=== PATIENT | female | born 1945 | race African-American/Black ===

== ENCOUNTER 2016-10-26 23:29 | Emergency (ER) | payer BC, OTHER ==
[2016-10-27 00:50] VITALS: BP 156/77; PULSE 79; TEMP 97.8; BMI 37.3
--- NOTE | 2016-10-27 02:24 | PDOC ---
History of Present Illness - General Chief Complaint: Pain Stated Complaint: RIGHT LEG PAIN Time Seen by Provider: 10/27/16 02:23 - History of Present Illness Initial Comments: 10/27/16 06:17 71 year old female with PMH of afib (on Coumadin) and ESRD (M,W,F) presenting for recent onset of bilateral lower extremity swelling with right lower extremity erythema and pain. She states that she has not had history of swelling in the past. She denies recent change in medications, cough, chest pain , nausea, vomiting, diarrhea, or constipation. She does not make urine at baseline. She recently sprained her left ankle. She has no history of PE or DVT in the past. Past History - Past Medical History Allergies/Adverse Reactions: Allergies Allergy/AdvReac Type Severity Reaction Status Date / Time Penicillins Allergy Verified 10/27/16 00:46 Home Medications: Ambulatory Orders Bacitracin - [Bacitracin Topical Ointment -] 1 applic TP QID #1 tube 11/07/14 Clindamycin [Cleocin -] 300 mg PO Q6HPO #28 capsule 11/07/14 Sulfamethoxazole/Trimethoprim [Bactrim Ds Tablet] 1 each PO BID #14 tablet 10/27 Dialysis: Yes (Mon-Wed-Fri) Other medical history: Kidney failure - Psycho/Social/Smoking Cessation Hx Anxiety: No Suicidal Ideation: No Smoking History: Never smoked Number of Cigarettes Smoked Daily: 0 Information on smoking cessation initiated: No Hx Alcohol Use: No Drug/Substance Use Hx: No Substance Use Type: None Review of Systems - Review of Systems Constitutional: No: Chills, Diaphoresis, Fever, Loss of Appetite HEENTM: No: Blurred Vision, Double Vision Respiratory: No: Cough, Orthopnea, Shortness of Breath, Wheezing Cardiac (ROS): Yes: Edema. No: Chest Pain, Irregular Heart Rate ABD/GI: No: Abdominal Distended, Constipated, Diarrhea Musculoskeletal: No: Back Pain, Gout Integumentary: Yes: Change in Color, Erythema, Lesions. No: Dryness Neurological: No: Headache, Tingling *Physical Exam - Vital Signs Last Vital Signs Temp Pulse Resp BP Pulse Ox 97.8 F 79 20 156/77 96 10/27/16 00:46 10/27/16 00:46 10/27/16 00:46 10/27/16 00:46 10/27/16 00:46 - Physical Exam General Appearance: Yes: Nourished, Appropriately Dressed. No: Apparent Distress HEENT: positive: EOMI, BRIANA, Normal ENT Inspection, Normal Voice Respiratory/Chest: positive: Lungs Clear, Normal Breath Sounds. negative: Chest Tender, Respiratory Distress, Accessory Muscle Use Cardiovascular: positive: Regular Rhythm, Regular Rate, S1, S2. negative: Edema , JVD Gastrointestinal/Abdominal: positive: Normal Bowel Sounds, Flat, Soft. negative : Tender, Organomegaly Musculoskeletal: positive: Other (Trace bilateral edema of the bilaterallower extremity with right greater than left. Right LE exhibiting some erythema and warmth. TTP over dorsum of right foot. No calf tenderness.) Extremity: positive: Normal Capillary Refill Integumentary: positive: Erythema. negative: Diaphoresis Neurologic: positive: Fully Oriented, Alert, Normal Mood/Affect ED Treatment Course - LABORATORY CBC & Chemistry Diagram: 10/27/16 03:45 10/27/16 03:45 Medical Decision Making - Medical Decision Making 71 year old female with pmh of ESRD presenting with bilateral LE swelling. this is most likely volume overlaod 2/2 ESRD. The RLE is warm and appears cellulitic. Labs returned without elevated WBC but BNP of 9K consistent with volume overload. However, lungs clear and patient not SOB. Will send home patient to obtain dialysis which will hopefully remove overall body fluid and give 7 days of bactrim DS BID to treat the cellulitis. 10/27/16 06:34 *DC/Admit/Observation/Transfer Diagnosis at time of Disposition: Cellulitis - Discharge Dispostion Disposition: HOME Condition at time of disposition: Improved Admit: No - Prescriptions Prescriptions: Sulfamethoxazole/Trimethoprim [Bactrim Ds Tablet] 1 each PO BID #14 tablet - Referrals Referrals: Malinda Guadalupe MD [Primary Care Provider] - - Patient Instructions Printed Discharge Instructions: DI for Cellulitis -- Adult Additional Instructions: You were seen for swelling of your feet. We believe that your feet are both slightly swollen because of your overall fluid level since since your kidneys don't make urine. We believe that you also have an infection of your right foot. We took an X Ray of your right foot and it did not show any fractures. Your foot swelling should go down after your dialysis session today and the right foot should feel better once you start taking your antibiotics. Please return if you have fevers, chills, nausea, or vomiting. - Attestations Physician Attestion: 10/27/16 04:44 I, Dr. Piotr Ruiz, attest that this document has been prepared under my direction and personally reviewed by me in its entirety. I further attest, that it accurately reflects all work, treatment, procedures and medical decision -making performed by me. 10/27/16 04:53
[2016-10-27] MEDS ORDERED: ACETAMINOPHEN 325 MG TABLET (FP) PO ONE (03:51)
[2016-10-27 04:01] LABS: EOSINOPHIL 5.6 % (0-4.5); MCHC 33.1 g/dl (32.0-36.0); MEAN CELL VOLUME 93.9 fl (80-96); MEAN PLT VOLUME 7.3 fl (7.5-11.1); NEUTROPHILS 63.9 % (42.8-82.8); PLATELET COUNT 462 K/MM3 (134-434); RDW 13.7 % (11.6-15.6); WHITE BLOOD COUNT 10.9 K/mm3 (4.0-10.0)
[2016-10-27 04:26] LABS: ALBUMIN 3.4 g/dl (3.4-5.0); ANION GAP 11 (8-16); BILIRUBIN,TOTAL 0.5 mg/dL (0.2-1.0); CO2 34 mmol/L (21-32); GLUCOSE,RANDOM 105 mg/dL (74-106); SGOT/AST 19 U/L (15-37); SGPT/ALT 25 U/L (12-78); TOT PROT 8.5 g/dl (6.4-8.2)
[2016-10-27 04:31] LABS: ALK PHOS 408 U/L (45-117)
[2016-10-27 04:35] LABS: CREATININE 11.5 mg/dL (0.55-1.02)
--- NOTE | 2016-10-27 04:37 | PDOC ---
Attending Attestation - Resident Resident Name: SaraNamsumayaomar - ED Attending Attestation I have performed the following: I have examined & evaluated the patient, The case was reviewed & discussed with the resident, I agree w/resident's findings & plan, Exceptions are as noted - HPI HPI: 10/27/16 04:32 71 year old female with past medical history of end-stage renal disease on dialysis, Thursday, Thursday, Fridays, history of atrial fibrillation on Coumadin presents to the emergency department for right foot redness and swelling. Patient reports that she may have hurt her ankle one week ago but had no swelling or pain at that time. Noted today that she was developing some erythema pain but no fevers. Denies trauma or injury to the area. - Physicial Exam PE: 10/27/16 04:36 GENERAL: Awake, alert, and fully oriented, in no acute distress. HEAD: No signs of trauma EYES: PERRLA, EOMI, sclera anicteric, conjunctiva clear ENT: Auricles normal inspection, hearing grossly normal, nares patent, oropharynx clear without exudates. NECK: Normal ROM, supple, no lymphadenopathy, JVD, or masses LUNGS: Breath sounds equal, clear to auscultation bilaterally. No wheezes, and no crackles HEART: Regular rate and rhythm, normal S1 and S2, no murmurs, rubs or gallops ABDOMEN: Soft, nontender, normoactive bowel sounds. No guarding, no rebound. No masses EXTREMITIES: Normal range of motion, no edema. No clubbing or cyanosis. No cords, erythema, or tenderness NEUROLOGICAL: Cranial nerves II through XII grossly intact. Normal speech, normal gait SKIN: Erythema TTP along the dorsum of right foot and 1+ pitting edema. No ankle tenderness appreciated. - Medical Decision Making 10/27/16 04:36 I suspect that the patient has cellulitis of the right foot. Will need to check labs. Adult sepsis protocol initiated. If there is no indication for sepsis or concerning laboratory findings, patient may be trialed for outpatient antibiotics. 10/27/16 04:38 CBC, BMP 10/27/16 03:45 10/27/16 03:45 CMP Sodium 136 mmol/L (136-145) 10/27/16 03:45 Potassium 5.2 mmol/L (3.5-5.1) H 10/27/16 03:45 Chloride 91 mmol/L (98-107) L 10/27/16 03:45 Carbon Dioxide 34 mmol/L (21-32) H 10/27/16 03:45 Anion Gap 11 (8-16) 10/27/16 03:45 BUN 48 mg/dL (7-18) H 10/27/16 03:45 Creatinine 11.5 mg/dL (0.55-1.02) H* 10/27/16 03:45 Creat Clearance w eGFR 3.25 (>60) 10/27/16 03:45 Random Glucose 105 mg/dL (74-106) 10/27/16 03:45 Lactic Acid 1.2 mmol/L (0.4-2.0) 10/27/16 03:45 Calcium 10.0 mg/dL (8.5-10.1) 10/27/16 03:45 Total Bilirubin 0.5 mg/dL (0.2-1.0) 10/27/16 03:45 AST 19 U/L (15-37) 10/27/16 03:45 ALT 25 U/L (12-78) 10/27/16 03:45 Alkaline Phosphatase 408 U/L (45-117) H 10/27/16 03:45 B-Natriuretic Peptide 9530.93 pg/ml (5-125) H 10/27/16 03:45 Total Protein 8.5 g/dl (6.4-8.2) H 10/27/16 03:45 Albumin 3.4 g/dl (3.4-5.0) 10/27/16 03:45 Labs reviewed. Pt has dialysis tomorrow. Xray reviewed by me, pending official read. No acute findings. Will d/c patient with bactrim and have her follow up with the PMD. Return precautions given. Pt is given instructions that if the symptoms worsen, she will need to return to the ER for admission for IV antibiotics.
[2016-10-27] MEDS ORDERED: ACETAMINOPHEN 325 MG TABLET (FP) ONE (05:19)
--- NOTE | 2016-10-27 12:32 | EKG ---
Test Reason : Blood Pressure : / mmHG Vent. Rate : 078 BPM Atrial Rate : 078 BPM P-R Int : 170 ms QRS Dur : 092 ms QT Int : 392 ms P-R-T Axes : 067 042 053 degrees QTc Int : 446 ms NORMAL SINUS RHYTHM NORMAL ECG WHEN COMPARED WITH ECG OF 20-NOV-2006 01:05, NO SIGNIFICANT CHANGE WAS FOUND Confirmed by MILAGRO NORIEGA MD ([id number]) on 10/27/2016 12:32:22 PM Referred By: Confirmed By:MILAGRO NORIEGA MD
== END 2016-10-27 05:33 | disposition home or self-care (01) ==
LOC: JER 23:29
DX: L03.116 Cellulitis of left lower limb (principal); L03.115 Cellulitis of right lower limb; I48.91 Unspecified atrial fibrillation; Z79.01 Long term (current) use of anticoagulants; N18.6 End stage renal disease; Z99.2 Dependence on renal dialysis
CPT/HCPCS: 36415; 73630-TC-RT; 80053; 83605; 83880; 85025; 93005; 93010; 99281-25

== ENCOUNTER 2017-06-20 15:54 | Inpatient (IN) | payer OTHER ==
[2017-06-20 16:04] VITALS: BMI 36.7
--- NOTE | 2017-06-20 16:58 | PDOC ---
History of Present Illness - General History Source: Patient, Family Exam Limitations: No Limitations - History of Present Illness Initial Comments: 06/20/17 19:08 Patient is a patient is a 71 year old female with a significant past medical history of ESRD (M, W, F), HTN who presents to the ED with complaints of blood in stool that began 5 days ago. As per patient's mother, patient returned from dialysis thursday afternoon, and since then has been experiencing black loose stool. Patient reports experiencing 5 episodes of black loose diarrhea since thursday prompting her to come into the ED for further evaluation. She reports taking immodium and pepto bismol for abdominal pain and diarrhea with no relief. Patient reports experiencing associated symptoms of sternal chest pain and head pain. She reports experiencing slightly unsteady gait but stating she uses a cane/walker at baseline but usually cannot walk correctly when she is sick. Patient reports experiencing intermittent episodes of weakness. Denies nausea, vomiting. Denies fevers, chills. Denies trauma to affected area. Denies contact with sick individuals, out of state travelling. Denies any other symptoms. Allergies: Penicillins Socal history: Lives with daughter. No smoking.No alcohol. No illicit drugs. Surgical history: L- AV Fistula, Abdominal Sx PMD: Dr. Malinda Guadalupe <Earnest Lujan - Last Filed: 06/20/17 19:08> <Ese Abarca - Last Filed: 06/21/17 00:13> <Camille Morris - Last Filed: 06/21/17 20:35> - General Chief Complaint: Rectal Bleed Stated Complaint: BLOOD IN STOOL, SOB Time Seen by Provider: 06/20/17 16:58 Past History <Earnest Lujan - Last Filed: 06/20/17 19:08> - Past Medical History Cardiac Disorders: Yes (a fib) COPD: No Dialysis: Yes ([facility]) HTN: Yes - Suicide/Smoking/Psychosocial Hx Smoking History: Former smoker Have you smoked in the past 12 months: No Number of Cigarettes Smoked Daily: 0 Information on smoking cessation initiated: No Hx Alcohol Use: No Drug/Substance Use Hx: No Substance Use Type: None <Ese Abarca - Last Filed: 06/21/17 00:13> <Camille Morris - Last Filed: 06/21/17 20:35> - Past Medical History Allergies/Adverse Reactions: Allergies Allergy/AdvReac Type Severity Reaction Status Date / Time Penicillins Allergy Verified 06/20/17 15:57 Home Medications: Ambulatory Orders Albuterol Sulfate Inhaler - [Ventolin HFA Inhaler -] 2 puff IH Q4H PRN 02/07/17 Cinacalcet HCl [Sensipar] 30 mg PO DAILY 02/07/17 Pantoprazole Sodium [Protonix] 40 mg PO DAILY 02/07/17 Sevelamer Carbonate [Renvela Powder Packet -] 0.8 gm PO TIDWM 02/07/17 Aspirin Coated [Ecotrin -] 81 mg PO DAILY #30 tab 02/14/17 Atorvastatin Ca [Lipitor] 40 mg PO HS tablet 02/14/17 Vitamin B Comp W-C [Nephro-Jessica -] 1 tablet PO DAILY tablet 02/14/17 Review of Systems - Review of Systems Able to Perform ROS?: Yes Comments:: 06/20/17 19:08 Constitutional - Pt denies Fever, Chills, weakness, HEENT: denies vision changes, sore throat Respiratory: Denies cough, sob, hemoptysis Cardiac: denies chest pain, palpitations, lightheadedness, leg swelling Abd/GI: +Abdominal pain. +Diarrhea. denies abd pain, nausea, vomiting, blood per rectum, melena, diarrhea : denies dysuria, frequency, discharge Musculoskeletal - denies back pain, joint swelling skin - denies bruising, erythema, rash neurological: +Head pain. +Weakness. denies, numbness, tingling, ataxia, weakness hematologic: denies anemia, easy bruising, easy bleeding <Earnest Lujan - Last Filed: 06/20/17 19:08> *Physical Exam - Vital Signs Last Vital Signs Temp Pulse Resp BP Pulse Ox 98.4 F 82 22 134/48 93 L 06/20/17 15:58 06/20/17 15:58 06/20/17 15:58 06/20/17 15:58 06/20/17 15:58 - Physical Exam Comments: 06/20/17 19:08 GENERAL: The patient is awake, alert, and fully oriented, Nontoxic - in no acute distress. HEAD: Normocephalic, atraumatic. EYES: extraocular movements intact, sclera anicteric, conjunctiva clear. ENT: Normal voice, moist mucous membranes. NECK: Normal range of motion, supple without lymphadenopathy, JVD, or masses. LUNGS: Breath sounds equal, clear to auscultation bilaterally. No wheezes, no crackles, no rales. HEART: Regular rate and rhythm, normal S1 and S2 without murmur, rub or gallop. ABDOMEN: +Large abdomen. Soft, nontender, normoactive bowel sounds. No guarding, no rebound. No masses. EXTREMITIES: Normal range of motion, no edema. No clubbing or cyanosis. No cords , erythema, or tenderness. NEUROLOGICAL: Fully Oriented, Alert, Normal Mood/Affect, Motor Strength 5/5. No facial asymmetry, Normal speech SKIN: Warm, Dry, normal turgor, no rashes or lesions noted. <Earnest Lujan - Last Filed: 06/20/17 19:08> - Vital Signs Last Vital Signs Temp Pulse Resp BP Pulse Ox 98.4 F 82 22 134/48 93 L 06/20/17 15:58 06/20/17 15:58 06/20/17 15:58 06/20/17 15:58 06/20/17 15:58 <Ese Abarca - Last Filed: 06/21/17 00:13> - Vital Signs Last Vital Signs Temp Pulse Resp BP Pulse Ox 98.1 F 82 18 185/95 99 06/20/17 21:54 06/20/17 21:54 06/20/17 21:54 06/20/17 21:54 06/20/17 21:54 <Camille Morris - Last Filed: 06/21/17 20:35> ED Treatment Course - LABORATORY CBC & Chemistry Diagram: 06/20/17 18:12 06/20/17 18:00 - ADDITIONAL ORDERS Additional order review: Laboratory Results 06/20/17 06/20/17 06/20/17 18:12 18:00 16:59 PT with INR 12.20 H INR 1.08 PTT (Actin FS) 37.1 H Sodium 135 L Potassium 4.1 Chloride 94 L Carbon Dioxide 29 Anion Gap 12 BUN 20 H Creatinine 6.2 H Creat Clearance w eGFR 6.64 Random Glucose 105 Calcium 7.9 L Total Bilirubin 0.5 AST 21 ALT 16 Alkaline Phosphatase 339 H Total Protein 8.2 Albumin 2.9 L Stool Occult Blood Positive 06/20/17 18:12 RBC 3.52 L MCV 88.1 MCHC 33.4 RDW 17.1 H D MPV 7.4 L Neutrophils % 80.1 D Lymphocytes % 8.7 D Monocytes % 8.5 Eosinophils % 2.6 Basophils % 0.1 <TaiEarnest - Last Filed: 06/20/17 19:08> - LABORATORY CBC & Chemistry Diagram: 06/20/17 18:12 06/20/17 18:00 <Ese Abarca - Last Filed: 06/21/17 00:13> - LABORATORY CBC & Chemistry Diagram: 06/21/17 07:05 06/21/17 07:05 - ADDITIONAL ORDERS Additional order review: Laboratory Results 06/20/17 06/20/17 06/20/17 18:12 18:12 18:12 WBC 10.1 H RBC 3.52 L Hgb 10.3 L Hct 31.0 L MCV 88.1 MCH 29.4 MCHC 33.4 RDW 17.1 H D Plt Count 455 H D MPV 7.4 L Neutrophils % 80.1 D Lymphocytes % 8.7 D Monocytes % 8.5 Eosinophils % 2.6 Basophils % 0.1 PT with INR 12.20 H INR 1.08 PTT (Actin FS) 37.1 H Sodium Potassium Chloride Carbon Dioxide Anion Gap BUN Creatinine Creat Clearance w eGFR Random Glucose Calcium Total Bilirubin AST ALT Alkaline Phosphatase Total Protein Albumin Stool Occult Blood Blood Type A POSITIVE Antibody Screen Negative 06/20/17 06/20/17 18:00 16:59 WBC RBC Hgb Hct MCV MCH MCHC RDW Plt Count MPV Neutrophils % Lymphocytes % Monocytes % Eosinophils % Basophils % PT with INR INR PTT (Actin FS) Sodium 135 L Potassium 4.1 Chloride 94 L Carbon Dioxide 29 Anion Gap 12 BUN 20 H Creatinine 6.2 H Creat Clearance w eGFR 6.64 Random Glucose 105 Calcium 7.9 L Total Bilirubin 0.5 AST 21 ALT 16 Alkaline Phosphatase 339 H Total Protein 8.2 Albumin 2.9 L Stool Occult Blood Positive Blood Type Antibody Screen 06/20/17 18:12 RBC 3.52 L MCV 88.1 MCHC 33.4 RDW 17.1 H D MPV 7.4 L Neutrophils % 80.1 D Lymphocytes % 8.7 D Monocytes % 8.5 Eosinophils % 2.6 Basophils % 0.1 <Camille Morris - Last Filed: 06/21/17 20:35> Medical Decision Making - Medical Decision Making 06/20/17 19:28 I, Dr. Ese Abarca, attest that the scribes documentation that appears above has been prepared under my direction and personally reviewed by me. I confirmed that the note above accurately reflects all work, treatment, procedures, and medical decision-making performed by me. Pt's labs reviewed, case endorsed to Dr. Morris to f/u sono and evaluate for final disposition , pt with black stools x 24 hrs and ruq abdominal pain with history of possible gallbladder cancer as per pt. Pt is guiac positive and c/o chest discomfort may need admission 06/21/17 00:14 <Ese Abarca - Last Filed: 06/21/17 00:13> - Medical Decision Making 06/20/17 22:13 I received pt on signout. Sono is back: Patient Name: DIONTE HEADLEY THIS IS A PRELIMINARY REPORT FROM [facility] EXAM: Right upper quadrant ultrasound IMAGES: 50 DATE OF EXAM: 2017-06-20 20:20:58 REASON FOR EXAM: Right upper quadrant pain COMPARISON: None. FINDINGS: No sonographic evidence for cholelithiasis or acute cholecystitis. No evidence of biliary obstruction. Pancreas mostly obscured by bowel gas. Hepatomegaly. The right kidney is atrophic and echogenic suggestive of chronic medical renal disease. No hydronephrosis. THIS DOCUMENT HAS BEEN ELECTRONICALLY SIGNED 06/21/17 20:34 Pt was admitted to Dr. Buchanan, who is covering for Dr. Laci Guadalupe. Consults placed for cards, GI and nephrology <Camille Morris - Last Filed: 06/21/17 20:35> *DC/Admit/Observation/Transfer - Attestations Scribe Attestion: 06/20/17 19:09 Documentation prepared by Earnest Lujan, acting as medical transcription radiology for Ese Abarca MD/DO. <Earnest Lujan - Last Filed: 06/20/17 19:08> <Ese Abarca - Last Filed: 06/21/17 00:13> - Discharge Dispostion Admit: Yes <Camille Morris - Last Filed: 06/21/17 20:35> Diagnosis at time of Disposition: End stage chronic kidney disease, Lower GI bleed, Dyspnea, Weakness, Abdominal pain - Discharge Dispostion Condition at time of disposition: Guarded
[2017-06-20 18:14] LABS: BASO % 0.1 % (0-2.0); EOS % 2.6 % (0-4.5); HEMOGLOBIN 10.3 GM/dL (10.7-15.3); LYMPH % 8.7 % (8-40); MCH 29.4 pg (25.7-33.7); MCHC 33.4 g/dl (32.0-36.0); MEAN CELL VOLUME 88.1 fl (80-96); MEAN PLT VOLUME 7.4 fl (7.5-11.1); MONO % 8.5 % (3.8-10.2); NEUT % 80.1 % (42.8-82.8); PLATELET COUNT 455 K/MM3 (134-434); RBC 3.52 M/mm3 (3.60-5.2); RDW 17.1 % (11.6-15.6); WHITE BLOOD COUNT 10.1 K/mm3 (4.0-10.0)
[2017-06-20 18:33] LABS: INR 1.08 (0.82-1.09); PROTHROMBIN TIME (PATIENT) 12.2 SEC (9.98-11.88)
[2017-06-20 18:36] LABS: ACTIVATED PTT 37.1 SECONDS (26.9-34.4)
[2017-06-20 18:45] LABS: ALBUMIN 2.9 g/dl (3.4-5.0); ANION GAP 12 (8-16); BILIRUBIN,TOTAL 0.5 mg/dL (0.2-1.0); BLOOD UREA NITROGEN 20 mg/dL (7-18); CALCIUM 7.9 mg/dL (8.5-10.1); CHLORIDE 94 mmol/L (98-107); CO2 29 mmol/L (21-32); CREATININE 6.2 mg/dL (0.55-1.02); GLUCOSE,RANDOM 105 mg/dL (74-106); SGPT/ALT 16 U/L (12-78); SODIUM 135 mmol/L (136-145); TOT PROT 8.2 g/dl (6.4-8.2)
[2017-06-20 18:46] LABS: ALK PHOS 339 U/L (45-117)
[2017-06-20 18:49] LABS: POTASSIUM 4.1 mmol/L (3.5-5.1); SGOT/AST 21 U/L (15-37)
[2017-06-20 23:10] LABS: AMYLASE 81 U/L (25-115); LIPASE 56 U/L (73-393)
[2017-06-20] MEDS ORDERED: ACETAMINOPHEN 1000 MG/100 ML VIAL (NON FORMULARY) IVPB ONE (23:20)
[2017-06-20] MEDS ORDERED: ACETAMINOPHEN INJECTION 100 ML IVPB ONE (23:48)
[2017-06-21 07:31] LABS: HEMOGLOBIN 9.3 GM/dL (10.7-15.3); MCHC 33.1 g/dl (32.0-36.0); MEAN CELL VOLUME 87.6 fl (80-96); MEAN PLT VOLUME 7.4 fl (7.5-11.1); PLATELET COUNT 411 K/MM3 (134-434); WHITE BLOOD COUNT 11.1 K/mm3 (4.0-10.0)
[2017-06-21 07:54] LABS: AMYLASE 59 U/L (25-115); ANION GAP 15 (8-16); BLOOD UREA NITROGEN 24 mg/dL (7-18); CALCIUM 7.7 mg/dL (8.5-10.1); CHLORIDE 98 mmol/L (98-107); CO2 24 mmol/L (21-32); CREATININE 7.3 mg/dL (0.55-1.02); GLUCOSE,RANDOM 89 mg/dL (74-106); LIPASE 45 U/L (73-393); MAGNESIUM 2.6 mg/dL (1.8-2.4); PHOSPHOROUS 3.9 mg/dL (2.5-4.9); POTASSIUM 4.1 mmol/L (3.5-5.1); SODIUM 137 mmol/L (136-145)
[2017-06-21] MEDS: SEVELAMER CARBONATE 800 MG TAB (FP) PO SCH ×3 (09:33→17:14)
[2017-06-21] MEDS: CINACALCET HCL 30 MG TAB (FP) PO SCH (09:33)
--- NOTE | 2017-06-21 15:07 | HP ---
Admitting History and Physical - Admission History of Present Illness: Patient is a patient is a 71 year old female with a significant past medical history of ESRD (M, W, F), HTN who presents to the ED with complaints of blood in stool that began 5 days ago. As per patient's mother, patient returned from dialysis thursday afternoon, and since then has been experiencing black loose stool. Patient reports experiencing 5 episodes of black loose diarrhea since thursday prompting her to come into the ED for further evaluation. She reports taking immodium and pepto bismol for abdominal pain and diarrhea with no relief. Patient reports experiencing associated symptoms of sternal chest pain and head pain. She reports experiencing slightly unsteady gait but stating she uses a cane/walker at baseline but usually cannot walk correctly when she is sick. Patient reports experiencing intermittent episodes of weakness. Denies nausea, vomiting. Denies fevers, chills. Denies trauma to affected area. Denies contact with sick individuals, out of state travelling. Denies any other symptoms. History Source: Patient, Medical Record Limitations to Obtaining History: Poor Historian - Past Medical History Cardiovascular: Yes: AFIB, HTN Renal/: Yes: Renal Failure (CKD on HD) Reproductive: Yes: Postmenopausal ...: No - Past Surgical History Past Surgical History: Yes: AV Fistula/Graft (left UE), Breast Biopsy (benign) - Smoking History Smoking history: Former smoker Have you smoked in the past 12 months: No Aproximately how many cigarettes per day: 0 - Alcohol/Substance Use Hx Alcohol Use: No History of Substance Use: reports: None - Social History ADL: Independent History of Recent Travel: No Home Medications - Allergies Allergies/Adverse Reactions: Allergies Allergy/AdvReac Type Severity Reaction Status Date / Time Penicillins Allergy Verified 06/20/17 15:57 - Home Medications Home Medications: Ambulatory Orders Albuterol Sulfate Inhaler - [Ventolin HFA Inhaler -] 2 puff IH Q4H PRN 02/07/17 Cinacalcet HCl [Sensipar] 30 mg PO DAILY 02/07/17 Pantoprazole Sodium [Protonix] 40 mg PO DAILY 02/07/17 Sevelamer Carbonate [Renvela Powder Packet -] 0.8 gm PO TIDWM 02/07/17 Aspirin Coated [Ecotrin -] 81 mg PO DAILY #30 tab 02/14/17 Atorvastatin Ca [Lipitor] 40 mg PO HS tablet 02/14/17 Vitamin B Comp W-C [Nephro-Jessica -] 1 tablet PO DAILY tablet 02/14/17 Family Disease History - Family Disease History Family Disease History: Other: Father (: 55: [place]), Mother (: 76: [place]), Brother (2 alive), Daughter (alive) Review of Systems - Review of Systems Constitutional: reports: Weakness. denies: Chills, Fever, Night Sweats Eyes: reports: No Symptoms HENT: reports: No Symptoms Neck: reports: No Symptoms Cardiovascular: reports: Palpitations, Shortness of Breath Respiratory: reports: SOB on Exertion Gastrointestinal: reports: Abdominal Pain, Diarrhea, Rectal Bleeding Genitourinary: reports: No Symptoms Breasts: reports: No Symptoms Reported Musculoskeletal: reports: No Symptoms Integumentary: reports: No Symptoms Neurological: reports: Pre-Existing Deficit, Weakness Hematology/Lymphatic: reports: No Symptoms Physical Examination Vital Signs: Vital Signs Temperature 98.9 F 06/21/17 11:24 Pulse Rate 78 06/21/17 11:24 Respiratory Rate 18 06/21/17 11:24 Blood Pressure 163/76 06/21/17 11:24 O2 Sat by Pulse Oximetry (%) 95 06/21/17 09:00 Constitutional: Yes: No Distress, Calm, Obese Eyes: Yes: Conjunctiva Clear, EOM Intact HENT: Yes: Atraumatic, Normocephalic Neck: Yes: Supple, Trachea Midline Cardiovascular: Yes: Pulse Irregular, Murmur Respiratory: Yes: CTA Bilaterally Gastrointestinal: Yes: Soft, Abdomen, Obese ...Rectal Exam: Yes: Deferred Renal/: Yes: Anuria Musculoskeletal: Yes: WNL Edema: No Peripheral Pulses WNL: Yes Neurological: Yes: Alert, Oriented Psychiatric: Yes: Alert, Oriented Labs: CBC, BMP 06/21/17 07:05 06/21/17 07:05 Problem List - Problems (1) Abdominal pain Code(s): R10.9 - UNSPECIFIED ABDOMINAL PAIN Qualifiers: (2) Dyspnea Code(s): R06.00 - DYSPNEA, UNSPECIFIED (3) End stage chronic kidney disease Code(s): N18.6 - END STAGE RENAL DISEASE; Z99.2 - DEPENDENCE ON RENAL DIALYSIS (4) Lower GI bleed Code(s): K92.2 - GASTROINTESTINAL HEMORRHAGE, UNSPECIFIED (5) Weakness Code(s): R53.1 - WEAKNESS (6) Afib Code(s): I48.91 - UNSPECIFIED ATRIAL FIBRILLATION (7) Chest pain Code(s): R07.9 - CHEST PAIN, UNSPECIFIED Qualifiers: Chest pain type: unspecified Qualified Code(s): R07.9 - Chest pain, unspecified (8) HTN (hypertension) Code(s): I10 - ESSENTIAL (PRIMARY) HYPERTENSION
[2017-06-21] MEDS: amLODIPine BESYLATE 5 MG TABLET (FP) PO SCH (17:14)
--- NOTE | 2017-06-21 18:38 | CONSULT ---
Consult Consult Specialty:: Nephrology Reason for Consultation:: ESRD - History of Present Illness Chief Complaint: abdominal pain History of Present Illness: Pt is a 71 year old female with pmhx of ESRD and HTN who presents to the ER with abdominal pain. She also complains of blood in the stool. She denies shortness of breath. She denies chest pain or palpitations. She denies fevers or chills. I was called to evaluate her as she is on HD. Her last dialysis session was on Thursday. - History Source History Provided By: Patient, Medical Record - Past Medical History Cardio/Vascular: Yes: AFIB, HTN Renal/: Yes: Renal Failure (CKD on HD), Hemodialysis ...: No - Past Surgical History Past Surgical History: Yes: AV Fistula/Graft (left UE), Breast Biopsy (benign) - Alcohol/Substance Use Hx Alcohol Use: No History of Substance Use: reports: None - Smoking History Smoking history: Former smoker Have you smoked in the past 12 months: No Aproximately how many cigarettes per day: 0 - Social History Usual Living Arrangement: Alone ADL: Independent History of Recent Travel: No Home Medications - Allergies Allergies/Adverse Reactions: Allergies Allergy/AdvReac Type Severity Reaction Status Date / Time Penicillins Allergy Verified 06/20/17 15:57 - Home Medications Home Medications: Ambulatory Orders Albuterol Sulfate Inhaler - [Ventolin HFA Inhaler -] 2 puff IH Q4H PRN 02/07/17 Cinacalcet HCl [Sensipar] 30 mg PO DAILY 02/07/17 Pantoprazole Sodium [Protonix] 40 mg PO DAILY 02/07/17 Sevelamer Carbonate [Renvela Powder Packet -] 0.8 gm PO TIDWM 02/07/17 Aspirin Coated [Ecotrin -] 81 mg PO DAILY #30 tab 02/14/17 Atorvastatin Ca [Lipitor] 40 mg PO HS tablet 02/14/17 Vitamin B Comp W-C [Nephro-Jessica -] 1 tablet PO DAILY tablet 02/14/17 Family Disease History - Family Disease History Family Disease History: Other: Father (: 55: [place]), Mother (: 76: [place]), Brother (2 alive), Daughter (alive) Review of Systems - Review of Systems Constitutional: reports: Loss of Appetite. denies: Chills, Fever Eyes: reports: No Symptoms HENT: reports: No Symptoms Neck: reports: No Symptoms Cardiovascular: reports: No Symptoms Respiratory: reports: No Symptoms Gastrointestinal: reports: Abdominal Pain, Rectal Bleeding Genitourinary: reports: No Symptoms Musculoskeletal: reports: No Symptoms Integumentary: reports: No Symptoms Neurological: reports: No Symptoms Endocrine: reports: No Symptoms Hematology/Lymphatic: reports: No Symptoms Psychiatric: reports: No Symptoms Physical Exam Vital Signs: Vital Signs Temperature 98.4 F 06/21/17 14:41 Pulse Rate 72 06/21/17 14:41 Respiratory Rate 18 06/21/17 14:41 Blood Pressure 156/73 06/21/17 14:41 O2 Sat by Pulse Oximetry (%) 95 06/21/17 09:00 Constitutional: Yes: Calm Eyes: Yes: Conjunctiva Clear HENT: Yes: Atraumatic Neck: Yes: Supple Cardiovascular: Yes: S1, S2 Respiratory: Yes: CTA Bilaterally Gastrointestinal: Yes: Soft, Tenderness Renal/: Yes: WNL Musculoskeletal: Yes: WNL Extremities: Yes: WNL Neurological: Yes: Oriented Psychiatric: Yes: Oriented Labs: CBC, BMP 06/21/17 07:05 06/21/17 07:05 Laboratory Tests 06/20/17 06/20/17 06/21/17 18:00 18:12 07:05 Hgb 10.3 L 9.3 L Sodium 135 L Potassium 4.1 Chloride Carbon Dioxide Anion Gap BUN 20 H Creatinine 6.2 H 06/21/17 07:05 Hgb Sodium 137 Potassium 4.1 Chloride 98 Carbon Dioxide 24 Anion Gap 15 BUN Creatinine 7.3 H Imaging - Results Chest X-ray: Report Reviewed Ultrasound: Report Reviewed Problem List - Problems (1) Abdominal pain Code(s): R10.9 - UNSPECIFIED ABDOMINAL PAIN Qualifiers: (2) End stage chronic kidney disease Code(s): N18.6 - END STAGE RENAL DISEASE; Z99.2 - DEPENDENCE ON RENAL DIALYSIS (3) Afib Code(s): I48.91 - UNSPECIFIED ATRIAL FIBRILLATION Assessment/Plan Current Medications Generic Name Dose Route Start Last Admin Trade Name Freq PRN Reason Stop Dose Admin Amlodipine Besylate 5 mg 06/21/17 15:15 06/21/17 17:14 Norvasc - PO 5 mg DAILY ABDELRAHMAN Administration Atorvastatin Calcium 40 mg 06/21/17 22:00 Lipitor - PO HS ABDELRAHMAN Cinacalcet 30 mg 06/21/17 10:00 06/21/17 09:33 Sensipar - PO 30 mg DAILY ABDELRAHMAN Administration Pantoprazole Sodium 40 mg 06/21/17 19:45 06/21/17 19:27 Protonix Iv IVPUSH 40 mg DAILY ABDELRAHMAN Administration Sevelamer Carbonate 800 mg 06/21/17 08:00 06/21/17 17:14 Renvela - PO 800 mg TIDCM ABDELRAHMAN Administration Impression 1. ESRD 2. a-fib 3. abdominal pain 4. HTN 5. hyperlipidemia Plan - HD in am - GI onput appreciated - cont protonix - monitor BP - will follow
--- NOTE | 2017-06-21 18:40 | PN ---
Progress Note (short form) - Note Progress Note: GI CONSULTATION: PLEASE SEE COMPLETE DICTATION IN BRIEF: PT KNOWN TO DR HIGH HAD GI W/U 02/2017 WITH SEVERE DISTAL ESOHAGEAL DISEASE/ LARGE HH WITH EROSIONS AND WAS TO HAVE F/U EGD AFTER 8 WEEKS OF PPI RX PT WAS REFERRED TO [facility], BUT IT APPEARS THAT SHE DID NOT PURSUE W/U THERE NOW ADMIT FROM HD WITH 5 DAYS OF DARK STOOLS/ G++ ON EXAM AND DROP IN HGB TO 9.3 NO OTHER GI C/O ON DAILY ASA/ AFIB HEMODYNE STABLE RECC: EMPIRIC PPI / CLEARS PO/ F/U H/H/ HOLD NSAIDS F/U EGD PER DR HIGH WILL KEEP NPO AT [facility] IN CASE CAN BE DONE TOMORROW--UNCERTAIN HER TIMING OF HD THANKS, SANDY ESTEVEZ
[2017-06-21] MEDS: PANTOPRAZOLE SODIUM 40 MG VIAL IVPUSH SCH (19:27)
--- NOTE | 2017-06-21 20:00 | CONS ---
DATE OF CONSULTATION: 06/21/2017 I was asked by Dr. Buchanan to evaluate the patient for GI bleeding. The patient is known to our group. It appears she has been seen most recently, it looks, according to the computer system, by Dr. Armstrong back in February of 2017. The patient, at that time, it appears on February 07, 2017, was admitted to the hospital for abdominal pain and chest pain. At that time, she was noted to have end-stage renal disease, on dialysis, as well as atrial fibrillation and hypertension. The patient reported to Dr. Armstrong that she had colonoscopy sometime in the past but not certain all the details. At that time, her hemoglobin was 11.9, her hematocrit was 34, and basically it was his impression that she had persistent midabdominal pain and a history of peripheral vascular disease, atrial fibrillation. He had recommended a CTA of the abdomen at that time. Now, in review of the records, the patient is a very poor informant and cannot elicit her medical history with accuracy. 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 The patient, during that hospitalization, it appears underwent an upper endoscopy. She was noted to have a large hiatal hernia of 5 cm with erosion, inflammation, coffee-ground material, and distal esophagitis as well as gastritis. Dr. Armstrong had recommended 8 weeks of treatment with proton pump inhibition and follow up endoscopy, but it does not appear that she has been seen since March of 2014. She was supposed to see a hepatobiliary surgeon regarding gallbladder findings. She was referred to Dr. Lubin at [facility], and she was supposed to follow up with Dr. Kath Chung for continued GI care, but it is unclear that the patient did that. In a progress note of March 26, 2017, Dr. Armstrong recommended that the patient follow up at [facility] at that time. Apparently she now comes in to [facility] on June 20 complaining of a few days of dark bowel movement that became black. Initially she started having loose watt bowel movements about a week ago, and then for the past couple of days, she has been passing dark black bowel movements and the patient had 5 episodes of black stool since Thursday, which prompted her to come to the emergency room. She had been taking Imodium and Pepto-Bismol for abdominal pain and diarrhea with no relief, and she was having some shortness of breath, chest pain, and head pain, as well as an unsteady gait, and was admitted for further observation and treatment. The patient has a history, as noted, of end-stage renal disease, on dialysis, a left AV fistula. She is noted to be allergic to PENICILLIN. The patient does not smoke or drink at the present time. On admission, she was noted to have a hemoglobin of 10.3 and hematocrit of 31. The patient is not an accurate historian and the remainder of the medical history is really as per the chart. At the present time, she denies any abdominal complaints of nausea, vomiting, abdominal pain. She is not having any rectal bleeding that is bright red, it is just dark stools. She does not have dizziness, diaphoresis, or significant loss of appetite. Currently her medications that she came in on are Ventolin, Sensipar, Protonix, Renvela, Ecotrin, Lipitor, and Nephro-Jessica. Currently in the hospital as an inpatient, she has been receiving Norvasc, Lipitor, Sensipar, and Renvela. Her vital signs reveal a temperature of 98, a blood pressure 150/70, and a heart rate of 72. On exam, she is an overweight woman in no distress, middle-aged in appearance. Sclerae are anicteric. Her neck is supple. Her abdomen is obese but quite soft. There is no tenderness to deep palpation. There are no masses, rebound, or guarding. Rectal exam reveals the presence of stool that is brownish-arthur and strongly guaiac positive. It is not lupillo melena and it is not maroon in color. Her laboratory data is notable in that her hemoglobin has dropped from 10.3 to 9.3 with a white count of 11 and 411,000 platelets. Her chemistries reveal a BUN of 24, a creatinine of 7.3. The electrolytes are otherwise normal. Her albumin was 2.9 on admission. She has not had any other GI studies except for an ultrasound of the right upper quadrant that revealed no evidence of gallstones or cholecystitis. She has a borderline in size common bile duct and an atrophic right kidney. It is my impression that the patient is a 71-year-old woman with multiple medical problems, as noted, who is a very poor informant, who comes in from dialysis with several days of what appears to be dark stools. She is strongly guaiac positive. Her hemoglobin has dropped slightly from her baseline and she has known history of a large hiatal hernia with erosion and distal esophagitis. She was to be on a proton pump inhibitor and have a re-look upper endoscopy in May, which it appears she has failed to do such. So at the present time she is hemodynamically stable, she has no evidence of active or hemodynamically significant bleeding. I would recommend putting her empirically on a proton pump inhibitor and Dr. Armstrong can follow up with her and determine if he wishes to now pursue a repeat diagnostic upper endoscopy. We will continue to be available to aid in the management of this patient. Dr. Armstrong will resume care for the patient on June 22. AYLIN DELGADO M.D. [id number]
--- NOTE | 2017-06-21 20:05 | EKG ---
Test Reason : Blood Pressure : / mmHG Vent. Rate : 077 BPM Atrial Rate : 077 BPM P-R Int : 160 ms QRS Dur : 082 ms QT Int : 410 ms P-R-T Axes : 081 057 018 degrees QTc Int : 463 ms SINUS RHYTHM WITH PREMATURE ATRIAL COMPLEXES NONSPECIFIC T WAVE ABNORMALITY WHEN COMPARED WITH ECG OF 07-FEB-2017 08:57, PREMATURE ATRIAL COMPLEXES ARE NOW PRESENT Confirmed by HARI ESTEVEZ, MILAGRO ([id number]) on 06/21/2017 8:05:23 PM Referred By: Confirmed By:MILAGRO NORIEGA MD
[2017-06-21] MEDS: ATORVASTATIN CA 40 MG TABLET (FP) PO SCH (21:37)
[2017-06-22 07:18] LABS: HEMATOCRIT 28.4 % (32.4-45.2); HEMOGLOBIN 9.5 GM/dL (10.7-15.3); MCH 29.3 pg (25.7-33.7); MCHC 33.4 g/dl (32.0-36.0); MEAN CELL VOLUME 87.8 fl (80-96); MEAN PLT VOLUME 7.5 fl (7.5-11.1); PLATELET COUNT 447 K/MM3 (134-434); RBC 3.24 M/mm3 (3.60-5.2); RDW 16.4 % (11.6-15.6); WHITE BLOOD COUNT 13.7 K/mm3 (4.0-10.0)
[2017-06-22] MEDS: SEVELAMER CARBONATE 800 MG TAB (FP) PO SCH ×3 (08:04→18:09)
[2017-06-22 08:06] LABS: SERUM IRON SATURATION 12 % (15-55); TOTAL IRON BINDING CAPACITY 139 ug/dL (250-450); UIBC 123 ug/dL (118-369)
[2017-06-22 08:36] LABS: ALBUMIN 2.4 g/dl (3.4-5.0); ANION GAP 16 (8-16); BLOOD UREA NITROGEN 38 mg/dL (7-18); CALCIUM 7.4 mg/dL (8.5-10.1); CHLORIDE 96 mmol/L (98-107); CO2 23 mmol/L (21-32); GLUCOSE,RANDOM 78 mg/dL (74-106); POTASSIUM 4.4 mmol/L (3.5-5.1); SODIUM 135 mmol/L (136-145)
[2017-06-22 08:48] LABS: ALK PHOS 276 U/L (45-117); BILIRUBIN,TOTAL 0.9 mg/dL (0.2-1.0); SGOT/AST 10 U/L (15-37); SGPT/ALT 11 U/L (12-78)
[2017-06-22] MEDS ORDERED: EPOETIN ALFA 3,000 UNIT, EPOETIN ALFA 2,000 UNIT IVPUSH ONE (09:00)
[2017-06-22 09:04] LABS: CREATININE 9.6 mg/dL (0.55-1.02)
--- NOTE | 2017-06-22 10:23 | PN ---
GI Progress Note Subjective: Patient currently in hemodialysis. Daughter was present No acute events Ms. Reynoso complains of right sided chest pain. She states that her stool became black after taking pepto bismol for diarrhea as an outpatient. She apparently did follow-up with Dr. Barragan at [facility] re: previous gallbladder findings and she has been following up with Dr. Chung, blind aide at [address] [place] [address]. She was unsure of the specifics of the visits with her and explained that she has a follow-up appointment with Dr. Barragan later this month. - Objective Vital Signs: Vital Signs Temperature 98.2 F 06/22/17 06:55 Pulse Rate 73 06/22/17 10:00 Respiratory Rate 18 06/22/17 10:00 Blood Pressure 166/70 06/22/17 10:00 O2 Sat by Pulse Oximetry (%) 95 06/21/17 21:00 Constitutional: Calm Cardiovascular: Yes: Regular Rate and Rhythm. No: Murmur Respiratory: Yes: CTA Bilaterally Gastrointestinal Inspection: No: Distention ...Auscultate: Yes: Normoactive Bowel Sounds ...Palpate: No: Hepatomegaly, Splenomegaly, Tenderness ...Percussion: No: Tympanitic Edema: No (No LE edema) Labs: CBC, BMP 06/22/17 06:35 06/22/17 07:00 INR, PTT INR 1.08 (0.82-1.09) 06/20/17 18:12 Problem List - Problems (1) Stool guaiac positive Assessment/Plan: Patient describes dark bowel movements however took pepto bismol as well Discussed EGD for reevaluation of previous EGD findings of esophagitis and to exclude alternate source of bleeding. Discussed potential risks of the procedure like but not limited to bleeding, perforation requiring surgery to repair, infection, sedation medication effects all of which could be life threatening. has agreed to the procedure. Following upper endoscopy, possible colonoscopy if unrevealing. Code(s): R19.5 - OTHER FECAL ABNORMALITIES
[2017-06-22] MEDS: ACETAMINOPHEN 325 MG TABLET (FP) PO PRN ×2 (12:02→22:32)
[2017-06-22] MEDS: CINACALCET HCL 30 MG TAB (FP) PO SCH (12:04)
[2017-06-22] MEDS: amLODIPine BESYLATE 5 MG TABLET (FP) PO SCH (12:05)
[2017-06-22] MEDS: PANTOPRAZOLE SODIUM 40 MG VIAL IVPUSH SCH (12:06)
--- NOTE | 2017-06-22 15:51 | CON.CARD ---
Cardiology Consult (text) - Consultation Consultation Note: CC: pre-op clearance 71 yo with h/o afib previously (off ac due to prior gib), cad s/p pci 10 years ago, diastolic chf, htn, ESRD on HD (M, W, F) and h/o esophagitis who p/w recurrent GIB --> plan for endoscopy. Thursday afternoon, + black loose stool. 5 subsequent recurrent episodes. + abdominal pain. + h/a. Endorsed sternal or right sided cp to other MD's here, but currently denies. Can walk up 4 steps and 1/2 block before having to stop for dyspnea, stable symptoms. No recent decrease in functional status or cp with exertion. Does not make urine. No orthopnea, pnd, le edema, palps, dizziness. Denies nausea, vomiting. f/c/s, rashes, cough, congestion. cards: Dr. Farrell pmhx/pshx: per hpi, AV Fistula/Graft (left UE), Breast Biopsy (benign) social hx: Former smoker fam hx: no premature cad ros: per hpi Ambulatory Orders Albuterol Sulfate Inhaler - [Ventolin HFA Inhaler -] 2 puff IH Q4H PRN 02/07/17 Cinacalcet HCl [Sensipar] 30 mg PO DAILY 02/07/17 Pantoprazole Sodium [Protonix] 40 mg PO DAILY 02/07/17 Sevelamer Carbonate [Renvela Powder Packet -] 0.8 gm PO TIDWM 02/07/17 Aspirin Coated [Ecotrin -] 81 mg PO DAILY #30 tab 02/14/17 Atorvastatin Ca [Lipitor] 40 mg PO HS tablet 02/14/17 Vitamin B Comp W-C [Nephro-Jessica -] 1 tablet PO DAILY tablet 02/14/17 Current Medications Acetaminophen (Tylenol -) 650 mg PO Q4H PRN PRN Reason: PAIN Last Admin: 06/22/17 12:02 Dose: 650 mg Amlodipine Besylate (Norvasc -) 5 mg PO DAILY [facility] Last Admin: 06/22/17 12:05 Dose: 5 mg Atorvastatin Calcium (Lipitor -) 40 mg PO HS [facility] Last Admin: 06/21/17 21:37 Dose: 40 mg Cinacalcet (Sensipar -) 30 mg PO DAILY [facility] Last Admin: 06/22/17 12:04 Dose: 30 mg Pantoprazole Sodium (Protonix -) 40 mg PO DAILY [facility] Sevelamer Carbonate (Renvela -) 800 mg PO TIDCM ABDELRAHMAN Last Admin: 06/22/17 12:04 Dose: 800 mg Vital Signs - 24 hr 06/21/17 06/21/17 06/21/17 19:00 21:00 23:00 Temperature 99.1 F Pulse Rate 74 76 Respiratory 18 18 20 Rate Blood Pressure 140/70 140/100 O2 Sat by Pulse 95 Oximetry (%) 06/22/17 06/22/17 06/22/17 06:00 06:55 07:00 Temperature 99.0 F 98.2 F Pulse Rate 71 73 71 Respiratory 20 18 18 Rate Blood Pressure 164/75 150/73 140/96 O2 Sat by Pulse Oximetry (%) 06/22/17 06/22/17 06/22/17 07:30 08:00 08:30 Temperature Pulse Rate 72 72 76 Respiratory 18 18 18 Rate Blood Pressure 163/75 154/68 177/76 O2 Sat by Pulse Oximetry (%) 06/22/17 06/22/17 06/22/17 09:00 09:30 10:00 Temperature Pulse Rate 76 72 73 Respiratory 18 18 18 Rate Blood Pressure 178/66 138/60 166/70 O2 Sat by Pulse 95 Oximetry (%) 06/22/17 06/22/17 06/22/17 10:30 10:45 10:50 Temperature Pulse Rate 72 69 69 Respiratory 18 18 18 Rate Blood Pressure 160/77 157/88 156/90 O2 Sat by Pulse Oximetry (%) 06/22/17 06/22/17 06/22/17 11:00 13:53 14:56 Temperature 98.9 F 99.7 F H 98.6 F Pulse Rate 77 68 69 Respiratory 19 18 18 Rate Blood Pressure 134/59 141/54 O2 Sat by Pulse Oximetry (%) Intake & Output 06/20/17 06/21/17 06/22/17 06/23/17 06:59 07:59 07:59 07:59 Intake Total 500 100 Output Total 0 Balance 500 100 Weight 205 lb 1.6 oz nad, calm jvd tds ? borderline elevated. neck supple trace bibasilar rales, nl effort rrr nl s1, s2 no 2/6 sys murmur at sternal usb and lsb + bs soft nt nd, obese. no hsm diminished dp/pt no e/c/c aaox3 no jaundice, diaphoresis. CBC, BMP 06/22/17 06:35 06/22/17 07:00 Laboratory Tests 06/21/17 06/22/17 07:05 07:00 Magnesium 2.6 H Total Bilirubin 0.9 D AST 10 L ALT 11 L Alkaline Phosphatase 276 H Albumin 2.4 L ekg: poor baseline, likely sinus rhythm with pac. non-specific t wave abnormalities. (poor baseline - unable to compare t wave morphology to priors) echo 01/2017: 1+ concentric lvh. nl lv/rv size/fn mod lae. 1+ ar. 1+ mac. 1 + mr. rvsp 30-40. cxr images and report reviewed: new congestive changes, but by my review appears similar to priors. abd u/s report reviewed: no ascites, see emr for details. Assessment/Plan 71 yo with h/o afib previously (off ac due to prior gib), cad s/p pci 10 years ago, diastolic chf, htn, ESRD on HD (M, W, F) and h/o esophagitis who p/w recurrent GIB --> plan for endoscopy. Pre-op clearance - Based on RCRI and poor functional status, patient has high risk of sobia- operative complications. Management of sobia-operative volume status per renal/ HD. Patient counseled on risk. - for endoscopy 06/23 afib - per report patient had been taken off AC due to anemia/GIB. had been on asa. If felt that asa therapy should be discontinued --> reasonable to d/c from perspective of afib/stroke prevention, since no definitive evidence that it will significantly decrease risk of stroke. (See below regarding risk/benefit of asa therapy from perspective of CAD) - currently rate controlled off av suha blockade. - mgm't of lytes per renal. cad s/p remote pci (10 years ago)/hl - has been on ASA - currently holding in light of GIB. Will d/w GI regarding risk/benefit of continuing after results of endoscopy. - ekg without ischemic changes. currently free of anginal symptoms. con't statin and norvasc. diastolic chf - cxr reports new congestive changes, but by my review appears similar to priors. Weight here is lower than prior weights. Low suspicion for volume overload. - volume status per renal. monitor weights. htn - bline increased initially on norvasc 5 mg, trending down. con't to monitor for need to adjust regimen. GIB - eval/mgm't per pmd/gi.
--- NOTE | 2017-06-22 16:53 | PN ---
Progress Note (short form) - Note Progress Note: seen andexamined patient in dialysis no events overnight Vital Signs Period Temp Pulse Resp BP Sys/Casiano Pulse Ox Last 24 Hr 98.2 F-99.7 F 68-77 18-20 134-178/54-100 95-95 lungs clear heart s1/S2- reproducible ant chest pain abd soft no guarding ext bruit left UE no edema CBC, BMP 06/22/17 06:35 06/22/17 07:00 having HD CBCD WBC 13.7 K/mm3 (4.0-10.0) H 06/22/17 06:35 RBC 3.24 M/mm3 (3.60-5.2) L 06/22/17 06:35 Hgb 9.5 GM/dL (10.7-15.3) L 06/22/17 06:35 Hct 28.4 % (32.4-45.2) L 06/22/17 06:35 MCV 87.8 fl (80-96) 06/22/17 06:35 MCHC 33.4 g/dl (32.0-36.0) 06/22/17 06:35 RDW 16.4 % (11.6-15.6) H 06/22/17 06:35 Plt Count 447 K/MM3 (134-434) H 06/22/17 06:35 MPV 7.5 fl (7.5-11.1) 06/22/17 06:35 CMP Sodium 135 mmol/L (136-145) L 06/22/17 07:00 Potassium 4.4 mmol/L (3.5-5.1) 06/22/17 07:00 Chloride 96 mmol/L (98-107) L 06/22/17 07:00 Carbon Dioxide 23 mmol/L (21-32) 06/22/17 07:00 Anion Gap 16 (8-16) 06/22/17 07:00 BUN 38 mg/dL (7-18) H 06/22/17 07:00 Creatinine 9.6 mg/dL (0.55-1.02) H* 06/22/17 07:00 Creat Clearance w eGFR 4.01 (>60) 06/22/17 07:00 Calcium 7.4 mg/dL (8.5-10.1) L 06/22/17 07:00 Total Bilirubin 0.9 mg/dL (0.2-1.0) D 06/22/17 07:00 AST 10 U/L (15-37) L 06/22/17 07:00 ALT 11 U/L (12-78) L 06/22/17 07:00 Alkaline Phosphatase 276 U/L (45-117) H 06/22/17 07:00 Total Protein 7.0 g/dl (6.4-8.2) 06/22/17 07:00 Albumin 2.4 g/dl (3.4-5.0) L 06/22/17 07:00 # abdominal pain dark stools - peptobismol ??? / + guiac hemodynamically stable Iron def anemia scheduled for EGD unclear if understands or compliant with GI outpatient work up #chest pain - reproducible request cardio eval in view of risk factor #CKD5 on HD TIW on schedule # A fib rate controlled asa # HTN non compliant with meds resumed amlodipine per [facility] - last refill 2014 will await EGD will discuss with GI/ Nephrology to complete w/u as out patient Problem List - Problems (1) Abdominal pain Code(s): R10.9 - UNSPECIFIED ABDOMINAL PAIN Qualifiers: (2) Dyspnea Code(s): R06.00 - DYSPNEA, UNSPECIFIED (3) End stage chronic kidney disease Code(s): N18.6 - END STAGE RENAL DISEASE; Z99.2 - DEPENDENCE ON RENAL DIALYSIS (4) Lower GI bleed Code(s): K92.2 - GASTROINTESTINAL HEMORRHAGE, UNSPECIFIED (5) Weakness Code(s): R53.1 - WEAKNESS (6) Afib Code(s): I48.91 - UNSPECIFIED ATRIAL FIBRILLATION (7) Chest pain Code(s): R07.9 - CHEST PAIN, UNSPECIFIED Qualifiers: Chest pain type: unspecified Qualified Code(s): R07.9 - Chest pain, unspecified (8) HTN (hypertension) Code(s): I10 - ESSENTIAL (PRIMARY) HYPERTENSION
--- NOTE | 2017-06-22 18:14 | PN ---
Progress Note, Physician History of Present Illness: Pt seen and examined at bedside. She is awake and alert. She tolerated HD. - Current Medication List Current Medications: Active Medications Acetaminophen (Tylenol -) 650 mg PO Q4H PRN PRN Reason: PAIN Last Admin: 06/22/17 12:02 Dose: 650 mg Amlodipine Besylate (Norvasc -) 5 mg PO DAILY [facility] Last Admin: 06/22/17 12:05 Dose: 5 mg Atorvastatin Calcium (Lipitor -) 40 mg PO HS [facility] Last Admin: 06/21/17 21:37 Dose: 40 mg Cinacalcet (Sensipar -) 30 mg PO DAILY [facility] Last Admin: 06/22/17 12:04 Dose: 30 mg Pantoprazole Sodium (Protonix -) 40 mg PO DAILY [facility] Sevelamer Carbonate (Renvela -) 800 mg PO TIDCM [facility] Last Admin: 06/22/17 18:09 Dose: 800 mg - Objective Vital Signs: Vital Signs Temperature 98.2 F 06/22/17 18:00 Pulse Rate 73 06/22/17 18:00 Respiratory Rate 20 06/22/17 18:00 Blood Pressure 141/63 06/22/17 18:00 O2 Sat by Pulse Oximetry (%) 95 06/22/17 09:00 Constitutional: Yes: Calm Eyes: Yes: Conjunctiva Clear HENT: Yes: Atraumatic Cardiovascular: Yes: S1, S2 Respiratory: Yes: CTA Bilaterally Gastrointestinal: Yes: Soft Genitourinary: Yes: WNL Musculoskeletal: Yes: WNL Edema: No Neurological: Yes: Oriented Psychiatric: Yes: Oriented Labs: CBC, BMP 06/22/17 06:35 06/22/17 07:00 INR, PTT INR 1.08 (0.82-1.09) 06/20/17 18:12 Problem List - Problems (1) Abdominal pain Code(s): R10.9 - UNSPECIFIED ABDOMINAL PAIN Qualifiers: (2) End stage chronic kidney disease Code(s): N18.6 - END STAGE RENAL DISEASE; Z99.2 - DEPENDENCE ON RENAL DIALYSIS (3) Afib Code(s): I48.91 - UNSPECIFIED ATRIAL FIBRILLATION Assessment/Plan Current Medications Generic Name Dose Route Start Last Admin Trade Name Freq PRN Reason Stop Dose Admin Acetaminophen 650 mg 06/22/17 11:09 06/22/17 12:02 Tylenol - PO 650 mg Q4H PRN Administration PAIN Amlodipine Besylate 5 mg 06/21/17 15:15 06/22/17 12:05 Norvasc - PO 5 mg DAILY [facility] Administration Atorvastatin Calcium 40 mg 06/21/17 22:00 06/21/17 21:37 Lipitor - PO 40 mg HS [facility] Administration Cinacalcet 30 mg 06/21/17 10:00 06/22/17 12:04 Sensipar - PO 30 mg DAILY [facility] Administration Pantoprazole Sodium 40 mg 06/23/17 10:00 Protonix - PO DAILY [facility] Sevelamer Carbonate 800 mg 06/21/17 08:00 06/22/17 18:09 Renvela - PO 800 mg TIDCM ABDELRAHMAN Administration Impression 1. ESRD 2. a-fib 3. abdominal pain 4. HTN 5. hyperlipidemia Plan - HD today - GI follow up - cont protonix - monitor BP - will follow - cont home meds - 2.7 liters UF today - cont renal diet
[2017-06-22] MEDS ORDERED: EPOETIN ALFA 2,000 UNIT/1 ML VIAL IVPUSH ONE (20:03)
[2017-06-22] MEDS: ATORVASTATIN CA 40 MG TABLET (FP) PO SCH (21:53)
[2017-06-23 07:27] LABS: BASO % 0.5 % (0-2.0); EOS % 0.9 % (0-4.5); HEMATOCRIT 28.2 % (32.4-45.2); HEMOGLOBIN 9.3 GM/dL (10.7-15.3); LYMPH % 9.3 % (8-40); MCH 28.8 pg (25.7-33.7); MCHC 32.9 g/dl (32.0-36.0); MEAN CELL VOLUME 87.5 fl (80-96); MEAN PLT VOLUME 7.4 fl (7.5-11.1); NEUT % 79.3 % (42.8-82.8); PLATELET COUNT 461 K/MM3 (134-434); RBC 3.22 M/mm3 (3.60-5.2); RDW 16.6 % (11.6-15.6); WHITE BLOOD COUNT 13.1 K/mm3 (4.0-10.0)
[2017-06-23] MEDS ORDERED: PROPOFOL 20 ML ONE (09:41)
--- NOTE | 2017-06-23 10:11 | PN ---
Progress Note (short form) - Note Progress Note: EGD complete. Report left in procedureal section of physical chart and to be scanned into [facility] Problem List - Problems (1) Stool guaiac positive Code(s): R19.5 - OTHER FECAL ABNORMALITIES
--- NOTE | 2017-06-23 11:20 | PN ---
Progress Note (short form) - Note Progress Note: CC: pre-op clearance S: s/p EGD today. Did not receive norvasc this morning b/c npo. states she does not have any of her typical symptoms of volume overload. no cp, palps, sob, dizziness. Vital Signs - 24 hr 06/22/17 06/22/17 06/22/17 13:53 14:56 18:00 Temperature 99.7 F H 98.6 F 98.2 F Pulse Rate 68 69 73 Respiratory 18 18 20 Rate Blood Pressure 141/54 141/63 O2 Sat by Pulse Oximetry (%) 06/22/17 06/23/17 06/23/17 21:00 02:00 06:00 Temperature 99.7 F H 99.5 F Pulse Rate 76 77 Respiratory 20 20 20 Rate Blood Pressure 120/46 148/53 O2 Sat by Pulse 95 Oximetry (%) 06/23/17 06/23/17 06/23/17 08:40 09:00 10:09 Temperature 98.9 F 98.5 F Pulse Rate 79 76 Respiratory 19 19 20 Rate Blood Pressure 142/58 135/43 O2 Sat by Pulse 96 96 Oximetry (%) 06/23/17 06/23/17 06/23/17 10:24 10:39 10:56 Temperature 98.5 F Pulse Rate 73 71 69 Respiratory 20 14 16 Rate Blood Pressure 138/46 154/54 155/62 O2 Sat by Pulse 93 L 97 100 Oximetry (%) Intake & Output 06/21/17 06/22/17 06/23/17 06/24/17 07:59 07:59 07:59 07:59 Intake Total 500 900 50 Output Total 0 2 Balance 500 898 50 Weight 205 lb 1.6 oz nad, calm jvd tds ? borderline elevated. neck supple trace bibasilar rales, nl effort rrr nl s1, s2 no 2/6 sys murmur at sternal usb and lsb + bs soft nt nd, obese. no hsm diminished dp/pt no e/c/c aaox3 no jaundice, diaphoresis. CBC 06/23/17 06:30 ekg: poor baseline, likely sinus rhythm with pac. non-specific t wave abnormalities. (poor baseline - unable to compare t wave morphology to priors) echo 01/2017: 1+ concentric lvh. nl lv/rv size/fn mod lae. 1+ ar. 1+ mac. 1 + mr. rvsp 30-40. cxr images and report reviewed: new congestive changes, but by my review appears similar to priors. abd u/s report reviewed: no ascites, see emr for details. egd 06/2017: distal esophagitis, hiatal hernia Assessment/Plan 71 yo with h/o afib previously (off ac due to prior gib), cad s/p pci 10 years ago, diastolic chf, htn, ESRD on HD (M, W, F) and h/o esophagitis who p/w recurrent GIB --> plan for endoscopy. Pre-op clearance - Based on RCRI and poor functional status, patient has high risk of sobia- operative complications. Management of sobia-operative volume status per renal/ HD. Patient counseled on risk. - s/p endoscopy 06/23, no complications afib - per report patient had been taken off AC due to anemia/GIB. had been on asa. If felt that asa therapy should be discontinued --> reasonable to d/c from perspective of afib/stroke prevention, since no definitive evidence that it will significantly decrease risk of stroke. (See below regarding risk/benefit of asa therapy from perspective of CAD) - currently rate controlled off av suha blockade. - mgm't of lytes per renal. cad s/p remote pci (10 years ago)/hl - has been on ASA - currently holding in light of GIB. Will d/w GI regarding risk/benefit of continuing after results of endoscopy. - ekg without ischemic changes. currently free of anginal symptoms. con't statin and norvasc. diastolic chf/esrd on HD - cxr reports new congestive changes, but by my review appears similar to priors. Weight here is lower than prior weights. Low suspicion for volume overload. - volume status per renal. monitor weights. htn - 06/23: bline increased but has not yet received norvasc this morning. con't to monitor for need to adjust regimen. GIB - eval/mgm't per pmd/gi.
[2017-06-23] MEDS: SEVELAMER CARBONATE 800 MG TAB (FP) PO SCH ×3 (11:26→17:52)
[2017-06-23] MEDS: PANTOPRAZOLE 40 MG TABLET (FP) PO SCH (11:30)
[2017-06-23] MEDS: amLODIPine BESYLATE 5 MG TABLET (FP) PO SCH (11:30)
[2017-06-23] MEDS: CINACALCET HCL 30 MG TAB (FP) PO SCH (11:30)
[2017-06-23] MEDS ORDERED: SUCRALFATE 1 GM/10 ML UNIT DOSE CUPS PO ONE (16:00)
--- NOTE | 2017-06-23 16:05 | PN ---
Progress Note, Physician History of Present Illness: Pt seen and examined at bedside. She had the endoscopy. She denies shortness of breath. - Current Medication List Current Medications: Active Medications Acetaminophen (Tylenol -) 650 mg PO Q4H PRN PRN Reason: PAIN Last Admin: 06/22/17 22:32 Dose: 650 mg Amlodipine Besylate (Norvasc -) 5 mg PO DAILY [facility] Last Admin: 06/23/17 11:30 Dose: 5 mg Atorvastatin Calcium (Lipitor -) 40 mg PO HS [facility] Last Admin: 06/22/17 21:53 Dose: 40 mg Bisacodyl (Dulcolax -) 20 mg PO ONCE ONE Stop: 06/24/17 15:01 Cinacalcet (Sensipar -) 30 mg PO DAILY [facility] Last Admin: 06/23/17 11:30 Dose: 30 mg Pantoprazole Sodium (Protonix -) 40 mg PO DAILY [facility] Last Admin: 06/23/17 11:30 Dose: 40 mg Sevelamer Carbonate (Renvela -) 800 mg PO TIDCM [facility] Last Admin: 06/23/17 12:55 Dose: 800 mg Sucralfate (Carafate Oral Suspension -) 1 gm PO ONCE ONE Stop: 06/23/17 16:01 - Objective Vital Signs: Vital Signs Temperature 97.9 F 06/23/17 15:29 Pulse Rate 72 06/23/17 15:29 Respiratory Rate 18 06/23/17 15:29 Blood Pressure 156/77 06/23/17 15:29 O2 Sat by Pulse Oximetry (%) 100 06/23/17 10:56 Constitutional: Yes: Calm Eyes: Yes: Conjunctiva Clear HENT: Yes: Atraumatic Neck: Yes: Supple Cardiovascular: Yes: S1, S2 Respiratory: Yes: CTA Bilaterally Gastrointestinal: Yes: Normal Bowel Sounds, Soft Genitourinary: Yes: WNL Musculoskeletal: Yes: WNL Edema: No Neurological: Yes: Oriented Psychiatric: Yes: Oriented Labs: CBC, BMP 06/23/17 06:30 06/22/17 07:00 INR, PTT INR 1.08 (0.82-1.09) 06/20/17 18:12 Problem List - Problems (1) Abdominal pain Code(s): R10.9 - UNSPECIFIED ABDOMINAL PAIN Qualifiers: (2) End stage chronic kidney disease Code(s): N18.6 - END STAGE RENAL DISEASE; Z99.2 - DEPENDENCE ON RENAL DIALYSIS (3) Afib Code(s): I48.91 - UNSPECIFIED ATRIAL FIBRILLATION Assessment/Plan Current Medications Generic Name Dose Route Start Last Admin Trade Name Freq PRN Reason Stop Dose Admin Acetaminophen 650 mg 06/22/17 11:09 06/22/17 22:32 Tylenol - PO 650 mg Q4H PRN Administration PAIN Amlodipine Besylate 5 mg 06/21/17 15:15 06/23/17 11:30 Norvasc - PO 5 mg DAILY [facility] Administration Atorvastatin Calcium 40 mg 06/21/17 22:00 06/22/17 21:53 Lipitor - PO 40 mg HS [facility] Administration Bisacodyl 20 mg 06/24/17 15:00 Dulcolax - PO 06/24/17 15:01 ONCE ONE Cinacalcet 30 mg 06/21/17 10:00 06/23/17 11:30 Sensipar - PO 30 mg DAILY [facility] Administration Pantoprazole Sodium 40 mg 06/23/17 10:00 06/23/17 11:30 Protonix - PO 40 mg DAILY [facility] Administration Sevelamer Carbonate 800 mg 06/21/17 08:00 06/23/17 12:55 Renvela - PO 800 mg TIDCM [facility] Administration Impression 1. ESRD 2. a-fib 3. abdominal pain 4. HTN 5. hyperlipidemia Plan - HD in am - follow up endoscopy report - cont protonix - monitor BP after meds - will follow - cont home meds - cont renal diet
--- NOTE | 2017-06-23 17:17 | PN ---
Progress Note (short form) - Note Progress Note: called because ms. wolff c/o abdominal pain. Had egd this morning w/ biopsy of distal esophageal esophagitis. pain described as epigastric and radiating to pelvis. also told nurse it felt like acid reflux too. no rectal bleeding/ dysphagia. on exam, abdomen soft + bs, non tender. she did have a soft bm, denies passi g flatus post egd. ? trapped air from procedure ? irritation from esophageal biopsy plan: cont ppi added sucralfate ordered cbc clear liquids for now if pain worsens, ct scan chest/abd Problem List - Problems (1) Stool guaiac positive Code(s): R19.5 - OTHER FECAL ABNORMALITIES
[2017-06-23] MEDS: ACETAMINOPHEN 325 MG TABLET (FP) PO PRN (17:52)
[2017-06-23 22:10] LABS: BASO % 0.4 % (0-2.0); EOS % 1.6 % (0-4.5); HEMATOCRIT 29.7 % (32.4-45.2); HEMOGLOBIN 9.9 GM/dL (10.7-15.3); LYMPH % 9.6 % (8-40); MCH 29.1 pg (25.7-33.7); MCHC 33.3 g/dl (32.0-36.0); MEAN CELL VOLUME 87.5 fl (80-96); MEAN PLT VOLUME 7.4 fl (7.5-11.1); MONO % 9.8 % (3.8-10.2); NEUT % 78.6 % (42.8-82.8); PLATELET COUNT 514 K/MM3 (134-434); RBC 3.39 M/mm3 (3.60-5.2); RDW 16.7 % (11.6-15.6); WHITE BLOOD COUNT 13.2 K/mm3 (4.0-10.0)
[2017-06-23] MEDS: ATORVASTATIN CA 40 MG TABLET (FP) PO SCH (22:29)
[2017-06-23] MEDS: SUCRALFATE 1 GM/10 ML UNIT DOSE CUPS PO SCH (22:29)
[2017-06-24 06:11] LABS: HBSAG SCREEN Negative (Negative); HEP A AB, IGM Negative (Negative); HEP B CORE AB, TOT Negative (Negative)
[2017-06-24] MEDS ORDERED: EPOETIN ALFA 3,000 UNIT/1 ML ML IVPUSH ONE (09:00)
[2017-06-24] MEDS ORDERED: SODIUM CHLORIDE 250 ML IV PRN (09:00)
[2017-06-24 09:02] LABS: BASO % 0.4 % (0-2.0); HEMATOCRIT 28.4 % (32.4-45.2); HEMOGLOBIN 9.5 GM/dL (10.7-15.3); MCH 29.2 pg (25.7-33.7); MCHC 33.3 g/dl (32.0-36.0); MEAN CELL VOLUME 87.8 fl (80-96); MEAN PLT VOLUME 7.6 fl (7.5-11.1); MONO % 9.6 % (3.8-10.2); PLATELET COUNT 567 K/MM3 (134-434); RBC 3.24 M/mm3 (3.60-5.2); WHITE BLOOD COUNT 12.4 K/mm3 (4.0-10.0)
[2017-06-24] MEDS: SUCRALFATE 1 GM/10 ML UNIT DOSE CUPS PO SCH ×3 (09:16→21:58)
[2017-06-24] MEDS: SEVELAMER CARBONATE 800 MG TAB (FP) PO SCH ×3 (09:17→18:31)
[2017-06-24 09:27] LABS: ANION GAP 14 (8-16); BLOOD UREA NITROGEN 30 mg/dL (7-18); CALCIUM 7.8 mg/dL (8.5-10.1); CHLORIDE 96 mmol/L (98-107); CO2 27 mmol/L (21-32); GLUCOSE,RANDOM 109 mg/dL (74-106); POTASSIUM 3.9 mmol/L (3.5-5.1); SODIUM 137 mmol/L (136-145)
[2017-06-24 09:38] LABS: CREATININE 8.4 mg/dL (0.55-1.02)
--- NOTE | 2017-06-24 10:10 | PN ---
Progress Note (short form) - Note Progress Note: seen andexamined patient in dialysis c/o abdominal pain over night / feeling better today aware is having colonoscopy in am Vital Signs Period Temp Pulse Resp BP Sys/Casiano Pulse Ox Last 24 Hr 97.9 F-100.5 F 66-101 14-20 97-156/43-82 93-100 lungs clear heart s1/S2- abd soft no guarding ext bruit left UE no edema LE CBC, BMP 06/24/17 08:15 06/24/17 08:15 having HD CBCD WBC 13.7 K/mm3 (4.0-10.0) H 06/22/17 06:35 RBC 3.24 M/mm3 (3.60-5.2) L 06/22/17 06:35 Hgb 9.5 GM/dL (10.7-15.3) L 06/22/17 06:35 Hct 28.4 % (32.4-45.2) L 06/22/17 06:35 MCV 87.8 fl (80-96) 06/22/17 06:35 MCHC 33.4 g/dl (32.0-36.0) 06/22/17 06:35 RDW 16.4 % (11.6-15.6) H 06/22/17 06:35 Plt Count 447 K/MM3 (134-434) H 06/22/17 06:35 MPV 7.5 fl (7.5-11.1) 06/22/17 06:35 # abdominal pain dark stools - peptobismol ??? / + guiac hemodynamically stable Iron def anemia s/p EGD scheduled for colonoscopy unclear if understands or compliant with GI outpatient work up #chest pain - reproducible appreciate cardio eval #CKD5 on HD TIW on schedule Having HD now # A fib rate controlled asa # HTN non compliant with meds resumed amlodipine per [facility] - last refill 2014 will await colonoscopy will discuss with GI/ Nephrology for possible d/c tomorrow Problem List - Problems (1) Abdominal pain Code(s): R10.9 - UNSPECIFIED ABDOMINAL PAIN Qualifiers: (2) Dyspnea Code(s): R06.00 - DYSPNEA, UNSPECIFIED (3) End stage chronic kidney disease Code(s): N18.6 - END STAGE RENAL DISEASE; Z99.2 - DEPENDENCE ON RENAL DIALYSIS (4) Lower GI bleed Code(s): K92.2 - GASTROINTESTINAL HEMORRHAGE, UNSPECIFIED (5) Weakness Code(s): R53.1 - WEAKNESS (6) Afib Code(s): I48.91 - UNSPECIFIED ATRIAL FIBRILLATION (7) Chest pain Code(s): R07.9 - CHEST PAIN, UNSPECIFIED Qualifiers: Chest pain type: unspecified Qualified Code(s): R07.9 - Chest pain, unspecified (8) HTN (hypertension) Code(s): I10 - ESSENTIAL (PRIMARY) HYPERTENSION
[2017-06-24] MEDS: ACETAMINOPHEN 325 MG TABLET (FP) PO PRN (10:28)
[2017-06-24] MEDS: PANTOPRAZOLE 40 MG TABLET (FP) PO SCH (12:29)
[2017-06-24] MEDS: amLODIPine BESYLATE 5 MG TABLET (FP) PO SCH (12:29)
[2017-06-24] MEDS: CINACALCET HCL 30 MG TAB (FP) PO SCH (12:30)
--- NOTE | 2017-06-24 12:40 | PN ---
Progress Note, Physician History of Present Illness: Pt seen and examined at bedside. She is awake and alert. She tolerated HD. - Current Medication List Current Medications: Active Medications Acetaminophen (Tylenol -) 650 mg PO Q4H PRN PRN Reason: PAIN Last Admin: 06/24/17 10:28 Dose: 650 mg Amlodipine Besylate (Norvasc -) 5 mg PO DAILY [facility] Last Admin: 06/24/17 12:29 Dose: 5 mg Atorvastatin Calcium (Lipitor -) 40 mg PO HS [facility] Last Admin: 06/23/17 22:29 Dose: 40 mg Bisacodyl (Dulcolax -) 20 mg PO ONCE ONE Stop: 06/24/17 15:01 Cinacalcet (Sensipar -) 30 mg PO DAILY [facility] Last Admin: 06/24/17 12:30 Dose: 30 mg Pantoprazole Sodium (Protonix -) 40 mg PO DAILY [facility] Last Admin: 06/24/17 12:29 Dose: 40 mg Sevelamer Carbonate (Renvela -) 800 mg PO TIDCM [facility] Last Admin: 06/24/17 12:30 Dose: 800 mg Sucralfate (Carafate Oral Suspension -) 1 gm PO BID [facility] Last Admin: 06/24/17 09:16 Dose: 1 gm - Objective Vital Signs: Vital Signs Temperature 98.7 F 06/24/17 08:10 Pulse Rate 96 H 06/24/17 12:05 Respiratory Rate 18 06/24/17 12:05 Blood Pressure 137/60 06/24/17 12:05 O2 Sat by Pulse Oximetry (%) 100 06/23/17 21:00 Constitutional: Yes: Calm Eyes: Yes: Conjunctiva Clear HENT: Yes: Atraumatic Neck: Yes: Supple Cardiovascular: Yes: S1, S2 Respiratory: Yes: CTA Bilaterally Gastrointestinal: Yes: Normal Bowel Sounds, Soft Genitourinary: Yes: WNL Musculoskeletal: Yes: WNL Edema: No Neurological: Yes: Oriented Psychiatric: Yes: Oriented Labs: CBC, BMP 06/24/17 08:15 06/24/17 08:15 INR, PTT INR 1.08 (0.82-1.09) 06/20/17 18:12 Problem List - Problems (1) Abdominal pain Code(s): R10.9 - UNSPECIFIED ABDOMINAL PAIN Qualifiers: (2) End stage chronic kidney disease Code(s): N18.6 - END STAGE RENAL DISEASE; Z99.2 - DEPENDENCE ON RENAL DIALYSIS (3) Afib Code(s): I48.91 - UNSPECIFIED ATRIAL FIBRILLATION Assessment/Plan Current Medications Generic Name Dose Route Start Last Admin Trade Name Freq PRN Reason Stop Dose Admin Acetaminophen 650 mg 06/22/17 11:09 06/24/17 10:28 Tylenol - PO 650 mg Q4H PRN Administration PAIN Amlodipine Besylate 5 mg 06/21/17 15:15 06/24/17 12:29 Norvasc - PO 5 mg DAILY [facility] Administration Atorvastatin Calcium 40 mg 06/21/17 22:00 06/23/17 22:29 Lipitor - PO 40 mg HS [facility] Administration Bisacodyl 20 mg 06/24/17 15:00 Dulcolax - PO 06/24/17 15:01 ONCE ONE Cinacalcet 30 mg 06/21/17 10:00 06/24/17 12:30 Sensipar - PO 30 mg DAILY [facility] Administration Pantoprazole Sodium 40 mg 06/23/17 10:00 06/24/17 12:29 Protonix - PO 40 mg DAILY [facility] Administration Sevelamer Carbonate 800 mg 06/21/17 08:00 06/24/17 12:30 Renvela - PO 800 mg TIDCM [facility] Administration Sucralfate 1 gm 06/23/17 22:00 06/24/17 09:16 Carafate Oral Suspension - PO 1 gm BID [facility] Administration Impression 1. ESRD 2. a-fib 3. abdominal pain 4. HTN 5. hyperlipidemia Plan - pt tolerated HD - colonoscopy tomorrow - cont protonix - monitor BP - will follow - cont home meds - cont renal diet
--- NOTE | 2017-06-24 14:17 | PN ---
GI Progress Note Subjective: No acute events Currently denying abdominal pain H/H stable No dysphagia/odynophagia Poor appetite States that the sucralfate helped her not have a bowel movement? - Objective Vital Signs: Vital Signs Temperature 98.7 F 06/24/17 08:10 Pulse Rate 96 H 06/24/17 12:05 Respiratory Rate 18 06/24/17 12:05 Blood Pressure 137/60 06/24/17 12:05 O2 Sat by Pulse Oximetry (%) 100 06/23/17 21:00 Constitutional: Calm Eyes: No: Sclera Icterus Cardiovascular: Yes: Regular Rate and Rhythm Gastrointestinal Inspection: No: Distention ...Auscultate: Yes: Normoactive Bowel Sounds ...Palpate: No: Tenderness Labs: CBC, BMP 06/24/17 08:15 06/24/17 08:15 INR, PTT INR 1.08 (0.82-1.09) 06/20/17 18:12 Problem List - Problems (1) Stool guaiac positive Assessment/Plan: No overt bleeding Planning for Colonoscopy 06/24/17 AM labs Sucralfate 1g TID Protonix 40mg once daily Code(s): R19.5 - OTHER FECAL ABNORMALITIES
[2017-06-24] MEDS ORDERED: BISACODYL 5 MG TABLET.DR (FP) PO ONE (15:00)
--- NOTE | 2017-06-24 15:25 | PATH ---
Surgical Pathology Report Patient Name: DIONTE HEADLEY Med. Rec. #: [id number] /Age/Gender: 1945 (Age: 71) / F Account: [id number] Location: [address] [place] [address]/[facility] Taken: 06/23/2017 Received: 06/23/2017 Reported: 06/24/2017 Physicians: Erica Adams MD Specimen(s) Received BX DISTAL ESOPHAGUS Clinical History Preoperative diagnosis: Melena Postoperative diagnosis: Esophagitis Final Diagnosis DISTAL ESOPHAGUS, BIOPSY: SQUAMOUS MUCOSA WITH ACUTE ESOPHAGITIS , ULCERATION, AND REACTIVE CHANGES. PAS SPECIAL STAIN IS NEGATIVE FOR FUNGAL ORGANISMS. Electronically Signed Kath Sargent M.D. Gross Description Received in formalin, labeled "biopsy distal esophagus" are 3 watt, irregular portions of soft tissue ranging from 0.2-0.4 cm. in greatest dimension. The specimens are submitted in toto in one cassette. 06/23/2017 [facility]06/23/2017
[2017-06-24] MEDS ORDERED: PEG3350/SOD SULF,BICARB,CL/KCL 4,000 ML SOLN.RECON PO ONE (16:00)
[2017-06-24] MEDS: ATORVASTATIN CA 40 MG TABLET (FP) PO SCH (21:58)
[2017-06-25] MEDS: SUCRALFATE 1 GM/10 ML UNIT DOSE CUPS PO SCH (06:06)
[2017-06-25 07:07] LABS: BASO % 0.9 % (0-2.0); EOS % 0.6 % (0-4.5); HEMATOCRIT 30.4 % (32.4-45.2); HEMOGLOBIN 10.1 GM/dL (10.7-15.3); LYMPH % 11.2 % (8-40); MCH 29.1 pg (25.7-33.7); MCHC 33.1 g/dl (32.0-36.0); MEAN CELL VOLUME 87.8 fl (80-96); MEAN PLT VOLUME 7.8 fl (7.5-11.1); MONO % 12.1 % (3.8-10.2); NEUT % 75.2 % (42.8-82.8); PLATELET COUNT 592 K/MM3 (134-434); RBC 3.47 M/mm3 (3.60-5.2)
[2017-06-25 07:10] LABS: CHLORIDE 99 mmol/L (98-107); POTASSIUM 3.5 mmol/L (3.5-5.1); SODIUM 142 mmol/L (136-145)
[2017-06-25 07:19] LABS: ANION GAP 16 (8-16); BLOOD UREA NITROGEN 15 mg/dL (7-18); CALCIUM 7.8 mg/dL (8.5-10.1); CO2 27 mmol/L (21-32); CREATININE 5.3 mg/dL (0.55-1.02); GLUCOSE,RANDOM 77 mg/dL (74-106)
[2017-06-25] MEDS: SEVELAMER CARBONATE 800 MG TAB (FP) PO SCH ×3 (08:00→18:42)
[2017-06-25] MEDS ORDERED: PROPOFOL 20 ML ONE ×2 (08:51)
[2017-06-25] MEDS ORDERED: LIDOCAINE HCL 2% (20ML MULTI-DOSE VIAL) NR ONE (08:51)
--- NOTE | 2017-06-25 10:00 | PN ---
Progress Note (short form) - Note Progress Note: RENAL Pt seen on her way to colonoscopy says she has not been eating has no other specific complaints Last Vital Signs Temp Pulse Resp BP Pulse Ox 99.6 F 94 H 20 137/72 94 L 06/25/17 06:00 06/25/17 06:00 06/25/17 06:00 06/25/17 06:00 06/24/17 21:00 lungs clear cvs s1s2 rr abd soft ext no edema neuro a+ox3 CBC, BMP 06/25/17 05:50 06/25/17 05:50 Current Medications Generic Name Dose Route Start Last Admin Trade Name Freq PRN Reason Stop Dose Admin Acetaminophen 650 mg 06/22/17 11:09 06/24/17 10:28 Tylenol - PO 650 mg Q4H PRN Administration PAIN Amlodipine Besylate 5 mg 06/21/17 15:15 06/24/17 12:29 Norvasc - PO 5 mg DAILY [facility] Administration Atorvastatin Calcium 40 mg 06/21/17 22:00 06/24/17 21:58 Lipitor - PO 40 mg HS [facility] Administration Cinacalcet 30 mg 06/21/17 10:00 06/24/17 12:30 Sensipar - PO 30 mg DAILY [facility] Administration Pantoprazole Sodium 40 mg 06/23/17 10:00 06/24/17 12:29 Protonix - PO 40 mg DAILY [facility] Administration Sevelamer Carbonate 800 mg 06/21/17 08:00 06/24/17 18:31 Renvela - PO Not Given TIDCM [facility] Sucralfate 1 gm 06/24/17 14:30 06/25/17 06:06 Carafate Oral Suspension - PO 1 gm TID [facility] Administration IMPRESSION esrd afib htn pancreatic cyst was being evaluated by [facility] abdominal pain PLAN await colonoscopy report sucralfate can cause aluminum toxicity in dialysis patients. So should not be used [employer] or [employer]; and preferrably avoided will dialyze tomorrow MV
[2017-06-25] MEDS ORDERED: ETOMIDATE 20 MG/10 ML AMPUL IVPUSH ONE (10:26)
--- NOTE | 2017-06-25 10:59 | PN ---
Progress Note (short form) - Note Progress Note: Colonoscopy report placed in procedural section of physical chart and to be scanned into [employer] Problem List - Problems (1) Stool guaiac positive Code(s): R19.5 - OTHER FECAL ABNORMALITIES
[2017-06-25] MEDS: amLODIPine BESYLATE 5 MG TABLET (FP) PO SCH (12:30)
[2017-06-25] MEDS: CINACALCET HCL 30 MG TAB (FP) PO SCH (12:30)
[2017-06-25] MEDS: PANTOPRAZOLE 40 MG TABLET (FP) PO SCH (12:31)
[2017-06-25] MEDS ORDERED: EPINEPHrine 1:10,000 (P-F SYR) 1 MG/10 ML DISP.SYRIN ONE (13:23)
--- NOTE | 2017-06-25 15:32 | PN ---
Progress Note (short form) - Note Progress Note: 71 y/o female found lying in bed. NAD. Awaiting Colonoscopy. Active Medications Acetaminophen (Tylenol -) 650 mg PO Q4H PRN PRN Reason: PAIN Last Admin: 06/24/17 10:28 Dose: 650 mg Amlodipine Besylate (Norvasc -) 5 mg PO DAILY [facility] Last Admin: 06/25/17 12:30 Dose: 5 mg Atorvastatin Calcium (Lipitor -) 40 mg PO HS [facility] Last Admin: 06/24/17 21:58 Dose: 40 mg Cinacalcet (Sensipar -) 30 mg PO DAILY [facility] Last Admin: 06/25/17 12:30 Dose: 30 mg Pantoprazole Sodium (Protonix -) 40 mg PO DAILY [facility] Last Admin: 06/25/17 12:31 Dose: 40 mg Sevelamer Carbonate (Renvela -) 800 mg PO TIDCM [facility] Last Admin: 06/25/17 12:30 Dose: 800 mg Vital Signs Period Temp Pulse Resp BP Sys/Casiano Pulse Ox Last 24 Hr 98.3 F-99.6 F 72-118 16-22 126-153/55-88 84-196 CBC, BMP 06/25/17 05:50 06/25/17 05:50 HEENT- NL Neck- Supple Lungs- CTAB Heart- S1/S2 Abd- soft, Nt, pos Bs x 4 Ext- Neg LE edema Active Medications Acetaminophen (Tylenol -) 650 mg PO Q4H PRN PRN Reason: PAIN Last Admin: 06/24/17 10:28 Dose: 650 mg Amlodipine Besylate (Norvasc -) 5 mg PO DAILY [facility] Last Admin: 06/25/17 12:30 Dose: 5 mg Atorvastatin Calcium (Lipitor -) 40 mg PO HS [facility] Last Admin: 06/24/17 21:58 Dose: 40 mg Cinacalcet (Sensipar -) 30 mg PO DAILY [facility] Last Admin: 06/25/17 12:30 Dose: 30 mg Pantoprazole Sodium (Protonix -) 40 mg PO DAILY [facility] Last Admin: 06/25/17 12:31 Dose: 40 mg Sevelamer Carbonate (Renvela -) 800 mg PO TIDCM [facility] Last Admin: 06/25/17 12:30 Dose: 800 mg # abdominal pain Iron def anemia - Hgb/Hct improving colonoscopy shows diverticulosis /ulcers Start Low fiber diet #chest pain - reproducible appreciate cardio eval #CKD5 HD TIW # A fib rate controlled # HTN non compliant with meds Continue Amlodipine 5 mg daily will discuss with GI/ Nephrology for possible d/c Problem List - Problems (1) Abdominal pain Code(s): R10.9 - UNSPECIFIED ABDOMINAL PAIN Qualifiers: (2) Dyspnea Code(s): R06.00 - DYSPNEA, UNSPECIFIED (3) End stage chronic kidney disease Code(s): N18.6 - END STAGE RENAL DISEASE; Z99.2 - DEPENDENCE ON RENAL DIALYSIS (4) Lower GI bleed Code(s): K92.2 - GASTROINTESTINAL HEMORRHAGE, UNSPECIFIED (5) Weakness Code(s): R53.1 - WEAKNESS (6) Afib Code(s): I48.91 - UNSPECIFIED ATRIAL FIBRILLATION (7) Chest pain Code(s): R07.9 - CHEST PAIN, UNSPECIFIED Qualifiers: Chest pain type: unspecified Qualified Code(s): R07.9 - Chest pain, unspecified (8) HTN (hypertension) Code(s): I10 - ESSENTIAL (PRIMARY) HYPERTENSION
[2017-06-25] MEDS: ACETAMINOPHEN 325 MG TABLET (FP) PO PRN (21:07)
[2017-06-25] MEDS: ATORVASTATIN CA 40 MG TABLET (FP) PO SCH (21:07)
[2017-06-26] MEDS: SEVELAMER CARBONATE 800 MG TAB (FP) PO SCH ×3 (08:36→19:08)
[2017-06-26] MEDS ORDERED: PT OWN MED DRAWER 7, Y5N ONE (09:41)
[2017-06-26] MEDS: CINACALCET HCL 30 MG TAB (FP) PO SCH (09:42)
[2017-06-26] MEDS: PANTOPRAZOLE 40 MG TABLET (FP) PO SCH (09:42)
[2017-06-26] MEDS: amLODIPine BESYLATE 5 MG TABLET (FP) PO SCH (09:43)
[2017-06-26] MEDS ORDERED: SODIUM CHLORIDE 250 ML IV PRN (11:32)
--- NOTE | 2017-06-26 14:08 | PN ---
Progress Note (short form) - Note Progress Note: RENAL Says she was sweating a lot last night had polyps removed currently on hemodialysis Last Vital Signs Temp Pulse Resp BP Pulse Ox 98.7 F 95 H 18 143/58 100 06/26/17 09:00 06/26/17 09:00 06/26/17 09:00 06/26/17 09:00 06/25/17 21:00 lungs clear cvs s1s2 rr abd soft ext no edema neuro a+ox3 CBC, BMP 06/25/17 05:50 06/25/17 05:50 Current Medications Generic Name Dose Route Start Last Admin Trade Name Freq PRN Reason Stop Dose Admin Acetaminophen 650 mg 06/22/17 11:09 06/25/17 21:07 Tylenol - PO 650 mg Q4H PRN Administration PAIN Amlodipine Besylate 5 mg 06/21/17 15:15 06/26/17 09:43 Norvasc - PO Not Given DAILY AB[facility] Atorvastatin Calcium 40 mg 06/21/17 22:00 06/25/17 21:07 Lipitor - PO 40 mg HS [facility] Administration Cinacalcet 30 mg 06/21/17 10:00 06/26/17 09:42 Sensipar - PO 30 mg DAILY [facility] Administration Sodium Chloride 250 mls @ 3,000 mls/hr 06/26/17 11:32 Normal Saline - IV 06/27/17 11:32 PRN PRN Hypotension during Dialysis Pantoprazole Sodium 40 mg 06/23/17 10:00 06/26/17 09:42 Protonix - PO 40 mg DAILY [facility] Administration Sevelamer Carbonate 800 mg 06/21/17 08:00 06/26/17 12:37 Renvela - PO 800 mg TIDCM ABDELRAH[facility] Administration IMPRESSION 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 May have had a transient bacteremia causing fever/diaphoresis post op continue HD MV
--- NOTE | 2017-06-26 15:19 | PN ---
GI Progress Note Subjective: Seen in HD Had low grade temps overnight with chills No abdominal pain / diarrhea Says that she just doesn't have an appettie - Objective Vital Signs: Vital Signs Temperature 98.4 F 06/26/17 14:24 Pulse Rate 98 H 06/26/17 14:24 Respiratory Rate 20 06/26/17 14:24 Blood Pressure 142/78 06/26/17 14:24 O2 Sat by Pulse Oximetry (%) 100 06/25/17 21:00 Constitutional: Calm Eyes: No: Sclera Icterus Cardiovascular: Yes: Regular Rate and Rhythm Respiratory: Yes: Diminished (at bases bilaterally) Gastrointestinal Inspection: No: Distention ...Auscultate: Yes: Normoactive Bowel Sounds ...Palpate: No: Tenderness ...Percussion: No: Tympanitic Edema: No (No LE edema) Neurological: Yes: Alert Labs: CBC, BMP 06/25/17 05:50 06/25/17 05:50 INR, PTT INR 1.08 (0.82-1.09) 06/20/17 18:12 Problem List - Problems (1) Fever Assessment/Plan: Will have ID see her given persistent leukocytosis that is now rising and fevers Code(s): R50.9 - FEVER, UNSPECIFIED (2) Stool guaiac positive Assessment/Plan: S/P colonoscopy. Awaiting official pathology report. Proximal colon ulcers, polyps Code(s): R19.5 - OTHER FECAL ABNORMALITIES
--- NOTE | 2017-06-26 17:20 | PN ---
Progress Note (short form) - Note Progress Note: CC: pre-op clearance S: getting hd. + perceived fever, fatigue. no cp, palps, sob, dizziness. Current Medications Acetaminophen (Tylenol -) 650 mg PO Q4H PRN PRN Reason: PAIN Last Admin: 06/25/17 21:07 Dose: 650 mg Amlodipine Besylate (Norvasc -) 5 mg PO DAILY [facility] Last Admin: 06/26/17 09:43 Dose: Not Given Atorvastatin Calcium (Lipitor -) 40 mg PO HS [facility] Last Admin: 06/25/17 21:07 Dose: 40 mg Cinacalcet (Sensipar -) 30 mg PO DAILY [facility] Last Admin: 06/26/17 09:42 Dose: 30 mg Sodium Chloride (Normal Saline -) 250 mls @ 3,000 mls/hr IV PRN PRN PRN Reason: Hypotension during Dialysis Stop: 06/27/17 11:32 Pantoprazole Sodium (Protonix -) 40 mg PO DAILY [facility] Last Admin: 06/26/17 09:42 Dose: 40 mg Sevelamer Carbonate (Renvela -) 800 mg PO TIDCM [facility] Last Admin: 06/26/17 12:37 Dose: 800 mg Vital Signs - 24 hr 06/25/17 06/25/17 06/25/17 18:00 21:00 21:03 Temperature 100.6 F H 100.7 F H Pulse Rate 102 H 104 H Respiratory 18 18 Rate Blood Pressure 179/81 141/69 O2 Sat by Pulse 100 Oximetry (%) 06/26/17 06/26/17 06/26/17 02:00 06:00 09:00 Temperature 99.1 F 99.6 F 98.7 F Pulse Rate 83 103 H 95 H Respiratory 20 18 18 Rate Blood Pressure 124/61 118/63 143/58 O2 Sat by Pulse Oximetry (%) 06/26/17 06/26/17 06/26/17 13:50 14:00 14:24 Temperature 98.4 F Pulse Rate 98 H 62 98 H Respiratory 18 18 20 Rate Blood Pressure 147/89 137/65 142/78 O2 Sat by Pulse Oximetry (%) 06/26/17 06/26/17 06/26/17 14:30 15:00 15:30 Temperature Pulse Rate 73 81 87 Respiratory 18 18 18 Rate Blood Pressure 154/74 136/71 133/77 O2 Sat by Pulse Oximetry (%) Intake & Output 06/24/17 06/25/17 06/26/17 06/27/17 07:59 07:59 07:59 07:59 Intake Total 670 507 7662 450 Output Total 200 Balance 312 731 3972 250 Weight 202 lb 199 lb 9.6 oz nad, calm jvd tds ? borderline elevated. neck supple trace bibasilar rales, nl effort irregularly, irregular nl s1, s2 no 2/6 sys murmur at sternal usb and lsb + bs soft nt nd, obese. no hsm diminished dp/pt no e/c/c aaox3 no jaundice, diaphoresis. no CBC, BMP today 06/25/17 05:50 06/25/17 05:50 ekg: poor baseline, likely sinus rhythm with pac. non-specific t wave abnormalities. (poor baseline - unable to compare t wave morphology to priors) echo 01/2017: 1+ concentric lvh. nl lv/rv size/fn mod lae. 1+ ar. 1+ mac. 1 + mr. rvsp 30-40. cxr images and report reviewed: new congestive changes, but by my review appears similar to priors. abd u/s report reviewed: no ascites, see emr for details. egd 06/2017: distal esophagitis, hiatal hernia, moderate diverticulosis, edematous/erythemaouts colon, ulcerations of transverse and ascending colon - etiology?. see emr for full report details. Assessment/Plan 71 yo with h/o afib previously (off ac due to prior gib), cad s/p pci 10 years ago, diastolic chf, htn, ESRD on HD (M, W, F) and h/o esophagitis who p/w recurrent GIB --> plan for endoscopy. Pre-op clearance - Based on RCRI and poor functional status, patient has high risk of sobia- operative complications. Management of sobia-operative volume status per renal/ HD. Patient counseled on risk. - s/p endoscopy 06/23 and colonoscopy 06/25, no complications afib - per report patient had been taken off AC due to anemia/GIB. had been on asa. (See below regarding asa therapy) - currently rate controlled off av suha blockade. 06/26: irregular rhythm - mgm't of lytes per renal. cad s/p remote pci (10 years ago)/hl - has been on ASA - currently holding in light of GIB. Discussed with GI 06/26, safe to resume low dose asa. - ekg without ischemic changes. currently free of anginal symptoms. con't statin and norvasc. diastolic chf/esrd on HD - cxr reports new congestive changes, but by my review appears similar to priors. Weight here is lower than prior weights. Low suspicion for volume overload. - volume status per renal. monitor weights. htn - 06/23: bline increased but has not yet received norvasc this morning. con't to monitor for need to adjust regimen. - 06/26 norvasc held this am for HD. bp overall controlled. GIB - eval/mgm't per pmd/gi.
[2017-06-26] MEDS: ATORVASTATIN CA 40 MG TABLET (FP) PO SCH (22:20)
[2017-06-27 08:04] LABS: BASO % 0.4 % (0-2.0); EOS % 0.3 % (0-4.5); HEMATOCRIT 30.4 % (32.4-45.2); HEMOGLOBIN 9.9 GM/dL (10.7-15.3); LYMPH % 6.1 % (8-40); MCH 28.4 pg (25.7-33.7); MCHC 32.4 g/dl (32.0-36.0); MEAN CELL VOLUME 87.7 fl (80-96); MEAN PLT VOLUME 7.7 fl (7.5-11.1); MONO % 10.8 % (3.8-10.2); NEUT % 82.4 % (42.8-82.8); PLATELET COUNT 505 K/MM3 (134-434); RBC 3.47 M/mm3 (3.60-5.2); RDW 16.7 % (11.6-15.6); WHITE BLOOD COUNT 14.6 K/mm3 (4.0-10.0)
--- NOTE | 2017-06-27 08:30 | PN ---
Progress Note, Physician Chief Complaint: ID Asked to evaluate for fever 101 chills Procedure colonoscopy with biopsy 2 days ago She say "my side hurts"points to her abd Poor venous access - Current Medication List Current Medications: Active Medications Acetaminophen (Tylenol -) 650 mg PO Q4H PRN PRN Reason: PAIN Last Admin: 06/25/17 21:07 Dose: 650 mg Amlodipine Besylate (Norvasc -) 5 mg PO DAILY [facility] Last Admin: 06/26/17 09:43 Dose: Not Given Aspirin (Ecotrin -) 81 mg PO DAILY [facility] Atorvastatin Calcium (Lipitor -) 40 mg PO HS [facility] Last Admin: 06/26/17 22:20 Dose: 40 mg Cinacalcet (Sensipar -) 30 mg PO DAILY [facility] Last Admin: 06/26/17 09:42 Dose: 30 mg Sodium Chloride (Normal Saline -) 250 mls @ 3,000 mls/hr IV PRN PRN PRN Reason: Hypotension during Dialysis Stop: 06/27/17 11:32 Pantoprazole Sodium (Protonix -) 40 mg PO DAILY [facility] Last Admin: 06/26/17 09:42 Dose: 40 mg Sevelamer Carbonate (Renvela -) 800 mg PO TIDCM [facility] Last Admin: 06/26/17 19:08 Dose: 800 mg - Objective Vital Signs: Vital Signs Temperature 98.9 F 06/27/17 06:05 Pulse Rate 111 H 06/27/17 06:05 Respiratory Rate 20 06/27/17 06:05 Blood Pressure 134/71 06/27/17 06:05 O2 Sat by Pulse Oximetry (%) 98 06/26/17 21:00 Constitutional: Yes: No Distress HENT: Yes: WNL, Atraumatic Neck: Yes: WNL, Supple Cardiovascular: Yes: Regular Rate and Rhythm, S1, S2 Respiratory: Yes: WNL, Regular, CTA Bilaterally Gastrointestinal: Yes: Soft, Other (Tender LLQ no rebound guarding otherwise soft abd) Extremities: Yes: Other (Fistula) Labs: CBC, BMP 06/27/17 06:53 06/25/17 05:50 INR, PTT INR 1.08 (0.82-1.09) 06/20/17 18:12 Problem List - Problems (1) Peritonitis Code(s): K65.9 - PERITONITIS, UNSPECIFIED (2) End stage chronic kidney disease Code(s): N18.6 - END STAGE RENAL DISEASE; Z99.2 - DEPENDENCE ON RENAL DIALYSIS (3) Fever Code(s): R50.9 - FEVER, UNSPECIFIED Assessment/Plan Laboratory Tests 06/25/17 06/27/17 05:50 06:53 WBC 14.0 H Pending RBC Pending Hgb 10.1 L Plt Count 592 H Pending Assessment Concern is fever rising WBC and platelet count She complains of and pain and now 101 with chills Certainly at risk for infection given ESRD and recent GI procedure Plan Definitely needs blood cultures ESR CRP Chest xray Abd CT scan rule out perforation IV access ?? Blood cultures x 2 Empiric Vanco and Ceftriaxone and metronidazole as PCN allergic Van ESTEVEZ
[2017-06-27] MEDS: SEVELAMER CARBONATE 800 MG TAB (FP) PO SCH ×3 (09:29→19:46)
[2017-06-27] MEDS ORDERED: VANCOMYCIN 1,500 MG in DEXTROSE 5%-WATER - 500 ML IVPB ONE (10:00)
--- NOTE | 2017-06-27 10:06 | PN ---
Progress Note (short form) - Note Progress Note: RENAL feeling better though has pain in left flank still having fevers. mostly low grade Last Vital Signs Temp Pulse Resp BP Pulse Ox 98.9 F 111 H 20 134/71 98 06/27/17 06:05 06/27/17 06:05 06/27/17 06:05 06/27/17 06:05 06/26/17 21:00 lungs clear cvs s1s2 rr abd soft ext no edema neuro a+ox3 CBC, BMP 06/27/17 06:53 06/25/17 05:50 Current Medications Generic Name Dose Route Start Last Admin Trade Name Freq PRN Reason Stop Dose Admin Acetaminophen 650 mg 06/22/17 11:09 06/25/17 21:07 Tylenol - PO 650 mg Q4H PRN Administration PAIN Amlodipine Besylate 5 mg 06/21/17 15:15 06/26/17 09:43 Norvasc - PO Not Given DAILY [facility] Aspirin 81 mg 06/27/17 10:00 Ecotrin - PO DAILY [facility] Atorvastatin Calcium 40 mg 06/21/17 22:00 06/26/17 22:20 Lipitor - PO 40 mg HS [facility] Administration Cinacalcet 30 mg 06/21/17 10:00 06/26/17 09:42 Sensipar - PO 30 mg DAILY [facility] Administration Sodium Chloride 250 mls @ 3,000 mls/hr 06/26/17 11:32 Normal Saline - IV 06/27/17 11:32 PRN PRN Hypotension during Dialysis Ceftriaxone Sodium 2 gm/ 100 mls @ 200 mls/hr 06/27/17 10:00 Dextrose IVPB DAILY [facility] Vancomycin HCl 1,500 mg/ 500 mls @ 250 mls/hr 06/27/17 10:00 Dextrose IVPB 06/27/17 11:59 ONCE ONE Protocol Metronidazole 500 mg in 100 mls @ 100 mls/hr 06/27/17 10:00 Flagyl 500mg Premixed Ivpb - IVPB Q8H-IV [facility] Pantoprazole Sodium 40 mg 06/23/17 10:00 06/26/17 09:42 Protonix - PO 40 mg DAILY [facility] Administration Sevelamer Carbonate 800 mg 06/21/17 08:00 06/27/17 09:29 Renvela - PO 800 mg TIDCM [facility] Administration IMPRESSION 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 started on antibiotics by ID given fevers and wbc continue HD tiw. rehd in 2 days if pain continues will need a CT scan. Will likely need to rule out perforation MV
[2017-06-27] MEDS ORDERED: PT OWN MED DRAWER 7, Y5N ONE (10:31)
[2017-06-27] MEDS: ASPIRIN COATED 81 MG TABLET.EC PO SCH (10:41)
[2017-06-27] MEDS: PANTOPRAZOLE 40 MG TABLET (FP) PO SCH (10:41)
[2017-06-27] MEDS: ACETAMINOPHEN 325 MG TABLET (FP) PO PRN ×2 (10:41→18:11)
[2017-06-27] MEDS: CINACALCET HCL 30 MG TAB (FP) PO SCH (10:41)
[2017-06-27] MEDS: amLODIPine BESYLATE 5 MG TABLET (FP) PO SCH (10:41)
--- NOTE | 2017-06-27 11:32 | PN ---
Progress Note (short form) - Note Progress Note: CC: pre-op clearance S: no cp, palps, sob, dizziness, +fever Current Medications Generic Name Dose Route Start Last Admin Trade Name [place] PRN Reason Stop Dose Admin Acetaminophen 650 mg 06/22/17 11:09 06/27/17 10:41 Tylenol - PO 650 mg Q4H PRN Administration PAIN Amlodipine Besylate 5 mg 06/21/17 15:15 06/27/17 10:41 Norvasc - PO 5 mg DAILY [facility] Administration Aspirin 81 mg 06/27/17 10:00 06/27/17 10:41 Ecotrin - PO 81 mg DAILY [facility] Administration Atorvastatin Calcium 40 mg 06/21/17 22:00 06/26/17 22:20 Lipitor - PO 40 mg HS [facility] Administration Cinacalcet 30 mg 06/21/17 10:00 06/27/17 10:41 Sensipar - PO 30 mg DAILY [facility] Administration Sodium Chloride 250 mls @ 3,000 mls/hr 06/26/17 11:32 Normal Saline - IV 06/27/17 11:32 PRN PRN Hypotension during Dialysis Ceftriaxone Sodium 2 gm/ 100 mls @ 200 mls/hr 06/27/17 10:00 Dextrose IVPB DAILY [facility] Vancomycin HCl 1,500 mg/ 500 mls @ 250 mls/hr 06/27/17 10:00 Dextrose IVPB 06/27/17 11:59 ONCE ONE Protocol Metronidazole 500 mg in 100 mls @ 100 mls/hr 06/27/17 10:00 Flagyl 500mg Premixed Ivpb - IVPB Q8H-IV [facility] Pantoprazole Sodium 40 mg 06/23/17 10:00 06/27/17 10:41 Protonix - PO 40 mg DAILY [facility] Administration Sevelamer Carbonate 800 mg 06/21/17 08:00 06/27/17 09:29 Renvela - PO 800 mg TIDCM [facility] Administration Vital Signs Period Temp Pulse Resp BP Sys/Casiano Pulse Ox Last 24 Hr 98.4 F-101.4 F 62-111 18-20 133-164/60-106 98 nad, calm jvd tds ? borderline elevated. neck supple trace bibasilar rales, nl effort irregularly, irregular nl s1, s2 no 2/6 sys murmur at sternal usb and lsb + bs soft nt nd, obese. no hsm no e/c/c aaox3 no jaundice, diaphoresis. CBC, BMP 06/27/17 06:53 06/25/17 05:50 ekg: poor baseline, likely sinus rhythm with pac. non-specific t wave abnormalities. (poor baseline - unable to compare t wave morphology to priors) echo 01/2017: 1+ concentric lvh. nl lv/rv size/fn mod lae. 1+ ar. 1+ mac. 1 + mr. rvsp 30-40. cxr images and report reviewed: new congestive changes, but by my review appears similar to priors. abd u/s report reviewed: no ascites, see emr for details. egd 06/2017: distal esophagitis, hiatal hernia, moderate diverticulosis, edematous/erythemaouts colon, ulcerations of transverse and ascending colon - etiology?. see emr for full report details. Assessment/Plan 71 yo with h/o afib previously (off ac due to prior gib), cad s/p pci 10 years ago, diastolic chf, htn, ESRD on HD (M, W, F) and h/o esophagitis who p/w recurrent GIB --> plan for endoscopy. Pre-op clearance - Based on RCRI and poor functional status, patient has high risk of sobia- operative complications. Management of sobia-operative volume status per renal/ HD. Patient counseled on risk. - s/p endoscopy 06/23 and colonoscopy 06/25, no complications afib - per report patient had been taken off AC due to anemia/GIB. had been on asa. (See below regarding asa therapy) - currently rate controlled off av suha blockade. cad s/p remote pci (10 years ago)/hl - had been on ASA - currently holding in light of GIB. Discussed with GI 06/26, safe to resume low dose asa. - ekg without ischemic changes. currently free of anginal symptoms. con't statin and norvasc. diastolic chf/esrd on HD - cxr reports new congestive changes, but by my review appears similar to priors. Weight here is lower than prior weights. Low suspicion for volume overload. - volume status per renal. monitor weights. htn - 06/23: bline increased but has not yet received norvasc this morning. con't to monitor for need to adjust regimen. - 06/26 norvasc held this am for HD. bp overall controlled. GIB - eval/mgm't per pmd/gi. fever: -infectious w/u per ID
[2017-06-27] MEDS: CEFTRIAXONE 2 GM in DEXTROSE 5%-WATER - 100 ML IVPB SCH (11:46)
--- NOTE | 2017-06-27 12:06 | PN ---
Progress Note (short form) - Note Progress Note: seen and examined case discussed with Dr Araujo c/o having fever last night / ++sweating c/o abdominal pain s/p colonoscopy with polypectomy persistent low grade temp Vital Signs Period Temp Pulse Resp BP Sys/Casiano Pulse Ox Last 24 Hr 98.4 F-101.4 F 62-111 18-20 133-164/60-106 98 lungs clear heart s1/S2- abd soft no guarding /? tenderness LLQ ext bruit left UE no edema LE CBC, BMP 06/27/17 06:53 06/25/17 05:50 Active Medications Acetaminophen (Tylenol -) 650 mg PO Q4H PRN PRN Reason: PAIN Last Admin: 06/27/17 10:41 Dose: 650 mg Amlodipine Besylate (Norvasc -) 5 mg PO DAILY [facility] Last Admin: 06/27/17 10:41 Dose: 5 mg Aspirin (Ecotrin -) 81 mg PO DAILY [facility] Last Admin: 06/27/17 10:41 Dose: 81 mg Atorvastatin Calcium (Lipitor -) 40 mg PO HS [facility] Last Admin: 06/26/17 22:20 Dose: 40 mg Cinacalcet (Sensipar -) 30 mg PO DAILY [facility] Last Admin: 06/27/17 10:41 Dose: 30 mg Ceftriaxone Sodium 2 gm/ (Dextrose) 100 mls @ 200 mls/hr IVPB DAILY [facility] Last Admin: 06/27/17 11:46 Dose: 200 mls/hr Metronidazole (Flagyl 500mg Premixed Ivpb -) 500 mg in 100 mls @ 100 mls/hr IVPB Q8H-IV [facility] Last Admin: 06/27/17 11:46 Dose: 100 mls/hr Pantoprazole Sodium (Protonix -) 40 mg PO DAILY [facility] Last Admin: 06/27/17 10:41 Dose: 40 mg Sevelamer Carbonate (Renvela -) 800 mg PO TIDCM [facility] Last Admin: 06/27/17 12:06 Dose: 800 mg # abdominal pain Iron def anemia s/p EGD s/p colonoscopy persist with low grade temps appreciate ID consultation -- ABX per ID #[id number] on HD TIW on schedule # A fib rate controlled asa # HTN continue to monitor Bp non compliant with meds resumed amlodipine per [facility] - last refill 2015 Problem List - Problems (1) Abdominal pain Code(s): R10.9 - UNSPECIFIED ABDOMINAL PAIN Qualifiers: (2) Dyspnea Code(s): R06.00 - DYSPNEA, UNSPECIFIED (3) End stage chronic kidney disease Code(s): N18.6 - END STAGE RENAL DISEASE; Z99.2 - DEPENDENCE ON RENAL DIALYSIS (4) Lower GI bleed Code(s): K92.2 - GASTROINTESTINAL HEMORRHAGE, UNSPECIFIED (5) Weakness Code(s): R53.1 - WEAKNESS (6) Afib Code(s): I48.91 - UNSPECIFIED ATRIAL FIBRILLATION (7) Chest pain Code(s): R07.9 - CHEST PAIN, UNSPECIFIED Qualifiers: Chest pain type: unspecified Qualified Code(s): R07.9 - Chest pain, unspecified (8) HTN (hypertension) Code(s): I10 - ESSENTIAL (PRIMARY) HYPERTENSION
--- NOTE | 2017-06-27 12:18 | CONS ---
INFECTIOUS DISEASE CONSULTATION DATE OF CONSULTATION: DATE OF DICTATION: 06/27/2017 HISTORY OF PRESENT ILLNESS: This is a 71-year-old female with end-stage renal disease, who I am asked to see for evaluation of fever to 101 with chills. The patient was originally admitted to the hospital with black stools for several days. She was seen in consultation by the GI service, and on June 25, underwent an upper and lower endoscopy. Biopsies were also performed. The endoscopy report did not show any evidence of active bleeding. The patient has an AV graft for dialysis. Last night, she spiked fever to 101 two days post procedure. She noted chills and complains of a "pain" in her side, pointing to her abdomen. She has no nausea, vomiting, chest pain, or cough. PAST MEDICAL HISTORY: Includes end-stage renal disease, hypertension. HOME MEDICATIONS: Albuterol, Protonix, Ecotrin, Lipitor. ALLERGIES: PENICILLIN, unknown type of allergy. SOCIAL HISTORY: Poor historian. Former smoker but no history of substance abuse. FAMILY HISTORY: Noncontributory. REVIEW OF SYSTEMS: Respiratory: No cough, shortness of breath. Cardiac: No chest pain, palpitations, syncope. Gastrointestinal: Lower left abdominal discomfort, pain? Genitourinary: End-stage renal disease. PHYSICAL EXAMINATION: General: She was a heavy-set woman, alert, and in no acute distress. Vital Signs: Her temperature maximum 101.4. Currently, the pulse 111, blood pressure 134/71, respirations 20. Neck: Supple without adenopathy. Lungs: Clear to percussion and auscultation. Heart: S1, S2. Regular rhythm without audible murmur. Abdomen: Soft. Bowel sounds diminished, with tenderness noted in the left lower quadrant without guarding or rebound. Extremities: With arm AV graft. DIAGNOSTIC DATA: The white count is 14,000 with a hemoglobin of 10.1 and platelets of 592. AST 10, ALT 11, alkaline phosphatase 276. Abdominal ultrasound shows no evidence of cholelithiasis or acute cholecystitis. ASSESSMENT: A 71-year-old female with end-stage renal disease, on aspirin, admitted for evaluation of gastrointestinal bleeding, status post upper and lower endoscopy June 25, now febrile to 101 with chills. Physical findings include mild-to- moderate tenderness in the left lower quadrant without obvious peritoneal findings in an otherwise soft abdomen. The patient is a poor historian and, therefore, difficult to evaluate her complaints. She is also PENICILLIN allergic. As discussed with Dr. Buchanan, the possibility of a transient bacteremia related to the colonoscopy and/or small perforation is considered. As she is a dialysis patient with a graft, she is at high risk for infection including staphylococcus and gram-negative rods. additionally needs intrabd coverage Note that her white count has been gradually climbing along with her platelet count, now almost 600,000 as of yesterday. This may represent an acute-phase reactant in response to an underlying infection. PLAN: Blood cultures x2, noting that she has poor venous access and will be difficult to obtain; a CAT scan of the abdomen and pelvis to rule out free air; chest x-ray; empiric antibiotic with vancomycin and ceftriaxone, metronidazole, again, assuming we can provide her with a venous access; ESR and CRP. ISAIAH PAGE M.D. [id number] MTDGreta
[2017-06-27] MEDS: ATORVASTATIN CA 40 MG TABLET (FP) PO SCH (22:17)
[2017-06-28 08:24] LABS: BASO % 0.4 % (0-2.0); EOS % 1.9 % (0-4.5); HEMATOCRIT 29.1 % (32.4-45.2); HEMOGLOBIN 9.5 GM/dL (10.7-15.3); LYMPH % 4.1 % (8-40); MCH 28.4 pg (25.7-33.7); MCHC 32.8 g/dl (32.0-36.0); MEAN CELL VOLUME 86.6 fl (80-96); MEAN PLT VOLUME 7.3 fl (7.5-11.1); MONO % 9.8 % (3.8-10.2); NEUT % 83.8 % (42.8-82.8); PLATELET COUNT 507 K/MM3 (134-434); RBC 3.36 M/mm3 (3.60-5.2); WHITE BLOOD COUNT 12.5 K/mm3 (4.0-10.0)
[2017-06-28] MEDS: SEVELAMER CARBONATE 800 MG TAB (FP) PO SCH ×3 (08:46→17:39)
[2017-06-28 08:49] LABS: ANION GAP 11 (8-16); BLOOD UREA NITROGEN 22 mg/dL (7-18); CALCIUM 7.2 mg/dL (8.5-10.1); CHLORIDE 96 mmol/L (98-107); CO2 29 mmol/L (21-32); CREATININE 7.3 mg/dL (0.55-1.02); GLUCOSE,RANDOM 80 mg/dL (74-106); SODIUM 136 mmol/L (136-145)
[2017-06-28] MEDS ORDERED: PT OWN MED DRAWER 7, Y5N ONE (09:45)
[2017-06-28] MEDS: CINACALCET HCL 30 MG TAB (FP) PO SCH (10:06)
[2017-06-28] MEDS: CEFTRIAXONE 2 GM in DEXTROSE 5%-WATER - 100 ML IVPB SCH (10:06)
[2017-06-28] MEDS: ASPIRIN COATED 81 MG TABLET.EC PO SCH (10:06)
[2017-06-28] MEDS: amLODIPine BESYLATE 5 MG TABLET (FP) PO SCH (10:06)
[2017-06-28] MEDS: PANTOPRAZOLE 40 MG TABLET (FP) PO SCH (10:06)
--- NOTE | 2017-06-28 10:54 | PN ---
Progress Note (short form) - Note Progress Note: RENAL no fever but has been going to bathroom frequently still with some left upper quadrant discomfort Last Vital Signs Temp Pulse Resp BP Pulse Ox 99.8 F H 82 20 136/64 94 L 06/28/17 06:00 06/28/17 06:00 06/28/17 06:00 06/28/17 06:00 06/27/17 21:00 lungs clear cvs s1s2 rr abd soft ext no edema neuro a+ox3 CBC, BMP 06/28/17 08:13 06/28/17 08:13 Current Medications Generic Name Dose Route Start Last Admin Trade Name Freq PRN Reason Stop Dose Admin Acetaminophen 650 mg 06/22/17 11:09 06/27/17 18:11 Tylenol - PO 650 mg Q4H PRN Administration PAIN Amlodipine Besylate 5 mg 06/21/17 15:15 06/28/17 10:06 Norvasc - PO 5 mg DAILY [facility] Administration Aspirin 81 mg 06/27/17 10:00 06/28/17 10:06 Ecotrin - PO 81 mg DAILY [facility] Administration Atorvastatin Calcium 40 mg 06/21/17 22:00 06/27/17 22:17 Lipitor - PO 40 mg HS [facility] Administration Cinacalcet 30 mg 06/21/17 10:00 06/28/17 10:06 Sensipar - PO 30 mg DAILY [facility] Administration Ceftriaxone Sodium 2 gm/ 100 mls @ 200 mls/hr 06/27/17 10:00 06/28/17 10:06 Dextrose IVPB 200 mls/hr DAILY [facility] Administration Metronidazole 500 mg in 100 mls @ 100 mls/hr 06/27/17 10:00 06/28/17 10:07 Flagyl 500mg Premixed Ivpb - IVPB 100 mls/hr Q8H-IV [facility] Administration Pantoprazole Sodium 40 mg 06/23/17 10:00 06/28/17 10:06 Protonix - PO 40 mg DAILY [facility] Administration Sevelamer Carbonate 800 mg 06/21/17 08:00 06/28/17 08:46 Renvela - PO 800 mg TIDCM [facility] Administration IMPRESSION 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 started on antibiotics by ID given fevers and wbc continue HD tiw. rehd tomorrow replace k [facility]
[2017-06-28] MEDS ORDERED: EPOETIN ALFA 3,000 UNIT/1 ML ML SQ ONE (11:00)
--- NOTE | 2017-06-28 11:32 | PN ---
Progress Note (short form) - Note Progress Note: CC: pre-op clearance S: no cp, palps, sob, dizziness, +diarrhea Current Medications Generic Name Dose Route Start Last Admin Trade Name [place] PRN Reason Stop Dose Admin Acetaminophen 650 mg 06/22/17 11:09 06/27/17 18:11 Tylenol - PO 650 mg Q4H PRN Administration PAIN Amlodipine Besylate 5 mg 06/21/17 15:15 06/28/17 10:06 Norvasc - PO 5 mg DAILY [facility] Administration Aspirin 81 mg 06/27/17 10:00 06/28/17 10:06 Ecotrin - PO 81 mg DAILY [facility] Administration Atorvastatin Calcium 40 mg 06/21/17 22:00 06/27/17 22:17 Lipitor - PO 40 mg HS [facility] Administration Cinacalcet 30 mg 06/21/17 10:00 06/28/17 10:06 Sensipar - PO 30 mg DAILY [facility] Administration Epoetin Gaston 3,000 unit 06/28/17 10:57 Procrit - SQ 06/28/17 10:58 ONCE ONE Ceftriaxone Sodium 2 gm/ 100 mls @ 200 mls/hr 06/27/17 10:00 06/28/17 10:06 Dextrose IVPB 200 mls/hr DAILY [facility] Administration Metronidazole 500 mg in 100 mls @ 100 mls/hr 06/27/17 10:00 06/28/17 10:07 Flagyl 500mg Premixed Ivpb - IVPB 100 mls/hr Q8H-IV [facility] Administration Sodium Chloride 250 mls @ 3,000 mls/hr 06/28/17 10:57 Normal Saline - IV 06/29/17 10:57 PRN PRN Hypotension during Dialysis Pantoprazole Sodium 40 mg 06/23/17 10:00 06/28/17 10:06 Protonix - PO 40 mg DAILY [facility] Administration Potassium Chloride 40 meq 06/28/17 10:54 K-Dur - PO 06/28/17 10:55 ONCE ONE Sevelamer Carbonate 800 mg 06/21/17 08:00 06/28/17 08:46 Renvela - PO 800 mg TIDCM [facility] Administration Vital Signs Period Temp Pulse Resp BP Sys/Casiano Pulse Ox Last 24 Hr 97.8 F-99.8 F 79-104 18-20 101-137/54-72 94 nad, calm jvd tds ? borderline elevated. neck supple trace bibasilar rales, nl effort irregularly, irregular nl s1, s2 no 2/6 sys murmur at sternal usb and lsb + bs soft nt nd, obese. no hsm no e/c/c aaox3 no jaundice, diaphoresis. CBC, BMP 06/28/17 08:13 06/28/17 08:13 ekg: poor baseline, likely sinus rhythm with pac. non-specific t wave abnormalities. (poor baseline - unable to compare t wave morphology to priors) echo 01/2017: 1+ concentric lvh. nl lv/rv size/fn mod lae. 1+ ar. 1+ mac. 1 + mr. rvsp 30-40. cxr images and report reviewed: new congestive changes, but by my review appears similar to priors. abd u/s report reviewed: no ascites, see emr for details. egd 06/2017: distal esophagitis, hiatal hernia, moderate diverticulosis, edematous/erythemaouts colon, ulcerations of transverse and ascending colon - etiology?. see emr for full report details. Assessment/Plan 71 yo with h/o afib previously (off ac due to prior gib), cad s/p pci 10 years ago, diastolic chf, htn, ESRD on HD (M, W, F) and h/o esophagitis who p/w recurrent GIB --> plan for endoscopy. Pre-op clearance - Based on RCRI and poor functional status, patient has high risk of sobia- operative complications. Management of sobia-operative volume status per renal/ HD. Patient counseled on risk. - s/p endoscopy 06/23 and colonoscopy 06/25, no complications afib - per report patient had been taken off AC due to anemia/GIB. had been on asa. (See below regarding asa therapy) - currently rate controlled off av suha blockade. cad s/p remote pci (10 years ago)/hl - had been on ASA - currently holding in light of GIB. Discussed with GI 06/26, safe to resume low dose asa. - ekg without ischemic changes. currently free of anginal symptoms. con't statin and norvasc. diastolic chf/esrd on HD - cxr reports new congestive changes, but by my review appears similar to priors. Weight here is lower than prior weights. Low suspicion for volume overload. - volume status per renal. monitor weights. htn -cont current meds GIB - eval/mgm't per pmd/gi. fever: -infectious w/u per ID
[2017-06-28] MEDS ORDERED: POTASSIUM CHLORIDE TABS 20 MEQ TABLET.ER (FP) PO ONE (13:00)
--- NOTE | 2017-06-28 14:36 | PN ---
Progress Note (short form) - Note Progress Note: seen and examined continues c/o abdominal pain no findings on exam c/o diarreha s/p colonoscopy with polypectomy Vital Signs Period Temp Pulse Resp BP Sys/Casiano Pulse Ox Last 24 Hr 98.5 F-99.8 F 79-104 20-20 101-137/54-72 94 lungs clear heart s1/S2- abd soft no guarding /? tenderness LLQ &RLQ ext bruit left UE no edema LE CBC, BMP 06/28/17 08:13 06/28/17 08:13 Microbiology 06/27/17 11:10 Blood - Peripheral Venous Blood Culture - Preliminary NO GROWTH OBTAINED AFTER 24 HOURS, INCUBATION TO CONTINUE FOR 4 DAYS. 06/27/17 10:39 Blood - Peripheral Venous Blood Culture - Preliminary NO GROWTH OBTAINED AFTER 24 HOURS, INCUBATION TO CONTINUE FOR 4 DAYS. Active Medications Acetaminophen (Tylenol -) 650 mg PO Q4H PRN PRN Reason: PAIN Last Admin: 06/27/17 18:11 Dose: 650 mg Amlodipine Besylate (Norvasc -) 5 mg PO DAILY [facility] Last Admin: 06/28/17 10:06 Dose: 5 mg Aspirin (Ecotrin -) 81 mg PO DAILY [facility] Last Admin: 06/28/17 10:06 Dose: 81 mg Atorvastatin Calcium (Lipitor -) 40 mg PO HS [facility] Last Admin: 06/27/17 22:17 Dose: 40 mg Cinacalcet (Sensipar -) 30 mg PO DAILY [facility] Last Admin: 06/28/17 10:06 Dose: 30 mg Epoetin Gaston (Procrit -) 3,000 unit SQ ONCE ONE Stop: 06/28/17 10:58 Ceftriaxone Sodium 2 gm/ (Dextrose) 100 mls @ 200 mls/hr IVPB DAILY [facility] Last Admin: 06/28/17 10:06 Dose: 200 mls/hr Metronidazole (Flagyl 500mg Premixed Ivpb -) 500 mg in 100 mls @ 100 mls/hr IVPB Q8H-IV [facility] Last Admin: 06/28/17 10:07 Dose: 100 mls/hr Sodium Chloride (Normal Saline -) 250 mls @ 3,000 mls/hr IV PRN PRN PRN Reason: Hypotension during Dialysis Stop: 06/29/17 10:57 Pantoprazole Sodium (Protonix -) 40 mg PO DAILY [facility] Last Admin: 06/28/17 10:06 Dose: 40 mg Sevelamer Carbonate (Renvela -) 800 mg PO TIDCM [facility] Last Admin: 06/28/17 12:22 Dose: 800 mg # abdominal pain Iron def anemia s/p EGD s/p colonoscopy persist with abdominal pain / low grade temps, no chills -- ABX per ID #CKD5 on HD TIW on schedule # A fib rate controlled asa # HTN continue to monitor Bp non compliant with meds resumed [facility]lod[facility]ine per [facility] - last refill 2014 Problem List - Problems (1) Abdominal pain Code(s): R10.9 - UNSPECIFIED ABDOMINAL PAIN Qualifiers: (2) Dyspnea Code(s): R06.00 - DYSPNEA, UNSPECIFIED (3) End stage chronic kidney disease Code(s): N18.6 - END STAGE RENAL DISEASE; Z99.2 - DEPENDENCE ON RENAL DIALYSIS (4) Lower GI bleed Code(s): K92.2 - GASTROINTESTINAL HEMORRHAGE, UNSPECIFIED (5) Weakness Code(s): R53.1 - WEAKNESS (6) Afib Code(s): I48.91 - UNSPECIFIED ATRIAL FIBRILLATION (7) Chest pain Code(s): R07.9 - CHEST PAIN, UNSPECIFIED Qualifiers: Chest pain type: unspecified Qualified Code(s): R07.9 - Chest pain, unspecified (8) HTN (hypertension) Code(s): I10 - ESSENTIAL (PRIMARY) HYPERTENSION
--- NOTE | 2017-06-28 17:27 | PN ---
GI Progress Note Subjective: States poor appetite but would eat food if her daughter would bring some CT scan yesterday failed to reveal perforation. It did reveal ? colitis of the right colon (patient just had colonoscopy that revealed right colon ulcers) Complains of diarrhea. per nursing had 1 episode today - Objective Vital Signs: Vital Signs Temperature 98.6 F 06/28/17 15:29 Pulse Rate 80 06/28/17 15:29 Respiratory Rate 19 06/28/17 15:29 Blood Pressure 121/62 06/28/17 15:29 O2 Sat by Pulse Oximetry (%) 94 L 06/27/17 21:00 Constitutional: Calm Eyes: No: Sclera Icterus Cardiovascular: Yes: Pulse Irregular (regular rate) Respiratory: Yes: CTA Bilaterally Gastrointestinal Inspection: No: Distention ...Auscultate: Yes: Normoactive Bowel Sounds ...Palpate: Yes: Tenderness (at keloid scars, otherwise non-tender) ...Percussion: No: Tympanitic Neurological: Yes: Alert Labs: CBC, BMP 06/28/17 08:13 06/28/17 08:13 INR, PTT INR 1.08 (0.82-1.09) 06/20/17 18:12 Problem List - Problems (1) Fever Assessment/Plan: Improving low grade temps Seen by ID Code(s): R50.9 - FEVER, UNSPECIFIED (2) Ulcerated colon Assessment/Plan: Awaiting official pathology results ? ischemic / r/o CMV / ? IBD (serologies pending) Stool studies ordered Code(s): K63.3 - ULCER OF INTESTINE
[2017-06-28] MEDS: ACETAMINOPHEN 325 MG TABLET (FP) PO PRN (17:39)
[2017-06-28] MEDS: ATORVASTATIN CA 40 MG TABLET (FP) PO SCH (21:58)
[2017-06-29] MEDS: ACETAMINOPHEN 325 MG TABLET (FP) PO PRN (00:59)
[2017-06-29] MEDS ORDERED: PT OWN MED DRAWER 7, Y5N ONE ×2 (09:16→15:22)
[2017-06-29] MEDS: SEVELAMER CARBONATE 800 MG TAB (FP) PO SCH ×3 (09:19→18:27)
[2017-06-29] MEDS: CEFTRIAXONE 2 GM in DEXTROSE 5%-WATER - 100 ML IVPB SCH (09:23)
[2017-06-29] MEDS: ASPIRIN COATED 81 MG TABLET.EC PO SCH (09:23)
[2017-06-29] MEDS: CINACALCET HCL 30 MG TAB (FP) PO SCH (09:23)
[2017-06-29] MEDS: PANTOPRAZOLE 40 MG TABLET (FP) PO SCH (09:23)
[2017-06-29] MEDS: amLODIPine BESYLATE 5 MG TABLET (FP) PO SCH (09:23)
--- NOTE | 2017-06-29 09:49 | PN ---
Progress Note (short form) - Note Progress Note: seen and examined sitting up in bed c/o she doesnt like the food so will not eat it no c/o abdominal pain / c/o diarrhea - how ever nurse reports none today also c/o fever and sweating overnight -- no documented fever overnight Vital Signs Period Temp Pulse Resp BP Sys/Casiano Pulse Ox Last 24 Hr 98 F-99.4 F 80-93 18-20 121-155/56-86 99 lungs clear heart s1/S2- abd soft no guarding / no tenderness elicited / ext bruit left UE no edema LE CBC, BMP 06/28/17 08:13 06/28/17 08:13 Microbiology 06/27/17 11:10 Blood - Peripheral Venous Blood Culture - Preliminary NO GROWTH OBTAINED AFTER 24 HOURS, INCUBATION TO CONTINUE FOR 4 DAYS. 06/27/17 10:39 Blood - Peripheral Venous Blood Culture - Preliminary NO GROWTH OBTAINED AFTER 24 HOURS, INCUBATION TO CONTINUE FOR 4 DAYS. Active Medications Acetaminophen (Tylenol -) 650 mg PO Q4H PRN PRN Reason: PAIN Last Admin: 06/29/17 00:59 Dose: 650 mg Amlodipine Besylate (Norvasc -) 5 mg PO DAILY [facility] Last Admin: 06/29/17 09:23 Dose: 5 mg Aspirin (Ecotrin -) 81 mg PO DAILY [facility] Last Admin: 06/29/17 09:23 Dose: 81 mg Atorvastatin Calcium (Lipitor -) 40 mg PO HS [facility] Last Admin: 06/28/17 21:58 Dose: 40 mg Cinacalcet (Sensipar -) 30 mg PO DAILY [facility] Last Admin: 06/29/17 09:23 Dose: 30 mg Epoetin Gaston (Procrit -) 3,000 unit SQ ONCE ONE Stop: 06/28/17 10:58 Ceftriaxone Sodium 2 gm/ (Dextrose) 100 mls @ 200 mls/hr IVPB DAILY [facility] Last Admin: 06/29/17 09:23 Dose: 200 mls/hr Metronidazole (Flagyl 500mg Premixed Ivpb -) 500 mg in 100 mls @ 100 mls/hr IVPB Q8H-IV [facility] Last Admin: 06/29/17 09:24 Dose: 100 mls/hr Sodium Chloride (Normal Saline -) 250 mls @ 3,000 mls/hr IV PRN PRN PRN Reason: Hypotension during Dialysis Stop: 06/29/17 10:57 Pantoprazole Sodium (Protonix -) 40 mg PO DAILY [facility] Last Admin: 06/29/17 09:23 Dose: 40 mg Sevelamer Carbonate (Renvela -) 800 mg PO TIDCM [facility] Last Admin: 06/29/17 09:19 Dose: 800 mg For HD today # abdominal pain s/p EGD s/p colonoscopy persist with abdominal pain / 06/27 low grade temps, no chills no inc temp since -- ABX per ID c/o of diarrhea -- serology sent by GI GI to follow selective about what she eats-- tolerates intake of choice #CKD5 on HD TIW on schedule # A fib rate controlled asa # HTN continue to monitor Bp non compliant with meds resumed [facility] - last refill 2014 Problem List - Problems (1) Abdominal pain Code(s): R10.9 - UNSPECIFIED ABDOMINAL PAIN Qualifiers: (2) Dyspnea Code(s): R06.00 - DYSPNEA, UNSPECIFIED (3) End stage chronic kidney disease Code(s): N18.6 - END STAGE RENAL DISEASE; Z99.2 - DEPENDENCE ON RENAL DIALYSIS (4) Lower GI bleed Code(s): K92.2 - GASTROINTESTINAL HEMORRHAGE, UNSPECIFIED (5) Weakness Code(s): R53.1 - WEAKNESS (6) Afib Code(s): I48.91 - UNSPECIFIED ATRIAL FIBRILLATION (7) Chest pain Code(s): R07.9 - CHEST PAIN, UNSPECIFIED Qualifiers: Chest pain type: unspecified Qualified Code(s): R07.9 - Chest pain, unspecified (8) HTN (hypertension) Code(s): I10 - ESSENTIAL (PRIMARY) HYPERTENSION
[2017-06-29] MEDS ORDERED: EPOETIN ALFA 3,000 UNIT/1 ML ML SQ ONE (11:00)
[2017-06-29] MEDS ORDERED: SODIUM CHLORIDE 250 ML IV PRN (11:00)
--- NOTE | 2017-06-29 11:09 | PN ---
Progress Note (short form) - Note Progress Note: I Let Dr. Dueñas know yesterday that if anticoagulation is required for Ms. Ivy barth.fib, no absolute contraindication to resuming it Problem List - Problems (1) Fever Code(s): R50.9 - FEVER, UNSPECIFIED (2) Ulcerated colon Code(s): K63.3 - ULCER OF INTESTINE
--- NOTE | 2017-06-29 11:41 | PN ---
Progress Note, Physician Chief Complaint: ID Says having diarrhea contantly Ceftriaxone and metrondazole - Current Medication List Current Medications: Active Medications Acetaminophen (Tylenol -) 650 mg PO Q4H PRN PRN Reason: PAIN Last Admin: 06/29/17 00:59 Dose: 650 mg Amlodipine Besylate (Norvasc -) 5 mg PO DAILY [facility] Last Admin: 06/29/17 09:23 Dose: 5 mg Aspirin (Ecotrin -) 81 mg PO DAILY [facility] Last Admin: 06/29/17 09:23 Dose: 81 mg Atorvastatin Calcium (Lipitor -) 40 mg PO HS [facility] Last Admin: 06/28/17 21:58 Dose: 40 mg Cinacalcet (Sensipar -) 30 mg PO DAILY [facility] Last Admin: 06/29/17 09:23 Dose: 30 mg Ceftriaxone Sodium 2 gm/ (Dextrose) 100 mls @ 200 mls/hr IVPB DAILY [facility] Last Admin: 06/29/17 09:23 Dose: 200 mls/hr Metronidazole (Flagyl 500mg Premixed Ivpb -) 500 mg in 100 mls @ 100 mls/hr IVPB Q8H-IV [facility] Last Admin: 06/29/17 09:24 Dose: 100 mls/hr Pantoprazole Sodium (Protonix -) 40 mg PO DAILY [facility] Last Admin: 06/29/17 09:23 Dose: 40 mg Sevelamer Carbonate (Renvela -) 800 mg PO TIDCM [facility] Last Admin: 06/29/17 09:19 Dose: 800 mg Vitamin A/Vitamin D (Vitamin A & D Top Oint -) 1 applic TP BID [facility] - Objective Vital Signs: Vital Signs Temperature 98.2 F 06/29/17 10:45 Pulse Rate 78 06/29/17 10:50 Respiratory Rate 18 06/29/17 10:50 Blood Pressure 149/68 06/29/17 10:50 O2 Sat by Pulse Oximetry (%) 99 06/28/17 21:00 Constitutional: Yes: No Distress Cardiovascular: Yes: S1, S2 Respiratory: Yes: WNL, Regular, CTA Bilaterally Gastrointestinal: Yes: WNL, Normal Bowel Sounds, Soft, Other (Lower abd tenderness no guarding or rebound) Labs: CBC, BMP 06/28/17 08:13 06/28/17 08:13 INR, PTT INR 1.08 (0.82-1.09) 06/20/17 18:12 Problem List - Problems (1) Peritonitis Code(s): K65.9 - PERITONITIS, UNSPECIFIED (2) End stage chronic kidney disease Code(s): N18.6 - END STAGE RENAL DISEASE; Z99.2 - DEPENDENCE ON RENAL DIALYSIS (3) Fever Code(s): R50.9 - FEVER, UNSPECIFIED Assessment/Plan Microbiology 06/27/17 11:10 Blood - Peripheral Venous Blood Culture - Preliminary NO GROWTH OBTAINED AFTER 48 HOURS, INCUBATION TO CONTINUE FOR 3 DAYS. 06/27/17 10:39 Blood - Peripheral Venous Blood Culture - Preliminary NO GROWTH OBTAINED AFTER 48 HOURS, INCUBATION TO CONTINUE FOR 3 DAYS. Laboratory Tests 06/27/17 06/28/17 06/28/17 07:00 08:13 08:13 WBC 12.5 H Hgb 9.5 L Hct 29.1 L Plt Count 507 H ESR 92 H C-Reactive Protein 21.6 H Assessment Focal colitis with abd discmfort and diarrhea ? ischemic vs infectious etiology CRP and ESR way up Plan Continue current antibiotics change to po flagyl even though this no longer the drug of choice for C dff Continue current therapy pending stool studies Van
--- NOTE | 2017-06-29 13:00 | PN ---
GI Progress Note Subjective: Patient complains of copious diarrhea however infrequent loose BM's are reported from nursing Also, patient describes poor PO intake yet nursing reports that she is eating regularly Currently receiving HD without incident - Objective Vital Signs: Vital Signs Temperature 98.2 F 06/29/17 10:45 Pulse Rate 78 06/29/17 10:50 Respiratory Rate 18 06/29/17 10:50 Blood Pressure 149/68 06/29/17 10:50 O2 Sat by Pulse Oximetry (%) 99 06/28/17 21:00 Constitutional: Calm Eyes: No: Sclera Icterus Cardiovascular: Yes: Pulse Irregular Gastrointestinal Inspection: No: Distention ...Auscultate: Yes: Normoactive Bowel Sounds ...Palpate: No: Tenderness ...Percussion: No: Tympanitic Edema: No (No LE edema) Neurological: Yes: Alert, Oriented Labs: CBC, BMP 06/28/17 08:13 06/28/17 08:13 INR, PTT INR 1.08 (0.82-1.09) 06/20/17 18:12 Problem List - Problems (1) Ulcerated colon Assessment/Plan: Discussed findings preliminarily w/ pathologist Dr. Sargent. right colon ulcers microscopically not c/w ischemia. Stain for CMV was being performed. The large polyp removed was a tubulovillous adenoma and the stalk was free of adenomatous changes. Awaiting final path results. The right colon ulcers were deep with normal appearing surrounding mucosa. Can start Asacol 1600mg PO TID for ? IBD. Serologies pending Stool for c. diff / culture pending Awaiting stool for O&P Code(s): K63.3 - ULCER OF INTESTINE
--- NOTE | 2017-06-29 13:40 | PN ---
Progress Note, Physician History of Present Illness: Pt seen and examined at bedside. She is currently getting HD. She still complains of abdominal discomfort. - Current Medication List Current Medications: Active Medications Acetaminophen (Tylenol -) 650 mg PO Q4H PRN PRN Reason: PAIN Last Admin: 06/29/17 00:59 Dose: 650 mg Amlodipine Besylate (Norvasc -) 5 mg PO DAILY [facility] Last Admin: 06/29/17 09:23 Dose: 5 mg Aspirin (Ecotrin -) 81 mg PO DAILY [facility] Last Admin: 06/29/17 09:23 Dose: 81 mg Atorvastatin Calcium (Lipitor -) 40 mg PO HS [facility] Last Admin: 06/28/17 21:58 Dose: 40 mg Cinacalcet (Sensipar -) 30 mg PO DAILY [facility] Last Admin: 06/29/17 09:23 Dose: 30 mg Ceftriaxone Sodium 2 gm/ (Dextrose) 100 mls @ 200 mls/hr IVPB DAILY [facility] Last Admin: 06/29/17 09:23 Dose: 200 mls/hr Mesalamine (Asacol Hd -) 1,600 mg PO TID [facility] Metronidazole (Flagyl -) 500 mg PO TID [facility] Pantoprazole Sodium (Protonix -) 40 mg PO DAILY [facility] Last Admin: 06/29/17 09:23 Dose: 40 mg Sevelamer Carbonate (Renvela -) 800 mg PO TIDCM [facility] Last Admin: 06/29/17 12:10 Dose: Not Given Vitamin A/Vitamin D (Vitamin A & D Top Oint -) 1 applic TP BID [facility] - Objective Vital Signs: Vital Signs Temperature 98.2 F 06/29/17 10:45 Pulse Rate 94 H 06/29/17 12:50 Respiratory Rate 18 06/29/17 12:50 Blood Pressure 135/98 06/29/17 12:50 O2 Sat by Pulse Oximetry (%) 99 06/28/17 21:00 Constitutional: Yes: Calm Eyes: Yes: Conjunctiva Clear HENT: Yes: Atraumatic Neck: Yes: Supple Cardiovascular: Yes: S1, S2 Respiratory: Yes: CTA Bilaterally Gastrointestinal: Yes: Soft, Tenderness Genitourinary: Yes: WNL Musculoskeletal: Yes: WNL Edema: No Peripheral Pulses WNL: Yes Integumentary: Yes: WNL Neurological: Yes: Oriented Psychiatric: Yes: Oriented Labs: CBC, BMP 06/28/17 08:13 06/28/17 08:13 INR, PTT INR 1.08 (0.82-1.09) 06/20/17 18:12 Problem List - Problems (1) Abdominal pain Code(s): R10.9 - UNSPECIFIED ABDOMINAL PAIN Qualifiers: (2) End stage chronic kidney disease Code(s): N18.6 - END STAGE RENAL DISEASE; Z99.2 - DEPENDENCE ON RENAL DIALYSIS (3) Afib Code(s): I48.91 - UNSPECIFIED ATRIAL FIBRILLATION Assessment/Plan Current Medications Generic Name Dose Route Start Last Admin Trade Name Freq PRN Reason Stop Dose Admin Acetaminophen 650 mg 06/22/17 11:09 06/29/17 00:59 Tylenol - PO 650 mg Q4H PRN Administration PAIN Amlodipine Besylate 5 mg 06/21/17 15:15 06/29/17 09:23 Norvasc - PO 5 mg DAILY [facility] Administration Aspirin 81 mg 06/27/17 10:00 06/29/17 09:23 Ecotrin - PO 81 mg DAILY [facility] Administration Atorvastatin Calcium 40 mg 06/21/17 22:00 06/28/17 21:58 Lipitor - PO 40 mg HS [facility] Administration Cinacalcet 30 mg 06/21/17 10:00 06/29/17 09:23 Sensipar - PO 30 mg DAILY [facility] Administration Ceftriaxone Sodium 2 gm/ 100 mls @ 200 mls/hr 06/27/17 10:00 06/29/17 09:23 Dextrose IVPB 200 mls/hr DAILY [facility] Administration Mesalamine 1,600 mg 06/29/17 14:00 Asacol Hd - PO TID [facility] Metronidazole 500 mg 06/29/17 14:00 Flagyl - PO TID [facility] Pantoprazole Sodium 40 mg 06/23/17 10:00 06/29/17 09:23 Protonix - PO 40 mg DAILY [facility] Administration Sevelamer Carbonate 800 mg 06/21/17 08:00 06/29/17 12:10 Renvela - PO Not Given TIDCM [facility] Vitamin A/Vitamin D 1 applic 06/29/17 22:00 Vitamin A & D Top Oint - TP BID [facility] Impression 1. ESRD 2. a-fib 3. abdominal pain 4. HTN 5. hyperlipidemia Plan - HD today - 3 k bath - will give a small dose of potassium - GI input appreciated - will follow - cont renal diet
[2017-06-29] MEDS: MESALAMINE 800 MG TABLET.DR PO SCH ×2 (15:27→23:43)
[2017-06-29] MEDS: metroNIDAZOLE 250 MG TABLET PO SCH ×2 (15:27→23:36)
--- NOTE | 2017-06-29 16:14 | PATH ---
Surgical Pathology Report Patient Name: DIONTE HEADLEY [facility]. Rec. #: [id number] /Age/Gender: 1945 (Age: 71) / F Account: [id number] Location: [address] [place] [address]/[facility] Taken: 06/25/2017 Received: 06/25/2017 Reported: 06/29/2017 Physicians: Erica Adams MD Specimen(s) Received A: BX HEPATIC FLEXURE B: BX RIGHT COLON C: BX PROXIMAL TRANSVERSE COLON D: BX TRANSVERSE COLON E: BX DISTAL TRANSVERSE COLON F: BX SIGMOID G: BX RECTO SIGMOID Clinical History Preoperative diagnosis: Melena Postoperative diagnosis: Diverticulosis, colon polyps, colon ulcers, hemorrhoids, colitis Final Diagnosis A. COLON, HEPATIC FLEXURE, POLYP, POLYPECTOMY: TUBULAR ADENOMA. B. COLON, RIGHT, BIOPSY: COLONIC MUCOSA WITH FOCAL ACTIVE COLITIS. C. PROXIMAL TRANSVERSE COLON, ULCER, BIOPSY: COLONIC MUCOSA WITH MODERATE ACUTE COLITIS AND ASSOCIATED FOCAL ULCERATION. SEE COMMENT. D. TRANSVERSE COLON, BIOPSY: COLONIC MUCOSA WITH MILD INCREASE IN LYMPHOPLASMACYTIC INFILTRATE WITHIN LAMINA PROPRIA. SEE COMMENT. E. DISTAL TRANSVERSE COLON, POLYPECTOMY: TUBULOVILLOUS ADENOMA. NO HIGH GRADE DYSPLASIA IDENTIFIED. F. SIGMOID COLON, BIOPSY: COLONIC MUCOSA WITH MILD ARCHITECTURAL DISTORTION AND MILD INCREASE IN LYMPHOPLASMACYTIC INFILTRATE WITHIN LAMINA PROPRIA. SEE COMMENT. G. RECTOSIGMOID COLON, BIOPSY: COLONIC MUCOSA WITH MILD ARCHITECTURAL DISTORTION, FOCAL LAMINA PROPRIA FIBROSIS, AND MILD INCREASE IN LYMPHOPLASMACYTIC INFILTRATE WITHIN LAMINA PROPRIA. SEE COMMENT. Comment: Findings are non-specific. Although acute self-limited colitis is a consideration, among other conditions, the possibility of early inflammatory bowel disease cannot be completely excluded. Immunohistochemical stain performed at [place], [place] ([id number]) and interpreted at [facility] on part C for CMV is negative. Suggest clinical/radiologic correlation. Findings discussed with Dr. Jackson. Electronically Signed Kath Sargent M.D. Gross Description A. Received in formalin, labeled "biopsy hepatic flexure colon polyp" are 2 watt, irregular portions of soft tissue measuring 0.2 and 0.6 cm. in greatest dimension. The specimens are submitted in toto in one cassette. B. Received in formalin, labeled "biopsy right colon ulcers" are 5 watt, irregular portions of soft tissue ranging from 0.1-0.6 cm. in greatest dimension. The specimens are submitted in toto in one cassette. C. Received in formalin, labeled "biopsy proximal transverse colon ulcer" are 2 wtat, irregular portions of soft tissue averaging 0.3 cm. in greatest dimension. The specimens are submitted in toto in one cassette. D. Received in formalin, labeled "biopsy transverse colon" are 2 watt, irregular portions of soft tissue measuring 0.2 and 0.5 cm. in greatest dimension. The specimens are submitted in toto in one cassette. E. Received in formalin labeled "distal transverse colon polyp," is a 3.2 x 1.5 x 1.4 cm watt, pedunculated polypoid portion of soft tissue. The base is inked blue and the specimen is entirely submitted in 3 cassettes. F. Received in formalin, labeled "sigmoid" are 3 watt, irregular portions of soft tissue ranging from 0.1-0.2 cm. in greatest dimension. The specimens are submitted in toto in one cassette. G. Received in formalin, labeled "rectosigmoid at 10 cm" are 2 watt, irregular portions of soft tissue measuring 0.4 and 0.6 cm. in greatest dimension. The specimens are submitted in toto in one cassette. 06/25/2017 [facility]06/25/2017
[2017-06-29] MEDS ORDERED: POTASSIUM CHLORIDE TABS 10 MEQ TABLET.ER (FP) PO ONE (17:17)
[2017-06-29] MEDS: VITAMINS A AND D TOPICAL OINTMENT 60 GM TUBE TP SCH (23:36)
[2017-06-29] MEDS: ATORVASTATIN CA 40 MG TABLET (FP) PO SCH (23:36)
[2017-06-30 00:11] LABS: ATYPICAL pANCA <1:20 titer (Neg:<1:20)
[2017-06-30] MEDS: metroNIDAZOLE 250 MG TABLET PO SCH (06:40)
[2017-06-30 08:01] LABS: BASO % 0.5 % (0-2.0); EOS % 2.1 % (0-4.5); HEMATOCRIT 30.2 % (32.4-45.2); LYMPH % 10.2 % (8-40); MCH 28.7 pg (25.7-33.7); MCHC 33.2 g/dl (32.0-36.0); MEAN CELL VOLUME 86.4 fl (80-96); MEAN PLT VOLUME 7.7 fl (7.5-11.1); MONO % 15.2 % (3.8-10.2); PLATELET COUNT 569 K/MM3 (134-434); RBC 3.49 M/mm3 (3.60-5.2); RDW 16.8 % (11.6-15.6); WHITE BLOOD COUNT 10.4 K/mm3 (4.0-10.0)
[2017-06-30] MEDS: SEVELAMER CARBONATE 800 MG TAB (FP) PO SCH ×3 (08:16→18:32)
[2017-06-30] MEDS: MESALAMINE 800 MG TABLET.DR PO SCH ×3 (08:17→18:32)
[2017-06-30] MEDS: PANTOPRAZOLE 40 MG TABLET (FP) PO SCH (11:44)
[2017-06-30] MEDS: amLODIPine BESYLATE 5 MG TABLET (FP) PO SCH (11:44)
[2017-06-30] MEDS: ASPIRIN COATED 81 MG TABLET.EC PO SCH (11:45)
[2017-06-30] MEDS: CEFTRIAXONE 2 GM in DEXTROSE 5%-WATER - 100 ML IVPB SCH (11:45)
[2017-06-30] MEDS: CINACALCET HCL 30 MG TAB (FP) PO SCH (11:45)
[2017-06-30] MEDS: VITAMINS A AND D TOPICAL OINTMENT 60 GM TUBE TP SCH ×2 (11:46→23:04)
--- NOTE | 2017-06-30 13:14 | PN ---
Progress Note, Physician History of Present Illness: Seated in bed + 4 loose BMs today C/O L sided abdominal pain No rectal bleeding CT colitis cecum, prox descending colon Colonoscopy findings noted - Current Medication List Current Medications: Active Medications Acetaminophen (Tylenol -) 650 mg PO Q4H PRN PRN Reason: PAIN Last Admin: 06/29/17 00:59 Dose: 650 mg Amlodipine Besylate (Norvasc -) 5 mg PO DAILY [facility] Last Admin: 06/30/17 11:44 Dose: 5 mg Aspirin (Ecotrin -) 81 mg PO DAILY [facility] Last Admin: 06/30/17 11:45 Dose: 81 mg Atorvastatin Calcium (Lipitor -) 40 mg PO HS [facility] Last Admin: 06/29/17 23:36 Dose: 40 mg Cinacalcet (Sensipar -) 30 mg PO DAILY [facility] Last Admin: 06/30/17 11:45 Dose: 30 mg Ceftriaxone Sodium 2 gm/ (Dextrose) 100 mls @ 200 mls/hr IVPB DAILY [facility] Last Admin: 06/30/17 11:45 Dose: 200 mls/hr Lactobacillus Acidophilus (Bacid -) 1 tab PO DAILY [facility] Mesalamine (Asacol Hd -) 1,600 mg PO TIDCM [facility] Last Admin: 06/30/17 11:46 Dose: 1,600 mg Pantoprazole Sodium (Protonix -) 40 mg PO DAILY [facility] Last Admin: 06/30/17 11:44 Dose: 40 mg Sevelamer Carbonate (Renvela -) 800 mg PO TIDCM [facility] Last Admin: 06/30/17 11:47 Dose: 800 mg Vancomycin HCl (Vancomycin Oral Solution) 125 mg PO Q6HPO [facility] Vitamin A/Vitamin D (Vitamin A & D Top Oint -) 1 applic TP BID [facility] Last Admin: 06/30/17 11:46 Dose: 1 applic - Objective Vital Signs: Vital Signs Temperature 98.6 F 06/30/17 06:23 Pulse Rate 90 06/30/17 06:23 Respiratory Rate 20 06/30/17 06:23 Blood Pressure 136/62 06/30/17 06:23 O2 Sat by Pulse Oximetry (%) 98 06/29/17 21:00 Constitutional: Yes: No Distress, Obese Cardiovascular: Yes: Regular Rate and Rhythm, S1 Respiratory: Yes: Other (few crepitations, bases) Gastrointestinal: Yes: Normal Bowel Sounds, Soft, Abdomen, Obese. No: Tenderness Labs: CBC, BMP 06/30/17 05:30 06/28/17 08:13 INR, PTT INR 1.08 (0.82-1.09) 06/20/17 18:12 Assessment/Plan S/P GI Bleed Fever-resolved Colitis ischemic v. infectious v. IBD ESRD PCN allergy C dificile Continue ceftriaxone/ vanco
[2017-06-30] MEDS ORDERED: PT OWN MED DRAWER 7, Y5N ONE ×3 (13:41→18:46)
[2017-06-30] MEDS: LACTOBACILLUS ACIDOPHILUS 1 EACH TAB (FP) PO SCH (13:48)
[2017-06-30 14:02] LABS: ANION GAP 14 (8-16); BLOOD UREA NITROGEN 16 mg/dL (7-18); CALCIUM 8.1 mg/dL (8.5-10.1); CHLORIDE 95 mmol/L (98-107); CO2 29 mmol/L (21-32); CREATININE 6.2 mg/dL (0.55-1.02); GLUCOSE,RANDOM 94 mg/dL (74-106); POTASSIUM 3.5 mmol/L (3.5-5.1); SODIUM 138 mmol/L (136-145)
[2017-06-30] MEDS ORDERED: SODIUM CHLORIDE 250 ML IV PRN (16:34)
--- NOTE | 2017-06-30 16:34 | PN ---
Progress Note, Physician History of Present Illness: Pt seen and examined at bedside. She is awake and alert. She denies shortness of breath. - Current Medication List Current Medications: Active Medications Acetaminophen (Tylenol -) 650 mg PO Q4H PRN PRN Reason: PAIN Last Admin: 06/29/17 00:59 Dose: 650 mg Amlodipine Besylate (Norvasc -) 5 mg PO DAILY [facility] Last Admin: 06/30/17 11:44 Dose: 5 mg Aspirin (Ecotrin -) 81 mg PO DAILY [facility] Last Admin: 06/30/17 11:45 Dose: 81 mg Atorvastatin Calcium (Lipitor -) 40 mg PO HS [facility] Last Admin: 06/29/17 23:36 Dose: 40 mg Cinacalcet (Sensipar -) 30 mg PO DAILY [facility] Last Admin: 06/30/17 11:45 Dose: 30 mg Ceftriaxone Sodium 2 gm/ (Dextrose) 100 mls @ 200 mls/hr IVPB DAILY [facility] Last Admin: 06/30/17 11:45 Dose: 200 mls/hr Lactobacillus Acidophilus (Bacid -) 1 tab PO DAILY [facility] Last Admin: 06/30/17 13:48 Dose: 1 tab Mesalamine (Asacol Hd -) 1,600 mg PO TIDCM [facility] Last Admin: 06/30/17 11:46 Dose: 1,600 mg Pantoprazole Sodium (Protonix -) 40 mg PO DAILY [facility] Last Admin: 06/30/17 11:44 Dose: 40 mg Sevelamer Carbonate (Renvela -) 800 mg PO TIDCM [facility] Last Admin: 06/30/17 11:47 Dose: 800 mg Vancomycin HCl (Vancomycin Oral Solution) 125 mg PO Q6HPO [facility] Vitamin A/Vitamin D (Vitamin A & D Top Oint -) 1 applic TP BID [facility] Last Admin: 06/30/17 11:46 Dose: 1 applic - Objective Vital Signs: Vital Signs Temperature 97.9 F 06/30/17 15:17 Pulse Rate 82 06/30/17 15:17 Respiratory Rate 18 06/30/17 15:17 Blood Pressure 125/79 06/30/17 15:17 O2 Sat by Pulse Oximetry (%) 98 06/29/17 21:00 Constitutional: Yes: Calm Eyes: Yes: Conjunctiva Clear HENT: Yes: Atraumatic Cardiovascular: Yes: S1, S2 Respiratory: Yes: CTA Bilaterally Gastrointestinal: Yes: Soft Genitourinary: Yes: WNL Musculoskeletal: Yes: WNL Edema: No Neurological: Yes: Oriented Psychiatric: Yes: Oriented Labs: CBC, BMP 06/30/17 05:30 06/30/17 13:15 INR, PTT INR 1.08 (0.82-1.09) 06/20/17 18:12 Problem List - Problems (1) Abdominal pain Code(s): R10.9 - UNSPECIFIED ABDOMINAL PAIN Qualifiers: (2) End stage chronic kidney disease Code(s): N18.6 - END STAGE RENAL DISEASE; Z99.2 - DEPENDENCE ON RENAL DIALYSIS (3) Afib Code(s): I48.91 - UNSPECIFIED ATRIAL FIBRILLATION Assessment/Plan Current Medications Generic Name Dose Route Start Last Admin Trade Name Freq PRN Reason Stop Dose Admin Acetaminophen 650 mg 06/22/17 11:09 06/29/17 00:59 Tylenol - PO 650 mg Q4H PRN Administration PAIN Amlodipine Besylate 5 mg 06/21/17 15:15 06/30/17 11:44 Norvasc - PO 5 mg DAILY [facility] Administration Aspirin 81 mg 06/27/17 10:00 06/30/17 11:45 Ecotrin - PO 81 mg DAILY [facility] Administration Atorvastatin Calcium 40 mg 06/21/17 22:00 06/29/17 23:36 Lipitor - PO 40 mg HS [facility] Administration Cinacalcet 30 mg 06/21/17 10:00 06/30/17 11:45 Sensipar - PO 30 mg DAILY [facility] Administration Ceftriaxone Sodium 2 gm/ 100 mls @ 200 mls/hr 06/27/17 10:00 06/30/17 11:45 Dextrose IVPB 200 mls/hr DAILY [facility] Administration Lactobacillus Acidophilus 1 tab 06/30/17 13:00 06/30/17 13:48 Bacid - PO 1 tab DAILY [facility] Administration Mesalamine 1,600 mg 06/30/17 08:00 06/30/17 11:46 Asacol Hd - PO 1,600 mg TIDCM [facility] Administration Pantoprazole Sodium 40 mg 06/23/17 10:00 06/30/17 11:44 Protonix - PO 40 mg DAILY [facility] Administration Sevelamer Carbonate 800 mg 06/21/17 08:00 06/30/17 11:47 Renvela - PO 800 mg TIDCM [facility] Administration Vancomycin HCl 125 mg 06/30/17 18:00 Vancomycin Oral Solution PO Q6HPO [facility] Vitamin A/Vitamin D 1 applic 06/29/17 22:00 06/30/17 11:46 Vitamin A & D Top Oint - TP 1 applic BID [facility] Administration Impression 1. ESRD 2. a-fib 3. abdominal pain 4. HTN 5. hyperlipidemia Plan - will arrange for HD in am - check bmp in am - will order a 3 k bath - will follow - cont renal diet
--- NOTE | 2017-06-30 17:23 | PN ---
GI Progress Note Subjective: Soft bowel movements reported Abdominal pain improved C. Diff Ag + / Toxin - - Objective Vital Signs: Vital Signs Temperature 98.1 F 06/30/17 17:05 Pulse Rate 89 06/30/17 17:05 Respiratory Rate 20 06/30/17 17:05 Blood Pressure 138/70 06/30/17 17:05 O2 Sat by Pulse Oximetry (%) 98 06/29/17 21:00 Constitutional: Calm Eyes: No: Sclera Icterus Cardiovascular: Yes: Pulse Irregular Gastrointestinal Inspection: No: Distention ...Auscultate: Yes: Normoactive Bowel Sounds ...Palpate: No: Hepatomegaly, Splenomegaly, Tenderness ...Percussion: No: Tympanitic Edema: No (No LE edema) Neurological: Yes: Alert, Oriented Labs: CBC, BMP 06/30/17 05:30 06/30/17 13:15 INR, PTT INR 1.08 (0.82-1.09) 06/20/17 18:12 Laboratory Tests 06/26/17 10:10 Atypical p-ANCA <1:20 S.cerevisiae IgG Ab <20.0 S. cerevisiae IgG/IgA <20.0 Problem List - Problems (1) Ulcerated colon Assessment/Plan: IBD serologies negative. Ulcerations not from C. Diff and also atypical looking of IBD Can continue asacol for now Changed to PO vanco today. Would treat for 14 days. If antibiotics to be continued make sure PO vanco continued 1 week after abx therapy discontinued Probiotic added Patient had a tree root elixir at her bedside that contains multiple root extracts and cascara. I advised she do not take this as it can lead to diarrhea. She states that she had "high white blood cells for a long time". consider heme eval as outpatient Code(s): K63.3 - ULCER OF INTESTINE
[2017-06-30] MEDS: VANCOMYCIN 250 MG/5 ML ORAL SOLUTION PO SCH (18:33)
--- NOTE | 2017-06-30 22:36 | PN ---
Progress Note (short form) - Note Progress Note: seen and examined "slightly better " Had breakfast today / no nausea / no vomiting / persistent abdominal pain -- less intense Vital Signs Period Temp Pulse Resp BP Sys/Casiano Pulse Ox Last 24 Hr 97.9 F-98.6 F 82-92 18-20 125-138/62-84 lungs clear heart s1/S2- abd soft no guarding / no tenderness elicited / ext bruit left UE no edema LE CBC, BMP 06/30/17 05:30 06/30/17 13:15 CBC, BMP 06/28/17 08:13 06/28/17 08:13 Microbiology 06/29/17 03:30 Stool Clostridium difficile Antigen (AJY) - Final 06/29/17 03:30 Stool Clostridium difficile Toxin Assay - Final 06/29/17 03:30 Stool Salmonella/Shigella Culture - Preliminary NO ENTERIC PATHOGENS, 24 HOURS, ON PRIMARY PLATES 06/29/17 03:30 Stool Campylobacter Culture - Preliminary NO ENTERIC PATHOGENS, 24 HOURS, ON PRIMARY PLATES 06/29/17 03:30 Stool Yersinia Culture - Preliminary NO ENTERIC PATHOGENS, 24 HOURS, ON PRIMARY PLATES 06/29/17 03:30 Stool Vibrio Culture - Final NO GROWTH OF VIBRIO SPECIES OBTAINED 06/29/17 03:30 Stool Escherichia coli 0157 Culture - Final NO GROWTH OF E COLI 0157 OBTAINED 06/27/17 10:39 Blood - Peripheral Venous Blood Culture - Preliminary NO GROWTH OBTAINED AFTER 72 HOURS, INCUBATION TO CONTINUE FOR 2 DAYS. 06/27/17 11:10 Blood - Peripheral Venous Blood Culture - Preliminary NO GROWTH OBTAINED AFTER 72 HOURS, INCUBATION TO CONTINUE FOR 2 DAYS. Active Medications Acetaminophen (Tylenol -) 650 mg PO Q4H PRN PRN Reason: PAIN Last Admin: 06/29/17 00:59 Dose: 650 mg Amlodipine Besylate (Norvasc -) 5 mg PO DAILY [facility] Last Admin: 06/30/17 11:44 Dose: 5 mg Aspirin (Ecotrin -) 81 mg PO DAILY [facility] Last Admin: 06/30/17 11:45 Dose: 81 mg Atorvastatin Calcium (Lipitor -) 40 mg PO HS [facility] Last Admin: 06/29/17 23:36 Dose: 40 mg Cinacalcet (Sensipar -) 30 mg PO DAILY [facility] Last Admin: 06/30/17 11:45 Dose: 30 mg Emollient Ointment (Aquaphor -) 1 applic TP BID [facility] Epoetin Gaston (Epogen -) 3,000 unit IVPUSH ONCE ONE Stop: 07/01/17 16:35 Ceftriaxone Sodium 2 gm/ (Dextrose) 100 mls @ 200 mls/hr IVPB DAILY [facility] Last Admin: 06/30/17 11:45 Dose: 200 mls/hr Sodium Chloride (Normal Saline -) 250 mls @ 3,000 mls/hr IV PRN PRN PRN Reason: Hypotension during Dialysis Stop: 07/01/17 16:34 Lactobacillus Acidophilus (Bacid -) 1 tab PO DAILY [facility] Last Admin: 06/30/17 13:48 Dose: 1 tab Mesalamine (Asacol Hd -) 1,600 mg PO TIDCM [facility] Last Admin: 06/30/17 18:32 Dose: 1,600 mg Pantoprazole Sodium (Protonix -) 40 mg PO DAILY [facility] Last Admin: 06/30/17 11:44 Dose: 40 mg Sevelamer Carbonate (Renvela -) 800 mg PO TIDCM [facility] Last Admin: 06/30/17 18:32 Dose: 800 mg Vancomycin HCl (Vancomycin Oral Solution) 125 mg PO Q6HPO [facility] Last Admin: 06/30/17 18:33 Dose: 125 mg Vitamin A/Vitamin D (Vitamin A & D Top Oint -) 1 applic TP BID [facility] Last Admin: 06/30/17 11:46 Dose: 1 applic # abdominal pain s/p EGD s/p colonoscopy persist with abdominal pain / 06/27 low grade temps, no chills no inc temp since review ID note - now on Isolation -- ABX per ID diarrhea persist as per patient serology ordered GI to follow #CKD5 on HD TIW on schedule # A fib rate controlled asa # HTN continue to monitor Bp Problem List - Problems (1) Abdominal pain Code(s): R10.9 - UNSPECIFIED ABDOMINAL PAIN Qualifiers: (2) Dyspnea Code(s): R06.00 - DYSPNEA, UNSPECIFIED (3) End stage chronic kidney disease Code(s): N18.6 - END STAGE RENAL DISEASE; Z99.2 - DEPENDENCE ON RENAL DIALYSIS (4) Lower GI bleed Code(s): K92.2 - GASTROINTESTINAL HEMORRHAGE, UNSPECIFIED (5) Weakness Code(s): R53.1 - WEAKNESS (6) Afib Code(s): I48.91 - UNSPECIFIED ATRIAL FIBRILLATION (7) Chest pain Code(s): R07.9 - CHEST PAIN, UNSPECIFIED Qualifiers: Chest pain type: unspecified Qualified Code(s): R07.9 - Chest pain, unspecified (8) HTN (hypertension) Code(s): I10 - ESSENTIAL (PRIMARY) HYPERTENSION
[2017-06-30] MEDS: ATORVASTATIN CA 40 MG TABLET (FP) PO SCH (23:03)
[2017-06-30] MEDS: MINERAL OIL/PET HY-PHL TOPICAL OINTMENT 454 GM JAR TP SCH (23:04)
[2017-07-01] MEDS: VANCOMYCIN 250 MG/5 ML ORAL SOLUTION PO SCH ×4 (06:45→18:16)
[2017-07-01] MEDS ORDERED: PT OWN MED DRAWER 7, Y5N ONE ×4 (09:50→18:18)
[2017-07-01] MEDS: ACETAMINOPHEN 325 MG TABLET (FP) PO PRN (10:03)
[2017-07-01] MEDS: MESALAMINE 800 MG TABLET.DR PO SCH ×3 (10:06→18:15)
[2017-07-01] MEDS: MINERAL OIL/PET HY-PHL TOPICAL OINTMENT 454 GM JAR TP SCH ×2 (10:06→23:40)
[2017-07-01] MEDS: amLODIPine BESYLATE 5 MG TABLET (FP) PO SCH (10:06)
[2017-07-01] MEDS: CEFTRIAXONE 2 GM in DEXTROSE 5%-WATER - 100 ML IVPB SCH (10:06)
[2017-07-01] MEDS: SEVELAMER CARBONATE 800 MG TAB (FP) PO SCH ×3 (10:06→18:15)
[2017-07-01] MEDS: LACTOBACILLUS ACIDOPHILUS 1 EACH TAB (FP) PO SCH (10:06)
[2017-07-01] MEDS: ASPIRIN COATED 81 MG TABLET.EC PO SCH (10:06)
[2017-07-01] MEDS: CINACALCET HCL 30 MG TAB (FP) PO SCH (10:07)
[2017-07-01] MEDS: PANTOPRAZOLE 40 MG TABLET (FP) PO SCH (10:07)
[2017-07-01] MEDS: VITAMINS A AND D TOPICAL OINTMENT 60 GM TUBE TP SCH ×2 (10:07→23:40)
--- NOTE | 2017-07-01 10:51 | PN ---
Progress Note, Physician Chief Complaint: ID Still reports diarrhea No fever - Current Medication List Current Medications: Active Medications Acetaminophen (Tylenol -) 650 mg PO Q4H PRN PRN Reason: PAIN Last Admin: 07/01/17 10:03 Dose: 650 mg Amlodipine Besylate (Norvasc -) 5 mg PO DAILY [facility] Last Admin: 07/01/17 10:06 Dose: Not Given Aspirin (Ecotrin -) 81 mg PO DAILY [facility] Last Admin: 07/01/17 10:06 Dose: Not Given Atorvastatin Calcium (Lipitor -) 40 mg PO HS [facility] Last Admin: 06/30/17 23:03 Dose: 40 mg Cinacalcet (Sensipar -) 30 mg PO DAILY [facility] Last Admin: 07/01/17 10:07 Dose: Not Given Emollient Ointment (Aquaphor -) 1 applic TP BID [facility] Last Admin: 07/01/17 10:06 Dose: Not Given Epoetin Gaston (Epogen -) 3,000 unit IVPUSH ONCE ONE Stop: 07/01/17 16:35 Ceftriaxone Sodium 2 gm/ (Dextrose) 100 mls @ 200 mls/hr IVPB DAILY [facility] Last Admin: 07/01/17 10:06 Dose: 200 mls/hr Sodium Chloride (Normal Saline -) 250 mls @ 3,000 mls/hr IV PRN PRN PRN Reason: Hypotension during Dialysis Stop: 07/01/17 16:34 Lactobacillus Acidophilus (Bacid -) 1 tab PO DAILY [facility] Last Admin: 07/01/17 10:06 Dose: Not Given Mesalamine (Asacol Hd -) 1,600 mg PO TIDCM [facility] Last Admin: 07/01/17 10:06 Dose: Not Given Pantoprazole Sodium (Protonix -) 40 mg PO DAILY [facility] Last Admin: 07/01/17 10:07 Dose: Not Given Sevelamer Carbonate (Renvela -) 800 mg PO TIDCM [facility] Last Admin: 07/01/17 10:06 Dose: Not Given Vancomycin HCl (Vancomycin Oral Solution) 125 mg PO Q6HPO [facility] Last Admin: 07/01/17 06:45 Dose: 125 mg Vitamin A/Vitamin D (Vitamin A & D Top Oint -) 1 applic TP BID [facility] Last Admin: 07/01/17 10:07 Dose: 1 applic - Objective Vital Signs: Vital Signs Temperature 98.6 F 07/01/17 06:45 Pulse Rate 83 07/01/17 06:45 Respiratory Rate 20 07/01/17 06:45 Blood Pressure 138/62 07/01/17 06:45 O2 Sat by Pulse Oximetry (%) 98 06/29/17 21:00 Gastrointestinal: Yes: WNL, Normal Bowel Sounds. No: Tenderness, Tenderness, Rebound Labs: CBC, BMP 06/30/17 05:30 06/30/17 13:15 INR, PTT INR 1.08 (0.82-1.09) 06/20/17 18:12 Problem List - Problems (1) Peritonitis Code(s): K65.9 - PERITONITIS, UNSPECIFIED (2) End stage chronic kidney disease Code(s): N18.6 - END STAGE RENAL DISEASE; Z99.2 - DEPENDENCE ON RENAL DIALYSIS (3) Fever Code(s): R50.9 - FEVER, UNSPECIFIED Assessment/Plan Microbiology 06/29/17 15:56 Stool Escherichia coli 0157 Culture - Final NO GROWTH OF VIBRIO SPECIES OBTAINED NO GROWTH OF E COLI 0157 OBTAINED 06/29/17 03:30 Stool Clostridium difficile Antigen (JAY) - Final 06/29/17 03:30 Stool Escherichia coli 0157 Culture - Final NO GROWTH OF SALMONELLA OR SHIGELLA SPECIES OBTAINED NO GROWTH OF CAMPYLOBACTER SPECIES OBTAINED NO GROWTH OF YERSINIA SPECIES OBTAINED NO GROWTH OF VIBRIO SPECIES OBTAINED NO GROWTH OF E COLI 0157 OBTAINED 06/29/17 15:56 Stool Salmonella/Shigella Culture - Preliminary 06/29/17 15:56 Stool Yersinia Culture - Preliminary Yeast Like Organism NO ENTERIC PATHOGENS, 24 HOURS, ON PRIMARY PLATES 06/27/17 11:10 Blood - Peripheral Venous Blood Culture - Preliminary NO GROWTH OBTAINED AFTER 72 HOURS, INCUBATION TO CONTINUE FOR 2 DAYS. 06/27/17 10:39 Blood - Peripheral Venous Blood Culture - Preliminary NO GROWTH OBTAINED AFTER 72 HOURS, INCUBATION TO CONTINUE FOR 2 DAYS. Laboratory Tests 06/30/17 06/30/17 05:30 13:15 WBC 10.4 H Hgb 10.0 L Hct 30.2 L Plt Count 569 H BUN 16 Creatinine 6.2 H Assessment Colitis ? C diff related Still has diarrhea by her report Plan Stop Ceftriaxone and treat for C diff with oral vancomycin 14 days [facility]
[2017-07-01] MEDS ORDERED: EPOETIN ALFA 3,000 UNIT/1 ML ML IVPUSH ONE (12:15)
[2017-07-01 13:27] LABS: HEMATOCRIT 27.5 % (32.4-45.2); HEMOGLOBIN 9.1 GM/dL (10.7-15.3); MCH 28.7 pg (25.7-33.7); MCHC 33.3 g/dl (32.0-36.0); MEAN CELL VOLUME 86.3 fl (80-96); PLATELET COUNT 546 K/MM3 (134-434); RBC 3.18 M/mm3 (3.60-5.2); WHITE BLOOD COUNT 10.1 K/mm3 (4.0-10.0)
--- NOTE | 2017-07-01 13:43 | PN ---
Progress Note, Physician History of Present Illness: Pt seen and examined at bedside. She is awake and alert. She is currently getting HD. She still experiences abdominal discomfort. - Current Medication List Current Medications: Active Medications Acetaminophen (Tylenol -) 650 mg PO Q4H PRN PRN Reason: PAIN Last Admin: 07/01/17 10:03 Dose: 650 mg Amlodipine Besylate (Norvasc -) 5 mg PO DAILY [facility] Last Admin: 07/01/17 10:06 Dose: Not Given Aspirin (Ecotrin -) 81 mg PO DAILY [facility] Last Admin: 07/01/17 10:06 Dose: Not Given Atorvastatin Calcium (Lipitor -) 40 mg PO HS [facility] Last Admin: 06/30/17 23:03 Dose: 40 mg Cinacalcet (Sensipar -) 30 mg PO DAILY [facility] Last Admin: 07/01/17 10:07 Dose: Not Given Emollient Ointment (Aquaphor -) 1 applic TP BID [facility] Last Admin: 07/01/17 10:06 Dose: Not Given Sodium Chloride (Normal Saline -) 250 mls @ 3,000 mls/hr IV PRN PRN PRN Reason: Hypotension during Dialysis Stop: 07/01/17 16:34 Lactobacillus Acidophilus (Bacid -) 1 tab PO DAILY [facility] Last Admin: 07/01/17 10:06 Dose: Not Given Mesalamine (Asacol Hd -) 1,600 mg PO TIDCM [facility] Last Admin: 07/01/17 11:38 Dose: Not Given Pantoprazole Sodium (Protonix -) 40 mg PO DAILY [facility] Last Admin: 07/01/17 10:07 Dose: Not Given Sevelamer Carbonate (Renvela -) 800 mg PO TIDCM [facility] Last Admin: 07/01/17 11:38 Dose: Not Given Vancomycin HCl (Vancomycin Oral Solution) 125 mg PO Q6HPO [facility] Last Admin: 07/01/17 11:39 Dose: Not Given Vitamin A/Vitamin D (Vitamin A & D Top Oint -) 1 applic TP BID [facility] Last Admin: 07/01/17 10:07 Dose: 1 applic - Objective Vital Signs: Vital Signs Temperature 97.8 F 07/01/17 12:25 Pulse Rate 91 H 07/01/17 13:00 Respiratory Rate 18 07/01/17 13:00 Blood Pressure 159/87 07/01/17 13:00 O2 Sat by Pulse Oximetry (%) 98 06/29/17 21:00 Constitutional: Yes: Calm Eyes: Yes: Conjunctiva Clear HENT: Yes: Atraumatic Cardiovascular: Yes: S1, S2 Respiratory: Yes: CTA Bilaterally Gastrointestinal: Yes: Soft Genitourinary: Yes: WNL Musculoskeletal: Yes: WNL Edema: No Neurological: Yes: Oriented Psychiatric: Yes: Oriented Labs: CBC, BMP 07/01/17 12:30 INR, PTT INR 1.08 (0.82-1.09) 06/20/17 18:12 Problem List - Problems (1) Abdominal pain Code(s): R10.9 - UNSPECIFIED ABDOMINAL PAIN Qualifiers: (2) End stage chronic kidney disease Code(s): N18.6 - END STAGE RENAL DISEASE; Z99.2 - DEPENDENCE ON RENAL DIALYSIS (3) Afib Code(s): I48.91 - UNSPECIFIED ATRIAL FIBRILLATION Assessment/Plan Current Medications Generic Name Dose Route Start Last Admin Trade Name Freq PRN Reason Stop Dose Admin Acetaminophen 650 mg 06/22/17 11:09 07/01/17 10:03 Tylenol - PO 650 mg Q4H PRN Administration PAIN Amlodipine Besylate 5 mg 06/21/17 15:15 07/01/17 10:06 Norvasc - PO Not Given DAILY [facility] Aspirin 81 mg 06/27/17 10:00 07/01/17 10:06 Ecotrin - PO Not Given DAILY [facility] Atorvastatin Calcium 40 mg 06/21/17 22:00 06/30/17 23:03 Lipitor - PO 40 mg HS [facility] Administration Cinacalcet 30 mg 06/21/17 10:00 07/01/17 10:07 Sensipar - PO Not Given DAILY [facility] Emollient Ointment 1 applic 06/30/17 22:00 07/01/17 10:06 Aquaphor - TP Not Given BID [facility] Sodium Chloride 250 mls @ 3,000 mls/hr 06/30/17 16:34 Normal Saline - IV 07/01/17 16:34 PRN PRN Hypotension during Dialysis Lactobacillus Acidophilus 1 tab 06/30/17 13:00 07/01/17 10:06 Bacid - PO Not Given DAILY [facility] Mesalamine 1,600 mg 06/30/17 08:00 07/01/17 11:38 Asacol Hd - PO Not Given TIDCM [facility] Pantoprazole Sodium 40 mg 06/23/17 10:00 07/01/17 10:07 Protonix - PO Not Given DAILY [facility] Sevelamer Carbonate 800 mg 06/21/17 08:00 07/01/17 11:38 Renvela - PO Not Given TIDCM [facility] Vancomycin HCl 125 mg 06/30/17 18:00 07/01/17 11:39 Vancomycin Oral Solution PO Not Given Q6HPO [facility] Vitamin A/Vitamin D 1 applic 06/29/17 22:00 07/01/17 10:07 Vitamin A & D Top Oint - TP 1 applic BID [facility] Administration Impression 1. ESRD 2. a-fib 3. abdominal pain 4. HTN 5. hyperlipidemia Plan - pt getting HD today - GI input appreciated - monitor lytes - pt on PO vanco - will follow - cont renal diet
[2017-07-01 13:51] LABS: ANION GAP 15 (8-16); BLOOD UREA NITROGEN 22 mg/dL (7-18); CALCIUM 7.8 mg/dL (8.5-10.1); CHLORIDE 95 mmol/L (98-107); CO2 26 mmol/L (21-32); GLUCOSE,RANDOM 144 mg/dL (74-106); POTASSIUM 3.5 mmol/L (3.5-5.1); SODIUM 136 mmol/L (136-145)
[2017-07-01 14:00] LABS: CREATININE 8.3 mg/dL (0.55-1.02)
--- NOTE | 2017-07-01 14:59 | PN ---
GI Progress Note Subjective: No acute events Scant BM's per nursing No abdominal pain - Objective Vital Signs: Vital Signs Temperature 97.8 F 07/01/17 12:25 Pulse Rate 93 H 07/01/17 14:30 Respiratory Rate 18 07/01/17 14:30 Blood Pressure 154/89 07/01/17 14:30 O2 Sat by Pulse Oximetry (%) 98 06/29/17 21:00 Constitutional: Calm Cardiovascular: Yes: Pulse Irregular Respiratory: Yes: Diminished (at bases b/l. poor insp effort) Gastrointestinal Inspection: No: Distention ...Auscultate: Yes: Normoactive Bowel Sounds ...Palpate: No: Tenderness Edema: No (No LE edema) Neurological: Yes: Alert, Oriented Labs: CBC, BMP 07/01/17 12:30 07/01/17 12:30 INR, PTT INR 1.08 (0.82-1.09) 06/20/17 18:12 Hepatic Panel Total Bilirubin 0.9 mg/dL (0.2-1.0) D 06/22/17 07:00 AST 10 U/L (15-37) L 06/22/17 07:00 ALT 11 U/L (12-78) L 06/22/17 07:00 Alkaline Phosphatase 276 U/L (45-117) H 06/22/17 07:00 Albumin 2.4 g/dl (3.4-5.0) L 06/22/17 07:00 Problem List - Problems (1) Ulcerated colon Assessment/Plan: Diarrhea improving No abdomional pain PO Vanco 125mg PO Q6 hrs for 14 days, limit PPI therapy to 8 weeks in setting of diarrhea/D. Diff Ag +, probiotic Code(s): K63.3 - ULCER OF INTESTINE (2) Elevated alkaline phosphatase level Assessment/Plan: further w/u as outpatient Code(s): R74.8 - ABNORMAL LEVELS OF OTHER SERUM ENZYMES
--- NOTE | 2017-07-01 17:16 | PN ---
Progress Note (short form) - Note Progress Note: seen and examined was sleeping / per nursing no diarrhea states continues with abdominal pain scheduled for HD today Vital Signs Period Temp Pulse Resp BP Sys/Casiano Pulse Ox Last 24 Hr 97.8 F-98.6 F 61-99 18-20 109-167/62-100 lungs clear heart s1/S2- abd soft no guarding / no tenderness elicited / ext bruit left UE no edema LE CBC, BMP 06/30/17 05:30 06/30/17 13:15 CBC, BMP 06/28/17 08:13 06/28/17 08:13 Microbiology 06/27/17 10:39 Blood - Peripheral Venous Blood Culture - Preliminary NO GROWTH OBTAINED AFTER 96 HOURS, INCUBATION TO CONTINUE FOR 1 DAYS. 06/27/17 11:10 Blood - Peripheral Venous Blood Culture - Preliminary NO GROWTH OBTAINED AFTER 96 HOURS, INCUBATION TO CONTINUE FOR 1 DAYS. 06/29/17 15:56 Stool Salmonella/Shigella Culture - Preliminary Yeast Like Organism 06/29/17 15:56 Stool Yersinia Culture - Preliminary NO ENTERIC PATHOGENS, 24 HOURS, ON PRIMARY PLATES 06/29/17 15:56 Stool Vibrio Culture - Final NO GROWTH OF VIBRIO SPECIES OBTAINED 06/29/17 15:56 Stool Escherichia coli 0157 Culture - Final NO GROWTH OF E COLI 0157 OBTAINED 06/29/17 03:30 Stool Clostridium difficile Antigen (JAY) - Final 06/29/17 03:30 Stool Clostridium difficile Toxin Assay - Final 06/29/17 03:30 Stool Salmonella/Shigella Culture - Final NO GROWTH OF SALMONELLA OR SHIGELLA SPECIES OBTAINED 06/29/17 03:30 Stool Campylobacter Culture - Final NO GROWTH OF CAMPYLOBACTER SPECIES OBTAINED 06/29/17 03:30 Stool Yersinia Culture - Final NO GROWTH OF YERSINIA SPECIES OBTAINED 06/29/17 03:30 Stool Vibrio Culture - Final NO GROWTH OF VIBRIO SPECIES OBTAINED 06/29/17 03:30 Stool Escherichia coli 0157 Culture - Final NO GROWTH OF E COLI 0157 OBTAINED Active Medications Acetaminophen (Tylenol -) 650 mg PO Q4H PRN PRN Reason: PAIN Last Admin: 06/29/17 00:59 Dose: 650 mg Amlodipine Besylate (Norvasc -) 5 mg PO DAILY [facility] Last Admin: 06/30/17 11:44 Dose: 5 mg Aspirin (Ecotrin -) 81 mg PO DAILY [facility] Last Admin: 06/30/17 11:45 Dose: 81 mg Atorvastatin Calcium (Lipitor -) 40 mg PO HS [facility] Last Admin: 06/29/17 23:36 Dose: 40 mg Cinacalcet (Sensipar -) 30 mg PO DAILY [facility] Last Admin: 06/30/17 11:45 Dose: 30 mg Emollient Ointment (Aquaphor -) 1 applic TP BID [facility] Epoetin Gaston (Epogen -) 3,000 unit IVPUSH ONCE ONE Stop: 07/01/17 16:35 Ceftriaxone Sodium 2 gm/ (Dextrose) 100 mls @ 200 mls/hr IVPB DAILY [facility] Last Admin: 06/30/17 11:45 Dose: 200 mls/hr Sodium Chloride (Normal Saline -) 250 mls @ 3,000 mls/hr IV PRN PRN PRN Reason: Hypotension during Dialysis Stop: 07/01/17 16:34 Lactobacillus Acidophilus (Bacid -) 1 tab PO DAILY [facility] Last Admin: 06/30/17 13:48 Dose: 1 tab Mesalamine (Asacol Hd -) 1,600 mg PO TIDCM [facility] Last Admin: 06/30/17 18:32 Dose: 1,600 mg Pantoprazole Sodium (Protonix -) 40 mg PO DAILY [facility] Last Admin: 06/30/17 11:44 Dose: 40 mg Sevelamer Carbonate (Renvela -) 800 mg PO TIDCM [facility] Last Admin: 06/30/17 18:32 Dose: 800 mg Vancomycin HCl (Vancomycin Oral Solution) 125 mg PO Q6HPO [facility] Last Admin: 06/30/17 18:33 Dose: 125 mg Vitamin A/Vitamin D (Vitamin A & D Top Oint -) 1 applic TP BID [facility] Last Admin: 06/30/17 11:46 Dose: 1 applic Assmt/ plan # abdominal pain s/p EGD s/p colonoscopy persist with abdominal pain / 06/27 low grade temps, no chills no inc temp since review ID note - now on Isolation -- ABX per ID diarrhea persist as per patient GI to follow #CKD5 on HD TIW on schedule # A fib rate controlled asa # HTN continue to monitor Bp Problem List - Problems (1) Abdominal pain Code(s): R10.9 - UNSPECIFIED ABDOMINAL PAIN Qualifiers: (2) Dyspnea Code(s): R06.00 - DYSPNEA, UNSPECIFIED (3) End stage chronic kidney disease Code(s): N18.6 - END STAGE RENAL DISEASE; Z99.2 - DEPENDENCE ON RENAL DIALYSIS (4) Lower GI bleed Code(s): K92.2 - GASTROINTESTINAL HEMORRHAGE, UNSPECIFIED (5) Weakness Code(s): R53.1 - WEAKNESS (6) Afib Code(s): I48.91 - UNSPECIFIED ATRIAL FIBRILLATION (7) Chest pain Code(s): R07.9 - CHEST PAIN, UNSPECIFIED Qualifiers: Chest pain type: unspecified Qualified Code(s): R07.9 - Chest pain, unspecified (8) HTN (hypertension) Code(s): I10 - ESSENTIAL (PRIMARY) HYPERTENSION
[2017-07-01] MEDS: ATORVASTATIN CA 40 MG TABLET (FP) PO SCH (23:40)
[2017-07-02] MEDS: VANCOMYCIN 250 MG/5 ML ORAL SOLUTION PO SCH ×5 (00:59→23:20)
[2017-07-02] MEDS ORDERED: PT OWN MED DRAWER 7, Y5N ONE ×6 (08:30→23:19)
[2017-07-02] MEDS: amLODIPine BESYLATE 5 MG TABLET (FP) PO SCH (09:53)
[2017-07-02] MEDS: ASPIRIN COATED 81 MG TABLET.EC PO SCH (09:53)
[2017-07-02] MEDS: LACTOBACILLUS ACIDOPHILUS 1 EACH TAB (FP) PO SCH (09:53)
[2017-07-02] MEDS: PANTOPRAZOLE 40 MG TABLET (FP) PO SCH (09:53)
[2017-07-02] MEDS: CINACALCET HCL 30 MG TAB (FP) PO SCH (09:54)
[2017-07-02] MEDS: SEVELAMER CARBONATE 800 MG TAB (FP) PO SCH ×3 (09:55→18:10)
[2017-07-02] MEDS: MESALAMINE 800 MG TABLET.DR PO SCH ×3 (09:55→18:09)
[2017-07-02] MEDS: MINERAL OIL/PET HY-PHL TOPICAL OINTMENT 454 GM JAR TP SCH ×2 (10:03→21:09)
[2017-07-02] MEDS: VITAMINS A AND D TOPICAL OINTMENT 60 GM TUBE TP SCH ×2 (10:04→21:10)
--- NOTE | 2017-07-02 13:43 | PN ---
Progress Note (short form) - Note Progress Note: 71 y/o female found in bathroom. Able to walk but has unsteady gait. States that pain is gone. Vital Signs Period Temp Pulse Resp BP Sys/Casiano Pulse Ox Last 24 Hr 98.4 F-99.1 F 75-96 18-20 113-167/68-96 94 CBC, BMP 07/01/17 12:30 07/01/17 12:30 HEENT- Normocephalic Neck- Supple Lungs- CTAB Heart- S1/S2 Abd- Soft, NT Ext- No Le edema Active Medications Acetaminophen (Tylenol -) 650 mg PO Q4H PRN PRN Reason: PAIN Last Admin: 07/01/17 10:03 Dose: 650 mg Amlodipine Besylate (Norvasc -) 5 mg PO DAILY [facility] Last Admin: 07/02/17 09:53 Dose: 5 mg Aspirin (Ecotrin -) 81 mg PO DAILY [facility] Last Admin: 07/02/17 09:53 Dose: 81 mg Atorvastatin Calcium (Lipitor -) 40 mg PO HS [facility] Last Admin: 07/01/17 23:40 Dose: 40 mg Cinacalcet (Sensipar -) 30 mg PO DAILY [facility] Last Admin: 07/02/17 09:54 Dose: 30 mg Emollient Ointment (Aquaphor -) 1 applic TP BID [facility] Last Admin: 07/02/17 10:03 Dose: 1 applic Lactobacillus Acidophilus (Bacid -) 1 tab PO DAILY [facility] Last Admin: 07/02/17 09:53 Dose: 1 tab Mesalamine (Asacol Hd -) 1,600 mg PO TIDCM [facility] Last Admin: 07/02/17 12:37 Dose: 1,600 mg Pantoprazole Sodium (Protonix -) 40 mg PO DAILY [facility] Last Admin: 07/02/17 09:53 Dose: 40 mg Sevelamer Carbonate (Renvela -) 800 mg PO TIDCM [facility] Last Admin: 07/02/17 12:37 Dose: 800 mg Vancomycin HCl (Vancomycin Oral Solution) 125 mg PO Q6HPO [facility] Last Admin: 07/02/17 12:38 Dose: 125 mg Vitamin A/Vitamin D (Vitamin A & D Top Oint -) 1 applic TP BID [facility] Last Admin: 07/02/17 10:04 Dose: 1 applic Assmt/ plan # abdominal pain s/p EGD s/p colonoscopy -- ABX per ID Appreciate GI consult #CKD5 on HD TIW on schedule # A fib rate controlled Continue ASA # HTN continue to monitor BP Problem List - Problems (1) Abdominal pain Code(s): R10.9 - UNSPECIFIED ABDOMINAL PAIN Qualifiers: (2) Dyspnea Code(s): R06.00 - DYSPNEA, UNSPECIFIED (3) End stage chronic kidney disease Code(s): N18.6 - END STAGE RENAL DISEASE; Z99.2 - DEPENDENCE ON RENAL DIALYSIS (4) Lower GI bleed Code(s): K92.2 - GASTROINTESTINAL HEMORRHAGE, UNSPECIFIED (5) Weakness Code(s): R53.1 - WEAKNESS (6) Afib Code(s): I48.91 - UNSPECIFIED ATRIAL FIBRILLATION (7) Chest pain Code(s): R07.9 - CHEST PAIN, UNSPECIFIED Qualifiers: Chest pain type: unspecified Qualified Code(s): R07.9 - Chest pain, unspecified (8) HTN (hypertension) Code(s): I10 - ESSENTIAL (PRIMARY) HYPERTENSION
--- NOTE | 2017-07-02 14:16 | PN ---
Progress Note, Physician History of Present Illness: Pt seen and examined at bedside. She is awake and alert. She complains of abd pain. She denies nausea of vomiting. - Current Medication List Current Medications: Active Medications Acetaminophen (Tylenol -) 650 mg PO Q4H PRN PRN Reason: PAIN Last Admin: 07/01/17 10:03 Dose: 650 mg Amlodipine Besylate (Norvasc -) 5 mg PO DAILY [facility] Last Admin: 07/02/17 09:53 Dose: 5 mg Aspirin (Ecotrin -) 81 mg PO DAILY [facility] Last Admin: 07/02/17 09:53 Dose: 81 mg Atorvastatin Calcium (Lipitor -) 40 mg PO HS [facility] Last Admin: 07/01/17 23:40 Dose: 40 mg Cinacalcet (Sensipar -) 30 mg PO DAILY [facility] Last Admin: 07/02/17 09:54 Dose: 30 mg Emollient Ointment (Aquaphor -) 1 applic TP BID [facility] Last Admin: 07/02/17 10:03 Dose: 1 applic Lactobacillus Acidophilus (Bacid -) 1 tab PO DAILY [facility] Last Admin: 07/02/17 09:53 Dose: 1 tab Mesalamine (Asacol Hd -) 1,600 mg PO TIDCM [facility] Last Admin: 07/02/17 12:37 Dose: 1,600 mg Pantoprazole Sodium (Protonix -) 40 mg PO DAILY [facility] Last Admin: 07/02/17 09:53 Dose: 40 mg Sevelamer Carbonate (Renvela -) 800 mg PO TIDCM [facility] Last Admin: 07/02/17 12:37 Dose: 800 mg Vancomycin HCl (Vancomycin Oral Solution) 125 mg PO Q6HPO [facility] Last Admin: 07/02/17 12:38 Dose: 125 mg Vitamin A/Vitamin D (Vitamin A & D Top Oint -) 1 applic TP BID [facility] Last Admin: 07/02/17 10:04 Dose: 1 applic - Objective Vital Signs: Vital Signs Temperature 98.4 F 07/02/17 06:00 Pulse Rate 86 07/02/17 06:00 Respiratory Rate 20 07/02/17 06:00 Blood Pressure 159/76 07/02/17 06:00 O2 Sat by Pulse Oximetry (%) 94 L 07/01/17 21:00 Constitutional: Yes: Calm Eyes: Yes: Conjunctiva Clear HENT: Yes: Atraumatic Neck: Yes: Supple Cardiovascular: Yes: S1, S2 Respiratory: Yes: CTA Bilaterally Gastrointestinal: Yes: Normal Bowel Sounds, Soft Genitourinary: Yes: WNL Edema: No Neurological: Yes: Oriented Psychiatric: Yes: Oriented Labs: CBC, BMP 07/01/17 12:30 07/01/17 12:30 INR, PTT INR 1.08 (0.82-1.09) 06/20/17 18:12 Problem List - Problems (1) Abdominal pain Code(s): R10.9 - UNSPECIFIED ABDOMINAL PAIN Qualifiers: (2) End stage chronic kidney disease Code(s): N18.6 - END STAGE RENAL DISEASE; Z99.2 - DEPENDENCE ON RENAL DIALYSIS (3) Afib Code(s): I48.91 - UNSPECIFIED ATRIAL FIBRILLATION Assessment/Plan Current Medications Generic Name Dose Route Start Last Admin Trade Name Freq PRN Reason Stop Dose Admin Acetaminophen 650 mg 06/22/17 11:09 07/01/17 10:03 Tylenol - PO 650 mg Q4H PRN Administration PAIN Amlodipine Besylate 5 mg 06/21/17 15:15 07/02/17 09:53 Norvasc - PO 5 mg DAILY [facility] Administration Aspirin 81 mg 06/27/17 10:00 07/02/17 09:53 Ecotrin - PO 81 mg DAILY [facility] Administration Atorvastatin Calcium 40 mg 06/21/17 22:00 07/01/17 23:40 Lipitor - PO 40 mg HS [facility] Administration Cinacalcet 30 mg 06/21/17 10:00 07/02/17 09:54 Sensipar - PO 30 mg DAILY [facility] Administration Emollient Ointment 1 applic 06/30/17 22:00 07/02/17 10:03 Aquaphor - TP 1 applic BID [facility] Administration Lactobacillus Acidophilus 1 tab 06/30/17 13:00 07/02/17 09:53 Bacid - PO 1 tab DAILY [facility] Administration Mesalamine 1,600 mg 06/30/17 08:00 07/02/17 12:37 Asacol Hd - PO 1,600 mg TIDCM [facility] Administration Pantoprazole Sodium 40 mg 06/23/17 10:00 07/02/17 09:53 Protonix - PO 40 mg DAILY [facility] Administration Sevelamer Carbonate 800 mg 06/21/17 08:00 07/02/17 12:37 Renvela - PO 800 mg TIDCM [facility] Administration Vancomycin HCl 125 mg 06/30/17 18:00 07/02/17 12:38 Vancomycin Oral Solution PO 125 mg Q6HPO [facility] Administration Vitamin A/Vitamin D 1 applic 06/29/17 22:00 07/02/17 10:04 Vitamin A & D Top Oint - TP 1 applic BID [facility] Administration Impression 1. ESRD 2. a-fib 3. abdominal pain 4. HTN 5. hyperlipidemia Plan - pt still complaining of abdominal pain - will arrange for HD in am - GI input appreciated - check phos level, will consider changing binders - pt on PO vanco - will follow - cont renal diet
[2017-07-02] MEDS ORDERED: SODIUM CHLORIDE 250 ML IV PRN (14:17)
--- NOTE | 2017-07-02 16:18 | DS ---
Physical Examination Vital Signs: Vital Signs Temperature 98.6 F 07/02/17 15:42 Pulse Rate 88 07/02/17 15:42 Respiratory Rate 18 07/02/17 15:42 Blood Pressure 148/78 07/02/17 15:42 O2 Sat by Pulse Oximetry (%) 94 L 07/01/17 21:00 Findings/Remarks: Patient is a patient is a 71 year old female with a significant past medical history of ESRD (M, W, F), HTN who presents to the ED with complaints of blood in stool that began 5 days ago. As per patient's mother, patient returned from dialysis thursday afternoon, and since then has been experiencing black loose stool. Patient reports experiencing 5 episodes of black loose diarrhea since thursday prompting her to come into the ED for further evaluation. She reports taking immodium and pepto bismol for abdominal pain and diarrhea with no relief. Patient reports experiencing associated symptoms of sternal chest pain and head pain. She reports experiencing slightly unsteady gait but stating she uses a cane/walker at baseline but usually cannot walk correctly when she is sick. Patient reports experiencing intermittent episodes of weakness. Denies nausea, vomiting. Denies fevers, chills. Denies trauma to affected area. Denies contact with sick individuals, out of state travelling. Denies any other symptoms. she underwent EGD and Coloscopy --report scanned to medical record- although has persistently c/o abdominal discomfort - she has been tolerating her meals well and no nausea or vomiting Constitutional: Yes: Well Nourished, No Distress, Calm Eyes: Yes: Conjunctiva Clear, EOM Intact HENT: Yes: Atraumatic, Normocephalic Neck: Yes: Supple, Trachea Midline Cardiovascular: Yes: Pulse Irregular Respiratory: Yes: Regular, CTA Bilaterally Gastrointestinal: Yes: Normal Bowel Sounds, Soft, Abdomen, Obese ...Rectal Exam: Yes: Deferred Renal/: Yes: Anuria Musculoskeletal: Yes: WNL Extremities: Yes: Other (left upperarm Bruit) Edema: No Peripheral Pulses WNL: Yes Integumentary: Yes: WNL Neurological: Yes: Alert, Oriented Psychiatric: Yes: Alert, Oriented Labs: CBC, BMP 07/01/17 12:30 07/01/17 12:30 Discharge Summary Reason For Visit: END STAGE CHRONIC KIDNEY DISEASE DYSPNE Current Active Problems Abdominal pain (Acute) Dyspnea (Acute) Elevated alkaline phosphatase level (Acute) End stage chronic kidney disease (Acute) Fever (Acute) Lower GI bleed (Acute) Peritonitis (Acute) Stool guaiac positive (Acute) Ulcerated colon (Acute) Weakness (Acute) Condition: Improved - Instructions Referrals: Kath Chung DO [Staff Physician] - Malinda Guadalupe MD [Primary Care Provider] - - Home Medications Comprehensive Discharge Medication List: Ambulatory Orders Albuterol Sulfate Inhaler - [Ventolin HFA Inhaler -] 2 puff IH Q4H PRN 02/07/17 Cinacalcet HCl [Sensipar] 30 mg PO DAILY 02/07/17 Pantoprazole Sodium [Protonix] 40 mg PO DAILY 02/07/17 Sevelamer Carbonate [Renvela Powder Packet -] 0.8 gm PO TIDWM 02/07/17 Aspirin Coated [Ecotrin -] 81 mg PO DAILY #30 tab 02/14/17 Atorvastatin Ca [Lipitor] 40 mg PO HS tablet 02/14/17 Vitamin B Comp W-C [Nephro-Jessica -] 1 tablet PO DAILY tablet 02/14/17
[2017-07-02] MEDS: ACETAMINOPHEN 325 MG TABLET (FP) PO PRN (21:07)
[2017-07-02] MEDS: ATORVASTATIN CA 40 MG TABLET (FP) PO SCH (21:18)
[2017-07-03] MEDS: VANCOMYCIN 250 MG/5 ML ORAL SOLUTION PO SCH ×3 (05:52→18:15)
[2017-07-03] MEDS ORDERED: PT OWN MED DRAWER 7, Y5N ONE (09:20)
[2017-07-03] MEDS: MESALAMINE 800 MG TABLET.DR PO SCH ×3 (09:23→18:15)
[2017-07-03] MEDS: LACTOBACILLUS ACIDOPHILUS 1 EACH TAB (FP) PO SCH (09:24)
[2017-07-03] MEDS: SEVELAMER CARBONATE 800 MG TAB (FP) PO SCH ×2 (09:24→14:13)
[2017-07-03] MEDS: CINACALCET HCL 30 MG TAB (FP) PO SCH (09:25)
[2017-07-03] MEDS: ASPIRIN COATED 81 MG TABLET.EC PO SCH (09:25)
[2017-07-03] MEDS: amLODIPine BESYLATE 5 MG TABLET (FP) PO SCH (09:25)
[2017-07-03] MEDS: PANTOPRAZOLE 40 MG TABLET (FP) PO SCH (09:25)
[2017-07-03] MEDS: ACETAMINOPHEN 325 MG TABLET (FP) PO PRN ×2 (09:26→20:58)
[2017-07-03] MEDS: MINERAL OIL/PET HY-PHL TOPICAL OINTMENT 454 GM JAR TP SCH (09:29)
[2017-07-03] MEDS: VITAMINS A AND D TOPICAL OINTMENT 60 GM TUBE TP SCH (09:29)
--- NOTE | 2017-07-03 09:51 | EKG ---
Test Reason : Blood Pressure : / mmHG Vent. Rate : 082 BPM Atrial Rate : 234 BPM P-R Int : 000 ms QRS Dur : 092 ms QT Int : 400 ms P-R-T Axes : 000 061 -04 degrees QTc Int : 467 ms ATRIAL FLUTTER WITH VARIABLE A-V BLOCK WITH PREMATURE VENTRICULAR OR ABERRANTLY CONDUCTED COMPLEXES NONSPECIFIC ST AND T WAVE ABNORMALITY ABNORMAL ECG WHEN COMPARED WITH ECG OF 20-JUN-2017 16:11, ATRIAL FLUTTER HAS REPLACED SINUS RHYTHM Confirmed by MICHELL LAIRD MD ([id number]) on 07/03/2017 9:51:16 AM Referred By: Confirmed By:MICHELL LAIRD MD
[2017-07-03] MEDS ORDERED: EPOETIN ALFA 2,000 UNIT/1 ML VIAL IVPUSH ONE (10:15)
--- NOTE | 2017-07-03 11:04 | PN ---
Progress Note (short form) - Note Progress Note: CC: pre-op clearance S: no palps, sob, dizziness. pt reports having jittery sensation in chest and abd, feels like organs are shaking inside Current Medications Generic Name Dose Route Start Last Admin Trade Name Freq PRN Reason Stop Dose Admin Acetaminophen 650 mg 06/22/17 11:09 07/03/17 09:26 Tylenol - PO 650 mg Q4H PRN Administration PAIN Amlodipine Besylate 5 mg 06/21/17 15:15 07/03/17 09:25 Norvasc - PO 5 mg DAILY [facility] Administration Aspirin 81 mg 06/27/17 10:00 07/03/17 09:25 Ecotrin - PO 81 mg DAILY [facility] Administration Atorvastatin Calcium 40 mg 06/21/17 22:00 07/02/17 21:18 Lipitor - PO 40 mg HS [facility] Administration Cinacalcet 30 mg 06/21/17 10:00 07/03/17 09:25 Sensipar - PO 30 mg DAILY [facility] Administration Emollient Ointment 1 applic 06/30/17 22:00 07/03/17 09:29 Aquaphor - TP 1 applic BID [facility] Administration Sodium Chloride 250 mls @ 3,000 mls/hr 07/02/17 14:17 Normal Saline - IV 07/03/17 14:17 PRN PRN Hypotension during Dialysis Lactobacillus Acidophilus 1 tab 06/30/17 13:00 07/03/17 09:24 Bacid - PO 1 tab DAILY [facility] Administration Mesalamine 1,600 mg 06/30/17 08:00 07/03/17 09:23 Asacol Hd - PO 1,600 mg TIDCM [facility] Administration Pantoprazole Sodium 40 mg 06/23/17 10:00 07/03/17 09:25 Protonix - PO 40 mg DAILY [facility] Administration Sevelamer Carbonate 800 mg 06/21/17 08:00 07/03/17 09:24 Renvela - PO 800 mg TIDCM [facility] Administration Vancomycin HCl 125 mg 06/30/17 18:00 07/03/17 05:52 Vancomycin Oral Solution PO 125 mg Q6HPO [facility] Administration Vitamin A/Vitamin D 1 applic 06/29/17 22:00 07/03/17 09:29 Vitamin A & D Top Oint - TP 1 applic BID [facility] Administration Vital Signs Period Temp Pulse Resp BP Sys/Casiano Pulse Ox Last 24 Hr 97.8 F-98.8 F 83-94 18-20 127-148/57-86 94 nad, calm jvd tds neck supple trace bibasilar rales, nl effort irregularly, irregular nl s1, s2 no 2/6 sys murmur at sternal usb and lsb + bs soft nt nd, obese. no e/c/c aaox3 no jaundice, diaphoresis. CBC, BMP 07/01/17 12:30 07/01/17 12:30 ekg: poor baseline, likely sinus rhythm with pac. non-specific t wave abnormalities. (poor baseline - unable to compare t wave morphology to priors) echo 01/2017: 1+ concentric lvh. nl lv/rv size/fn mod lae. 1+ ar. 1+ mac. 1 + mr. rvsp 30-40. cxr images and report reviewed: new congestive changes, but by my review appears similar to priors. abd u/s report reviewed: no ascites, see emr for details. egd 06/2017: distal esophagitis, hiatal hernia, moderate diverticulosis, edematous/erythemaouts colon, ulcerations of transverse and ascending colon - etiology?. see emr for full report details. Assessment/Plan 71 yo with h/o afib previously (off ac due to prior gib), cad s/p pci 10 years ago, diastolic chf, htn, ESRD on HD (M, W, F) and h/o esophagitis who p/w recurrent GIB --> plan for endoscopy. Pre-op clearance - Based on RCRI and poor functional status, patient has high risk of sobia- operative complications. Management of sobia-operative volume status per renal/ HD. Patient counseled on risk. - s/p endoscopy 06/23 and colonoscopy 06/25, no complications afib - per report patient had been taken off AC due to anemia/GIB. had been on asa. (See below regarding asa therapy) - currently rate controlled off av suha blockade. cad s/p remote pci (10 years ago)/hl - had been on ASA - was held in light of GIB. Discussed with GI 06/26, safe to resume low dose asa. - con't statin and norvasc. -intermittent nonspecific chest sxs (today has jittery sensation in chest/abd, feels like her organs are shaking). ECG at time of sxs today showed rate controlled afib, no ischemic findings. Does not seem cardiac. diastolic chf/esrd on HD -stable - volume control with hd htn -cont current meds GIB - eval/mgm't per pmd/gi. fever: -infectious w/u per ID
[2017-07-03 11:58] LABS: HEMOGLOBIN 9.7 GM/dL (10.7-15.3); MCH 28.5 pg (25.7-33.7); MCHC 33.4 g/dl (32.0-36.0); MEAN CELL VOLUME 85.3 fl (80-96); MEAN PLT VOLUME 7.4 fl (7.5-11.1); PLATELET COUNT 522 K/MM3 (134-434); RDW 17.2 % (11.6-15.6); WHITE BLOOD COUNT 10.5 K/mm3 (4.0-10.0)
[2017-07-03 12:22] LABS: ALBUMIN 2.2 g/dl (3.4-5.0); ALK PHOS 422 U/L (45-117); ANION GAP 12 (8-16); BILIRUBIN,TOTAL 0.6 mg/dL (0.2-1.0); BLOOD UREA NITROGEN 14 mg/dL (7-18); CALCIUM 8.1 mg/dL (8.5-10.1); CHLORIDE 95 mmol/L (98-107); CO2 29 mmol/L (21-32); CREATININE 7.3 mg/dL (0.55-1.02); GLUCOSE,RANDOM 112 mg/dL (74-106); PHOSPHOROUS 2.7 mg/dL (2.5-4.9); POTASSIUM 3.6 mmol/L (3.5-5.1); SGOT/AST 20 U/L (15-37); SGPT/ALT 12 U/L (12-78); SODIUM 136 mmol/L (136-145)
--- NOTE | 2017-07-03 14:17 | PN ---
Progress Note (short form) - Note Progress Note: seen in her room on way to HD mistakenly reported fever overnight - no documentation on chart and staff was questioned and verify afebrile no chills reported by patient Vital Signs Period Temp Pulse Resp BP Sys/Casiano Pulse Ox Last 24 Hr 97.8 F-98.8 F 82-94 18-20 127-160/57-86 94 lungs clear heart s1/S2- abd soft no guarding / no tenderness elicited / ext bruit left UE no edema LE CBC, BMP 07/03/17 11:25 07/03/17 11:25 Microbiology 06/29/17 15:56 Stool Salmonella/Shigella Culture - Final NO GROWTH OF SALMONELLA OR SHIGELLA SPECIES OBTAINED 06/29/17 15:56 Stool Campylobacter Culture - Final NO GROWTH OF CAMPYLOBACTER SPECIES OBTAINED 06/29/17 15:56 Stool Yersinia Culture - Final NO GROWTH OF YERSINIA SPECIES OBTAINED 06/29/17 15:56 Stool Vibrio Culture - Final NO GROWTH OF VIBRIO SPECIES OBTAINED 06/29/17 15:56 Stool Escherichia coli 0157 Culture - Final NO GROWTH OF E COLI 0157 OBTAINED 06/27/17 10:39 Blood - Peripheral Venous Blood Culture - Final NO GROWTH AFTER 5 DAYS INCUBATION 06/27/17 11:10 Blood - Peripheral Venous Blood Culture - Final NO GROWTH AFTER 5 DAYS INCUBATION 06/29/17 03:30 Stool Clostridium difficile Antigen (JAY) - Final 06/29/17 03:30 Stool Clostridium difficile Toxin Assay - Final 06/29/17 03:30 Stool Salmonella/Shigella Culture - Final NO GROWTH OF SALMONELLA OR SHIGELLA SPECIES OBTAINED 06/29/17 03:30 Stool Campylobacter Culture - Final NO GROWTH OF CAMPYLOBACTER SPECIES OBTAINED 06/29/17 03:30 Stool Yersinia Culture - Final NO GROWTH OF YERSINIA SPECIES OBTAINED 06/29/17 03:30 Stool Vibrio Culture - Final NO GROWTH OF VIBRIO SPECIES OBTAINED 06/29/17 03:30 Stool Escherichia coli 0157 Culture - Final NO GROWTH OF E COLI 0157 OBTAINED Active Medications Acetaminophen (Tylenol -) 650 mg PO Q4H PRN PRN Reason: PAIN Last Admin: 07/03/17 09:26 Dose: 650 mg Amlodipine Besylate (Norvasc -) 5 mg PO DAILY [facility] Last Admin: 07/03/17 09:25 Dose: 5 mg Aspirin (Ecotrin -) 81 mg PO DAILY [facility] Last Admin: 07/03/17 09:25 Dose: 81 mg Atorvastatin Calcium (Lipitor -) 40 mg PO HS [facility] Last Admin: 07/02/17 21:18 Dose: 40 mg Cinacalcet (Sensipar -) 30 mg PO DAILY [facility] Last Admin: 07/03/17 09:25 Dose: 30 mg Emollient Ointment (Aquaphor -) 1 applic TP BID [facility] Last Admin: 07/03/17 09:29 Dose: 1 applic Sodium Chloride (Normal Saline -) 250 mls @ 3,000 mls/hr IV PRN PRN PRN Reason: Hypotension during Dialysis Stop: 07/03/17 14:17 Lactobacillus Acidophilus (Bacid -) 1 tab PO DAILY [facility] Last Admin: 07/03/17 09:24 Dose: 1 tab Mesalamine (Asacol Hd -) 1,600 mg PO TIDCM [facility] Last Admin: 07/03/17 14:13 Dose: Not Given Pantoprazole Sodium (Protonix -) 40 mg PO DAILY [facility] Last Admin: 07/03/17 09:25 Dose: 40 mg Sevelamer Carbonate (Renvela -) 800 mg PO TIDCM [facility] Last Admin: 07/03/17 14:13 Dose: Not Given Vancomycin HCl (Vancomycin Oral Solution) 125 mg PO Q6HPO [facility] Last Admin: 07/03/17 14:13 Dose: Not Given Vitamin A/Vitamin D (Vitamin A & D Top Oint -) 1 applic TP BID [facility] Last Admin: 07/03/17 09:29 Dose: 1 applic Assmt/ plan # fever ??? will ck vitals q4h if remains afebrile will arrange for d/c in am # abdominal pain s/p EGD s/p colonoscopy persist with abdominal pain / 06/27 low grade temps, no chills no inc temp since -- ABX per ID #[id number] on HD TIW on schedule # A fib rate controlled asa # HTN continue to monitor Bp Problem List - Problems (1) Abdominal pain Code(s): R10.9 - UNSPECIFIED ABDOMINAL PAIN Qualifiers: (2) Dyspnea Code(s): R06.00 - DYSPNEA, UNSPECIFIED (3) End stage chronic kidney disease Code(s): N18.6 - END STAGE RENAL DISEASE; Z99.2 - DEPENDENCE ON RENAL DIALYSIS (4) Lower GI bleed Code(s): K92.2 - GASTROINTESTINAL HEMORRHAGE, UNSPECIFIED (5) Weakness Code(s): R53.1 - WEAKNESS (6) Afib Code(s): I48.91 - UNSPECIFIED ATRIAL FIBRILLATION (7) Chest pain Code(s): R07.9 - CHEST PAIN, UNSPECIFIED Qualifiers: Chest pain type: unspecified Qualified Code(s): R07.9 - Chest pain, unspecified (8) HTN (hypertension) Code(s): I10 - ESSENTIAL (PRIMARY) HYPERTENSION
--- NOTE | 2017-07-03 14:46 | PN ---
Progress Note, Physician History of Present Illness: Seen on dialysis Reports +loose BMs today No c/o abdominal pain No rectal bleeding Afebrile WBC 10.5 - Current Medication List Current Medications: Active Medications Acetaminophen (Tylenol -) 650 mg PO Q4H PRN PRN Reason: PAIN Last Admin: 07/03/17 09:26 Dose: 650 mg Amlodipine Besylate (Norvasc -) 5 mg PO DAILY [facility] Last Admin: 07/03/17 09:25 Dose: 5 mg Aspirin (Ecotrin -) 81 mg PO DAILY [facility] Last Admin: 07/03/17 09:25 Dose: 81 mg Atorvastatin Calcium (Lipitor -) 40 mg PO HS [facility] Last Admin: 07/02/17 21:18 Dose: 40 mg Cinacalcet (Sensipar -) 30 mg PO DAILY [facility] Last Admin: 07/03/17 09:25 Dose: 30 mg Emollient Ointment (Aquaphor -) 1 applic TP BID [facility] Last Admin: 07/03/17 09:29 Dose: 1 applic Lactobacillus Acidophilus (Bacid -) 1 tab PO DAILY [facility] Last Admin: 07/03/17 09:24 Dose: 1 tab Mesalamine (Asacol Hd -) 1,600 mg PO TIDCM [facility] Last Admin: 07/03/17 14:13 Dose: Not Given Pantoprazole Sodium (Protonix -) 40 mg PO DAILY [facility] Last Admin: 07/03/17 09:25 Dose: 40 mg Sevelamer Carbonate (Renvela -) 800 mg PO TIDCM [facility] Last Admin: 07/03/17 14:13 Dose: Not Given Vancomycin HCl (Vancomycin Oral Solution) 125 mg PO Q6HPO [facility] Last Admin: 07/03/17 14:13 Dose: Not Given Vitamin A/Vitamin D (Vitamin A & D Top Oint -) 1 applic TP BID [facility] Last Admin: 07/03/17 09:29 Dose: 1 applic - Objective Vital Signs: Vital Signs Temperature 98.2 F 07/03/17 11:25 Pulse Rate 85 07/03/17 13:00 Respiratory Rate 18 07/03/17 13:00 Blood Pressure 149/85 07/03/17 13:00 O2 Sat by Pulse Oximetry (%) 94 L 07/02/17 21:00 Constitutional: Yes: No Distress Eyes: Yes: Conjunctiva Clear Cardiovascular: Yes: Regular Rate and Rhythm, S1, S2 Respiratory: Yes: CTA Bilaterally Gastrointestinal: Yes: Normal Bowel Sounds, Soft. No: Tenderness Edema: No Labs: CBC, BMP 07/03/17 11:25 07/03/17 11:25 INR, PTT INR 1.08 (0.82-1.09) 06/20/17 18:12 Assessment/Plan S/P GI Bleed Fever-resolved Colitis ESRD PCN allergy C difficile Complete 14d course vancomycin
--- NOTE | 2017-07-03 16:01 | PN ---
Progress Note, Physician History of Present Illness: Pt seen and examined at bedside. She is awake and alert. She tolerated HD today. - Current Medication List Current Medications: Active Medications Acetaminophen (Tylenol -) 650 mg PO Q4H PRN PRN Reason: PAIN Last Admin: 07/03/17 09:26 Dose: 650 mg Amlodipine Besylate (Norvasc -) 5 mg PO DAILY [facility] Last Admin: 07/03/17 09:25 Dose: 5 mg Aspirin (Ecotrin -) 81 mg PO DAILY [facility] Last Admin: 07/03/17 09:25 Dose: 81 mg Atorvastatin Calcium (Lipitor -) 40 mg PO HS [facility] Last Admin: 07/02/17 21:18 Dose: 40 mg Cinacalcet (Sensipar -) 30 mg PO DAILY [facility] Last Admin: 07/03/17 09:25 Dose: 30 mg Emollient Ointment (Aquaphor -) 1 applic TP BID [facility] Last Admin: 07/03/17 09:29 Dose: 1 applic Lactobacillus Acidophilus (Bacid -) 1 tab PO DAILY [facility] Last Admin: 07/03/17 09:24 Dose: 1 tab Mesalamine (Asacol Hd -) 1,600 mg PO TIDCM [facility] Last Admin: 07/03/17 14:13 Dose: Not Given Pantoprazole Sodium (Protonix -) 40 mg PO DAILY [facility] Last Admin: 07/03/17 09:25 Dose: 40 mg Sevelamer Carbonate (Renvela -) 800 mg PO TIDCM [facility] Last Admin: 07/03/17 14:13 Dose: Not Given Vancomycin HCl (Vancomycin Oral Solution) 125 mg PO Q6HPO [facility] Last Admin: 07/03/17 14:13 Dose: Not Given Vitamin A/Vitamin D (Vitamin A & D Top Oint -) 1 applic TP BID [facility] Last Admin: 07/03/17 09:29 Dose: 1 applic - Objective Vital Signs: Vital Signs Temperature 98.1 F 07/03/17 15:55 Pulse Rate 80 07/03/17 15:55 Respiratory Rate 18 07/03/17 15:55 Blood Pressure 140/74 07/03/17 15:55 O2 Sat by Pulse Oximetry (%) 94 L 07/02/17 21:00 Constitutional: Yes: Calm Eyes: Yes: Conjunctiva Clear HENT: Yes: Atraumatic Cardiovascular: Yes: S1, S2 Respiratory: Yes: CTA Bilaterally Gastrointestinal: Yes: Soft Genitourinary: Yes: WNL Musculoskeletal: Yes: WNL Edema: No Neurological: Yes: Oriented Psychiatric: Yes: Oriented Labs: CBC, BMP 07/03/17 11:25 07/03/17 11:25 INR, PTT INR 1.08 (0.82-1.09) 06/20/17 18:12 Problem List - Problems (1) Abdominal pain Code(s): R10.9 - UNSPECIFIED ABDOMINAL PAIN Qualifiers: (2) End stage chronic kidney disease Code(s): N18.6 - END STAGE RENAL DISEASE; Z99.2 - DEPENDENCE ON RENAL DIALYSIS (3) Afib Code(s): I48.91 - UNSPECIFIED ATRIAL FIBRILLATION Assessment/Plan Current Medications Generic Name Dose Route Start Last Admin Trade Name Freq PRN Reason Stop Dose Admin Acetaminophen 650 mg 06/22/17 11:09 07/03/17 09:26 Tylenol - PO 650 mg Q4H PRN Administration PAIN Amlodipine Besylate 5 mg 06/21/17 15:15 07/03/17 09:25 Norvasc - PO 5 mg DAILY [facility] Administration Aspirin 81 mg 06/27/17 10:00 07/03/17 09:25 Ecotrin - PO 81 mg DAILY [facility] Administration Atorvastatin Calcium 40 mg 06/21/17 22:00 07/02/17 21:18 Lipitor - PO 40 mg HS [facility] Administration Cinacalcet 30 mg 06/21/17 10:00 07/03/17 09:25 Sensipar - PO 30 mg DAILY [facility] Administration Emollient Ointment 1 applic 06/30/17 22:00 07/03/17 09:29 Aquaphor - TP 1 applic BID [facility] Administration Lactobacillus Acidophilus 1 tab 06/30/17 13:00 07/03/17 09:24 Bacid - PO 1 tab DAILY [facility] Administration Mesalamine 1,600 mg 06/30/17 08:00 07/03/17 14:13 Asacol Hd - PO Not Given TIDCM [facility] Pantoprazole Sodium 40 mg 06/23/17 10:00 07/03/17 09:25 Protonix - PO 40 mg DAILY [facility] Administration Sevelamer Carbonate 800 mg 06/21/17 08:00 07/03/17 14:13 Renvela - PO Not Given TIDCM [facility] Vancomycin HCl 125 mg 06/30/17 18:00 07/03/17 14:13 Vancomycin Oral Solution PO Not Given Q6HPO [facility] Vitamin A/Vitamin D 1 applic 06/29/17 22:00 07/03/17 09:29 Vitamin A & D Top Oint - TP 1 applic BID [facility] Administration Laboratory Tests 07/03/17 11:25 Phosphorus 2.7 Impression 1. ESRD 2. a-fib 3. abdominal pain 4. HTN 5. hyperlipidemia Plan - HD today, pt tolerated - will hold sevelamer and see if abd pain improved - phos is 2.7. repeat phos levels in a few days - pt on PO vanco - will follow - cont renal diet
[2017-07-04] MEDS: VANCOMYCIN 250 MG/5 ML ORAL SOLUTION PO SCH ×3 (01:05→12:33)
[2017-07-04] MEDS: MINERAL OIL/PET HY-PHL TOPICAL OINTMENT 454 GM JAR TP SCH ×2 (01:05→10:51)
[2017-07-04] MEDS: VITAMINS A AND D TOPICAL OINTMENT 60 GM TUBE TP SCH ×2 (01:05→10:51)
[2017-07-04] MEDS: ATORVASTATIN CA 40 MG TABLET (FP) PO SCH (01:05)
[2017-07-04] MEDS: ACETAMINOPHEN 325 MG TABLET (FP) PO PRN (08:09)
[2017-07-04] MEDS: MESALAMINE 800 MG TABLET.DR PO SCH ×2 (08:52→12:33)
[2017-07-04] MEDS ORDERED: PT OWN MED DRAWER 7, Y5N ONE (10:49)
[2017-07-04] MEDS: PANTOPRAZOLE 40 MG TABLET (FP) PO SCH (10:50)
[2017-07-04] MEDS: LACTOBACILLUS ACIDOPHILUS 1 EACH TAB (FP) PO SCH (10:51)
[2017-07-04] MEDS: amLODIPine BESYLATE 5 MG TABLET (FP) PO SCH (10:51)
[2017-07-04] MEDS: CINACALCET HCL 30 MG TAB (FP) PO SCH (10:51)
--- NOTE | 2017-07-04 10:52 | PN ---
Progress Note (short form) - Note Progress Note: seen in her room she reports feeling very well better "than any other day " states tolerating diet well has remained afebrile Vital Signs Period Temp Pulse Resp BP Sys/Casiano Pulse Ox Last 24 Hr 98.1 F-98.7 F 80-97 18-20 116-161/60-100 95 lungs clear heart s1/S2- abd soft no guarding / no tenderness elicited / ext bruit left UE no edema LE CBC, BMP 07/03/17 11:25 07/03/17 11:25 Microbiology 06/29/17 15:56 Stool Salmonella/Shigella Culture - Final NO GROWTH OF SALMONELLA OR SHIGELLA SPECIES OBTAINED 06/29/17 15:56 Stool Campylobacter Culture - Final NO GROWTH OF CAMPYLOBACTER SPECIES OBTAINED 06/29/17 15:56 Stool Yersinia Culture - Final NO GROWTH OF YERSINIA SPECIES OBTAINED 06/29/17 15:56 Stool Vibrio Culture - Final NO GROWTH OF VIBRIO SPECIES OBTAINED 06/29/17 15:56 Stool Escherichia coli 0157 Culture - Final NO GROWTH OF E COLI 0157 OBTAINED 06/27/17 10:39 Blood - Peripheral Venous Blood Culture - Final NO GROWTH AFTER 5 DAYS INCUBATION 06/27/17 11:10 Blood - Peripheral Venous Blood Culture - Final NO GROWTH AFTER 5 DAYS INCUBATION 06/29/17 03:30 Stool Clostridium difficile Antigen (JAY) - Final 06/29/17 03:30 Stool Clostridium difficile Toxin Assay - Final 06/29/17 03:30 Stool Salmonella/Shigella Culture - Final NO GROWTH OF SALMONELLA OR SHIGELLA SPECIES OBTAINED 06/29/17 03:30 Stool Campylobacter Culture - Final NO GROWTH OF CAMPYLOBACTER SPECIES OBTAINED 06/29/17 03:30 Stool Yersinia Culture - Final NO GROWTH OF YERSINIA SPECIES OBTAINED 06/29/17 03:30 Stool Vibrio Culture - Final NO GROWTH OF VIBRIO SPECIES OBTAINED 06/29/17 03:30 Stool Escherichia coli 0157 Culture - Final NO GROWTH OF E COLI 0157 OBTAINED Active Medications Acetaminophen (Tylenol -) 650 mg PO Q4H PRN PRN Reason: PAIN Last Admin: 07/04/17 08:09 Dose: 650 mg Amlodipine Besylate (Norvasc -) 5 mg PO DAILY [facility] Last Admin: 07/03/17 09:25 Dose: 5 mg Aspirin (Ecotrin -) 81 mg PO DAILY [facility] Last Admin: 07/03/17 09:25 Dose: 81 mg Atorvastatin Calcium (Lipitor -) 40 mg PO HS [facility] Last Admin: 07/04/17 01:05 Dose: 40 mg Cinacalcet (Sensipar -) 30 mg PO DAILY [facility] Last Admin: 07/03/17 09:25 Dose: 30 mg Emollient Ointment (Aquaphor -) 1 applic TP BID [facility] Last Admin: 07/04/17 01:05 Dose: 1 applic Lactobacillus Acidophilus (Bacid -) 1 tab PO DAILY [facility] Last Admin: 07/03/17 09:24 Dose: 1 tab Mesalamine (Asacol Hd -) 1,600 mg PO TIDCM [facility] Last Admin: 07/04/17 08:52 Dose: 1,600 mg Pantoprazole Sodium (Protonix -) 40 mg PO DAILY [facility] Last Admin: 07/03/17 09:25 Dose: 40 mg Vancomycin HCl (Vancomycin Oral Solution) 125 mg PO Q6HPO [facility] Last Admin: 07/04/17 06:42 Dose: 125 mg Vitamin A/Vitamin D (Vitamin A & D Top Oint -) 1 applic TP BID [facility] Last Admin: 07/04/17 01:05 Dose: 1 applic Assmt/ plan # fever ??? -Has remained afebrile will arrange for d/c today # abdominal pain s/p EGD s/p colonoscopy no c/o abdominal pain today -- tolerating PO well No N /V /D #CKD5 on HD TIW on schedule # A fib rate controlled asa # HTN continue to monitor Bp For d/c today Problem List - Problems (1) Abdominal pain Code(s): R10.9 - UNSPECIFIED ABDOMINAL PAIN Qualifiers: (2) Dyspnea Code(s): R06.00 - DYSPNEA, UNSPECIFIED (3) End stage chronic kidney disease Code(s): N18.6 - END STAGE RENAL DISEASE; Z99.2 - DEPENDENCE ON RENAL DIALYSIS (4) Lower GI bleed Code(s): K92.2 - GASTROINTESTINAL HEMORRHAGE, UNSPECIFIED (5) Weakness Code(s): R53.1 - WEAKNESS (6) Afib Code(s): I48.91 - UNSPECIFIED ATRIAL FIBRILLATION (7) Chest pain Code(s): R07.9 - CHEST PAIN, UNSPECIFIED Qualifiers: Chest pain type: unspecified Qualified Code(s): R07.9 - Chest pain, unspecified (8) HTN (hypertension) Code(s): I10 - ESSENTIAL (PRIMARY) HYPERTENSION
[2017-07-04] MEDS: ASPIRIN COATED 81 MG TABLET.EC PO SCH (10:53)
[2017-07-04 12:14] VITALS: BP 137/65; PULSE 88; TEMP 97.7
--- NOTE | 2017-07-04 13:35 | PN ---
Progress Note, Physician History of Present Illness: Pt without any complaints and without diarrhea She is for dischearge today Next HD 07/06 at the [facility] unit - Current Medication List Current Medications: Active Medications Acetaminophen (Tylenol -) 650 mg PO Q4H PRN PRN Reason: PAIN Last Admin: 07/04/17 08:09 Dose: 650 mg Amlodipine Besylate (Norvasc -) 5 mg PO DAILY [facility] Last Admin: 07/04/17 10:51 Dose: 5 mg Aspirin (Ecotrin -) 81 mg PO DAILY [facility] Last Admin: 07/04/17 10:53 Dose: 81 mg Atorvastatin Calcium (Lipitor -) 40 mg PO HS [facility] Last Admin: 07/04/17 01:05 Dose: 40 mg Cinacalcet (Sensipar -) 30 mg PO DAILY [facility] Last Admin: 07/04/17 10:51 Dose: 30 mg Emollient Ointment (Aquaphor -) 1 applic TP BID [facility] Last Admin: 07/04/17 10:51 Dose: 1 applic Lactobacillus Acidophilus (Bacid -) 1 tab PO DAILY [facility] Last Admin: 07/04/17 10:51 Dose: 1 tab Mesalamine (Asacol Hd -) 1,600 mg PO TIDCM [facility] Last Admin: 07/04/17 12:33 Dose: 1,600 mg Pantoprazole Sodium (Protonix -) 40 mg PO DAILY [facility] Last Admin: 07/04/17 10:50 Dose: 40 mg Vancomycin HCl (Vancomycin Oral Solution) 125 mg PO Q6HPO [facility] Last Admin: 07/04/17 12:33 Dose: 125 mg Vitamin A/Vitamin D (Vitamin A & D Top Oint -) 1 applic TP BID [facility] Last Admin: 07/04/17 10:51 Dose: 1 applic - Objective Vital Signs: Vital Signs Temperature 97.7 F 07/04/17 09:00 Pulse Rate 88 07/04/17 09:00 Respiratory Rate 20 07/04/17 09:00 Blood Pressure 137/65 07/04/17 09:00 O2 Sat by Pulse Oximetry (%) 95 07/03/17 21:00 Constitutional: Yes: No Distress Cardiovascular: Yes: S1, S2 Respiratory: Yes: CTA Bilaterally Gastrointestinal: Yes: Soft, Distention. No: Tenderness Extremities: Yes: Other (AV access in LUE with thrill) Edema: No Labs: CBC, BMP 07/03/17 11:25 07/03/17 11:25 INR, PTT INR 1.08 (0.82-1.09) 06/20/17 18:12 Assessment/Plan Impression 1. ESRD 2. a-fib 3. S/P diarrhea and abdominal pain 4. HTN 5. Hyperlipidemia Plan Next HD 07/06 at the [facility] HD unit Holding phosphate binder at this time and will be reassessed as an out pt at her usual dialysis facility Dr Ku
== END 2017-07-04 15:15 | disposition home health service (06) | DRG 377 ==
LOC: JER 15:54 → JERBED 22:50 → J5S 06-21 00:36 → J8W 06-29 21:33
PROVIDERS: ADMIT Family Medicine; ATTEND Family Medicine
PROC: 5A1D70Z Performance of Urinary Filtration, Intermittent, Less than 6 Hours Per Day (ICD-10-PCS; 2017-06-23)
PROC: 0DB58ZX Excision of Esophagus, Via Natural or Artificial Opening Endoscopic, Diagnostic (ICD-10-PCS; principal; 2017-06-23 09:30)
PROC: 0DBL8ZX Excision of Transverse Colon, Via Natural or Artificial Opening Endoscopic, Diagnostic (ICD-10-PCS; 2017-06-25)
PROC: 3E0H8GC Introduction of Other Therapeutic Substance into Lower GI, Via Natural or Artificial Opening Endoscopic (ICD-10-PCS; 2017-06-25)
DX: K92.2 Gastrointestinal hemorrhage, unspecified (principal); N18.6 End stage renal disease; K65.9 Peritonitis, unspecified; I50.32 Chronic diastolic (congestive) heart failure; I13.2 Hypertensive heart and chronic kidney disease with heart failure and with stage 5 chronic kidney disease, or end stage renal disease; K86.2 Cyst of pancreas; K63.3 Ulcer of intestine; A04.72 Enterocolitis due to Clostridium difficile, not specified as recurrent; Z87.891 Personal history of nicotine dependence; Z99.2 Dependence on renal dialysis; Z88.0 Allergy status to penicillin; E66.9 Obesity, unspecified; I48.91 Unspecified atrial fibrillation; Z68.34 Body mass index [BMI] 34.0-34.9, adult; D50.9 Iron deficiency anemia, unspecified; R19.5 Other fecal abnormalities; I25.10 Atherosclerotic heart disease of native coronary artery without angina pectoris; Z98.61 Coronary angioplasty status; K44.9 Diaphragmatic hernia without obstruction or gangrene; K20.8 Other esophagitis; Z91.14 Patient's other noncompliance with medication regimen; K63.5 Polyp of colon; R50.9 Fever, unspecified; E87.6 Hypokalemia; K52.89 Other specified noninfective gastroenteritis and colitis; D12.3 Benign neoplasm of transverse colon; R74.8 Abnormal levels of other serum enzymes; K57.30 Diverticulosis of large intestine without perforation or abscess without bleeding
CPT/HCPCS: 36415; 71045-TC-FY; 74176-TC; 76705-TC; 80048; 80053; 82150; 82272; 82746; 82962; 83540; 83550; 83690; 83735; 84100; 85025; 85027; 85044; 85610; 85651; 85730; 86140; 86256; 86671; 86704; 86706; 86708; 86850; 86900; 86901; 87040; 87045; 87046; 87324; 87340; 87449; 88305-TC; 93005; 93010; 97116-GP; 97161-GP; 99285-25; J0131; J0885

== ENCOUNTER 2020-01-30 05:46 | Emergency (ER) | payer OTHER ==
--- NOTE | 2020-01-30 06:05 | PDOC ---
Attending Attestation - Resident Resident Name: PathakReji [email or web address] - ED Attending Attestation I have performed the following: I have examined & evaluated the patient, The case was reviewed & discussed with the resident, I agree w/resident's findings & plan - HPI HPI: 01/30/20 06:03 Pt comes in PEA cardiac arrest; down over 45 min on arrival to the ER. Pt was found in [place] by the staff. She had bled from her left arm fistula; approx 2 L of blood on the ground. Staff called EMS and when EMS arrived, CPR was in progress. EMS continued CPR for 30 min then called us in the hospital to call off the code. I requested they bring pateint to the hospital as she was in PEA. Pt arrived to ER 15 min later - Physicial Exam PE: 01/30/20 06:03 DOA pt in cardiac arrest ETT in the stomach;l we replaced it into the trachea Pt appeared pale; lost a lot of blood. But she was warm to the touch CPR continued for 15 min here. Pt pt had 3 rounds f ER and 1 D50, 1 bicarb; 1Ca chloride We checked for pulse with sono; no return fo pulse. Time of 5:58AM Left arm ooze of blood from the fistula site. towel wrap was bloody; we placed nancy wrap over the fistula. - Medical Decision Making 01/30/20 06:05 Pt time of was 5:58AM in the hospital 01/30/20 06:13 OR case #[id number] Discharge - Discharge Information Problems reviewed: Yes Clinical Impression/Diagnosis: Cardiac arrest Condition: Critical Disposition: - Follow up/Referral Referrals: Aime Pemberton MD [Primary Care Provider] - - Patient Discharge Instructions - Post Discharge Activity
--- NOTE | 2020-01-30 06:06 | PDOC ---
History of Present Illness - General Stated Complaint: CARDIAC ARREST - History of Present Illness Initial Comments: HPI: 01/30/20 06:02 74 yo F PMH HTN, ESRD (M,W,F), BIBEMS from [facility] in cardiac arrest. Per EMS, patient was reportedly bleeding from left AV fistula 15 minutes before arrival. Upon arrival, patient in PEA, had "exsanguinated". Tubed in the field, underwent 3 rounds of epinephrine, 1 gram of calcium gluconate, 1 amp of bicarb, 1 amp of D50. By the team of ER arrival, patient had been pulseless for 40 plus minutes. Patient not initially getting compressions while seen coming into the ER, started compressions in the hallway en route to resus room. Patient seen with tube in the esophagus, satting in the 70s. Bagged to 80% and intubated with Glidescope, 7.5 Fr tube. Patient underwent 6 rounds of epinephrine (3 by EMS, 3 in ER), 2 amps of D50 (1 by EMS, 1 in ER), 2 amps of bicarb (1 by EMS, 1 in ER), and 2 amps of bicarbonate (1 by EMS, 1 in ER). Remained in PEA throughout and never obtained ROSC. Time of : January 30, 2020 at 0558 Daughter Dilcia Reynoso notified at 0607. adjustment examiner accepted the case. Case number is [id number]. ROS: Unable to assess. PE: Gen: in cardiac arrest Neuro: cardiac arrest HEENT: atraumatic, normocephalic Neck: trachea midline, supple CV: in PEA at 130s Pulm: CTA b/l, no wheezing Abd: soft, non-distended, non-tender MSK: normal musculature Extr: no edema, no deformities Skin: warm, dry MDM: Most likely cause of appears to have been blood loss. May also have been electrolyte abnormality or hypoxia considering history of ESRD and initial esophageal intubation. Past History - Medical History Allergies/Adverse Reactions: Allergies Allergy/AdvReac Type Severity Reaction Status Date / Time Penicillins Allergy Verified 01/30/20 06:11 Home Medications: Ambulatory Orders Acetaminophen [Tylenol] 325 mg PO QID 07/22/19 Amlodipine Besylate [Norvasc -] 10 mg PO DAILY 07/22/19 Atorvastatin Ca [Lipitor] 10 mg PO HS 07/22/19 Azithromycin [Zithromax Tri-Golden (3 DAYS) -] 500 mg PO DAILY #3 tablet 07/22/19 Budesonide/Formeterol Fumarate [SYMBICORT 160/4.5mcg -] 1 inh PO BID 07/22/19 Cardiac Disorders: Yes (a fib) COPD: No Dialysis: Yes (mwf) HTN: Yes - Immunization History Immunization Up to Date: Yes - Psycho-Social/Smoking History Smoking History: Former smoker Have you smoked in the past 12 months: No Number of Cigarettes Smoked Daily: 0 Discharge - Discharge Information Problems reviewed: Yes Clinical Impression/Diagnosis: Cardiac arrest Condition: Critical Disposition: - Follow up/Referral Referrals: Aime Pemberton MD [Primary Care Provider] - - Patient Discharge Instructions - Post Discharge Activity
--- NOTE | 2020-01-30 06:08 | PDOC ---
Medical Decision Making - Medical Decision Making Patient ; Notified her daughter Dilcia Reynoso, over the phone, 01/30/20 06:07 Discharge - Discharge Information Problems reviewed: Yes Clinical Impression/Diagnosis: Cardiac arrest Condition: Critical Disposition: - Follow up/Referral Referrals: Aime Pemberton MD [Primary Care Provider] - - Patient Discharge Instructions - Post Discharge Activity
[2020-01-30 06:11] VITALS: BP 00/00; PULSE 0; BMI 22.3
--- NOTE | 2020-01-30 06:28 | PROC ---
Intubation - Intubation Reason for Intubation: Airway Protection Time of Intubation: 05:50 Intubation Method: orotracheal Blade used: Glidescope Tube Size (cm): 7.0 Tube position @ lip (cm): 19 Tube position confirmed by: Direct visualization, Breath sounds Breath Sounds after Intubation: equal Post Intubation Xray: No (Pt before xray could be done )
--- OUTSIDE RECORDS SUMMARY | 2020-01-30 06:38 | XMS ---
:1945 Author Organization [facility] Care Team Providers Name Role Phone CHRISTOPHER GRIJALVA Unavailable Unavailable Gomez, Pushpinder Unavailable [email or web address] Gomez, Pushpinder Unavailable [email or web address] Gomez, Pushpinder Unavailable [email or web address] Gomez, Pushpinder Unavailable [email or web address] Gomez, Pushpinder Unavailable [email or web address] Gomez, Pushpinder Unavailable [email or web address] Gomez, Pushpinder Unavailable [email or web address] Gomez, Pushpinder Unavailable [email or web address] ANAMARIA CURRIE Unavailable Unavailable PAT DELACRUZ Unavailable Unavailable TOSHA MULLIGAN Unavailable Unavailable ED STAFF PHYSICIAN, STAFF Unavailable Unavailable STELLA TRAMMELL Unavailable Unavailable Collins, Osama Unavailable Unavailable Collins, Osama Unavailable Unavailable Collins, Osama Unavailable Unavailable Collins, Osama Unavailable Unavailable Collins, Osama Unavailable Unavailable Collins, Osama Unavailable Unavailable Collins, Osama Unavailable Unavailable Collins, Osama Unavailable Unavailable Collins, Osama Unavailable Unavailable Collins, Osama Unavailable Unavailable Collins, Osama Unavailable Unavailable Collins, Osama Unavailable Unavailable Collins, Osama Unavailable Unavailable Collins, Osama Unavailable Unavailable Collins, Osama Unavailable Unavailable DA GURROLA, LAQUITANFENG Unavailable Unavailable Ringstad, Jacinta Unavailable Unavailable Ringstad, Jacinta Unavailable Unavailable Ringstad, Jacinta Unavailable Unavailable Ringstad, Jacinta Unavailable Unavailable Ringstad, Jacinta Unavailable Unavailable Ringstad, Jacinta Unavailable Unavailable Ringstad, Jacinta Unavailable Unavailable Ringstad, Jacinta Unavailable Unavailable Ringstad, Jacinta Unavailable Unavailable Ringstad, Jacinta Unavailable Unavailable Ringstad, Jacinta Unavailable Unavailable JACOBYFLORENTINO, OSEI Unavailable Unavailable KEITHRISSA Unavailable Unavailable ED STAFF PHYSICIAN Unavailable Unavailable Re-disclosure Warning The records that you are about to access may contain information from federally- assisted alcohol or drug abuse programs. If such information is present, then the following federally mandated warning applies: This information has been disclosed to you from records protected by federal confidentiality rules (42 CFR part 2). The federal rules prohibit you from making any further disclosure of this information unless further disclosure is expressly permitted by the written consent of the person to whom it pertains or as otherwise permitted by 42 CFR part 2. A general authorization for the release of medical or other information is NOT sufficient for this purpose. The Federal rules restrict any use of the information to criminally investigate or prosecute any alcohol or drug abuse patient.The records that you are about to access may contain highly sensitive health information, the redisclosure of which is protected by Article 27-F of the [facility] Public Health law. If you continue you may haveaccess to information: Regarding HIV / AIDS; Provided by facilities licensed or operated by the [facility] Office of Mental Health; or Provided by the [facility] Office for People With Developmental Disabilities. If such information is present, then the following [facility] mandated warning applies: This information has been disclosed to you from confidential records which are protected by state law. State law prohibits you from making any further disclosure of this information without the specific written consent of the person to whom it pertains, or as otherwise permitted by law. Any unauthorized further disclosure in violation of state law may result in a fine or prison sentence or both. A general authorization for the release of medical or other information is NOT sufficient authorization for further disclosure. Encounters Encounter Providers Location Date Indications Data Source(s ) Outpatient Attender: TOSHA Zavaleta 01/17/2020 [facility] GIVENSAdmitter: TOSHA GILLESPIE 08:36:00 AM [facility] TOSHAReferrer: TOSHA GARVIN - TOSHA 01/17/2020 12:25:00 PM EDT Outpatient Admitter: TOSHA Zavaleta 01/10/2020 [facility] GIVENS 08:13:00 AM [facility] EDT Outpatient Admitter: TOSHA Zavaleta 01/10/2020 [facility] TOSHA 12:00:00 AM [facility] Cent[facility] r EDT Inpatient Attender: IZABELA ROBERSON H-HAL6 11/14/2019 [place] [facility] IZABELAAttender: STELLA 10:58:00 PM [facility] ED[facility] - KRISHHAttender: STAFF ED 11/18/2019 STAFF PHYSICIANAdmitter: 03:25:00 PM IZABELA ROBERSON EDT JIMMYENGReferrer: IZABELA ROBERSON JIMMYWYATT Patient discharged. Inpatient Attender: PAT STEWART H-HAL6 09/10/2019 09:56:0 0 [facility] Stephanietender: STAFF ED STAFF AM EDT - 09/15/2019 [facility] PHYSICIANAdmitter: PAT 11:00:00 AM EDT MARSHALL STEWART AReferrer: PAT GOINSKVNG PAT A Patient discharged. Inpatient Attender: Robbin [address] [place] [address] 07/12/2019 06:20:00 [facility] ([facility] PM EDT - 09/02/2019 [facility] Care 05:30:00 PM EDT Center) Patient discharged. Emergency Attender: ED STAFF H 07/11/2019 02:04:00 PM [facility] PHYSICIANAttender: CHRISTOPHER CAMERON EDT - 07/12/2019 [facility] CHILDEBERTAttender: STAFF 06:22:00 PM EDT ED STAFF PHYSICIANAdmitter: [facility] CHILDEBERTReferrer: [facility] Patient discharged. Inpatient Attender: RISSA MCKINNEY 07/01/2019 03:42:00 [facility] Perry: STAFF ED PM EDT - 07/08/2019 [facility] [place] STAFF PHYSICIANAdmitter: 03:45:00 PM EDT RISSA Lopezferrer: RISSA PARKER Patient discharged. Attender: Jacinta [facility] 05/31/2019 11:56:00 [facility] ([facility] - 05/31/2019 [facility] 11:56:00 [facility]) Outpatient 05/30/2019 01:22:00 [facility] Outpatient 05/30/2019 12:00:00 [facility] Inpatient Attender: RISSA MCKINNEY 05/21/2019 04:54:00 [facility] EST - 05/23/2019 Medical Center STAFF ED STAFF 06:45:00 PM EST PHYSICIANAdmitter: RISSA Lopezferrer: RISSA FERGUSONEGO Patient discharged. Outpatient Attender: CLAUDETTE 04/28/2019 06:00:00 D49.0 [facility] ZVIAdmitter: ISIDRO WILKINS [facility] Care ZVIReferrer: Deanna CURRIE D49.0 Inpatient Attender: RISSA ROSARIO6 01/13/2019 09:08:00 [facility] RISSA EDT - 01/19/2019 [facility] Jessicaferrer: RISSA 06:30:00 PM EDT KEITH Patient discharged. Inpatient Attender: Malinda ZavaletaHAL6 12/29/2018 09:47:00 [facility] Malinda EDT - 01/06/2019 [facility] Bisierrer: Malinad 06:30:00 PM EDT [place] Patient discharged. Outpatient Attender: Malinda Zavaleta 12/17/2018 10:17:00 AM [facility] Ishanwa EDT [facility] Samirer: Malinda Dawsonh Immunizations Vaccine Date Status Description Data Source(s) New in 2011. IIV4 01/14/2019 05:20:00 completed [facility] EDT Center Medications Medication Brand Start Product Dose Route [facility] Reaction Description Data Name Date Form Instructions Instructions Source(s) Symbicort 120 07/11/ complet Symbicort [facility] (budesonide ACTUAT 2020 ed 160 mcg-4.5 ([facility] -formoterol Budeso 12:28: mcg/actua mercedes Extended ) 160 nide 46 PM n HFA Care mcg-4.5 0.16 EDT aerosol Center) mcg/actuati MG/ACT inhaler on HFA UAT / aerosol formot inhaler jose fumara te 0.0045 MG/ACT UAT Metere d Dose Inhale r [Symbi daniel] atorvastati atorva 07/11/ complet atorva statin [facility] n 10 mg statin 2020 ed 10 mg tablet (R egency tablet 10 MG 12:28: Extended Oral 46 PM Care Tablet EDT Center) atorvastati atorva 07/11/ complet atorva statin [facility] n 10 mg statin 2019 ed 10 mg tablet (R egency tablet 10 MG 12:28: Extended Oral 46 PM Care Tablet EDT Center) Symbicort 120 07/11/ complet Symbicort [facility] (budesonide ACTUAT 2020 ed 160 mcg-4.5 ([facility] -formoter[facility] Budeso 12:28: mcg/actua mercedes Extended ) 160 nide 46 PM n HFA Care mcg-4.5 0.16 EDT aerosol Center) mcg/actuati MG/ACT inhaler on HFA UAT / aerosol formot inhaler jose fumara te 0.0045 MG/ACT UAT Metere d Dose Inhale r [Symbi daniel] amlodipine Amlodi 07/11/ complet amlodip ine [facility] 10 mg pine 2019 ed 10 mg tablet ([facility] tablet 10 MG 12:28: Extended Oral 45 PM Care Tablet EDT Center) amlodipine Amlodi 07/11/ complet amlodip ine [facility] 10 mg 2019 ed 10 mg tablet ([facility] tablet 10 MG 12:28: Extended Oral 45 PM Care Tablet EDT Center) acetaminoph Acetam 07/11/ complet acetam inophe [facility] en 325 mg inophe 2019 ed n 325 mg (Reg ency tablet n 325 12:20: tablet Extended MG 36 PM Care Oral EDT Center) Tablet acetaminoph Acetam 07/11/ complet acetam inophe [facility] en 325 mg inophe 2019 ed n 325 mg (Reg ency tablet n 325 12:20: tablet Extended MG 36 PM Care Oral EDT Center) Tablet Insurance Providers Payer name Policy type Policy ID Covered Covered republican's Policy P jorgito / Coverage republican ID relationship to [employer] Inf ormation type [employer] MEDICARE [id number] SP [id number] M [id number] 01 [id number] M [id number] M [id number] 01 [id number] Medicare Part A Medicare [id number] Self [id number] Part A Medicare Part B Medicare [id number] Self [id number] Part B [facility] [id number] VIP (HMO) Medicare Part B [id number] Self [id number] Medicare Part A [id number] Self [id number] Medicare Part A Medicare [id number] Self [id number] Part A HIP MEDICARE [id number] SP [id number] VIP M [id number] 01 [id number] [facility] [id number] self [id number] AETNA MEDICARE O MEBRSCRD 01 MEBRS CRD M [id number] 01 [id number] A AETNA O MEBRSCRD 01 MEBRSCRD AETNA MEDICARE O MEBRSCRD 01 MEBRS CRD AETNA O MEBRSCRD 01 MEBRSCRD AETNA [facility] O MEBRSCRD 01 MEBRSCRD AETNA USHC O MEBRSCRD 01 MEBRSCRD AETNA USHC O MEBRSCRD 01 MEBRSCRD AETNA O MEBRSCRD 01 MEBRSCRD AETNA O MEBRSCRD 01 MEBRSCRD Problems, Conditions, and Diagnoses Code Display Name Description Problem Type Effective Data Sour ce(s) Dates 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 01/17/2020 [facility] dialysis RENAL DIALYSIS 08:36:00 AM Medical C enter EDT N18.6 End stage renal END STAGE RENAL Diagnosis 01/17/2020 [facility] disease DISEASE 08:36:00 AM Medical Cente r EDT I50.9 Heart failure, HEART FAILURE, Diagnosis 01/17/2020 [facility] unspecified UNSPECIFIED 08:36:[address] EDT I13.2 Hypertensive heart HYP HRT and CHR Diagnosis 01/17/2020 S jonathan Johnson and chronic kidney KDNY DIS W HRT 08:36:00 AM [facility] disease with heart FAIL AND W STG 5 EDT failure and with CHR KDNY/ESRD stage 5 chronic kidney disease, or end stage renal disease I48.91 Unspecified atrial UNSPECIFIED ATRIAL Diagnosis 0 [facility] fibrillation FIBRILLATION 08:36:00 AM Medical C enter EDT E78.5 Hyperlipidemia, HYPERLIPIDEMIA, Diagnosis 01/17/2020 [facility] unspecified UNSPECIFIED 08:36:[address] EDT Y83.2 Surgical operation ANASTOMOS,BYPASS Diagnosis 01/17/2020 [facility] with anastomosis, OR GRFT CAUSE ABN 08:36:00 AM Medical Center bypass or graft as REACT/COMPL, W/O EDT the cause of MISADVNT abnormal reaction of the patient, or of later complication, without mention of misadventure at the time of the procedure T82.510A Breakdown BREAKDOWN OF Diagnosis 01/17/2020 [facility] [place] (mechanical) of SURGICALLY CREATED 08:36:00 AM Medical Center surgically created AV FISTULA, INIT EDT arteriovenous fistula, initial encounter E87.5 Hyperkalemia HYPERKALEMIA Diagnosis 11/18/2019 [facility] 03:25:00 PM Medical Cente r EDT R07.89 Other chest pain OTHER CHEST PAIN Diagnosis 11/18/2019 [facility] 03:25:00 PM Medical Cente r EDT K86.2 Cyst of pancreas CYST OF PANCREAS Diagnosis 11/18/2019 [facility] 03:25:00 PM Medical Cente r EDT I73.9 Peripheral vascular PERIPHERAL Diagnosis 11/18/2019 [facility] disease, VASCULAR DISEASE, 03:25:00 PM [facility] unspecified UNSPECIFIED EDT Z86.19 Personal history of PERSONAL HISTORY Diagnosis 11/18/2019 [facility] other infectious OF OTHER 03:25:00 PM Medical Center and parasitic INFECTIOUS AND EDT diseases PARASITIC DISEASES R07.9 Chest pain, CHEST PAIN, Diagnosis 11/14/2019 [facility] [place] unspecified UNSPECIFIED 10:58:00 PM Medical [facility] ter EDT J44.9 Chronic obstructive CHRONIC Diagnosis 09/15/2019 [facility] pulmonary disease, OBSTRUCTIVE 11:00:00 AM [facility] unspecified PULMONARY DISEASE, EDT UNSPECIFIED I12.0 Hypertensive HYP CHR KIDNEY Diagnosis 09/15/2019 [facility] chronic kidney DISEASE W STAGE 5 11:00:00 AM [facility] disease with stage CHR KIDNEY DISEASE EDT 5 chronic kidney OR ESRD disease or end stage renal disease E87.70 Fluid overload, FLUID OVERLOAD, Diagnosis 09/15/2019 [facility] unspecified UNSPECIFIED 11:00:[address] EDT R53.1 Weakness WEAKNESS Diagnosis 09/10/2019 [facility] 09:56:00 AM Medical Cente r EDT R12 Heartburn Heartburn Diagnosis 08/07/2019 [facility] 12:00:00 AM ([facility]) U07.1 COVID-19 COVID-19 Diagnosis 07/23/2019 [facility] 12:00:00 AM ([facility]) J44.9 Chronic obstructive Chronic Diagnosis 07/12/2019 [facility] pulmonary disease, obstructive 12:00:00 AM (Reg ency unspecified pulmonary disease, EDT Exten ded Care unspecified Center) E78.5 Hyperlipidemia, Hyperlipidemia, Diagnosis 07/12/2019 [facility] unspecified unspecified 12:00:00 AM ([facility]) R52 Pain, unspecified Pain, unspecified Diagnosis 07/12/2019 [facility] 12:00:00 AM ([facility]) Z00.00 Encounter for Encntr for general Diagnosis 07/12/2019 [facility] general adult adult medical exam 12:00:00 AM (R egency medical examination w/o abnormal EDT Ext ended Care without abnormal findings Center) findings Z95.5 Presence of PRESENCE OF Diagnosis 07/11/2019 [facility] coronary CORONARY 02:04:00 PM Medical Cente r angioplasty implant ANGIOPLASTY EDT and graft IMPLANT AND GRAFT I10 Essential (primary) ESSENTIAL Diagnosis 07/11/2019 [facility] hypertension (PRIMARY) 02:04:[address] HYPERTENSION EDT R06.00 Dyspnea, DYSPNEA, Diagnosis 07/11/2019 [facility] unspecified UNSPECIFIED 02:04:[address] EDT D64.9 Anemia, unspecified ANEMIA, Diagnosis 07/08/2019 [facility] UNSPECIFIED 03:45:00 PM Medical Cent er EDT I25.10 Atherosclerotic ATHSCL HEART Diagnosis 07/08/2019 [facility]ph[facility] heart disease of DISEASE OF [place] 03:45:00 PM [facility] [place] coronary CORONARY ARTERY EDT artery without W/O ANG PCTRS angina pectoris B97.29 Other coronavirus OTH CORONAVIRUS Diagnosis 07/08/2019 [facility] as the cause of THE CAUSE OF 03:45:00 PM Medica l Center diseases classified DISEASES CLASSD EDT elsewhere ELSWHR J44.0 Chronic obstructive CHR OBSTRUCTIVE Diagnosis 07/08/2019 [facility] pulmonary disease PULMON DISEASE 03:45:00 PM Mo dical Center with acute lower WITH (ACUTE) LOWER EDT respiratory RESP INFCT infection J12.89 Other viral OTHER VIRAL Diagnosis 07/08/2019 [facility] pneumonia PNEUMONIA 03:45:00 PM [facility] Z98.61 Coronary CORONARY Diagnosis 07/08/2019 [facility] angioplasty status ANGIOPLASTY STATUS 03:45:00 PM Medical Center EDT R50.9 Fever, unspecified FEVER, UNSPECIFIED Diagnosis 0 [facility] 03:42:00 PM Medical Juliane r EDT J44.1 Chronic obstructive CHRONIC Diagnosis 05/23/2019 [facility] pulmonary disease OBSTRUCTIVE 06:45:00 PM Medic al Center with (acute) PULMONARY DISEASE EST exacerbation W (ACUTE) EXACERBATION Z87.891 Personal history of PERSONAL HISTORY Diagnosis 05/23/2019 [facility] nicotine dependence OF NICOTINE 06:45:00 PM Med ical Center DEPENDENCE EST 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 04/28/2019 [place] unspecified UNSPECIFIED 06:00:00 AM [facility] behavior of BEHAVIOR OF EST Care digestive system DIGESTIVE SYSTEM Co rporation I48.0 Paroxysmal atrial PAROXYSMAL ATRIAL Diagnosis 01/19/2019 [facility] fibrillation FIBRILLATION 06:30:00 PM Medical C enter EDT Z88.0 Allergy status to ALLERGY STATUS TO Diagnosis 01/19/2019 [facility] penicillin PENICILLIN 06:30:00 PM [facility] EDT Z91.15 Patient's PATIENT'S Diagnosis 01/19/2019 [facility] noncompliance with NONCOMPLIANCE WITH 06:30:00 PM [facility] renal dialysis RENAL DIALYSIS EDT 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 01/19/2019 [facility] use of (CURRENT) USE OF 06:30:00 PM [facility] anticoagulants ANTICOAGULANTS EDT I50.30 Unspecified UNSPECIFIED Diagnosis 01/06/2019 [facility] diastolic DIASTOLIC 06:30:00 PM Medical Crista r (congestive) heart (CONGESTIVE) HEART EDT failure FAILURE J18.9 Pneumonia, PNEUMONIA, Diagnosis 12/17/2018 [facility] unspecified UNSPECIFIED 10:17:00 AM Medical [facility] ter organism ORGANISM EDT Results ID Date Data Source [id number] 01/17/2020 08:51:00 AM EDT [facility] Name Value Range Interpretation Description Data Sup porting Code Source(s) Document(s ) Potassium 3.5-5.3 Below low normal <content Saint [Moles/volume styleCode="[facility] ] in Serum or d">Potassium Medical Plasma </content>3.3 Center MEQ/L L<content styleCode="Karrie lics"> (3.5-5.3 MEQ/L)</conten t> ID Date Data Source [id number] 01/12/2020 12:00:00 AM EDT [facility] Name Value Range Interpretation Code Description Data Lyly rce(s) Supporting Document(s ) [facility] RNA XXX ANTONINA+probe- Imp This lab was ordered by [employer] and reported by [employer] ID Date Data Source [id number] 11/18/2019 12:00:00 AM EDT [facility] Name Value Range Interpretation Code Description Data Lyly rce(s) Supporting Document(s ) [facility] RNA XXX ANTONINA+probe- Imp This lab was ordered by [employer] and reported by [employer] ID Date Data Source GFR(Creatinine).[id number] 11/16/2019 06:10:00 AM EDT [facility] 0-0400 Name Value Range Interpretation Code Description Data Lyly rce(s) Supporting Document(s ) UNK > 60 Below low normal <content [facility] styleCode="Bold"> Medical Cent er EGFR </content>10 GFR L<content styleCode="Italic s"> (> 60 GFR)</content> ID Date Data Source CHMROUTINECCDA.[id number] 11/16/2019 06:10:00 AM EDT [facility] -0400 Name Value Range Interpretation Description Data Sup porting Code Source(s) Document(s ) Magnesium 1.6-2.3 <content Saint [Mass/volume] styleCode="[facility] in Serum or d">Magnesium Medical Plasma </content>2.1 Center MG/DL<content styleCode="Karrie lics"> (1.6-2.3 MG/DL)</conten t> Phosphate 2.5-4.5 Above high normal <content [facility] [Mass/volume] styleCode="[facility] in Serum or d">Phosphorus Medical Plasma </content>4.8 Center MG/DL H<content styleCode="Karrie lics"> (2.5-4.5 MG/DL)</conten t> ID Date Data Source [employer].[id number] 11/16/2019 06:10:00 AM EDT [facility] -0400 Name Value Range Interpretation Description Data Sup porting Code Source(s) Document(s ) Troponin < 0.034 <content Saint I.cardiac styleCode="Bold [facility] [Mass/volume ">Troponin I Medical ] in Serum </content>0.031 Center or Plasma NG/ML<content styleCode="Ital ics"> (< 0.034 NG/ML)</content > ID Date Data Source [id number] 11/16/2019 06:10:00 AM EDT [facility] Name Value Range Interpretation Description Data Sup porting Code Source(s) Document(s ) Potassium 3.5-5.3 <content [facility] [Moles/volume] styleCode="[facility] in Serum or d">Potassium Medical Plasma </content>4.5 Center MEQ/L<content styleCode="Karrie lics"> (3.5-5.3 MEQ/L)</conten t> Chloride 98-107 Below low normal <content [facility] [Moles/volume] styleCode="[facility] in Serum or d">Chloride Medical Plasma </content>94 Center MEQ/L L<content styleCode="Karrie lics"> (98-107 MEQ/L)</conten t> Sodium 137-145 Below low normal <content [facility] [Moles/volume] styleCode="[facility] in Serum or d">Sodium Medical Plasma </content>130 Center MEQ/L L<content styleCode="Karrie lics"> (137-145 MEQ/L)</conten t> UNK 7-17 Above high normal <content [facility] styleCode="[facility] d">BUN Medical </content>25 Center MG/DL H<content styleCode="Karrie lics"> (7-17 MG/DL)</conten t> Carbon 22-30 <content [facility] dioxide, total styleCode="[facility] [Moles/volume] d">Carbon Medical in Serum or Dioxide Center Plasma </content>28 MEQ/L<content styleCode="Karrie lics"> (22-30 MEQ/L)</conten t> Creatinine 0.5-1.3 Above high normal <content Saint [Mass/volume] styleCode="[facility] in Serum or d">Creatinine Medical Plasma </content>5.5 Center MG/DL H<content styleCode="Karrie lics"> (0.5-1.3 MG/DL)</conten t> Glucose 74-106 <content Saint [Mass/volume] styleCode="[facility] in Serum or d">Glucose Medical Plasma </content>81 Center MG/DL<content styleCode="Karrie lics"> (74-106 MG/DL)</conten t> Calcium 8.4-10.2 <content [facility] [Mass/volume] styleCode="[facility] in Serum or d">Calcium Medical Plasma </content>8.9 Center MG/DL<content styleCode="Karrie lics"> (8.4-10.2 MG/DL)</conten t> UNK > 60 Below low normal <content Saint styleCode="[facility] d">EGFR Medical </content>10 Center GFR L<content styleCode="Karrie lics"> (> 60 GFR)</content> ID Date Data Source HematologyRou.[id number] 11/15/2019 12:28:00 AM [place] [facility] 0400 Name Value Range Interpretation Description Data Sup porting Code Source(s) Document(s ) Erythrocytes 4.0-5.1 Below low normal <content Saint [#/volume] in styleCode="Bold [facility] Blood by ">Red Blood Medical Automated count Cell Count Center </content>3.29 MCUMM L<content styleCode="Ital ics"> (4.0-5.1 MCUMM)</content > Leukocytes 4.4-11.0 <content [facility] [#/volume] in styleCode="Bold [facility] Blood by ">White Blood Medical Automated count Cell Count Center </content>4.98 KCUMM<content styleCode="Ital ics"> (4.4-11.0 KCUMM)</content > Hemoglobin 12.3-16. Below low normal <content Saint [Mass/volume] in 0 styleCode="Bold Eliazbeth Blood ">Hemoglobin Medical </content>10.4 Center G/DL L<content styleCode="Ital ics"> (12.3-16.0 G/DL)</content> Erythrocyte mean 32.0-37. <content [facility] corpuscular 0 styleCode="Bold [facility] hemoglobin ">Mean Corpus. Medical concentration Hgb Center [Mass/volume] by Concentration Automated count (MCHC) </content>33.5 G/DL<content styleCode="Ital ics"> (32.0-37.0 G/DL)</content> Hematocrit 36.0-46. Below low normal <content Saint [Volume 0 styleCode="[facility] Fraction] of ">Hematocrit Medical Blood by </content>31.0 Center Automated count % L<content styleCode="Ital ics"> (36.0-46.0 %)</content> Erythrocyte mean 80.0-100 <content [facility] corpuscular .0 styleCode="[facility] volume [Entitic ">Mean Medical volume] by Corpuscular Center Automated count Volume </content>94.2 FL<content styleCode="Ital ics"> (80.0-100.0 FL)</content> Erythrocyte mean 26.0-34. <content [facility] corpuscular 0 styleCode="Bold [facility] hemoglobin ">Mean Medical [Entitic mass] Corposcular Center by Automated Hemoglobin count </content>31.6 PG<content styleCode="Ital ics"> (26.0-34.0 PG)</content> Platelets 130-400 <content [facility] [#/volume] in styleCode="Bold [facility] Blood by ">Platelet Medical Automated count Count Center </content>230 KCUMM<content styleCode="Ital ics"> (130-400 KCUMM)</content > Platelet mean 8.0-11.0 <content [facility] volume [Entitic styleCode="Bold Elizabeth volume] in Blood ">Mean Platelet Medical by Automated Volume Center count </content>10.6 FL<content styleCode="Ital ics"> (8.0-11.0 FL)</content> UNK 0 <content [facility] styleCode="Bold Elizabeth ">Nucleated Red Medical Blood Cell Center </content>0.0 /100<content styleCode="Ital ics"> (0 /100)</content> Erythrocyte 11.5-14. Above high <content [facility] distribution 5 normal styleCode="Sebastián Johnson width [Ratio] by ">Red Cell Medical Automated count Distribution Center Width </content>16.2 % H<content styleCode="Ital ics"> (11.5-14.5 %)</content> UNK 0.0 <content [facility] styleCode="Bold [facility] ">Nucleated Red Medical Blood Cell Center Count </content>0.00 KCUMM<content styleCode="Ital ics"> (0.0 KCUMM)</content > ID Date Data Source GFR(Creatinine).[id number] 11/15/2019 12:28:00 AM EDT [facility] 0-0400 Name Value Range Interpretation Code Description Data Lyly rce(s) Supporting Document(s ) UNK > 60 Below low normal <content [facility] styleCode="Bold"> Medical Cent er EGFR </content>6 GFR L<content styleCode="Italic s"> (> 60 GFR)</content> ID Date Data Source [employer].[id number] 11/15/2019 12:28:00 AM EDT [facility] -0400 Name Value Range Interpretation Description Data Sup porting Code Source(s) Document(s ) Creatine 30-135 <content [facility] kinase styleCode="Bold [facility] [Enzymatic ">CK Medical activity/vol </content>32 Center ume] in IU/L<content Serum or styleCode="Ital Plasma ics"> (30-135 IU/L)</content> Troponin < 0.034 <content [facility] I.cardiac styleCode="Bold Elizabeth [Mass/volume ">Troponin I Medical ] in Serum </content>0.032 Center or Plasma NG/ML<content styleCode="Ital ics"> (< 0.034 NG/ML)</content > ID Date Data Source [facility].[id number] 11/15/2019 12:28:00 AM EDT [facility] Name Value Range Interpretation Description Data Sup porting Code Source(s) Document(s ) Sodium 137-145 Below low normal <content [facility] [Moles/volume] styleCode="Geetha Elizabeth in Serum or d">Sodium Medical Plasma </content>130 Center MEQ/L L<content styleCode="Karrie lics"> (137-145 MEQ/L)</conten t> Carbon 22-30 <content [facility] dioxide, total styleCode="Geetha Elizabeth [Moles/volume] d">Carbon Medical in Serum or Dioxide Center Plasma </content>27 MEQ/L<content styleCode="Karrie lics"> (22-30 MEQ/L)</conten t> Chloride 98-107 Below low normal <content [facility] [Moles/volume] styleCode="Geetha Elizabeth in Serum or d">Chloride Medical Plasma </content>94 Center MEQ/L L<content styleCode="Karrie lics"> (98-107 MEQ/L)</conten t> Potassium 3.5-5.3 Above high normal <content [facility] [Moles/volume] styleCode="Geetha Elizabeth in Serum or d">Potassium Medical Plasma </content>5.7 Center MEQ/L H<content styleCode="Karrie lics"> (3.5-5.3 MEQ/L)</conten t> UNK 7-17 Above high normal <content [facility] styleCode="Geetha Elizabeth d">BUN Medical </content>52 Center MG/DL H<content styleCode="Karrie lics"> (7-17 MG/DL)</conten t> UNK > 60 Below low normal <content [facility] styleCode="Geetha Elizabeth d">EGFR Medical </content>6 Center GFR L<content styleCode="Karrie lics"> (> 60 GFR)</content> Creatinine 0.5-1.3 Above upper panic <content [facility] [Mass/volume] limits styleCode="Geetha Elizabeth in Serum or d">Creatinine Medical Plasma </content><con Center tent styleCode="Geetha d">8.3 MG/DL HH</content><c ontent styleCode="Karrie lics"> (0.5-1.3 MG/DL)</conten t> Calcium 8.4-10.2 <content [facility] [Mass/volume] styleCode="Geetha Elizabeth in Serum or d">Calcium Medical Plasma </content>9.1 Center MG/DL<content styleCode="Karrie lics"> (8.4-10.2 MG/DL)</conten t> Glucose 74-106 <content [facility] [Mass/volume] styleCode="Geetha Elizabeth in Serum or d">Glucose Medical Plasma </content>104 Center MG/DL<content styleCode="Karrie lics"> (74-106 MG/DL)</conten t> ID Date Data Source [id number] 11/15/2019 12:00:00 AM EDT [facility] Name Value Range Interpretation Code Description Data Lyly rce(s) Supporting Document(s ) 2019-nCoV [facility] RNA XXX ANTONINA+probe- Imp This lab was ordered by [facility] and reported by [facility] N[facility]. ID Date Data Source Liver 09/15/2019 05:30:[address] [facility] Profile.[id number] Name Value Range Interpretation Description Data Sup porting Code Source(s) Document(s ) Alanine 7-30 <content [facility] aminotransferase styleCode="Bold"> Kash hs [Enzymatic Alanine Medical activity/volume] Aminotransferase Center in Serum or Plasma (ALT) </content>27 IU/L<content styleCode="Italic s"> (7-30 IU/L)</content> Alkaline 38-126 Above high <content [facility] phosphatase normal styleCode="Bold"> Elizabeth [Enzymatic Alkaline Medical activity/volume] Phosphatase (ALP) Cente r in Serum or Plasma </content>554 IU/L H<content styleCode="Italic s"> (38-126 IU/L)</content> Aspartate 14-36 Above high <content [facility] aminotransferase normal styleCode="Bold"> Kash hs [Enzymatic Aspartate Medical activity/volume] Aminotransferase Center in Serum or Plasma (AST) </content>49 IU/L H<content styleCode="Italic s"> (14-36 IU/L)</content> Bilirubin.total 0.2-1.3 <content [facility] [Mass/volume] in styleCode="Bold"> Kash hs Serum or Plasma Bilirubin Total Medical </content>1.3 Center MG/DL<content styleCode="Italic s"> (0.2-1.3 MG/DL)</content> Albumin 3.5-5.0 Below low <content [facility] [Mass/volume] in normal styleCode="Bold"> Kash hs Serum or Plasma Albumin Medical </content>3.0 Center G/DL L<content styleCode="Italic s"> (3.5-5.0 G/DL)</content> ID Date Data Source HematologyRou.[id number] 09/15/2019 05:30:00 AM EDT [facility] 0400 Name Value Range Interpretation Description Data Sup porting Code Source(s) Document(s ) Leukocytes 4.4-11.0 <content [facility] [#/volume] in styleCode="Bold [facility] Blood by ">White Blood Medical Automated count Cell Count Center </content>4.83 KCUMM<content styleCode="Ital ics"> (4.4-11.0 KCUMM)</content > Hemoglobin 12.3-16. Below low normal <content [facility] [Mass/volume] in 0 styleCode="Bold Elizabeth Blood ">Hemoglobin Medical </content>9.2 Center G/DL L<content styleCode="Ital ics"> (12.3-16.0 G/DL)</content> Erythrocytes 4.0-5.1 Below low normal <content [facility] [#/volume] in styleCode="Bold [facility] Blood by ">Red Blood Medical Automated count Cell Count Center </content>2.87 MCUMM L<content styleCode="Ital ics"> (4.0-5.1 MCUMM)</content > Hematocrit 36.0-46. Below low normal <content [facility] [Volume 0 styleCode="Bold Elizabeth Fraction] of ">Hematocrit Medical Blood by </content>27.7 Center Automated count % L<content styleCode="Ital ics"> (36.0-46.0 %)</content> Erythrocyte mean 26.0-34. <content [facility] corpuscular 0 styleCode="Bold Elizabeth hemoglobin ">Mean Medical [Entitic mass] Corposcular Center by Automated Hemoglobin count </content>32.1 PG<content styleCode="Ital ics"> (26.0-34.0 PG)</content> Erythrocyte mean 80.0-100 <content [facility] corpuscular .0 styleCode="Bold Elizabeth volume [Entitic ">Mean Medical volume] by Corpuscular Center Automated count Volume </content>96.5 FL<content styleCode="Ital ics"> (80.0-100.0 FL)</content> Erythrocyte mean 32.0-37. <content [facility] corpuscular 0 styleCode="Bold Elizabeth hemoglobin ">Mean Corpus. Medical concentration Hgb Center [Mass/volume] by Concentration Automated count (MCHC) </content>33.2 G/DL<content styleCode="Ital ics"> (32.0-37.0 G/DL)</content> Platelet mean 8.0-11.0 <content [facility] volume [Entitic styleCode="Bold Elizabeth volume] in Blood ">Mean Platelet Medical by Automated Volume Center count </content>10.7 FL<content styleCode="Ital ics"> (8.0-11.0 FL)</content> Erythrocyte 11.5-14. <content [facility] distribution 5 styleCode="Bold Elizabeth width [Ratio] by ">Red Cell Medical Automated count Distribution Center Width </content>14.0 %<content styleCode="Ital ics"> (11.5-14.5 %)</content> Platelets 130-400 <content [facility] [#/volume] in styleCode="Bold [facility] Blood by ">Platelet Medical Automated count Count Center </content>226 KCUMM<content styleCode="Ital ics"> (130-400 KCUMM)</content > Neutrophils 36-66 <content [facility] [#/volume] in styleCode="Bold [facility] Blood by ">Neutrophil Medical Automated count </content>48.8 Center %<content styleCode="Ital ics"> (36-66 %)</content> Lymphocytes 24.0-44. <content [facility] [#/volume] in 0 styleCode="Bold [facility] Blood by ">Lymphocyte Medical Automated count </content>27.3 Center %<content styleCode="Ital ics"> (24.0-44.0 %)</content> UNK 1.6-7.3 <content [facility] styleCode="Bold Elizabeth ">Neutrophil Medical Count Center </content>2.35 KCUMM<content styleCode="Ital ics"> (1.6-7.3 KCUMM)</content > UNK 0.2-0.9 <content [facility] styleCode="Bold Elizabeth ">Monocyte Medical Count Center </content>0.87 KCUMM<content styleCode="Ital ics"> (0.2-0.9 KCUMM)</content > UNK 1.0-4.8 <content [facility] styleCode="Bold Elizabeth ">Lymphocyte Medical Count Center </content>1.32 KCUMM<content styleCode="Ital ics"> (1.0-4.8 KCUMM)</content > Monocytes 3.0-10.0 Above high <content [facility] [#/volume] in normal styleCode="Bold [facility] Blood by ">Monocyte Medical Automated count </content>18.0 Center % H<content styleCode="Ital ics"> (3.0-10.0 %)</content> Eosinophils 0-5.0 <content [facility] [#/volume] in styleCode="Bold [facility] Blood by ">Eosinophil Medical Automated count </content>4.1 Center %<content styleCode="Ital ics"> (0-5.0 %)</content> UNK 0.0-0.6 <content [facility] styleCode="Bold Elizabeth ">Eosinophil Medical Count Center </content>0.20 KCUMM<content styleCode="Ital ics"> (0.0-0.6 KCUMM)</content > Basophils 0.0-1.0 <content Saint [#/volume] in styleCode="Bold [facility] Blood by ">Basophil Medical Automated count </content>1.0 Center %<content styleCode="Ital ics"> (0.0-1.0 %)</content> UNK 0 Above high <content [facility] normal styleCode="Bold Elizabeth ">Nucleated Red Medical Blood Cell Center </content>0.4 /100 H<content styleCode="Ital ics"> (0 /100)</content> UNK 0.0-0.3 <content [facility] styleCode="Bold Elizabeth ">Basophil Medical Count Center </content>0.05 KCUMM<content styleCode="Ital ics"> (0.0-0.3 KCUMM)</content > UNK 0.0 Above high <content [facility] normal styleCode="Bold Elizabeth ">Nucleated Red Medical Blood Cell Center Count </content>0.02 KCUMM H<content styleCode="Ital ics"> (0.0 KCUMM)</content > UNK 0-0.1 <content [facility] styleCode="Bold Elizabeth ">Immature Medical Granulocyte Center Count </content>0.04 KCUMM<content styleCode="Ital ics"> (0-0.1 KCUMM)</content > UNK < 1 <content [facility] styleCode="Bold Elizabeth ">Immature Medical Granulocyte Center Ratio </content>0.8 %<content styleCode="Ital ics"> (< 1 %)</content> ID Date Data Source GFR(Creatinine).[id number] 09/15/2019 05:30:00 AM EDT [facility] 0-0400 Name Value Range Interpretation Code Description Data Lyly rce(s) Supporting Document(s ) UNK > 60 Below low normal <content [facility] styleCode="Bold"> Medical Cent er EGFR </content>13 GFR L<content styleCode="Italic s"> (> 60 GFR)</content> ID Date Data Source [facility].[id number] 09/15/2019 05:30:00 AM EDT [facility] -0400 Name Value Range Interpretation Description Data Sup porting Code Source(s) Document(s ) UNK >= 1.0 Below low normal <content Saint styleCode="Geetha Hendersons d">AG Ratio Medical </content>0.7 Center L<content styleCode="Karrie lics"> (>= 1.0 )</content> Protein 6.3-8.2 <content [facility] [Mass/volume] styleCode="Geetha Hendersons in Serum or d">Total Medical Plasma Protein Center </content>7.1 G/DL<content styleCode="Karrie lics"> (6.3-8.2 G/DL)</content > Magnesium 1.6-2.3 <content [facility] [Mass/volume] styleCode="Geetha Hendersons in Serum or d">Magnesium Medical Plasma </content>2.1 Center MG/DL<content styleCode="Karrie lics"> (1.6-2.3 MG/DL)</conten t> UNK 2.3-3.5 Above high normal <content [facility] styleCode="Geetha Hendersons d">Globulin Medical </content>4.1 Center G/DL H<content styleCode="Karrie lics"> (2.3-3.5 G/DL)</content > ID Date Data Source [facility].[id number] 09/15/2019 05:30:00 AM EDT [facility] Name Value Range Interpretation Description Data Sup porting Code Source(s) Document(s ) Sodium 137-145 Below low <content [facility] [Moles/volume] in normal styleCode="Bold"> [facility] Serum or Plasma Sodium Medical </content>133 Center MEQ/L L<content styleCode="Italic s"> (137-145 MEQ/L)</content> Carbon dioxide, 22-30 <content [facility] total styleCode="Bold"> Elizabeth [Moles/volume] in Carbon Dioxide Medical Serum or Plasma </content>29 Center MEQ/L<content styleCode="Italic s"> (22-30 MEQ/L)</content> Potassium 3.5-5.3 <content [facility] [Moles/volume] in styleCode="Bold"> [facility] Serum or Plasma Potassium Medical </content>3.9 Center MEQ/L<content styleCode="Italic s"> (3.5-5.3 MEQ/L)</content> UNK 7-17 <content [facility] styleCode="Bold"> Elizabeth BUN </content>16 Medical MG/DL<content Center styleCode="Italic s"> (7-17 MG/DL)</content> Chloride 98-107 Below low <content [facility] [Moles/volume] in normal styleCode="Bold"> [facility] Serum or Plasma Chloride Medical </content>94 Center MEQ/L L<content styleCode="Italic s"> (98-107 MEQ/L)</content> Glucose 74-106 <content [facility] [Mass/volume] in styleCode="Bold"> Kash hs Serum or Plasma Glucose Medical </content>79 Center MG/DL<content styleCode="Italic s"> (74-106 MG/DL)</content> Creatinine 0.5-1.3 Above high <content [facility] [Mass/volume] in normal styleCode="Bold"> Kash hs Serum or Plasma Creatinine Medical </content>4.2 Center MG/DL H<content styleCode="Italic s"> (0.5-1.3 MG/DL)</content> Calcium 8.4-10. <content [facility] [Mass/volume] in 2 styleCode="Bold"> Kash hs Serum or Plasma Calcium Medical </content>9.5 Center MG/DL<content styleCode="Italic s"> (8.4-10.2 MG/DL)</content> Aspartate 14-36 Above high <content [facility] aminotransferase normal styleCode="Bold"> Kash hs [Enzymatic Aspartate Medical activity/volume] Aminotransferase Center in Serum or Plasma (AST) </content>49 IU/L H<content styleCode="Italic s"> (14-36 IU/L)</content> Alanine 7-30 <content [facility] aminotransferase styleCode="Bold"> Kash hs [Enzymatic Alanine Medical activity/volume] Aminotransferase Center in Serum or Plasma (ALT) </content>27 IU/L<content styleCode="Italic s"> (7-30 IU/L)</content> UNK > 60 Below low <content [facility] normal styleCode="Bold"> Elizabeth EGFR </content>13 Medical GFR L<content Center styleCode="Italic s"> (> 60 GFR)</content> Alkaline 38-126 Above high <content [facility] phosphatase normal styleCode="Bold"> Elizabeth [Enzymatic Alkaline Medical activity/volume] Phosphatase (ALP) Cente r in Serum or Plasma </content>554 IU/L H<content styleCode="Italic s"> (38-126 IU/L)</content> Albumin 3.5-5.0 Below low <content [facility] [Mass/volume] in normal styleCode="Bold"> Kash hs Serum or Plasma Albumin Medical </content>3.0 Center G/DL L<content styleCode="Italic s"> (3.5-5.0 G/DL)</content> Bilirubin.total 0.2-1.3 <content [facility] [Mass/volume] in styleCode="Bold"> Kash hs Serum or Plasma Bilirubin Total Medical </content>1.3 Center MG/DL<content styleCode="Italic s"> (0.2-1.3 MG/DL)</content> ID Date Data Source Liver 09/13/2019 06:20:[address] [facility] Fibrosis.[id number] Name Value Range Interpretation Description Data Sup porting Code Source(s) Document(s ) Gamma glutamyl 11-43 Above high normal <content [facility] transferase styleCode="Geetha Elizabeth [Enzymatic d">GGT Medical activity/volume </content>221 Center ] in Serum or IU/L H<content Plasma styleCode="Karrie lics"> (11-43 IU/L)</content > ID Date Data Source Liver 09/13/2019 06:20:[address] [facility] Profile.[id number] Name Value Range Interpretation Description Data Sup porting Code Source(s) Document(s ) Alanine 7-30 Above high <content [facility] aminotransferase normal styleCode="Bold"> Kash hs [Enzymatic Alanine Medical activity/volume] Aminotransferase Center in Serum or Plasma (ALT) </content>36 IU/L H<content styleCode="Italic s"> (7-30 IU/L)</content> Aspartate 14-36 Above high <content [facility] aminotransferase normal styleCode="Bold"> Kash hs [Enzymatic Aspartate Medical activity/volume] Aminotransferase Center in Serum or Plasma (AST) </content>67 IU/L H<content styleCode="Italic s"> (14-36 IU/L)</content> Albumin 3.5-5.0 Below low <content [facility] [Mass/volume] in normal styleCode="Bold"> Kash hs Serum or Plasma Albumin Medical </content>3.2 Center G/DL L<content styleCode="Italic s"> (3.5-5.0 G/DL)</content> Bilirubin.total 0.2-1.3 <content [facility] [Mass/volume] in styleCode="Bold"> Kash hs Serum or Plasma Bilirubin Total Medical </content>1.3 Center MG/DL<content styleCode="Italic s"> (0.2-1.3 MG/DL)</content> Alkaline 38-126 Above high <content [facility] phosphatase normal styleCode="Bold"> Elizabeth [Enzymatic Alkaline Medical activity/volume] Phosphatase (ALP) Cente r in Serum or Plasma </content>596 IU/L H<content styleCode="Italic s"> (38-126 IU/L)</content> ID Date Data Source HematologyRou.[id number] 09/13/2019 06:20:[address] [place] [facility] 0400 Name Value Range Interpretation Description Data Sup porting Code Source(s) Document(s ) Leukocytes 4.4-11.0 <content [facility] [#/volume] in styleCode="Bold Elizabeth Blood by ">White Blood Medical Automated count Cell Count Center </content>4.91 KCUMM<content styleCode="Ital ics"> (4.4-11.0 KCUMM)</content > Erythrocytes 4.0-5.1 Below low normal <content [facility] [#/volume] in styleCode="Bold Elizabeth Blood by ">Red Blood Medical Automated count Cell Count Center </content>2.95 MCUMM L<content styleCode="Ital ics"> (4.0-5.1 MCUMM)</content > Hemoglobin 12.3-16. Below low normal <content [facility] [Mass/volume] in 0 styleCode="Bold Elizabeth Blood ">Hemoglobin Medical </content>9.3 Center G/DL L<content styleCode="Ital ics"> (12.3-16.0 G/DL)</content> Hematocrit 36.0-46. Below low normal <content [facility] [Volume 0 styleCode="Bold Elizabeth Fraction] of ">Hematocrit Medical Blood by </content>28.8 Center Automated count % L<content styleCode="Ital ics"> (36.0-46.0 %)</content> Erythrocyte mean 80.0-100 <content [facility] corpuscular .0 styleCode="Bold Elizabeth volume [Entitic ">Mean Medical volume] by Corpuscular Center Automated count Volume </content>97.6 FL<content styleCode="Ital ics"> (80.0-100.0 FL)</content> Erythrocyte mean 26.0-34. <content [facility] corpuscular 0 styleCode="Bold Elizabeth hemoglobin ">Mean Medical [Entitic mass] Corposcular Center by Automated Hemoglobin count </content>31.5 PG<content styleCode="Ital ics"> (26.0-34.0 PG)</content> Erythrocyte 11.5-14. <content [facility] distribution 5 styleCode="Bold Elizabeth width [Ratio] by ">Red Cell Medical Automated count Distribution Center Width </content>13.9 %<content styleCode="Ital ics"> (11.5-14.5 %)</content> Erythrocyte mean 32.0-37. <content [facility] corpuscular 0 styleCode="Bold Elizabeth hemoglobin ">Mean Corpus. Medical concentration Hgb Center [Mass/volume] by Concentration Automated count (MCHC) </content>32.3 G/DL<content styleCode="Ital ics"> (32.0-37.0 G/DL)</content> Platelets 130-400 <content Saint [#/volume] in styleCode="Bold Elizabeth Blood by ">Platelet Medical Automated count Count Center </content>257 KCUMM<content styleCode="Ital ics"> (130-400 KCUMM)</content > Neutrophils 36-66 <content [facility] [#/volume] in styleCode="Bold Elizabeth Blood by ">Neutrophil Medical Automated count </content>47.9 Center %<content styleCode="Ital ics"> (36-66 %)</content> Platelet mean 8.0-11.0 <content [facility] volume [Entitic styleCode="Bold Elizabeth volume] in Blood ">Mean Platelet Medical by Automated Volume Center count </content>9.9 FL<content styleCode="Ital ics"> (8.0-11.0 FL)</content> Lymphocytes 24.0-44. <content [facility] [#/volume] in 0 styleCode="Bold Elizabeth Blood by ">Lymphocyte Medical Automated count </content>24.8 Center %<content styleCode="Ital ics"> (24.0-44.0 %)</content> UNK 1.6-7.3 <content [facility] styleCode="Bold Elizabeth ">Neutrophil Medical Count Center </content>2.35 KCUMM<content styleCode="Ital ics"> (1.6-7.3 KCUMM)</content > UNK 0.2-0.9 Above high <content [facility] normal styleCode="Bold Elizabeth ">Monocyte Medical Count Center </content>0.96 KCUMM H<content styleCode="Ital ics"> (0.2-0.9 KCUMM)</content > Monocytes 3.0-10.0 Above high <content [facility] [#/volume] in normal styleCode="Bold Elizabeth Blood by ">Monocyte Medical Automated count </content>19.6 Center % H<content styleCode="Ital ics"> (3.0-10.0 %)</content> UNK 1.0-4.8 <content [facility] styleCode="Bold Elizabeth ">Lymphocyte Medical Count Center </content>1.22 KCUMM<content styleCode="Ital ics"> (1.0-4.8 KCUMM)</content > UNK 0.0-0.6 <content [facility] styleCode="Bold Elizabeth ">Eosinophil Medical Count Center </content>0.31 KCUMM<content styleCode="Ital ics"> (0.0-0.6 KCUMM)</content > Eosinophils 0-5.0 Above high <content Saint [#/volume] in normal styleCode="Bold Elizabeth Blood by ">Eosinophil Medical Automated count </content>6.3 % Center H<content styleCode="Ital ics"> (0-5.0 %)</content> Basophils 0.0-1.0 <content [facility] [#/volume] in styleCode="Bold Elizabeth Blood by ">Basophil Medical Automated count </content>1.0 Center %<content styleCode="Ital ics"> (0.0-1.0 %)</content> UNK 0.0 <content [facility] styleCode="Bold Elizabeth ">Nucleated Red Medical Blood Cell Center Count </content>0.00 KCUMM<content styleCode="Ital ics"> (0.0 KCUMM)</content > UNK 0.0-0.3 <content [facility] styleCode="Bold Elizabeth ">Basophil Medical Count Center </content>0.05 KCUMM<content styleCode="Ital ics"> (0.0-0.3 KCUMM)</content > UNK 0 <content [facility] styleCode="Bold Elizabeth ">Nucleated Red Medical Blood Cell Center </content>0.0 /100<content styleCode="Ital ics"> (0 /100)</content> UNK 0-0.1 <content [facility] styleCode="Bold Elizabeth ">Immature Medical Granulocyte Center Count </content>0.02 KCUMM<content styleCode="Ital ics"> (0-0.1 KCUMM)</content > UNK < 1 <content [facility] styleCode="Bold Elizabeth ">Immature Medical Granulocyte Center Ratio </content>0.4 %<content styleCode="Ital ics"> (< 1 %)</content> ID Date Data Source GFR(Creatinine).[id number] 09/13/2019 06:20:00 AM EDT [facility] 0-0400 Name Value Range Interpretation Code Description Data Lyly rce(s) Supporting Document(s ) UNK > 60 Below low normal <content [facility] styleCode="Bold"> Medical Cent er EGFR </content>11 GFR L<content styleCode="Italic s"> (> 60 GFR)</content> ID Date Data Source KAMDA.[id number] 09/13/2019 06:20:00 AM EDT [facility] -0400 Name Value Range Interpretation Description Data Sup porting Code Source(s) Document(s ) UNK >= 1.0 Below low normal <content [facility] styleCode="Geetha Elizabeth d">AG Ratio Medical </content>0.7 Center L<content styleCode="Karrie lics"> (>= 1.0 )</content> Magnesium 1.6-2.3 <content [facility] [Mass/volume] styleCode="Geetha Elizabeth in Serum or d">Magnesium Medical Plasma </content>2.1 Center MG/DL<content styleCode="Karrie lics"> (1.6-2.3 MG/DL)</conten t> UNK 2.3-3.5 Above high normal <content [facility] styleCode="Geetha Elizabeth d">Globulin Medical </content>4.4 Center G/DL H<content styleCode="Karrie lics"> (2.3-3.5 G/DL)</content > Protein 6.3-8.2 <content [facility] [Mass/volume] styleCode="Geetha Elizabeth in Serum or d">Total Medical Plasma Protein Center </content>7.6 G/DL<content styleCode="Karrie lics"> (6.3-8.2 G/DL)</content > Gamma glutamyl 11-43 Above high normal <content [facility] transferase styleCode="Geetha Elizabeth [Enzymatic d">GGT Medical activity/volum </content>221 Center e] in Serum or IU/L H<content Plasma styleCode="Karrie lics"> (11-43 IU/L)</content > ID Date Data Source [facility].[id number] 09/13/2019 06:20:00 AM EDT [facility] Name Value Range Interpretation Description Data Sup porting Code Source(s) Document(s ) Potassium 3.5-5.3 <content [facility] [Moles/volume] in styleCode="Bold"> [facility] Serum or Plasma Potassium Medical </content>4.2 Center MEQ/L<content styleCode="Italic s"> (3.5-5.3 MEQ/L)</content> Sodium 137-145 Below low <content [facility] [Moles/volume] in normal styleCode="Bold"> [facility] Serum or Plasma Sodium Medical </content>135 Center MEQ/L L<content styleCode="Italic s"> (137-145 MEQ/L)</content> Chloride 98-107 <content [facility] [Moles/volume] in styleCode="Bold"> [facility] Serum or Plasma Chloride Medical </content>98 Center MEQ/L<content styleCode="Italic s"> (98-107 MEQ/L)</content> UNK 7-17 Above high <content [facility] normal styleCode="Bold"> [facility] BUN </content>22 Medical MG/DL H<content Center styleCode="Italic s"> (7-17 MG/DL)</content> Carbon dioxide, 22-30 <content [facility] total styleCode="Bold"> [facility] [Moles/volume] in Carbon Dioxide Medical Serum or Plasma </content>30 Center MEQ/L<content styleCode="Italic s"> (22-30 MEQ/L)</content> Glucose 74-106 <content [facility] [Mass/volume] in styleCode="Bold"> Kash hs Serum or Plasma Glucose Medical </content>82 Center MG/DL<content styleCode="Italic s"> (74-106 MG/DL)</content> Creatinine 0.5-1.3 Above high <content [facility] [Mass/volume] in normal styleCode="Bold"> Kash hs Serum or Plasma Creatinine Medical </content>5.1 Center MG/DL H<content styleCode="Italic s"> (0.5-1.3 MG/DL)</content> Calcium 8.4-10. <content [facility] [Mass/volume] in 2 styleCode="Bold"> Kash hs Serum or Plasma Calcium Medical </content>9.4 Center MG/DL<content styleCode="Italic s"> (8.4-10.2 MG/DL)</content> Aspartate 14-36 Above high <content [facility] aminotransferase normal styleCode="Bold"> Kash hs [Enzymatic Aspartate Medical activity/volume] Aminotransferase Center in Serum or Plasma (AST) </content>67 IU/L H<content styleCode="Italic s"> (14-36 IU/L)</content> UNK > 60 Below low <content [facility] normal styleCode="Bold"> [facility] EGFR </content>11 Medical GFR L<content Center styleCode="Italic s"> (> 60 GFR)</content> Alkaline 38-126 Above high <content [facility] phosphatase normal styleCode="Bold"> [facility] [Enzymatic Alkaline Medical activity/volume] Phosphatase (ALP) Cente r in Serum or Plasma </content>596 IU/L H<content styleCode="Italic s"> (38-126 IU/L)</content> Alanine 7-30 Above high <content [facility] aminotransferase normal styleCode="Bold"> Kash hs [Enzymatic Alanine Medical activity/volume] Aminotransferase Center in Serum or Plasma (ALT) </content>36 IU/L H<content styleCode="Italic s"> (7-30 IU/L)</content> Bilirubin.total 0.2-1.3 <content [facility] [Mass/volume] in styleCode="Bold"> Kash hs Serum or Plasma Bilirubin Total Medical </content>1.3 Center MG/DL<content styleCode="Italic s"> (0.2-1.3 MG/DL)</content> Albumin 3.5-5.0 Below low <content [facility] [Mass/volume] in normal styleCode="Bold"> Kash hs Serum or Plasma Albumin Medical </content>3.2 Center G/DL L<content styleCode="Italic s"> (3.5-5.0 G/DL)</content> ID Date Data Source HematologyRou.[id number] 09/12/2019 05:45:00 AM EDT [facility] 0400 Name Value Range Interpretation Description Data Sup porting Code Source(s) Document(s ) Erythrocytes 4.0-5.1 Below low normal <content [facility] [#/volume] in styleCode="Bold [facility] Blood by ">Red Blood Medical Automated count Cell Count Center </content>2.65 MCUMM L<content styleCode="Ital ics"> (4.0-5.1 MCUMM)</content > Leukocytes 4.4-11.0 <content [facility] [#/volume] in styleCode="Bold [facility] Blood by ">White Blood Medical Automated count Cell Count Center </content>5.20 KCUMM<content styleCode="Ital ics"> (4.4-11.0 KCUMM)</content > Hemoglobin 12.3-16. Below low normal <content [facility] [Mass/volume] in 0 styleCode="Bold Elizabeth Blood ">Hemoglobin Medical </content>8.5 Center G/DL L<content styleCode="Ital ics"> (12.3-16.0 G/DL)</content> Erythrocyte mean 80.0-100 <content [facility] corpuscular .0 styleCode="Bold Elizabeth volume [Entitic ">Mean Medical volume] by Corpuscular Center Automated count Volume </content>98.1 FL<content styleCode="Ital ics"> (80.0-100.0 FL)</content> Hematocrit 36.0-46. Below low normal <content [facility] [Volume 0 styleCode="Bold Elizabeth Fraction] of ">Hematocrit Medical Blood by </content>26.0 Center Automated count % L<content styleCode="Ital ics"> (36.0-46.0 %)</content> Erythrocyte mean 32.0-37. <content [facility] corpuscular 0 styleCode="Bold Elizabeth hemoglobin ">Mean Corpus. Medical concentration Hgb Center [Mass/volume] by Concentration Automated count (MCHC) </content>32.7 G/DL<content styleCode="Ital ics"> (32.0-37.0 G/DL)</content> Erythrocyte 11.5-14. <content [facility] distribution 5 styleCode="Sebastián Johnson width [Ratio] by ">Red Cell Medical Automated count Distribution Center Width </content>14.0 %<content styleCode="Ital ics"> (11.5-14.5 %)</content> Erythrocyte mean 26.0-34. <content [facility] corpuscular 0 styleCode="Bold Elizabeth hemoglobin ">Mean Medical [Entitic mass] Corposcular Center by Automated Hemoglobin count </content>32.1 PG<content styleCode="Ital ics"> (26.0-34.0 PG)</content> UNK 0 <content [facility] styleCode="Bold Elizabeth ">Nucleated Red Medical Blood Cell Center </content>0.0 /100<content styleCode="Ital ics"> (0 /100)</content> Platelet mean 8.0-11.0 <content [facility] volume [Entitic styleCode="Bold Elizabeth volume] in Blood ">Mean Platelet Medical by Automated Volume Center count </content>10.2 FL<content styleCode="Ital ics"> (8.0-11.0 FL)</content> Platelets 130-400 <content [facility] [#/volume] in styleCode="Bold Elizabeth Blood by ">Platelet Medical Automated count Count Center </content>252 KCUMM<content styleCode="Ital ics"> (130-400 KCUMM)</content > UNK 0.0 <content [facility] styleCode="Bold Elizabeth ">Nucleated Red Medical Blood Cell Center Count </content>0.00 KCUMM<content styleCode="Ital ics"> (0.0 KCUMM)</content > ID Date Data Source GFR(Creatinine).[id number] 09/12/2019 05:45:00 AM EDT [facility] 0-0400 Name Value Range Interpretation Code Description Data Lyly rce(s) Supporting Document(s ) UNK > 60 Below low normal <content [facility] styleCode="Bold"> Medical Cent er EGFR </content>6 GFR L<content styleCode="Italic s"> (> 60 GFR)</content> ID Date Data Source CHMROUTINECCDA.[id number] 09/12/2019 05:45:00 AM EDT [facility] -0400 Name Value Range Interpretation Description Data Sup porting Code Source(s) Document(s ) Phosphate 2.5-4.5 Above high normal <content [facility] [Mass/volume] styleCode="Geetha Elizabeth in Serum or d">Phosphorus Medical Plasma </content>6.8 Center MG/DL H<content styleCode="Karrie lics"> (2.5-4.5 MG/DL)</conten t> ID Date Data Source [facility].[id number] 09/12/2019 05:45:00 AM EDT [facility] Name Value Range Interpretation Description Data Sup porting Code Source(s) Document(s ) Sodium 137-145 Below low normal <content [facility] [Moles/volume] styleCode="Geetha Elizabeth in Serum or d">Sodium Medical Plasma </content>131 Center MEQ/L L<content styleCode="Karrie lics"> (137-145 MEQ/L)</conten t> Chloride 98-107 Below low normal <content [facility] [Moles/volume] styleCode="Geetha Elizabeth in Serum or d">Chloride Medical Plasma </content>95 Center MEQ/L L<content styleCode="Karrie lics"> (98-107 MEQ/L)</conten t> Potassium 3.5-5.3 <content [facility] [Moles/volume] styleCode="Geetha Elizabeth in Serum or d">Potassium Medical Plasma </content>5.2 Center MEQ/L<content styleCode="Karrie lics"> (3.5-5.3 MEQ/L)</conten t> Carbon 22-30 <content [facility] dioxide, total styleCode="Geetha Elizabeth [Moles/volume] d">Carbon Medical in Serum or Dioxide Center Plasma </content>25 MEQ/L<content styleCode="Karrie lics"> (22-30 MEQ/L)</conten t> Creatinine 0.5-1.3 Above upper panic <content [facility] [Mass/volume] limits styleCode="Geetha Elizabeth in Serum or d">Creatinine Medical Plasma </content><con Center tent styleCode="Geetha d">8.1 MG/DL HH</content><c ontent styleCode="Karrie lics"> (0.5-1.3 MG/DL)</conten t> UNK 7-17 Above high normal <content [facility] styleCode="Geetha Elizabeth d">BUN Medical </content>40 Center MG/DL H<content styleCode="Karrie lics"> (7-17 MG/DL)</conten t> Glucose 74-106 <content [facility] [Mass/volume] styleCode="Geetha Elizabeth in Serum or d">Glucose Medical Plasma </content>84 Center MG/DL<content styleCode="Karrie lics"> (74-106 MG/DL)</conten t> Calcium 8.4-10.2 <content [facility] [Mass/volume] styleCode="Geetha Elizabeth in Serum or d">Calcium Medical Plasma </content>9.5 Center MG/DL<content styleCode="Karrie lics"> (8.4-10.2 MG/DL)</conten t> UNK > 60 Below low normal <content [facility] styleCode="Geetha Elizabeth d">EGFR Medical </content>6 Center GFR L<content styleCode="Karrie lics"> (> 60 GFR)</content> ID Date Data Source HematologySpeci.[id number] 09/11/2019 05:58:00 AM EDT [facility] 0-0400 Name Value Range Interpretation Description Data Sup porting Code Source(s) Document(s ) C reactive < 3.0 Above high normal <content [facility] Kash hs protein styleCode="Bold Medical [Mass/volume ">C-Reactive Center ] in Serum Protein or Plasma </content>> 15.00 MG/L H<content styleCode="Ital ics"> (< 3.0 MG/L)</content> ID Date Data Source HematologyRou.[id number] 09/11/2019 05:58:00 AM EDT [facility] 0400 Name Value Range Interpretation Description Data Sup porting Code Source(s) Document(s ) Hemoglobin 12.3-16. Below low normal <content [facility] [Mass/volume] in 0 styleCode="Bold Elizabeth Blood ">Hemoglobin Medical </content>9.1 Center G/DL L<content styleCode="Ital ics"> (12.3-16.0 G/DL)</content> Leukocytes 4.4-11.0 <content [facility] [#/volume] in styleCode="Bold [facility] Blood by ">White Blood Medical Automated count Cell Count Center </content>5.10 KCUMM<content styleCode="Ital ics"> (4.4-11.0 KCUMM)</content > Erythrocytes 4.0-5.1 Below low normal <content [facility] [#/volume] in styleCode="Bold Elizabeth Blood by ">Red Blood Medical Automated count Cell Count Center </content>2.85 MCUMM L<content styleCode="Ital ics"> (4.0-5.1 MCUMM)</content > Erythrocyte mean 26.0-34. <content [facility] corpuscular 0 styleCode="Bold Elizabeth hemoglobin ">Mean Medical [Entitic mass] Corposcular Center by Automated Hemoglobin count </content>31.9 PG<content styleCode="Ital ics"> (26.0-34.0 PG)</content> Hematocrit 36.0-46. Below low normal <content [facility] [Volume 0 styleCode="Bold Elizabeth Fraction] of ">Hematocrit Medical Blood by </content>28.1 Center Automated count % L<content styleCode="Ital ics"> (36.0-46.0 %)</content> Erythrocyte mean 80.0-100 <content [facility] corpuscular .0 styleCode="Bold Elizabeth volume [Entitic ">Mean Medical volume] by Corpuscular Center Automated count Volume </content>98.6 FL<content styleCode="Ital ics"> (80.0-100.0 FL)</content> Erythrocyte mean 32.0-37. <content [facility] corpuscular 0 styleCode="Bold Elizabeth hemoglobin ">Mean Corpus. Medical concentration Hgb Center [Mass/volume] by Concentration Automated count (MCHC) </content>32.4 G/DL<content styleCode="Ital ics"> (32.0-37.0 G/DL)</content> Platelets 130-400 <content [facility] [#/volume] in styleCode="Bold Elizabeth Blood by ">Platelet Medical Automated count Count Center </content>262 KCUMM<content styleCode="Ital ics"> (130-400 KCUMM)</content > Erythrocyte 11.5-14. <content [facility] distribution 5 styleCode="Bold Elizabeth width [Ratio] by ">Red Cell Medical Automated count Distribution Center Width </content>14.5 %<content styleCode="Ital ics"> (11.5-14.5 %)</content> Platelet mean 8.0-11.0 <content [facility] volume [Entitic styleCode="Bold Elizabeth volume] in Blood ">Mean Platelet Medical by Automated Volume Center count </content>10.4 FL<content styleCode="Ital ics"> (8.0-11.0 FL)</content> UNK 0 <content [facility] styleCode="Bold Elizabeth ">Nucleated Red Medical Blood Cell Center </content>0.0 /100<content styleCode="Ital ics"> (0 /100)</content> UNK 0.0 <content [facility] styleCode="Bold Elizabeth ">Nucleated Red Medical Blood Cell Center Count </content>0.00 KCUMM<content styleCode="Ital ics"> (0.0 KCUMM)</content > ID Date Data Source Coagulation 09/11/2019 05:58:00 AM [facility] Rout.[id number] EDT Name Value Range Interpretation Code Description Data Lyly rce(s) Supporting Document(s ) UNK < 500 Above upper panic <content [facility] limits styleCode="Bold"> Medical Cent er D-Dimer </content><conten t styleCode="Bold"> 1113 ngFEU HH</content><cont ent styleCode="Italic s"> (< 500 ngFEU)</content> ID Date Data Source CHMROUTINECCDA.[id number] 09/11/2019 05:58:00 AM EDT [facility] -0400 Name Value Range Interpretation Description Data Sup porting Code Source(s) Document(s ) Phosphate 2.5-4.5 Above high normal <content [facility] [Mass/volume] styleCode="Geetha Elizabeth in Serum or d">Phosphorus Medical Plasma </content>5.7 Center MG/DL H<content styleCode="Karrie lics"> (2.5-4.5 MG/DL)</conten t> ID Date Data Source CardiacMarkers.[id number] 09/11/2019 05:58:00 AM EDT [facility] -0400 Name Value Range Interpretation Description Data Sup porting Code Source(s) Document(s ) Troponin < 0.034 <content [facility] I.cardiac styleCode="Bold Elizabeth [Mass/volume ">Troponin I Medical ] in Serum </content>0.027 Center or Plasma NG/ML<content styleCode="Ital ics"> (< 0.034 NG/ML)</content > ID Date Data Source GFR(Creatinine).[id number] 09/11/2019 05:58:00 AM EDT [facility] 0-0400 Name Value Range Interpretation Code Description Data Lyly rce(s) Supporting Document(s ) UNK > 60 Below low normal <content [facility] styleCode="Bold"> Medical Cent er EGFR </content>8 GFR L<content styleCode="Italic s"> (> 60 GFR)</content> ID Date Data Source BMP.[id number] 09/11/2019 05:58:00 AM EDT [facility] Name Value Range Interpretation Description Data Sup porting Code Source(s) Document(s ) Potassium 3.5-5.3 <content [facility] [Moles/volume] styleCode="Geetha Elizabeth in Serum or d">Potassium Medical Plasma </content>4.7 Center MEQ/L<content styleCode="Karrie lics"> (3.5-5.3 MEQ/L)</conten t> UNK 7-17 Above high normal <content [facility] styleCode="Geetha Elizabeth d">BUN Medical </content>29 Center MG/DL H<content styleCode="Karrie lics"> (7-17 MG/DL)</conten t> Carbon 22-30 <content [facility] dioxide, total styleCode="Geetha Elizabeth [Moles/volume] d">Carbon Medical in Serum or Dioxide Center Plasma </content>26 MEQ/L<content styleCode="Karrie lics"> (22-30 MEQ/L)</conten t> Sodium 137-145 Below low normal <content [facility] [Moles/volume] styleCode="Geetha Elizabeth in Serum or d">Sodium Medical Plasma </content>134 Center MEQ/L L<content styleCode="Karrie lics"> (137-145 MEQ/L)</conten t> Chloride 98-107 Below low normal <content [facility] [Moles/volume] styleCode="Geetha Elizabeth in Serum or d">Chloride Medical Plasma </content>97 Center MEQ/L L<content styleCode="Karrie lics"> (98-107 MEQ/L)</conten t> Glucose 74-106 <content [facility] [Mass/volume] styleCode="Geetah Elizabeth in Serum or d">Glucose Medical Plasma </content>80 Center MG/DL<content styleCode="Karrie lics"> (74-106 MG/DL)</conten t> UNK > 60 Below low normal <content [facility] styleCode="Geetha Elizabeth d">EGFR Medical </content>8 Center GFR L<content styleCode="Karrie lics"> (> 60 GFR)</content> Creatinine 0.5-1.3 Above high normal <content [facility] [Mass/volume] styleCode="Geetha Elizabeth in Serum or d">Creatinine Medical Plasma </content>6.5 Center MG/DL H<content styleCode="Karrie lics"> (0.5-1.3 MG/DL)</conten t> Calcium 8.4-10.2 <content [facility] [Mass/volume] styleCode="Geetha Elizabeth in Serum or d">Calcium Medical Plasma </content>9.9 Center MG/DL<content styleCode="Karrie lics"> (8.4-10.2 MG/DL)</conten t> ID Date Data Source Liver 09/10/2019 01:25:[address] [facility] Profile.[id number] Name Value Range Interpretation Description Data Sup porting Code Source(s) Document(s ) Aspartate 14-36 Above high <content [facility] aminotransferase normal styleCode="Bold"> Kash hs [Enzymatic Aspartate Medical activity/volume] Aminotransferase Center in Serum or Plasma (AST) </content>39 IU/L H<content styleCode="Italic s"> (14-36 IU/L)</content> Alanine 7-30 <content [facility] aminotransferase styleCode="Bold"> Kash hs [Enzymatic Alanine Medical activity/volume] Aminotransferase Center in Serum or Plasma (ALT) </content>28 IU/L<content styleCode="Italic s"> (7-30 IU/L)</content> Alkaline 38-126 Above high <content [facility] phosphatase normal styleCode="Bold"> Elizabeth [Enzymatic Alkaline Medical activity/volume] Phosphatase (ALP) Cente r in Serum or Plasma </content>574 IU/L H<content styleCode="Italic s"> (38-126 IU/L)</content> Bilirubin.total 0.2-1.3 Above high <content [facility] [Mass/volume] in normal styleCode="Bold"> Kash hs Serum or Plasma Bilirubin Total Medical </content>2.0 Center MG/DL H<content styleCode="Italic s"> (0.2-1.3 MG/DL)</content> UNK 0.0-0.3 <content [facility] styleCode="Bold"> Elizabeth Bilirubin, Direct Medical </content>< 0.2 Center MG/DL<content styleCode="Italic s"> (0.0-0.3 MG/DL)</content> Albumin 3.5-5.0 Below low <content [facility] [Mass/volume] in normal styleCode="Bold"> Kash hs Serum or Plasma Albumin Medical </content>3.4 Center G/DL L<content styleCode="Italic s"> (3.5-5.0 G/DL)</content> ID Date Data Source Coagulation 09/10/2019 01:25:00 PM [facility] Rout.[id number] EDT Name Value Range Interpretation Code Description Data Lyly rce(s) Supporting Document(s ) UNK < 500 Above upper panic <content [facility] limits styleCode="Bold"> Medical Cent er D-Dimer </content><conten t styleCode="Bold"> 1016 ngFEU HH</content><cont ent styleCode="Italic s"> (< 500 ngFEU)</content> ID Date Data Source CardiacMarkers.[id number] 09/10/2019 01:25:00 PM EDT [facility] -0400 Name Value Range Interpretation Description Data Sup porting Code Source(s) Document(s ) Troponin < 0.034 <content [facility] I.cardiac styleCode="Bold Elizabeth [Mass/volume ">Troponin I Medical ] in Serum </content>0.017 Center or Plasma NG/ML<content styleCode="Ital ics"> (< 0.034 NG/ML)</content > ID Date Data Source HematologyRou.[id number] 09/10/2019 01:25:00 PM EDT [facility] 0400 Name Value Range Interpretation Description Data Sup porting Code Source(s) Document(s ) Leukocytes 4.4-11.0 <content [facility] [#/volume] in styleCode="Bold Elizabeth Blood by ">White Blood Medical Automated count Cell Count Center </content>6.94 KCUMM<content styleCode="Ital ics"> (4.4-11.0 KCUMM)</content > Hemoglobin 12.3-16. Below low normal <content [facility] [Mass/volume] in 0 styleCode="Bold Elizabeth Blood ">Hemoglobin Medical </content>9.1 Center G/DL L<content styleCode="Ital ics"> (12.3-16.0 G/DL)</content> Erythrocytes 4.0-5.1 Below low normal <content [facility] [#/volume] in styleCode="Bold Elizabeth Blood by ">Red Blood Medical Automated count Cell Count Center </content>2.83 MCUMM L<content styleCode="Ital ics"> (4.0-5.1 MCUMM)</content > Erythrocyte mean 80.0-100 <content [facility] corpuscular .0 styleCode="Bold Elizabeth volume [Entitic ">Mean Medical volume] by Corpuscular Center Automated count Volume </content>97.2 FL<content styleCode="Ital ics"> (80.0-100.0 FL)</content> Erythrocyte mean 26.0-34. <content [facility] corpuscular 0 styleCode="Bold Elizabeth hemoglobin ">Mean Medical [Entitic mass] Corposcular Center by Automated Hemoglobin count </content>32.2 PG<content styleCode="Ital ics"> (26.0-34.0 PG)</content> Hematocrit 36.0-46. Below low normal <content [facility] [Volume 0 styleCode="Bold Elizabeth Fraction] of ">Hematocrit Medical Blood by </content>27.5 Center Automated count % L<content styleCode="Ital ics"> (36.0-46.0 %)</content> Erythrocyte 11.5-14. <content [facility] distribution 5 styleCode="Bold Elizabeth width [Ratio] by ">Red Cell Medical Automated count Distribution Center Width </content>14.4 %<content styleCode="Ital ics"> (11.5-14.5 %)</content> Erythrocyte mean 32.0-37. <content [facility] corpuscular 0 styleCode="Bold Elizabeth hemoglobin ">Mean Corpus. Medical concentration Hgb Center [Mass/volume] by Concentration Automated count (MCHC) </content>33.1 G/DL<content styleCode="Ital ics"> (32.0-37.0 G/DL)</content> Platelet mean 8.0-11.0 <content [facility] volume [Entitic styleCode="Bold Elizabeth volume] in Blood ">Mean Platelet Medical by Automated Volume Center count </content>10.3 FL<content styleCode="Ital ics"> (8.0-11.0 FL)</content> Platelets 130-400 <content [facility] [#/volume] in styleCode="Bold Elizabeth Blood by ">Platelet Medical Automated count Count Center </content>303 KCUMM<content styleCode="Ital ics"> (130-400 KCUMM)</content > UNK 1.6-7.3 <content [facility] styleCode="Bold Elizabeth ">Neutrophil Medical Count Center </content>4.06 KCUMM<content styleCode="Ital ics"> (1.6-7.3 KCUMM)</content > Lymphocytes 24.0-44. Below low normal <content [facility] [#/volume] in 0 styleCode="Bold Elizabeth Blood by ">Lymphocyte Medical Automated count </content>18.9 Center % L<content styleCode="Ital ics"> (24.0-44.0 %)</content> Neutrophils 36-66 <content [facility] [#/volume] in styleCode="Bold Elizabeth Blood by ">Neutrophil Medical Automated count </content>58.6 Center %<content styleCode="Ital ics"> (36-66 %)</content> Eosinophils 0-5.0 <content [facility] [#/volume] in styleCode="Bold Elizabeth Blood by ">Eosinophil Medical Automated count </content>2.7 Center %<content styleCode="Ital ics"> (0-5.0 %)</content> Monocytes 3.0-10.0 Above high <content [facility] [#/volume] in normal styleCode="Bold Elizabeth Blood by ">Monocyte Medical Automated count </content>18.4 Center % H<content styleCode="Ital ics"> (3.0-10.0 %)</content> UNK 1.0-4.8 <content [facility] styleCode="Bold Elizabeth ">Lymphocyte Medical Count Center </content>1.31 KCUMM<content styleCode="Ital ics"> (1.0-4.8 KCUMM)</content > UNK 0.2-0.9 Above high <content [facility] normal styleCode="Bold Elizabeth ">Monocyte Medical Count Center </content>1.28 KCUMM H<content styleCode="Ital ics"> (0.2-0.9 KCUMM)</content > Basophils 0.0-1.0 <content [facility] [#/volume] in styleCode="Bold Elizabeth Blood by ">Basophil Medical Automated count </content>0.7 Center %<content styleCode="Ital ics"> (0.0-1.0 %)</content> UNK 0.0-0.3 <content [facility] styleCode="Bold Elizabeth ">Basophil Medical Count Center </content>0.05 KCUMM<content styleCode="Ital ics"> (0.0-0.3 KCUMM)</content > UNK 0.0-0.6 <content [facility] styleCode="Bold Elizabeth ">Eosinophil Medical Count Center </content>0.19 KCUMM<content styleCode="Ital ics"> (0.0-0.6 KCUMM)</content > UNK 0-0.1 <content [facility] styleCode="Bold Elizabeth ">Immature Medical Granulocyte Center Count </content>0.05 KCUMM<content styleCode="Ital ics"> (0-0.1 KCUMM)</content > UNK 0 <content [facility] styleCode="Bold Elizabeth ">Nucleated Red Medical Blood Cell Center </content>0.0 /100<content styleCode="Ital ics"> (0 /100)</content> UNK < 1 <content [facility] styleCode="Bold Elizabeth ">Immature Medical Granulocyte Center Ratio </content>0.7 %<content styleCode="Ital ics"> (< 1 %)</content> UNK 0.0 <content [facility] styleCode="Bold Elizabeth ">Nucleated Red Medical Blood Cell Center Count </content>0.00 KCUMM<content styleCode="Ital ics"> (0.0 KCUMM)</content > UNK 2-9 Above high <content [facility] normal styleCode="Bold Elizabeth ">Monocyte-Manu Medical al Center </content>19.0 % H<content styleCode="Ital ics"> (2-9 %)</content> UNK 21-51 Below low normal <content [facility] styleCode="Bold Elizabeth ">Manual Medical Lymphocyte Center Count </content>14.0 % L<content styleCode="Ital ics"> (21-51 %)</content> UNK 42-75 <content [facility] styleCode="Bold Elizabeth ">Manual Medical Neutrophil Center count </content>63.0 %<content styleCode="Ital ics"> (42-75 %)</content> UNK NORMAL <content [facility] styleCode="Bold Elizabeth ">Spherocyte Medical </content>SLIGH Center T <content styleCode="Ital ics"> (NORMAL )</content> UNK 0-3 Above high <content [facility] normal styleCode="Bold Elizabeth ">Manual Medical Eosinophil Center Count </content>4.0 % H<content styleCode="Ital ics"> (0-3 %)</content> UNK NORMAL <content [facility] styleCode="Bold Elizabeth ">Platelet Medical Estimate Center </content>YOANA L <content styleCode="Ital ics"> (NORMAL )</content> UNK NORMAL <content [facility] styleCode="Bold Elizabeth ">Poikilocyte Medical </content>SLIGH Center T <content styleCode="Ital ics"> (NORMAL )</content> UNK NORMAL <content [facility] styleCode="[facility] ">RBC Medical Morphology Center </content>ABNOR MAL <content styleCode="Ital ics"> (NORMAL )</content> UNK NORMAL <content [facility] styleCode="[facility] ">Anisocyte Medical </content>SLIGH Center T <content styleCode="Ital ics"> (NORMAL )</content> UNK NORMAL <content [facility] styleCode="[facility] ">Target Cell Medical </content>SLIGH Center T <content styleCode="Ital ics"> (NORMAL )</content> UNK NORMAL <content [facility] styleCode="[facility] ">Macrocyte Medical </content>SLIGH Center T <content styleCode="Ital ics"> (NORMAL )</content> ID Date Data Source GFR(Creatinine).[id number] 09/10/2019 01:25:00 PM EDT [facility] 0-0400 Name Value Range Interpretation Code Description Data Lyly rce(s) Supporting Document(s ) UNK > 60 Below low normal <content [facility] styleCode="Bold"> Medical Cent er EGFR </content>5 GFR L<content styleCode="Italic s"> (> 60 GFR)</content> ID Date Data Source CHMROUTINECCDA.[id number] 09/10/2019 01:25:00 PM EDT [facility] -0400 Name Value Range Interpretation Description Data Sup porting Code Source(s) Document(s ) Natriuretic < 125 Above high normal <content Saint peptide.B styleCode="[facility] prohormone d">NT Pro BNP Medical N-Terminal </content>4600 Center [Mass/volume] 0 PG/ML in Serum or H<content Plasma styleCode="Karrie lics"> (< 125 PG/ML)</conten t> ID Date Data Source [facility].[id number] 09/10/2019 01:25:00 PM EDT [facility] Name Value Range Interpretation Description Data Sup porting Code Source(s) Document(s ) Sodium 137-145 <content Saint [Moles/volume] in styleCode="Bold"> [facility] Serum or Plasma Sodium Medical </content>137 Center MEQ/L<content styleCode="Italic s"> (137-145 MEQ/L)</content> Potassium 3.5-5.3 Above high <content [facility] [Moles/volume] in normal styleCode="Bold"> [facility] Serum or Plasma Potassium Medical </content>5.9 Center MEQ/L H<content styleCode="Italic s"> (3.5-5.3 MEQ/L)</content> Glucose 74-106 <content [facility] [Mass/volume] in styleCode="Bold"> Kash hs Serum or Plasma Glucose Medical </content>92 Center MG/DL<content styleCode="Italic s"> (74-106 MG/DL)</content> Chloride 98-107 <content [facility] [Moles/volume] in styleCode="Bold"> [facility] Serum or Plasma Chloride Medical </content>100 Center MEQ/L<content styleCode="Italic s"> (98-107 MEQ/L)</content> Carbon dioxide, 22-30 <content [facility] total styleCode="Bold"> [facility] [Moles/volume] in Carbon Dioxide Medical Serum or Plasma </content>24 Center MEQ/L<content styleCode="Italic s"> (22-30 MEQ/L)</content> UNK 7-17 Above high <content [facility] normal styleCode="Bold"> [facility] BUN </content>52 Medical MG/DL H<content Center styleCode="Italic s"> (7-17 MG/DL)</content> Creatinine 0.5-1.3 Above upper <content Saint [Mass/volume] in panic limits styleCode="Bold"> [facility] Serum or Plasma Creatinine Medical </content><conten Center t styleCode="Bold"> 10.3 MG/DL HH</content><cont ent styleCode="Italic s"> (0.5-1.3 MG/DL)</content> Calcium 8.4-10. <content Saint [Mass/volume] in 2 styleCode="Bold"> Kash hs Serum or Plasma Calcium Medical </content>9.9 Center MG/DL<content styleCode="Italic s"> (8.4-10.2 MG/DL)</content> Alanine 7-30 <content [facility] aminotransferase styleCode="Bold"> Kash hs [Enzymatic Alanine Medical activity/volume] Aminotransferase Center in Serum or Plasma (ALT) </content>28 IU/L<content styleCode="Italic s"> (7-30 IU/L)</content> Aspartate 14-36 Above high <content [facility] aminotransferase normal styleCode="Bold"> Kash hs [Enzymatic Aspartate Medical activity/volume] Aminotransferase Center in Serum or Plasma (AST) </content>39 IU/L H<content styleCode="Italic s"> (14-36 IU/L)</content> UNK > 60 Below low <content [facility] normal styleCode="Bold"> [facility] EGFR </content>5 Medical GFR L<content Center styleCode="Italic s"> (> 60 GFR)</content> Alkaline 38-126 Above high <content Saint phosphatase normal styleCode="Bold"> [facility] [Enzymatic Alkaline Medical activity/volume] Phosphatase (ALP) Cente r in Serum or Plasma </content>574 IU/L H<content styleCode="Italic s"> (38-126 IU/L)</content> Albumin 3.5-5.0 Below low <content [facility] [Mass/volume] in normal styleCode="Bold"> Kash hs Serum or Plasma Albumin Medical </content>3.4 Center G/DL L<content styleCode="Italic s"> (3.5-5.0 G/DL)</content> Bilirubin.total 0.2-1.3 Above high <content [facility] [Mass/volume] in normal styleCode="Bold"> Kash hs Serum or Plasma Bilirubin Total Medical </content>2.0 Center MG/DL H<content styleCode="Italic s"> (0.2-1.3 MG/DL)</content> ID Date Data Source [id number] 09/10/2019 12:00:00 AM EDT [facility] Name Value Range Interpretation Code Description Data Lyly rce(s) Supporting Document(s ) 2018-nCoV [facility] RNA XXX ANTONINA+probe- Imp This lab was ordered by [facility] and reported by [employer] ID Date Data Source [id number] 09/02/2019 12:00:00 AM EDT [facility] Name Value Range Interpretation Code Description Data Lyly rce(s) Supporting Document(s ) 2018-nCoV [facility] RNA XXX ANTONINA+probe- Imp This lab was ordered by [facility] and reported by [employer] ID Date Data Source HematologyRou.[id number] 07/12/2019 06:57:00 AM EDT [facility] 0400 Name Value Range Interpretation Description Data Sup porting Code Source(s) Document(s ) Erythrocytes 4.0-5.1 Below low normal <content Saint [#/volume] in styleCode="Bold [facility] Blood by ">Red Blood Medical Automated count Cell Count Center </content>3.60 MCUMM L<content styleCode="Ital ics"> (4.0-5.1 MCUMM)</content > Leukocytes 4.4-11.0 Below low normal <content [facility] [#/volume] in styleCode="[facility] Blood by ">White Blood Medical Automated count Cell Count Center </content>2.78 KCUMM L<content styleCode="Ital ics"> (4.4-11.0 KCUMM)</content > Erythrocyte mean 80.0-100 <content [facility] corpuscular .0 styleCode="[facility] volume [Entitic ">Mean Medical volume] by Corpuscular Center Automated count Volume </content>90.6 FL<content styleCode="Ital ics"> (80.0-100.0 FL)</content> Hemoglobin 12.3-16. Below low normal <content [facility] [Mass/volume] in 0 styleCode="[facility] Blood ">Hemoglobin Medical </content>10.4 Center G/DL L<content styleCode="Ital ics"> (12.3-16.0 G/DL)</content> Erythrocyte mean 26.0-34. <content [facility] corpuscular 0 styleCode="[facility] hemoglobin ">Mean Medical [Entitic mass] Corposcular Center by Automated Hemoglobin count </content>28.9 PG<content styleCode="Ital ics"> (26.0-34.0 PG)</content> Hematocrit 36.0-46. Below low normal <content Saint [Volume 0 styleCode="[facility] Fraction] of ">Hematocrit Medical Blood by </content>32.6 Center Automated count % L<content styleCode="Ital ics"> (36.0-46.0 %)</content> Platelet mean 8.0-11.0 <content [facility] volume [Entitic styleCode="[facility] volume] in Blood ">Mean Platelet Medical by Automated Volume Center count </content>10.0 FL<content styleCode="Ital ics"> (8.0-11.0 FL)</content> UNK 0 <content [facility] styleCode="[facility] ">Nucleated Red Medical Blood Cell Center </content>0.0 /100<content styleCode="Ital ics"> (0 /100)</content> Erythrocyte 11.5-14. Above high <content [facility] distribution 5 normal styleCode="[facility] width [Ratio] by ">Red Cell Medical Automated count Distribution Center Width </content>15.9 % H<content styleCode="Ital ics"> (11.5-14.5 %)</content> Platelets 130-400 <content Saint [#/volume] in styleCode="[facility] Blood by ">Platelet Medical Automated count Count Center </content>271 KCUMM<content styleCode="Ital ics"> (130-400 KCUMM)</content > Erythrocyte mean 32.0-37. Below low normal <content [facility] corpuscular 0 styleCode="[facility] hemoglobin ">Mean Corpus. Medical concentration Hgb Center [Mass/volume] by Concentration Automated count (MCHC) </content>31.9 G/DL L<content styleCode="Ital ics"> (32.0-37.0 G/DL)</content> UNK 0.0 <content [facility] styleCode="[facility] ">Nucleated Red Medical Blood Cell Center Count </content>0.00 KCUMM<content styleCode="Ital ics"> (0.0 KCUMM)</content > ID Date Data Source GFR(Creatinine).[id number] 07/12/2019 06:57:00 AM EDT [facility] 0-0400 Name Value Range Interpretation Code Description Data Lyly rce(s) Supporting Document(s ) UNK > 60 Below low normal <content [facility] styleCode="Bold"> Medical Cent er EGFR </content>4 GFR L<content styleCode="Italic s"> (> 60 GFR)</content> ID Date Data Source [id number] 07/12/2019 06:57:00 AM EDT [facility] Name Value Range Interpretation Description Data Sup porting Code Source(s) Document(s ) Sodium 137-145 <content [facility] [Moles/volume] styleCode="[facility] in Serum or d">Sodium Medical Plasma </content>137 Center MEQ/L<content styleCode="Karrie lics"> (137-145 MEQ/L)</conten t> Chloride 98-107 <content [facility] [Moles/volume] styleCode="[facility] in Serum or d">Chloride Medical Plasma </content>98 Center MEQ/L<content styleCode="Karrie lics"> (98-107 MEQ/L)</conten t> UNK 7-17 Above high normal <content [facility] styleCode="[facility] d">BUN Medical </content>42 Center MG/DL H<content styleCode="Karrie lics"> (7-17 MG/DL)</conten t> Creatinine 0.5-1.3 Above upper panic <content [facility] [Mass/volume] limits styleCode="[facility] in Serum or d">Creatinine Medical Plasma </content><con Center tent styleCode="Geetha d">12.2 MG/DL HH</content><c ontent styleCode="Karrie lics"> (0.5-1.3 MG/DL)</conten t> Carbon 22-30 <content [facility] dioxide, total styleCode="[facility] [Moles/volume] d">Carbon Medical in Serum or Dioxide Center Plasma </content>24 MEQ/L<content styleCode="Karrie lics"> (22-30 MEQ/L)</conten t> Potassium 3.5-5.3 <content [facility] [Moles/volume] styleCode="[facility] in Serum or d">Potassium Medical Plasma </content>3.5 Center MEQ/L<content styleCode="Karrie lics"> (3.5-5.3 MEQ/L)</conten t> UNK > 60 Below low normal <content [facility] styleCode="[facility] d">EGFR Medical </content>4 Center GFR L<content styleCode="Karrie lics"> (> 60 GFR)</content> Calcium 8.4-10.2 <content [facility] [Mass/volume] styleCode="[facility] in Serum or d">Calcium Medical Plasma </content>8.6 Center MG/DL<content styleCode="Karrie lics"> (8.4-10.2 MG/DL)</conten t> Glucose 74-106 <content [facility] [Mass/volume] styleCode="[facility] in Serum or d">Glucose Medical Plasma </content>79 Center MG/DL<content styleCode="Karrie lics"> (74-106 MG/DL)</conten t> ID Date Data Source [id number] 07/12/2019 12:00:00 AM EDT [facility] Name Value Range Interpretation Code Description Data Lyly rce(s) Supporting Document(s ) 2019-nCoV [facility] RNA XXX ANTONINA+probe- Imp This lab was ordered by [facility] and reported by [employer]. ID Date Data Source [id number] 07/11/2019 08:02:00 PM EDT [facility] Name Value Range Interpretation Description Data Sup porting Code Source(s) Document(s ) Potassium 3.5-5.3 <content [facility] [Moles/volume styleCode="Geetha [facility] ] in Serum or d">Potassium Medical Plasma </content>3.9 Center MEQ/L<content styleCode="Karrie lics"> (3.5-5.3 MEQ/L)</conten t> ID Date Data Source HematologyRou.[id number] 07/11/2019 05:09:00 PM EDT [facility] 0400 Name Value Range Interpretation Description Data Sup porting Code Source(s) Document(s ) Leukocytes 4.4-11.0 Below low normal <content [facility] [#/volume] in styleCode="[facility] Blood by ">White Blood Medical Automated count Cell Count Center </content>2.87 KCUMM L<content styleCode="Ital ics"> (4.4-11.0 KCUMM)</content > Hemoglobin 12.3-16. Below low normal <content [facility] [Mass/volume] in 0 styleCode="[facility] Blood ">Hemoglobin Medical </content>10.7 Center G/DL L<content styleCode="Ital ics"> (12.3-16.0 G/DL)</content> Erythrocytes 4.0-5.1 Below low normal <content [facility] [#/volume] in styleCode="[facility] Blood by ">Red Blood Medical Automated count Cell Count Center </content>3.72 MCUMM L<content styleCode="Ital ics"> (4.0-5.1 MCUMM)</content > Hematocrit 36.0-46. Below low normal <content [facility] [Volume 0 styleCode="[facility] Fraction] of ">Hematocrit Medical Blood by </content>33.9 Center Automated count % L<content styleCode="Ital ics"> (36.0-46.0 %)</content> Erythrocyte mean 26.0-34. <content [facility] corpuscular 0 styleCode="[facility] hemoglobin ">Mean Medical [Entitic mass] Corposcular Center by Automated Hemoglobin count </content>28.8 PG<content styleCode="Ital ics"> (26.0-34.0 PG)</content> Erythrocyte 11.5-14. Above high <content [facility] distribution 5 normal styleCode="[facility] width [Ratio] by ">Red Cell Medical Automated count Distribution Center Width </content>15.9 % H<content styleCode="Ital ics"> (11.5-14.5 %)</content> Erythrocyte mean 80.0-100 <content [facility] corpuscular .0 styleCode="[facility] volume [Entitic ">Mean Medical volume] by Corpuscular Center Automated count Volume </content>91.1 FL<content styleCode="Ital ics"> (80.0-100.0 FL)</content> Erythrocyte mean 32.0-37. Below low normal <content [facility] corpuscular 0 styleCode="[facility] hemoglobin ">Mean Corpus. Medical concentration Hgb Center [Mass/volume] by Concentration Automated count (MCHC) </content>31.6 G/DL L<content styleCode="Ital ics"> (32.0-37.0 G/DL)</content> Neutrophils 36-66 <content Saint [#/volume] in styleCode="[facility] Blood by ">Neutrophil Medical Automated count </content>54.7 Center %<content styleCode="Ital ics"> (36-66 %)</content> UNK 1.6-7.3 Below low normal <content [facility] styleCode="[facility] ">Neutrophil Medical Count Center </content>1.57 KCUMM L<content styleCode="Ital ics"> (1.6-7.3 KCUMM)</content > Platelet mean 8.0-11.0 <content [facility] volume [Entitic styleCode="[facility] volume] in Blood ">Mean Platelet Medical by Automated Volume Center count </content>10.1 FL<content styleCode="Ital ics"> (8.0-11.0 FL)</content> Platelets 130-400 <content Saint [#/volume] in styleCode="[facility] Blood by ">Platelet Medical Automated count Count Center </content>305 KCUMM<content styleCode="Ital ics"> (130-400 KCUMM)</content > Lymphocytes 24.0-44. <content [facility] [#/volume] in 0 styleCode="[facility] Blood by ">Lymphocyte Medical Automated count </content>32.1 Center %<content styleCode="Ital ics"> (24.0-44.0 %)</content> Monocytes 3.0-10.0 <content Saint [#/volume] in styleCode="[facility] Blood by ">Monocyte Medical Automated count </content>9.8 Center %<content styleCode="Ital ics"> (3.0-10.0 %)</content> UNK 1.0-4.8 Below low normal <content [facility] styleCode="[facility] ">Lymphocyte Medical Count Center </content>0.92 KCUMM L<content styleCode="Ital ics"> (1.0-4.8 KCUMM)</content > UNK 0.2-0.9 <content [facility] styleCode="[facility] ">Monocyte Medical Count Center </content>0.28 KCUMM<content styleCode="Ital ics"> (0.2-0.9 KCUMM)</content > Eosinophils 0-5.0 <content Saint [#/volume] in styleCode="[facility] Blood by ">Eosinophil Medical Automated count </content>1.4 Center %<content styleCode="Ital ics"> (0-5.0 %)</content> UNK 0.0-0.3 <content [facility] styleCode="[facility] ">Basophil Medical Count Center </content>0.01 KCUMM<content styleCode="Ital ics"> (0.0-0.3 KCUMM)</content > UNK 0.0-0.6 <content [facility] styleCode="[facility] ">Eosinophil Medical Count Center </content>0.04 KCUMM<content styleCode="Ital ics"> (0.0-0.6 KCUMM)</content > UNK 0 <content Saint styleCode="[facility] ">Nucleated Red Medical Blood Cell Center </content>0.0 /100<content styleCode="Ital ics"> (0 /100)</content> Basophils 0.0-1.0 <content Saint [#/volume] in styleCode="[facility] Blood by ">Basophil Medical Automated count </content>0.3 Center %<content styleCode="Ital ics"> (0.0-1.0 %)</content> UNK 0-0.1 <content [facility] styleCode="[facility] ">Immature Medical Granulocyte Center Count </content>0.05 KCUMM<content styleCode="Ital ics"> (0-0.1 KCUMM)</content > UNK 0.0 <content Saint styleCode="[facility] ">Nucleated Red Medical Blood Cell Center Count </content>0.00 KCUMM<content styleCode="Ital ics"> (0.0 KCUMM)</content > UNK < 1 Above high <content [facility] normal styleCode="[facility] ">Immature Medical Granulocyte Center Ratio </content>1.7 % H<content styleCode="Ital ics"> (< 1 %)</content> UNK 0 Above high <content [facility] normal styleCode="[facility] ">Atypical Medical Lymphocyte Center </content>2.0 % H<content styleCode="Ital ics"> (0 %)</content> UNK 42-75 <content [facility] styleCode="[facility] ">Manual Medical Neutrophil Center count </content>51.0 %<content styleCode="Ital ics"> (42-75 %)</content> UNK 0-3 <content [facility] styleCode="[facility] ">Manual Medical Eosinophil Center Count </content>2.0 %<content styleCode="Ital ics"> (0-3 %)</content> UNK 21-51 <content [facility] styleCode="[facility] ">Manual Medical Lymphocyte Center Count </content>35.0 %<content styleCode="Ital ics"> (21-51 %)</content> UNK 2-9 <content Saint styleCode="[facility] ">Monocyte-Manu Medical al Center </content>9.0 %<content styleCode="Ital ics"> (2-9 %)</content> UNK 0 Above high <content Saint normal styleCode="[facility] ">Myelocyte Medical </content>1.0 % Center H<content styleCode="Ital ics"> (0 %)</content> UNK NORMAL <content [facility] styleCode="[facility] ">Platelet Medical Estimate Center </content>YOANA L <content styleCode="Ital ics"> (NORMAL )</content> UNK NORMAL <content [facility] styleCode="[facility] ">Polychromasia Medical </content>SLIGH Center T <content styleCode="Ital ics"> (NORMAL )</content> UNK NORMAL <content [facility] styleCode="[facility] ">RBC Medical Morphology Center </content>ABNOR MAL <content styleCode="Ital ics"> (NORMAL )</content> UNK NORMAL <content [facility] styleCode="[facility] ">Macrocyte Medical </content>SLIGH Center T <content styleCode="Ital ics"> (NORMAL )</content> ID Date Data Source GFR(Creatinine).[id number] 07/11/2019 05:09:00 PM EDT [facility] 0-0400 Name Value Range Interpretation Code Description Data Lyly rce(s) Supporting Document(s ) UNK > 60 Below low normal <content [facility] styleCode="Bold"> Medical Cent er EGFR </content>4 GFR L<content styleCode="Italic s"> (> 60 GFR)</content> ID Date Data Source [id number] 07/11/2019 05:09:00 PM EDT [facility] Name Value Range Interpretation Description Data Sup porting Code Source(s) Document(s ) Sodium 137-145 <content Saint [Moles/volume] styleCode="Geetha Elizabeth in Serum or d">Sodium Medical Plasma </content>137 Center MEQ/L<content styleCode="Karrie lics"> (137-145 MEQ/L)</conten t> Chloride 98-107 <content Saint [Moles/volume] styleCode="Geetha Elizabeth in Serum or d">Chloride Medical Plasma </content>98 Center MEQ/L<content styleCode="Karrie lics"> (98-107 MEQ/L)</conten t> Carbon 22-30 <content [facility] dioxide, total styleCode="Geetha Elizabeth [Moles/volume] d">Carbon Medical in Serum or Dioxide Center Plasma </content>25 MEQ/L<content styleCode="Karrie lics"> (22-30 MEQ/L)</conten t> UNK 7-17 Above high normal <content Saint styleCode="Geetha Elizabeth d">BUN Medical </content>45 Center MG/DL H<content styleCode="Karrie lics"> (7-17 MG/DL)</conten t> Glucose 74-106 <content Saint [Mass/volume] styleCode="Geetha Elizabeth in Serum or d">Glucose Medical Plasma </content>77 Center MG/DL<content styleCode="Karrie lics"> (74-106 MG/DL)</conten t> Potassium <content Saint [Moles/volume] styleCode="Geetha Elizabeth in Serum or d">Potassium Medical Plasma </content>Test Center not performed. MEQ/L (Reference Range: not available)<br/ > Creatinine 0.5-1.3 Above upper panic <content Saint [Mass/volume] limits styleCode="Geetha [facility] in Serum or d">Creatinine Medical Plasma </content><con Center tent styleCode="Geetha d">11.1 MG/DL HH</content><c ontent styleCode="Karrie lics"> (0.5-1.3 MG/DL)</conten t> Calcium 8.4-10.2 <content Saint [Mass/volume] styleCode="Geetha Elizabeth in Serum or d">Calcium Medical Plasma </content>8.6 Center MG/DL<content styleCode="Karrie lics"> (8.4-10.2 MG/DL)</conten t> UNK > 60 Below low normal <content [facility] styleCode="Geetha Elizabeth d">EGFR Medical </content>4 Center GFR L<content styleCode="Karrie lics"> (> 60 GFR)</content> ID Date Data Source HematologyRou.[id number] 07/08/2019 11:30:00 AM EDT [facility] 0400 Name Value Range Interpretation Description Data Sup porting Code Source(s) Document(s ) Leukocytes 4.4-11.0 Below low normal <content [facility] [#/volume] in styleCode="[facility] Blood by ">White Blood Medical Automated count Cell Count Center </content>2.71 KCUMM L<content styleCode="Ital ics"> (4.4-11.0 KCUMM)</content > Hematocrit 36.0-46. Below low normal <content [facility] [Volume 0 styleCode="[facility] Fraction] of ">Hematocrit Medical Blood by </content>33.4 Center Automated count % L<content styleCode="Ital ics"> (36.0-46.0 %)</content> Erythrocytes 4.0-5.1 Below low normal <content Saint [#/volume] in styleCode="[facility] Blood by ">Red Blood Medical Automated count Cell Count Center </content>3.60 MCUMM L<content styleCode="Ital ics"> (4.0-5.1 MCUMM)</content > Hemoglobin 12.3-16. Below low normal <content [facility] [Mass/volume] in 0 styleCode="Bold [facility] Blood ">Hemoglobin Medical </content>10.7 Center G/DL L<content styleCode="Ital ics"> (12.3-16.0 G/DL)</content> Erythrocyte mean 80.0-100 <content [facility] corpuscular .0 styleCode="[facility]old [facility] volume [Entitic ">Mean Medical volume] by Corpuscular Center Automated count Volume </content>92.8 FL<content styleCode="Ital ics"> (80.0-100.0 FL)</content> Erythrocyte mean 26.0-34. <content [facility] corpuscular 0 styleCode="[facility]old [facility] hemoglobin ">Mean Medical [Entitic mass] Corposcular Center by Automated Hemoglobin count </content>29.7 PG<content styleCode="Ital ics"> (26.0-34.0 PG)</content> Erythrocyte mean 32.0-37. <content [facility] corpuscular 0 styleCode="Bold Elizabeth hemoglobin ">Mean Corpus. Medical concentration Hgb Center [Mass/volume] by Concentration Automated count (MCHC) </content>32.0 G/DL<content styleCode="Ital ics"> (32.0-37.0 G/DL)</content> Erythrocyte 11.5-14. Above high <content [facility] distribution 5 normal styleCode="Bold [facility] width [Ratio] by ">Red Cell Medical Automated count Distribution Center Width </content>16.2 % H<content styleCode="Ital ics"> (11.5-14.5 %)</content> UNK 1.6-7.3 <content Saint styleCode="Bold Elizabeth ">Neutrophil Medical Count Center </content>1.72 KCUMM<content styleCode="Ital ics"> (1.6-7.3 KCUMM)</content > Platelet mean 8.0-11.0 <content [facility] volume [Entitic styleCode="Bold Elizabeth volume] in Blood ">Mean Platelet Medical by Automated Volume Center count </content>10.3 FL<content styleCode="Ital ics"> (8.0-11.0 FL)</content> Platelets 130-400 <content Saint [#/volume] in styleCode="Bold [facility] Blood by ">Platelet Medical Automated count Count Center </content>236 KCUMM<content styleCode="Ital ics"> (130-400 KCUMM)</content > UNK 0.2-0.9 <content Saint styleCode="Bold Elizabeth ">Monocyte Medical Count Center </content>0.24 KCUMM<content styleCode="Ital ics"> (0.2-0.9 KCUMM)</content > UNK 0.0-0.6 <content Saint styleCode="Bold Elizabeth ">Eosinophil Medical Count Center </content>0.00 KCUMM<content styleCode="Ital ics"> (0.0-0.6 KCUMM)</content > UNK 1.0-4.8 Below low normal <content Saint styleCode="Bold Elizabeth ">Lymphocyte Medical Count Center </content>0.71 KCUMM L<content styleCode="Ital ics"> (1.0-4.8 KCUMM)</content > UNK 0.0 <content Saint styleCode="Bold Elizabeth ">Nucleated Red Medical Blood Cell Center Count </content>0.00 KCUMM<content styleCode="Ital ics"> (0.0 KCUMM)</content > UNK 0 <content Saint styleCode="Bold Elizabeth ">Nucleated Red Medical Blood Cell Center </content>0.0 /100<content styleCode="Ital ics"> (0 /100)</content> UNK 0.0-0.3 <content Saint styleCode="Bold Elizabeth ">Basophil Medical Count Center </content>0.00 KCUMM<content styleCode="Ital ics"> (0.0-0.3 KCUMM)</content > UNK 0 Above high <content [facility] normal styleCode="[facility] ">Atypical Medical Lymphocyte Center </content>6.0 % H<content styleCode="Ital ics"> (0 %)</content> UNK 0-0.1 <content [facility] styleCode="[facility]old [facility] ">Immature Medical Granulocyte Center Count </content>0.04 KCUMM<content styleCode="Ital ics"> (0-0.1 KCUMM)</content > UNK < 1 Above high <content [facility] normal styleCode="[facility]old [facility] ">Immature Medical Granulocyte Center Ratio </content>1.5 % H<content styleCode="Ital ics"> (< 1 %)</content> UNK 21-51 Below low normal <content [facility] styleCode="[facility] ">Manual Medical Lymphocyte Center Count </content>16.0 % L<content styleCode="Ital ics"> (21-51 %)</content> UNK 42-75 <content [facility] styleCode="[facility] ">Manual Medical Neutrophil Center count </content>67.0 %<content styleCode="Ital ics"> (42-75 %)</content> UNK 2-9 <content [facility] styleCode="[facility] ">Monocyte-Manu Medical al Center </content>8.0 %<content styleCode="Ital ics"> (2-9 %)</content> UNK < 3 <content [facility] styleCode="[facility] ">Band-Manual Medical </content>2.0 Center %<content styleCode="Ital ics"> (< 3 %)</content> UNK 0 Above high <content [facility] normal styleCode="[facility] ">Metamyelocyte Medical </content>1.0 % Center H<content styleCode="Ital ics"> (0 %)</content> UNK NORMAL <content [facility] styleCode="[facility] ">Platelet Medical Estimate Center </content>YOANA L <content styleCode="Ital ics"> (NORMAL )</content> UNK 0 <content [facility] styleCode="[facility] ">Myelocyte Medical </content>0.0 Center %<content styleCode="Ital ics"> (0 %)</content> UNK NORMAL <content [facility] styleCode="[facility] ">RBC Medical Morphology Center </content>ABNOR MAL <content styleCode="Ital ics"> (NORMAL )</content> UNK NORMAL <content [facility] styleCode="[facility] ">Schistocyte Medical </content>SLIGH Center T <content styleCode="Ital ics"> (NORMAL )</content> UNK NORMAL <content [facility] styleCode="Bold Elizabeth ">Anisocyte Medical </content>[facility] Center T <content styleCode="Ital ics"> (NORMAL )</content> UNK NORMAL <content [facility] styleCode="[facility]old [facility] ">Hypochromia Medical </content>IGH Center T <content styleCode="Ital ics"> (NORMAL )</content> UNK NORMAL <content [facility] styleCode="Bold Elizabeth ">Macrocyte Medical </content>[facility] Center T <content styleCode="Ital ics"> (NORMAL )</content> ID Date Data Source Liver 07/08/2019 05:30:[address] [facility] Profile.[id number] Name Value Range Interpretation Description Data Sup porting Code Source(s) Document(s ) Alanine 7-30 <content [facility] aminotransferase styleCode="Bold"> Kash hs [Enzymatic Alanine Medical activity/volume] Aminotransferase Center in Serum or Plasma (ALT) </content>12 IU/L<content styleCode="Italic s"> (7-30 IU/L)</content> Aspartate 14-36 Above high <content [facility] aminotransferase normal styleCode="Bold"> Kash hs [Enzymatic Aspartate Medical activity/volume] Aminotransferase Center in Serum or Plasma (AST) </content>57 IU/L H<content styleCode="Italic s"> (14-36 IU/L)</content> Alkaline 38-126 Above high <content [facility] phosphatase normal styleCode="Bold"> Eilzabeth [Enzymatic Alkaline Medical activity/volume] Phosphatase (ALP) Cente r in Serum or Plasma </content>344 IU/L H<content styleCode="Italic s"> (38-126 IU/L)</content> Albumin 3.5-5.0 Below low <content [facility] [Mass/volume] in normal styleCode="Bold"> Kash hs Serum or Plasma Albumin Medical </content>3.0 Center G/DL L<content styleCode="Italic s"> (3.5-5.0 G/DL)</content> Bilirubin.total 0.2-1.3 <content [facility] [Mass/volume] in styleCode="Bold"> Kash hs Serum or Plasma Bilirubin Total Medical </content>1.1 Center MG/DL<content styleCode="Italic s"> (0.2-1.3 MG/DL)</content> ID Date Data Source HematologyRou.[id number] 07/08/2019 05:30:00 AM EDT [place] [facility] 0400 Name Value Range Interpretation Description Data Sup porting Code Source(s) Document(s ) Leukocytes <content [facility] [#/volume] in styleCode="Bold" Elizabeth Blood by >White Blood Medical Automated count Cell Count Center </content>Test not performed. KCUMM (Reference Range: not available)
Erythrocytes <content [facility] [#/volume] in styleCode="Bold" Elizabeth Blood by >Red Blood Cell Medical Automated count Count Center </content>TNP (Reference Range: not available)
Erythrocyte mean <content [facility] corpuscular styleCode="Bold" Elizabeth volume [Entitic >Mean Medical volume] by Corpuscular Center Automated count Volume </content>TNP (Reference Range: not available)
Hematocrit <content [facility] [Volume styleCode="Bold" Elizabeth Fraction] of >Hematocrit Medical Blood by </content>TNP Center Automated count (Reference Range: not available)
Erythrocyte mean <content [facility] corpuscular styleCode="Bold" Elizabeth hemoglobin >Mean Medical [Entitic mass] Corposcular Center by Automated Hemoglobin count </content>TNP (Reference Range: not available)
Hemoglobin <content [facility] [Mass/volume] in styleCode="Bold" Santiago s Blood >Hemoglobin Medical </content>TNP Center (Reference Range: not available)
Erythrocyte mean <content [facility] corpuscular styleCode="Bold" Elizabeth hemoglobin >Mean Corpus. Medical concentration Hgb Center [Mass/volume] by Concentration Automated count (MCHC) </content>TNP (Reference Range: not available)
Platelets <content [facility] [#/volume] in styleCode="Bold" Elizabeth Blood by >Platelet Count Medical Automated count </content>TNP Center (Reference Range: not available)
Erythrocyte <content [facility] distribution styleCode="Bold" Elizabeth width [Ratio] by >Red Cell Medical Automated count Distribution Center Width </content>TNP (Reference Range: not available)
UNK <content [facility] styleCode="Bold" Elizabeth >Neutrophil Medical Count Center </content>TNP (Reference Range: not available)
Neutrophils <content [facility] [#/volume] in styleCode="Bold" Elizabeth Blood by >Neutrophil Medical Automated count </content>TNP Center (Reference Range: not available)
Platelet mean <content [facility] volume [Entitic styleCode="Bold" Elizabeth volume] in Blood >Mean Platelet Medical by Automated Volume Center count </content>TNP (Reference Range: not available)
UNK <content [facility] styleCode="Bold" Elizabeth >Monocyte Count Medical </content>TNP Center (Reference Range: not available)
Lymphocytes <content [facility] [#/volume] in styleCode="Bold" Elizabeth Blood by >Lymphocyte Medical Automated count </content>TNP Center (Reference Range: not available)
Monocytes <content [facility] [#/volume] in styleCode="Bold" Elizabeth Blood by >Monocyte Medical Automated count </content>TNP Center (Reference Range: not available)
UNK <content [facility] styleCode="Bold" Elizabeth >Lymphocyte Medical Count Center </content>TNP (Reference Range: not available)
UNK <content [facility] styleCode="Bold" Elizabeth >Eosinophil Medical Count Center </content>TNP (Reference Range: not available)
Eosinophils <content [facility] [#/volume] in styleCode="Bold" Elizabeth Blood by >Eosinophil Medical Automated count </content>TNP Center (Reference Range: not available)
Basophils <content [facility] [#/volume] in styleCode="Bold" Elizabeth Blood by >Basophil Medical Automated count </content>TNP Center (Reference Range: not available)
UNK <content [facility] styleCode="Bold" Elizabeth >Nucleated Red Medical Blood Cell Center </content>TNP (Reference Range: not available)
UNK <content [facility] styleCode="Bold" Elizabeth >Nucleated Red Medical Blood Cell Count Center </content>TNP (Reference Range: not available)
UNK <content [facility] styleCode="Bold" Elizabeth >Basophil Count Medical </content>TNP Center (Reference Range: not available)
UNK <content [facility] styleCode="Bold" Elizabeth >Immature Medical Platelet Center Fraction </content>TNP (Reference Range: not available)
UNK <content [facility] styleCode="Bold" Elizabeth >Immature Medical Granulocyte Center Count </content>TNP (Reference Range: not available)
UNK <content [facility] styleCode="Bold" Elizabeth >Immature Medical Granulocyte Center Ratio </content>TNP (Reference Range: not available)
ID Date Data Source GFR(Creatinine).[id number] 07/08/2019 05:30:00 AM EDT [facility] 0-0400 Name Value Range Interpretation Code Description Data Lyly rce(s) Supporting Document(s ) UNK > 60 Below low normal <content [facility] styleCode="Bold"> Medical Cent er EGFR </content>8 GFR L<content styleCode="Italic s"> (> 60 GFR)</content> ID Date Data Source CHMROUTINECCDA.[id number] 07/08/2019 05:30:00 AM EDT [facility] -0400 Name Value Range Interpretation Description Data Sup porting Code Source(s) Document(s ) UNK >= 1.0 Below low normal <content [facility] styleCode="Geetha Elizabeht d">AG Ratio Medical </content>0.9 Center L<content styleCode="Karrie lics"> (>= 1.0 )</content> UNK 2.3-3.5 <content [facility] styleCode="Geetha Elizabeth d">Globulin Medical </content>3.5 Center G/DL<content styleCode="Karrie lics"> (2.3-3.5 G/DL)</content > Phosphate 2.5-4.5 <content [facility] [Mass/volume] styleCode="Geetha Elizabeth in Serum or d">Phosphorus Medical Plasma </content>4.1 Center MG/DL<content styleCode="Karrie lics"> (2.5-4.5 MG/DL)</conten t> Protein 6.3-8.2 <content [facility] [Mass/volume] styleCode="Geetha Elizabeth in Serum or d">Total Medical Plasma Protein Center </content>6.5 G/DL<content styleCode="Karrie lics"> (6.3-8.2 G/DL)</content > Magnesium 1.6-2.3 <content [facility] [Mass/volume] styleCode="Geetha Elizabeth in Serum or d">Magnesium Medical Plasma </content>1.9 Center MG/DL<content styleCode="Karrie lics"> (1.6-2.3 MG/DL)</conten t> ID Date Data Source [facility].[id number] 07/08/2019 05:30:00 AM EDT [facility] Center Name Value Range Interpretation Description Data Sup porting Code Source(s) Document(s ) Sodium 137-145 Below low <content Saint [Moles/volume] in normal styleCode="Bold"> [facility] Serum or Plasma Sodium Medical </content>135 Center MEQ/L L<content styleCode="Italic s"> (137-145 MEQ/L)</content> Potassium 3.5-5.3 <content [facility] [Moles/volume] in styleCode="Bold"> [facility] Serum or Plasma Potassium Medical </content>3.7 Center MEQ/L<content styleCode="Italic s"> (3.5-5.3 MEQ/L)</content> Chloride 98-107 <content [facility] [Moles/volume] in styleCode="Bold"> [facility] Serum or Plasma Chloride Medical </content>98 Center MEQ/L<content styleCode="Italic s"> (98-107 MEQ/L)</content> UNK 7-17 Above high <content [facility] normal styleCode="Bold"> Elizabeth BUN </content>23 Medical MG/DL H<content Center styleCode="Italic s"> (7-17 MG/DL)</content> Creatinine 0.5-1.3 Above high <content [facility] [Mass/volume] in normal styleCode="Bold"> Kash hs Serum or Plasma Creatinine Medical </content>6.5 Center MG/DL H<content styleCode="Italic s"> (0.5-1.3 MG/DL)</content> Calcium 8.4-10. Below low <content [facility] [Mass/volume] in 2 normal styleCode="Bold"> Kash hs Serum or Plasma Calcium Medical </content>8.1 Center MG/DL L<content styleCode="Italic s"> (8.4-10.2 MG/DL)</content> Glucose 74-106 Below low <content [facility] [Mass/volume] in normal styleCode="Bold"> Kash hs Serum or Plasma Glucose Medical </content>72 Center MG/DL L<content styleCode="Italic s"> (74-106 MG/DL)</content> Carbon dioxide, 22-30 <content [facility] total styleCode="Bold"> Elizabeth [Moles/volume] in Carbon Dioxide Medical Serum or Plasma </content>27 Center MEQ/L<content styleCode="Italic s"> (22-30 MEQ/L)</content> Alkaline 38-126 Above high <content [facility] phosphatase normal styleCode="Bold"> Elizabeth [Enzymatic Alkaline Medical activity/volume] Phosphatase (ALP) Cente r in Serum or Plasma </content>344 IU/L H<content styleCode="Italic s"> (38-126 IU/L)</content> UNK > 60 Below low <content [facility] normal styleCode="Bold"> Elizabeth EGFR </content>8 Medical GFR L<content Center styleCode="Italic s"> (> 60 GFR)</content> Aspartate 14-36 Above high <content [facility] aminotransferase normal styleCode="Bold"> Kash hs [Enzymatic Aspartate Medical activity/volume] Aminotransferase Center in Serum or Plasma (AST) </content>57 IU/L H<content styleCode="Italic s"> (14-36 IU/L)</content> Alanine 7-30 <content [facility] aminotransferase styleCode="Bold"> Kash hs [Enzymatic Alanine Medical activity/volume] Aminotransferase Center in Serum or Plasma (ALT) </content>12 IU/L<content styleCode="Italic s"> (7-30 IU/L)</content> Albumin 3.5-5.0 Below low <content [facility] [Mass/volume] in normal styleCode="Bold"> Kash hs Serum or Plasma Albumin Medical </content>3.0 Center G/DL L<content styleCode="Italic s"> (3.5-5.0 G/DL)</content> Bilirubin.total 0.2-1.3 <content [facility] [Mass/volume] in styleCode="Bold"> Kash hs Serum or Plasma Bilirubin Total Medical </content>1.1 Center MG/DL<content styleCode="Italic s"> (0.2-1.3 MG/DL)</content> ID Date Data Source Liver 07/07/2019 07:00:[address] [facility] Profile.[id number] Name Value Range Interpretation Description Data Sup porting Code Source(s) Document(s ) Aspartate 14-36 Above high <content [facility] aminotransferase normal styleCode="Bold"> Kash hs [Enzymatic Aspartate Medical activity/volume] Aminotransferase Center in Serum or Plasma (AST) </content>53 IU/L H<content styleCode="Italic s"> (14-36 IU/L)</content> Bilirubin.total 0.2-1.3 <content [facility] [Mass/volume] in styleCode="Bold"> Kash hs Serum or Plasma Bilirubin Total Medical </content>1.0 Center MG/DL<content styleCode="Italic s"> (0.2-1.3 MG/DL)</content> Alkaline 38-126 Above high <content [facility] phosphatase normal styleCode="Bold"> Elizabeth [Enzymatic Alkaline Medical activity/volume] Phosphatase (ALP) Cente r in Serum or Plasma </content>367 IU/L H<content styleCode="Italic s"> (38-126 IU/L)</content> Alanine 7-30 <content [facility] aminotransferase styleCode="Bold"> Kash hs [Enzymatic Alanine Medical activity/volume] Aminotransferase Center in Serum or Plasma (ALT) </content>11 IU/L<content styleCode="Italic s"> (7-30 IU/L)</content> Albumin 3.5-5.0 Below low <content [facility] [Mass/volume] in normal styleCode="Bold"> Kash hs Serum or Plasma Albumin Medical </content>3.1 Center G/DL L<content styleCode="Italic s"> (3.5-5.0 G/DL)</content> ID Date Data Source HematologyRou.[id number] 07/07/2019 07:00:00 AM EDT [facility] 0400 Name Value Range Interpretation Description Data Sup porting Code Source(s) Document(s ) Leukocytes 4.4-11.0 Below low normal <content Saint [#/volume] in styleCode="Bold [facility] Blood by ">White Blood Medical Automated count Cell Count Center </content>3.00 KCUMM L<content styleCode="Ital ics"> (4.4-11.0 KCUMM)</content > Hemoglobin 12.3-16. Below low normal <content [facility] [Mass/volume] in 0 styleCode="Bold [facility] Blood ">Hemoglobin Medical </content>10.5 Center G/DL L<content styleCode="Ital ics"> (12.3-16.0 G/DL)</content> Hematocrit 36.0-46. Below low normal <content [facility] [Volume 0 styleCode="Bold [facility] Fraction] of ">Hematocrit Medical Blood by </content>33.1 Center Automated count % L<content styleCode="Ital ics"> (36.0-46.0 %)</content> Erythrocytes 4.0-5.1 Below low normal <content Saint [#/volume] in styleCode="Bold [facility] Blood by ">Red Blood Medical Automated count Cell Count Center </content>3.56 MCUMM L<content styleCode="Ital ics"> (4.0-5.1 MCUMM)</content > Erythrocyte mean 26.0-34. <content [facility] corpuscular 0 styleCode="Bold Elizabeth hemoglobin ">Mean Medical [Entitic mass] Corposcular Center by Automated Hemoglobin count </content>29.5 PG<content styleCode="Ital ics"> (26.0-34.0 PG)</content> Erythrocyte mean 32.0-37. Below low normal <content [facility] corpuscular 0 styleCode="Bold Elizabeth hemoglobin ">Mean Corpus. Medical concentration Hgb Center [Mass/volume] by Concentration Automated count (MCHC) </content>31.7 G/DL L<content styleCode="Ital ics"> (32.0-37.0 G/DL)</content> Erythrocyte mean 80.0-100 <content [facility] corpuscular .0 styleCode="Bold Elizabeth volume [Entitic ">Mean Medical volume] by Corpuscular Center Automated count Volume </content>93.0 FL<content styleCode="Ital ics"> (80.0-100.0 FL)</content> Platelet mean 8.0-11.0 <content [facility] volume [Entitic styleCode="Bold Elizabeth volume] in Blood ">Mean Platelet Medical by Automated Volume Center count </content>10.0 FL<content styleCode="Ital ics"> (8.0-11.0 FL)</content> Erythrocyte 11.5-14. Above high <content [facility] distribution 5 normal styleCode="Bold Elizabeth width [Ratio] by ">Red Cell Medical Automated count Distribution Center Width </content>16.1 % H<content styleCode="Ital ics"> (11.5-14.5 %)</content> Platelets 130-400 <content [facility] [#/volume] in styleCode="Bold Elizabeth Blood by ">Platelet Medical Automated count Count Center </content>220 KCUMM<content styleCode="Ital ics"> (130-400 KCUMM)</content > Lymphocytes 24.0-44. Below low normal <content [facility] [#/volume] in 0 styleCode="Bold Elizabeth Blood by ">Lymphocyte Medical Automated count </content>18.3 Center % L<content styleCode="Ital ics"> (24.0-44.0 %)</content> UNK 1.0-4.8 Below low normal <content [facility] styleCode="Bold Elizabeth ">Lymphocyte Medical Count Center </content>0.55 KCUMM L<content styleCode="Ital ics"> (1.0-4.8 KCUMM)</content > Neutrophils 36-66 Above high <content [facility] [#/volume] in normal styleCode="Bold Elizabeth Blood by ">Neutrophil Medical Automated count </content>75.1 Center % H<content styleCode="Ital ics"> (36-66 %)</content> UNK 1.6-7.3 <content [facility] styleCode="Bold Elizabeth ">Neutrophil Medical Count Center </content>2.25 KCUMM<content styleCode="Ital ics"> (1.6-7.3 KCUMM)</content > Eosinophils 0-5.0 <content [facility] [#/volume] in styleCode="Bold Elizabeth Blood by ">Eosinophil Medical Automated count </content>0.0 Center %<content styleCode="Ital ics"> (0-5.0 %)</content> Monocytes 3.0-10.0 <content [facility] [#/volume] in styleCode="Bold Elizabeth Blood by ">Monocyte Medical Automated count </content>6.0 Center %<content styleCode="Ital ics"> (3.0-10.0 %)</content> UNK 0.2-0.9 Below low normal <content [facility] styleCode="Bold Elizabeth ">Monocyte Medical Count Center </content>0.18 KCUMM L<content styleCode="Ital ics"> (0.2-0.9 KCUMM)</content > Basophils 0.0-1.0 <content [facility] [#/volume] in styleCode="Bold Elizabeth Blood by ">Basophil Medical Automated count </content>0.3 Center %<content styleCode="Ital ics"> (0.0-1.0 %)</content> UNK 0.0-0.3 <content [facility] styleCode="Bold Elizabeth ">Basophil Medical Count Center </content>0.01 KCUMM<content styleCode="Ital ics"> (0.0-0.3 KCUMM)</content > UNK 0.0-0.6 <content [facility] styleCode="Bold Elizabeth ">Eosinophil Medical Count Center </content>0.00 KCUMM<content styleCode="Ital ics"> (0.0-0.6 KCUMM)</content > UNK 0.0 <content [facility] styleCode="Bold Elizabeth ">Nucleated Red Medical Blood Cell Center Count </content>0.00 KCUMM<content styleCode="Ital ics"> (0.0 KCUMM)</content > UNK 0-0.1 <content [facility] styleCode="Bold Elizabeth ">Immature Medical Granulocyte Center Count </content>0.01 KCUMM<content styleCode="Ital ics"> (0-0.1 KCUMM)</content > UNK 0 <content [facility] styleCode="Bold Elizabeth ">Nucleated Red Medical Blood Cell Center </content>0.0 /100<content styleCode="Ital ics"> (0 /100)</content> UNK < 1 <content [facility] styleCode="Bold Elizabeth ">Immature Medical Granulocyte Center Ratio </content>0.3 %<content styleCode="Ital ics"> (< 1 %)</content> ID Date Data Source GFR(Creatinine).[id number] 07/07/2019 07:00:00 AM EDT [facility] 0-0400 Name Value Range Interpretation Code Description Data Lyly rce(s) Supporting Document(s ) UNK > 60 Below low normal <content [facility] styleCode="Bold"> Medical Cent er EGFR </content>6 GFR L<content styleCode="Italic s"> (> 60 GFR)</content> ID Date Data Source CHMROUTINECCDA.[id number] 07/07/2019 07:00:00 AM EDT [facility] -0400 Name Value Range Interpretation Description Data Sup porting Code Source(s) Document(s ) UNK >= 1.0 Below low normal <content [facility] styleCode="Geetha Elizabeth d">AG Ratio Medical </content>0.9 Center L<content styleCode="Karrie lics"> (>= 1.0 )</content> Magnesium 1.6-2.3 <content [facility] [Mass/volume] styleCode="Geetha Elizabeth in Serum or d">Magnesium Medical Plasma </content>1.9 Center MG/DL<content styleCode="Karrie lics"> (1.6-2.3 MG/DL)</conten t> UNK 2.3-3.5 Above high normal <content [facility] styleCode="Geetha Elizabeth d">Globulin Medical </content>3.6 Center G/DL H<content styleCode="Karrie lics"> (2.3-3.5 G/DL)</content > Protein 6.3-8.2 <content [facility] [Mass/volume] styleCode="Geetha Elizabeth in Serum or d">Total Medical Plasma Protein Center </content>6.7 G/DL<content styleCode="Karrie lics"> (6.3-8.2 G/DL)</content > Phosphate 2.5-4.5 <content [facility] [Mass/volume] styleCode="Geetha Elizabeth in Serum or d">Phosphorus Medical Plasma </content>4.2 Center MG/DL<content styleCode="Karrie lics"> (2.5-4.5 MG/DL)</conten t> ID Date Data Source [facility].[id number] 07/07/2019 07:00:00 AM EDT [facility] Name Value Range Interpretation Description Data Sup porting Code Source(s) Document(s ) Sodium 137-145 Below low <content Saint [Moles/volume] in normal styleCode="Bold"> [facility] Serum or Plasma Sodium Medical </content>136 Center MEQ/L L<content styleCode="Italic s"> (137-145 MEQ/L)</content> Potassium 3.5-5.3 <content [facility] [Moles/volume] in styleCode="Bold"> [facility] Serum or Plasma Potassium Medical </content>3.8 Center MEQ/L<content styleCode="Italic s"> (3.5-5.3 MEQ/L)</content> Chloride 98-107 Below low <content [facility] [Moles/volume] in normal styleCode="Bold"> [facility] Serum or Plasma Chloride Medical </content>97 Center MEQ/L L<content styleCode="Italic s"> (98-107 MEQ/L)</content> Carbon dioxide, 22-30 <content [facility] total styleCode="Bold"> Elizabeth [Moles/volume] in Carbon Dioxide Medical Serum or Plasma </content>28 Center MEQ/L<content styleCode="Italic s"> (22-30 MEQ/L)</content> UNK 7-17 Above high <content [facility] normal styleCode="Bold"> Elizabeth BUN </content>31 Medical MG/DL H<content Center styleCode="Italic s"> (7-17 MG/DL)</content> Creatinine 0.5-1.3 Above upper <content Saint [Mass/volume] in panic limits styleCode="Bold"> [facility] Serum or Plasma Creatinine Medical </content><conten Center t styleCode="Bold"> 8.0 MG/DL HH</content><cont ent styleCode="Italic s"> (0.5-1.3 MG/DL)</content> UNK > 60 Below low <content [facility] normal styleCode="Bold"> Elizabeth EGFR </content>6 Medical GFR L<content Center styleCode="Italic s"> (> 60 GFR)</content> Calcium 8.4-10. Below low <content [facility] [Mass/volume] in 2 normal styleCode="Bold"> Kash hs Serum or Plasma Calcium Medical </content>7.9 Center MG/DL L<content styleCode="Italic s"> (8.4-10.2 MG/DL)</content> Glucose 74-106 <content [facility] [Mass/volume] in styleCode="Bold"> Kash hs Serum or Plasma Glucose Medical </content>80 Center MG/DL<content styleCode="Italic s"> (74-106 MG/DL)</content> Alkaline 38-126 Above high <content [facility] phosphatase normal styleCode="Bold"> Elizabeth [Enzymatic Alkaline Medical activity/volume] Phosphatase (ALP) Cente r in Serum or Plasma </content>367 IU/L H<content styleCode="Italic s"> (38-126 IU/L)</content> Aspartate 14-36 Above high <content [facility] aminotransferase normal styleCode="Bold"> Kash hs [Enzymatic Aspartate Medical activity/volume] Aminotransferase Center in Serum or Plasma (AST) </content>53 IU/L H<content styleCode="Italic s"> (14-36 IU/L)</content> Albumin 3.5-5.0 Below low <content [facility] [Mass/volume] in normal styleCode="Bold"> Kash hs Serum or Plasma Albumin Medical </content>3.1 Center G/DL L<content styleCode="Italic s"> (3.5-5.0 G/DL)</content> Bilirubin.total 0.2-1.3 <content [facility] [Mass/volume] in styleCode="Bold"> Kash hs Serum or Plasma Bilirubin Total Medical </content>1.0 Center MG/DL<content styleCode="Italic s"> (0.2-1.3 MG/DL)</content> Alanine 7-30 <content [facility] aminotransferase styleCode="Bold"> Kash hs [Enzymatic Alanine Medical activity/volume] Aminotransferase Center in Serum or Plasma (ALT) </content>11 IU/L<content styleCode="Italic s"> (7-30 IU/L)</content> ID Date Data Source Liver 07/06/2019 05:25:00 AM EDT [place] [facility] Profile.[id number] Name Value Range Interpretation Description Data Sup porting Code Source(s) Document(s ) Alkaline 38-126 Above high <content [facility] phosphatase normal styleCode="Bold"> [facility] [Enzymatic Alkaline Medical activity/volume] Phosphatase (ALP) Cente r in Serum or Plasma </content>353 IU/L H<content styleCode="Italic s"> (38-126 IU/L)</content> Alanine 7-30 <content [facility] aminotransferase styleCode="Bold"> [facility] [Enzymatic Alanine Medical activity/volume] Aminotransferase Center in Serum or Plasma (ALT) </content>11 IU/L<content styleCode="Italic s"> (7-30 IU/L)</content> Aspartate 14-36 Above high <content [facility] aminotransferase normal styleCode="Bold"> [facility] [Enzymatic Aspartate Medical activity/volume] Aminotransferase Center in Serum or Plasma (AST) </content>46 IU/L H<content styleCode="Italic s"> (14-36 IU/L)</content> Bilirubin.total 0.2-1.3 <content [facility] [Mass/volume] in styleCode="Bold"> Kash hs Serum or Plasma Bilirubin Total Medical </content>0.9 Center MG/DL<content styleCode="Italic s"> (0.2-1.3 MG/DL)</content> Albumin 3.5-5.0 Below low <content [facility] [Mass/volume] in normal styleCode="Bold"> Kash hs Serum or Plasma Albumin Medical </content>2.9 Center G/DL L<content styleCode="Italic s"> (3.5-5.0 G/DL)</content> ID Date Data Source HematologyRou.[id number] 07/06/2019 05:25:00 AM EDT [facility] 0400 Name Value Range Interpretation Description Data Sup porting Code Source(s) Document(s ) Leukocytes 4.4-11.0 Below lower <content [facility] [#/volume] in panic limits styleCode="Bold [facility] Blood by ">White Blood Medical Automated count Cell Count Center </content><cont ent styleCode="Bold ">2.34 KCUMM LL</content><co ntent styleCode="Ital ics"> (4.4-11.0 KCUMM)</content > Erythrocytes 4.0-5.1 Below low normal <content [facility] [#/volume] in styleCode="Bold [facility] Blood by ">Red Blood Medical Automated count Cell Count Center </content>3.34 MCUMM L<content styleCode="Ital ics"> (4.0-5.1 MCUMM)</content > Erythrocyte mean 80.0-100 <content [facility] corpuscular .0 styleCode="Bold [facility] volume [Entitic ">Mean Medical volume] by Corpuscular Center Automated count Volume </content>94.3 FL<content styleCode="Ital ics"> (80.0-100.0 FL)</content> Hematocrit 36.0-46. Below low normal <content [facility] [Volume 0 styleCode="Bold [facility] Fraction] of ">Hematocrit Medical Blood by </content>31.5 Center Automated count % L<content styleCode="Ital ics"> (36.0-46.0 %)</content> Hemoglobin 12.3-16. Below low normal <content [facility] [Mass/volume] in 0 styleCode="Bold [facility] Blood ">Hemoglobin Medical </content>9.9 Center G/DL L<content styleCode="Ital ics"> (12.3-16.0 G/DL)</content> Erythrocyte mean 32.0-37. Below low normal <content [facility] corpuscular 0 styleCode="Bold [facility] hemoglobin ">Mean Corpus. Medical concentration Hgb Center [Mass/volume] by Concentration Automated count (MCHC) </content>31.4 G/DL L<content styleCode="Ital ics"> (32.0-37.0 G/DL)</content> Erythrocyte 11.5-14. Above high <content [facility] distribution 5 normal styleCode="Bold [facility] width [Ratio] by ">Red Cell Medical Automated count Distribution Center Width </content>16.4 % H<content styleCode="Ital ics"> (11.5-14.5 %)</content> Erythrocyte mean 26.0-34. <content [facility] corpuscular 0 styleCode="Bold [facility] hemoglobin ">Mean Medical [Entitic mass] Corposcular Center by Automated Hemoglobin count </content>29.6 PG<content styleCode="Ital ics"> (26.0-34.0 PG)</content> Platelet mean 8.0-11.0 <content [facility] volume [Entitic styleCode="Bold [facility] volume] in Blood ">Mean Platelet Medical by Automated Volume Center count </content>10.1 FL<content styleCode="Ital ics"> (8.0-11.0 FL)</content> Platelets 130-400 <content [facility] [#/volume] in styleCode="Bold [facility] Blood by ">Platelet Medical Automated count Count Center </content>201 KCUMM<content styleCode="Ital ics"> (130-400 KCUMM)</content > Neutrophils 36-66 <content [facility] [#/volume] in styleCode="Bold [facility] Blood by ">Neutrophil Medical Automated count </content>62.8 Center %<content styleCode="Ital ics"> (36-66 %)</content> UNK 1.6-7.3 Below low normal <content [facility] styleCode="Bold [facility] ">Neutrophil Medical Count Center </content>1.47 KCUMM L<content styleCode="Ital ics"> (1.6-7.3 KCUMM)</content > Lymphocytes 24.0-44. <content [facility] [#/volume] in 0 styleCode="Bold [facility] Blood by ">Lymphocyte Medical Automated count </content>27.8 Center %<content styleCode="Ital ics"> (24.0-44.0 %)</content> UNK 1.0-4.8 Below low normal <content [facility] styleCode="Bold [facility] ">Lymphocyte Medical Count Center </content>0.65 KCUMM L<content styleCode="Ital ics"> (1.0-4.8 KCUMM)</content > UNK 0.2-0.9 Below low normal <content [facility] styleCode="Bold [facility] ">Monocyte Medical Count Center </content>0.19 KCUMM L<content styleCode="Ital ics"> (0.2-0.9 KCUMM)</content > Monocytes 3.0-10.0 <content [facility] [#/volume] in styleCode="Bold [facility] Blood by ">Monocyte Medical Automated count </content>8.1 Center %<content styleCode="Ital ics"> (3.0-10.0 %)</content> Eosinophils 0-5.0 <content [facility] [#/volume] in styleCode="Bold [facility] Blood by ">Eosinophil Medical Automated count </content>0.0 Center %<content styleCode="Ital ics"> (0-5.0 %)</content> UNK 0.0-0.6 <content [facility] styleCode="Bold [facility] ">Eosinophil Medical Count Center </content>0.00 KCUMM<content styleCode="Ital ics"> (0.0-0.6 KCUMM)</content > Basophils 0.0-1.0 <content [facility] [#/volume] in styleCode="Bold [facility] Blood by ">Basophil Medical Automated count </content>0.4 Center %<content styleCode="Ital ics"> (0.0-1.0 %)</content> UNK 0.0-0.3 <content [facility] styleCode="Bold [facility] ">Basophil Medical Count Center </content>0.01 KCUMM<content styleCode="Ital ics"> (0.0-0.3 KCUMM)</content > UNK 0 <content [facility] styleCode="Bold [facility] ">Nucleated Red Medical Blood Cell Center </content>0.0 /100<content styleCode="Ital ics"> (0 /100)</content> UNK 0-0.1 <content [facility] styleCode="Bold [facility] ">Immature Medical Granulocyte Center Count </content>0.02 KCUMM<content styleCode="Ital ics"> (0-0.1 KCUMM)</content > UNK 0.0 <content [facility] styleCode="Bold [facility] ">Nucleated Red Medical Blood Cell Center Count </content>0.00 KCUMM<content styleCode="Ital ics"> (0.0 KCUMM)</content > UNK < 1 <content [facility] styleCode="Bold [facility] ">Immature Medical Granulocyte Center Ratio </content>0.9 %<content styleCode="Ital ics"> (< 1 %)</content> ID Date Data Source GFR(Creatinine).[id number] 07/06/2019 05:25:00 AM EDT [facility] 0-0400 Name Value Range Interpretation Code Description Data Lyly rce(s) Supporting Document(s ) UNK > 60 Below low normal <content [facility] styleCode="Bold"> Medical Cent er EGFR </content>9 GFR L<content styleCode="Italic s"> (> 60 GFR)</content> ID Date Data Source CHMROUTINECCDA.[id number] 07/06/2019 05:25:00 AM EDT [facility] -0400 Name Value Range Interpretation Description Data Sup porting Code Source(s) Document(s ) UNK >= 1.0 Below low normal <content [facility] styleCode="Geetha [facility] d">AG Ratio Medical </content>0.8 Center L<content styleCode="Karrie lics"> (>= 1.0 )</content> Magnesium 1.6-2.3 <content [facility] [Mass/volume] styleCode="Geetha [facility] in Serum or d">Magnesium Medical Plasma </content>1.9 Center MG/DL<content styleCode="Karrie lics"> (1.6-2.3 MG/DL)</conten t> UNK 2.3-3.5 Above high normal <content [facility] styleCode="Geetha [facility] d">Globulin Medical </content>3.6 Center G/DL H<content styleCode="Karrie lics"> (2.3-3.5 G/DL)</content > Phosphate 2.5-4.5 <content [facility] [Mass/volume] styleCode="Geetha [facility] in Serum or d">Phosphorus Medical Plasma </content>3.8 Center MG/DL<content styleCode="Karrie lics"> (2.5-4.5 MG/DL)</conten t> Protein 6.3-8.2 <content [facility] [Mass/volume] styleCode="Geetha [facility] in Serum or d">Total Medical Plasma Protein Center </content>6.5 G/DL<content styleCode="Karrie lics"> (6.3-8.2 G/DL)</content > ID Date Data Source [facility].[id number] 07/06/2019 05:25:00 AM EDT [facility] Name Value Range Interpretation Description Data Sup porting Code Source(s) Document(s ) Potassium 3.5-5.3 <content [facility] [Moles/volume] in styleCode="Bold"> [facility] Serum or Plasma Potassium Medical </content>3.9 Center MEQ/L<content styleCode="Italic s"> (3.5-5.3 MEQ/L)</content> Chloride 98-107 Below low <content [facility] [Moles/volume] in normal styleCode="Bold"> [facility] Serum or Plasma Chloride Medical </content>96 Center MEQ/L L<content styleCode="Italic s"> (98-107 MEQ/L)</content> Sodium 137-145 Below low <content [facility] [Moles/volume] in normal styleCode="Bold"> [facility] Serum or Plasma Sodium Medical </content>135 Center MEQ/L L<content styleCode="Italic s"> (137-145 MEQ/L)</content> Glucose 74-106 <content [facility] [Mass/volume] in styleCode="Bold"> Kash hs Serum or Plasma Glucose Medical </content>78 Center MG/DL<content styleCode="Italic s"> (74-106 MG/DL)</content> Carbon dioxide, 22-30 <content [facility] total styleCode="Bold"> [facility] [Moles/volume] in Carbon Dioxide Medical Serum or Plasma </content>30 Center MEQ/L<content styleCode="Italic s"> (22-30 MEQ/L)</content> UNK 7-17 Above high <content [facility] normal styleCode="Bold"> [facility] BUN </content>22 Medical MG/DL H<content Center styleCode="Italic s"> (7-17 MG/DL)</content> Creatinine 0.5-1.3 Above high <content [facility] [Mass/volume] in normal styleCode="Bold"> Kash hs Serum or Plasma Creatinine Medical </content>5.8 Center MG/DL H<content styleCode="Italic s"> (0.5-1.3 MG/DL)</content> UNK > 60 Below low <content [facility] normal styleCode="Bold"> [facility] EGFR </content>9 Medical GFR L<content Center styleCode="Italic s"> (> 60 GFR)</content> Alanine 7-30 <content [facility] aminotransferase styleCode="Bold"> Kash hs [Enzymatic Alanine Medical activity/volume] Aminotransferase Center in Serum or Plasma (ALT) </content>11 IU/L<content styleCode="Italic s"> (7-30 IU/L)</content> Calcium 8.4-10. Below low <content [facility] [Mass/volume] in 2 normal styleCode="Bold"> Kash hs Serum or Plasma Calcium Medical </content>7.8 Center MG/DL L<content styleCode="Italic s"> (8.4-10.2 MG/DL)</content> Aspartate 14-36 Above high <content [facility] aminotransferase normal styleCode="Bold"> Kash hs [Enzymatic Aspartate Medical activity/volume] Aminotransferase Center in Serum or Plasma (AST) </content>46 IU/L H<content styleCode="Italic s"> (14-36 IU/L)</content> Albumin 3.5-5.0 Below low <content [facility] [Mass/volume] in normal styleCode="Bold"> Kash hs Serum or Plasma Albumin Medical </content>2.9 Center G/DL L<content styleCode="Italic s"> (3.5-5.0 G/DL)</content> Alkaline 38-126 Above high <content [facility] phosphatase normal styleCode="Bold"> [facility] [Enzymatic Alkaline Medical activity/volume] Phosphatase (ALP) Cente r in Serum or Plasma </content>353 IU/L H<content styleCode="Italic s"> (38-126 IU/L)</content> Bilirubin.total 0.2-1.3 <content [facility] [Mass/volume] in styleCode="Bold"> Kash hs Serum or Plasma Bilirubin Total Medical </content>0.9 Center MG/DL<content styleCode="Italic s"> (0.2-1.3 MG/DL)</content> ID Date Data Source Liver 07/05/2019 05:05:[address] [facility] Profile.[id number] Name Value Range Interpretation Description Data Sup porting Code Source(s) Document(s ) Alanine 7-30 <content [facility] aminotransferase styleCode="Bold"> Kash hs [Enzymatic Alanine Medical activity/volume] Aminotransferase Center in Serum or Plasma (ALT) </content>10 IU/L<content styleCode="Italic s"> (7-30 IU/L)</content> Alkaline 38-126 Above high <content [facility] phosphatase normal styleCode="Bold"> [facility] [Enzymatic Alkaline Medical activity/volume] Phosphatase (ALP) Cente r in Serum or Plasma </content>322 IU/L H<content styleCode="Italic s"> (38-126 IU/L)</content> Aspartate 14-36 Above high <content [facility] aminotransferase normal styleCode="Bold"> Kash hs [Enzymatic Aspartate Medical activity/volume] Aminotransferase Center in Serum or Plasma (AST) </content>41 IU/L H<content styleCode="Italic s"> (14-36 IU/L)</content> Albumin 3.5-5.0 Below low <content [facility] [Mass/volume] in normal styleCode="Bold"> Kash hs Serum or Plasma Albumin Medical </content>2.9 Center G/DL L<content styleCode="Italic s"> (3.5-5.0 G/DL)</content> Bilirubin.total 0.2-1.3 <content [facility] [Mass/volume] in styleCode="Bold"> Kash hs Serum or Plasma Bilirubin Total Medical </content>0.9 Center MG/DL<content styleCode="Italic s"> (0.2-1.3 MG/DL)</content> ID Date Data Source HematologyRou.[id number] 07/05/2019 05:05:00 AM EDT [facility] 0400 Name Value Range Interpretation Description Data Sup porting Code Source(s) Document(s ) Leukocytes 4.4-11.0 Below lower <content [facility] [#/volume] in panic limits styleCode="Bold [facility] Blood by ">White Blood Medical Automated count Cell Count Center </content><cont ent styleCode="Bold ">2.39 KCUMM LL</content><co ntent styleCode="Ital ics"> (4.4-11.0 KCUMM)</content > Hematocrit 36.0-46. Below low normal <content [facility] [Volume 0 styleCode="Bold [facility] Fraction] of ">Hematocrit Medical Blood by </content>30.8 Center Automated count % L<content styleCode="Ital ics"> (36.0-46.0 %)</content> Erythrocytes 4.0-5.1 Below low normal <content [facility] [#/volume] in styleCode="Bold [facility] Blood by ">Red Blood Medical Automated count Cell Count Center </content>3.29 MCUMM L<content styleCode="Ital ics"> (4.0-5.1 MCUMM)</content > Hemoglobin 12.3-16. Below low normal <content [facility] [Mass/volume] in 0 styleCode="Bold [facility] Blood ">Hemoglobin Medical </content>9.7 Center G/DL L<content styleCode="Ital ics"> (12.3-16.0 G/DL)</content> Erythrocyte mean 26.0-34. <content [facility] corpuscular 0 styleCode="Bold [facility] hemoglobin ">Mean Medical [Entitic mass] Corposcular Center by Automated Hemoglobin count </content>29.5 PG<content styleCode="Ital ics"> (26.0-34.0 PG)</content> Erythrocyte mean 80.0-100 <content [facility] corpuscular .0 styleCode="Bold [facility] volume [Entitic ">Mean Medical volume] by Corpuscular Center Automated count Volume </content>93.6 FL<content styleCode="Ital ics"> (80.0-100.0 FL)</content> Erythrocyte mean 32.0-37. Below low normal <content [facility] corpuscular 0 styleCode="Bold [facility] hemoglobin ">Mean Corpus. Medical concentration Hgb Center [Mass/volume] by Concentration Automated count (MCHC) </content>31.5 G/DL L<content styleCode="Ital ics"> (32.0-37.0 G/DL)</content> Platelet mean 8.0-11.0 <content [facility] volume [Entitic styleCode="Bold [facility] volume] in Blood ">Mean Platelet Medical by Automated Volume Center count </content>9.8 FL<content styleCode="Ital ics"> (8.0-11.0 FL)</content> Erythrocyte 11.5-14. Above high <content [facility] distribution 5 normal styleCode="Bold [facility] width [Ratio] by ">Red Cell Medical Automated count Distribution Center Width </content>16.5 % H<content styleCode="Ital ics"> (11.5-14.5 %)</content> Platelets 130-400 <content [facility] [#/volume] in styleCode="Bold [facility] Blood by ">Platelet Medical Automated count Count Center </content>201 KCUMM<content styleCode="Ital ics"> (130-400 KCUMM)</content > Lymphocytes 24.0-44. <content [facility] [#/volume] in 0 styleCode="Bold [facility] Blood by ">Lymphocyte Medical Automated count </content>37.7 Center %<content styleCode="Ital ics"> (24.0-44.0 %)</content> Neutrophils 36-66 <content [facility] [#/volume] in styleCode="Bold [facility] Blood by ">Neutrophil Medical Automated count </content>53.6 Center %<content styleCode="Ital ics"> (36-66 %)</content> UNK 1.6-7.3 Below low normal <content [facility] styleCode="Bold [facility] ">Neutrophil Medical Count Center </content>1.28 KCUMM L<content styleCode="Ital ics"> (1.6-7.3 KCUMM)</content > UNK 0.2-0.9 Below low normal <content [facility] styleCode="Bold [facility] ">Monocyte Medical Count Center </content>0.18 KCUMM L<content styleCode="Ital ics"> (0.2-0.9 KCUMM)</content > Monocytes 3.0-10.0 <content [facility] [#/volume] in styleCode="Bold [facility] Blood by ">Monocyte Medical Automated count </content>7.5 Center %<content styleCode="Ital ics"> (3.0-10.0 %)</content> UNK 1.0-4.8 Below low normal <content [facility] styleCode="Bold [facility] ">Lymphocyte Medical Count Center </content>0.90 KCUMM L<content styleCode="Ital ics"> (1.0-4.8 KCUMM)</content > Eosinophils 0-5.0 <content [facility] [#/volume] in styleCode="Bold [facility] Blood by ">Eosinophil Medical Automated count </content>0.0 Center %<content styleCode="Ital ics"> (0-5.0 %)</content> UNK 0.0-0.6 <content [facility] styleCode="Bold [facility] ">Eosinophil Medical Count Center </content>0.00 KCUMM<content styleCode="Ital ics"> (0.0-0.6 KCUMM)</content > UNK 0 <content [facility] styleCode="Bold [facility] ">Nucleated Red Medical Blood Cell Center </content>0.0 /100<content styleCode="Ital ics"> (0 /100)</content> UNK 0.0-0.3 <content [facility] styleCode="Bold [facility] ">Basophil Medical Count Center </content>0.01 KCUMM<content styleCode="Ital ics"> (0.0-0.3 KCUMM)</content > Basophils 0.0-1.0 <content [facility] [#/volume] in styleCode="Bold [facility] Blood by ">Basophil Medical Automated count </content>0.4 Center %<content styleCode="Ital ics"> (0.0-1.0 %)</content> UNK 0.0 <content [facility] styleCode="Bold [facility] ">Nucleated Red Medical Blood Cell Center Count </content>0.00 KCUMM<content styleCode="Ital ics"> (0.0 KCUMM)</content > UNK < 1 <content [facility] styleCode="Bold [facility] ">Immature Medical Granulocyte Center Ratio </content>0.8 %<content styleCode="Ital ics"> (< 1 %)</content> UNK 0-0.1 <content [facility] styleCode="Bold [facility] ">Immature Medical Granulocyte Center Count </content>0.02 KCUMM<content styleCode="Ital ics"> (0-0.1 KCUMM)</content > ID Date Data Source GFR(Creatinine).[id number] 07/05/2019 05:05:00 AM EDT [facility] 0-0400 Name Value Range Interpretation Code Description Data Lyly rce(s) Supporting Document(s ) UNK > 60 Below low normal <content [facility] styleCode="Bold"> Medical Cent er EGFR </content>5 GFR L<content styleCode="Italic s"> (> 60 GFR)</content> ID Date Data Source KAMCARISSA.[id number] 07/05/2019 05:05:00 AM EDT [facility] -0400 Name Value Range Interpretation Description Data Sup porting Code Source(s) Document(s ) Magnesium 1.6-2.3 <content [facility] [Mass/volume] styleCode="Geetha [facility] in Serum or d">Magnesium Medical Plasma </content>2.0 Center MG/DL<content styleCode="Karrie lics"> (1.6-2.3 MG/DL)</conten t> UNK 2.3-3.5 <content [facility] styleCode="Geetha [facility] d">Globulin Medical </content>3.4 Center G/DL<content styleCode="Karrie lics"> (2.3-3.5 G/DL)</content > UNK >= 1.0 Below low normal <content [facility] styleCode="Geetha [facility] d">AG Ratio Medical </content>0.9 Center L<content styleCode="Karrie lics"> (>= 1.0 )</content> Protein 6.3-8.2 <content [facility] [Mass/volume] styleCode="Geetha [facility] in Serum or d">Total Medical Plasma Protein Center </content>6.3 G/DL<content styleCode="Karrie lics"> (6.3-8.2 G/DL)</content > Phosphate 2.5-4.5 Above high normal <content [facility] [Mass/volume] styleCode="Geetha Johnson in Serum or d">Phosphorus Medical Plasma </content>5.6 Center MG/DL H<content styleCode="Karrie lics"> (2.5-4.5 MG/DL)</conten t> ID Date Data Source [facility].[id number] 07/05/2019 05:05:00 AM EDT [facility] Center Name Value Range Interpretation Description Data Sup porting Code Source(s) Document(s ) Potassium 3.5-5.3 <content [facility] [Moles/volume] in styleCode="Bold"> [facility] Serum or Plasma Potassium Medical </content>4.6 Center MEQ/L<content styleCode="Italic s"> (3.5-5.3 MEQ/L)</content> Sodium 137-145 Below low <content [facility] [Moles/volume] in normal styleCode="Bold"> [facility] Serum or Plasma Sodium Medical </content>136 Center MEQ/L L<content styleCode="Italic s"> (137-145 MEQ/L)</content> Chloride 98-107 <content [facility] [Moles/volume] in styleCode="Bold"> [facility] Serum or Plasma Chloride Medical </content>98 Center MEQ/L<content styleCode="Italic s"> (98-107 MEQ/L)</content> Carbon dioxide, 22-30 <content [facility] total styleCode="Bold"> [facility] [Moles/volume] in Carbon Dioxide Medical Serum or Plasma </content>29 Center MEQ/L<content styleCode="Italic s"> (22-30 MEQ/L)</content> Calcium 8.4-10. Below low <content [facility] [Mass/volume] in 2 normal styleCode="Bold"> Kash hs Serum or Plasma Calcium Medical </content>7.5 Center MG/DL L<content styleCode="Italic s"> (8.4-10.2 MG/DL)</content> Creatinine 0.5-1.3 Above upper <content [facility] [Mass/volume] in panic limits styleCode="Bold"> [facility] Serum or Plasma Creatinine Medical </content><conten Center t styleCode="Bold"> 9.6 MG/DL HH</content><cont ent styleCode="Italic s"> (0.5-1.3 MG/DL)</content> UNK > 60 Below low <content [facility] normal styleCode="Bold"> [facility] EGFR </content>5 Medical GFR L<content Center styleCode="Italic s"> (> 60 GFR)</content> Glucose 74-106 <content [facility] [Mass/volume] in styleCode="Bold"> Kash hs Serum or Plasma Glucose Medical </content>81 Center MG/DL<content styleCode="Italic s"> (74-106 MG/DL)</content> UNK 7-17 Above high <content [facility] normal styleCode="Bold"> [facility] BUN </content>44 Medical MG/DL H<content Center styleCode="Italic s"> (7-17 MG/DL)</content> Aspartate 14-36 Above high <content [facility] aminotransferase normal styleCode="Bold"> [facility] [Enzymatic Aspartate Medical activity/volume] Aminotransferase Center in Serum or Plasma (AST) </content>41 IU/L H<content styleCode="Italic s"> (14-36 IU/L)</content> Alanine 7-30 <content [facility] aminotransferase styleCode="Bold"> [facility] [Enzymatic Alanine Medical activity/volume] Aminotransferase Center in Serum or Plasma (ALT) </content>10 IU/L<content styleCode="Italic s"> (7-30 IU/L)</content> Alkaline 38-126 Above high <content [facility] phosphatase normal styleCode="Bold"> [facility] [Enzymatic Alkaline Medical activity/volume] Phosphatase (ALP) Cente r in Serum or Plasma </content>322 IU/L H<content styleCode="Italic s"> (38-126 IU/L)</content> Bilirubin.total 0.2-1.3 <content [facility] [Mass/volume] in styleCode="Bold"> Kash hs Serum or Plasma Bilirubin Total Medical </content>0.9 Center MG/DL<content styleCode="Italic s"> (0.2-1.3 MG/DL)</content> Albumin 3.5-5.0 Below low <content [facility] [Mass/volume] in normal styleCode="Bold"> Kash hs Serum or Plasma Albumin Medical </content>2.9 Center G/DL L<content styleCode="Italic s"> (3.5-5.0 G/DL)</content> ID Date Data Source Liver 07/04/2019 05:30:[address] [facility] Profile.[id number] Name Value Range Interpretation Description Data Sup porting Code Source(s) Document(s ) Aspartate 14-36 <content [facility] aminotransferase styleCode="Bold"> [facility] [Enzymatic Aspartate Medical activity/volume] Aminotransferase Center in Serum or Plasma (AST) </content>30 IU/L<content styleCode="Italic s"> (14-36 IU/L)</content> Alkaline 38-126 Above high <content [facility] phosphatase normal styleCode="Bold"> [facility] [Enzymatic Alkaline Medical activity/volume] Phosphatase (ALP) Cente r in Serum or Plasma </content>293 IU/L H<content styleCode="Italic s"> (38-126 IU/L)</content> Alanine 7-30 <content [facility] aminotransferase styleCode="Bold"> [facility] [Enzymatic Alanine Medical activity/volume] Aminotransferase Center in Serum or Plasma (ALT) </content>11 IU/L<content styleCode="Italic s"> (7-30 IU/L)</content> Albumin 3.5-5.0 Below low <content [facility] [Mass/volume] in normal styleCode="Bold"> Kash hs Serum or Plasma Albumin Medical </content>3.1 Center G/DL L<content styleCode="Italic s"> (3.5-5.0 G/DL)</content> Bilirubin.total 0.2-1.3 <content [facility] [Mass/volume] in styleCode="Bold"> Kash hs Serum or Plasma Bilirubin Total Medical </content>1.1 Center MG/DL<content styleCode="Italic s"> (0.2-1.3 MG/DL)</content> ID Date Data Source GFR(Creatinine).[id number] 07/04/2019 05:30:00 AM EDT [facility] 0-0400 Name Value Range Interpretation Code Description Data Lyly rce(s) Supporting Document(s ) UNK > 60 Below low normal <content [facility] styleCode="Bold"> Medical Cent er EGFR </content>6 GFR L<content styleCode="Italic s"> (> 60 GFR)</content> ID Date Data Source CHMROUTINECCDA.[id number] 07/04/2019 05:30:00 AM EDT [facility] -0400 Name Value Range Interpretation Description Data Sup porting Code Source(s) Document(s ) UNK >= 1.0 Below low normal <content [facility] styleCode="Geetha Elizabeth d">AG Ratio Medical </content>0.9 Center L<content styleCode="Karrie lics"> (>= 1.0 )</content> Magnesium 1.6-2.3 <content [facility] [Mass/volume] styleCode="Geetha Elizabeth in Serum or d">Magnesium Medical Plasma </content>2.0 Center MG/DL<content styleCode="Karrie lics"> (1.6-2.3 MG/DL)</conten t> UNK 2.3-3.5 <content [facility] styleCode="Geetha Elizabeth d">Globulin Medical </content>3.5 Center G/DL<content styleCode="Karrie lics"> (2.3-3.5 G/DL)</content > Phosphate 2.5-4.5 Above high normal <content [facility] [Mass/volume] styleCode="Geetha Elizabeth in Serum or d">Phosphorus Medical Plasma </content>4.8 Center MG/DL H<content styleCode="Karrie lics"> (2.5-4.5 MG/DL)</conten t> Lactate 0.7-2.0 <content [facility] [Mass/volume] styleCode="Geetha Hendersons in Serum or d">Lactic Acid Medical Plasma </content>0.8 Center MMOLL<content styleCode="Karrie lics"> (0.7-2.0 MMOLL)</conten t> Protein 6.3-8.2 <content [facility] [Mass/volume] styleCode="Geetha Hendersons in Serum or d">Total Medical Plasma Protein Center </content>6.6 G/DL<content styleCode="Karrie lics"> (6.3-8.2 G/DL)</content > ID Date Data Source [facility].[id number] 07/04/2019 05:30:00 AM EDT [facility] Name Value Range Interpretation Description Data Sup porting Code Source(s) Document(s ) Sodium 137-145 Below low <content [facility] [Moles/volume] in normal styleCode="Bold"> [place] Serum or Plasma Sodium Medical </content>136 Center MEQ/L L<content styleCode="Italic s"> (137-145 MEQ/L)</content> Carbon dioxide, 22-30 <content [facility] total styleCode="Bold"> Elizabeth [Moles/volume] in Carbon Dioxide Medical Serum or Plasma </content>29 Center MEQ/L<content styleCode="Italic s"> (22-30 MEQ/L)</content> Potassium 3.5-5.3 <content [facility] [Moles/volume] in styleCode="Bold"> [facility] Serum or Plasma Potassium Medical </content>4.7 Center MEQ/L<content styleCode="Italic s"> (3.5-5.3 MEQ/L)</content> UNK 7-17 Above high <content [facility] normal styleCode="Bold"> Elizabeth BUN </content>35 Medical MG/DL H<content Center styleCode="Italic s"> (7-17 MG/DL)</content> Chloride 98-107 <content [facility] [Moles/volume] in styleCode="Bold"> [facility] Serum or Plasma Chloride Medical </content>98 Center MEQ/L<content styleCode="Italic s"> (98-107 MEQ/L)</content> Glucose 74-106 <content [facility] [Mass/volume] in styleCode="Bold"> Kash hs Serum or Plasma Glucose Medical </content>96 Center MG/DL<content styleCode="Italic s"> (74-106 MG/DL)</content> UNK > 60 Below low <content [facility] normal styleCode="Bold"> Elizabeth EGFR </content>6 Medical GFR L<content Center styleCode="Italic s"> (> 60 GFR)</content> Creatinine 0.5-1.3 Above upper <content [facility] [Mass/volume] in panic limits styleCode="Bold"> Linda mirandas Serum or Plasma Creatinine Medical </content><conten Center t styleCode="Bold"> 8.1 MG/DL HH</content><cont ent styleCode="Italic s"> (0.5-1.3 MG/DL)</content> Calcium 8.4-10. Below low <content [facility] [Mass/volume] in 2 normal styleCode="Bold"> Kash hs Serum or Plasma Calcium Medical </content>8.1 Center MG/DL L<content styleCode="Italic s"> (8.4-10.2 MG/DL)</content> Aspartate 14-36 <content [facility] aminotransferase styleCode="Bold"> Kash hs [Enzymatic Aspartate Medical activity/volume] Aminotransferase Center in Serum or Plasma (AST) </content>30 IU/L<content styleCode="Italic s"> (14-36 IU/L)</content> Alanine 7-30 <content [facility] aminotransferase styleCode="Bold"> Kash hs [Enzymatic Alanine Medical activity/volume] Aminotransferase Center in Serum or Plasma (ALT) </content>11 IU/L<content styleCode="Italic s"> (7-30 IU/L)</content> Alkaline 38-126 Above high <content [facility] phosphatase normal styleCode="Bold"> Elizabeth [Enzymatic Alkaline Medical activity/volume] Phosphatase (ALP) Cente r in Serum or Plasma </content>293 IU/L H<content styleCode="Italic s"> (38-126 IU/L)</content> Bilirubin.total 0.2-1.3 <content [facility] [Mass/volume] in styleCode="Bold"> Kash hs Serum or Plasma Bilirubin Total Medical </content>1.1 Center MG/DL<content styleCode="Italic s"> (0.2-1.3 MG/DL)</content> Albumin 3.5-5.0 Below low <content [facility] [Mass/volume] in normal styleCode="Bold"> Kash hs Serum or Plasma Albumin Medical </content>3.1 Center G/DL L<content styleCode="Italic s"> (3.5-5.0 G/DL)</content> ID Date Data Source Coagulation 07/02/2019 06:20:00 AM [facility] Rout.[id number] EDT Name Value Range Interpretation Description Data Sup porting Code Source(s) Document(s ) UNK 9.0-13.0 <content [facility] styleCode="Bold" Elizabeth >Protime Medical </content>10.9 Center SEC<content styleCode="Itali cs"> (9.0-13.0 SEC)</content> aPTT in 25.1-36. Above high normal <content [facility] Platelet poor 5 styleCode="Bold" Elizabeth plasma by >Partial Medical Coagulation Thromboplastin Center assay Time </content>39.8 SEC H<content styleCode="Itali cs"> (25.1-36.5 SEC)</content> INR in 0.80-1.2 <content [facility] Platelet poor 0 styleCode="Bold" Elizabeth plasma by >INR Medical Coagulation </content>0.98 Center assay #<content styleCode="Itali cs"> (0.80-1.20 #)</content> ID Date Data Source [employer].[id number] 07/02/2019 06:20:00 AM EDT [facility] -0400 Name Value Range Interpretation Description Data Sup porting Code Source(s) Document(s ) Troponin < 0.034 Above upper panic <content [facility] I.cardiac limits styleCode="Bold Elizabeth [Mass/volume ">Troponin I Medical ] in Serum </content><cont Center or Plasma ent styleCode="Bold ">0.037 NG/ML HH</content><co ntent styleCode="Ital ics"> (< 0.034 NG/ML)</content > ID Date Data Source Liver 07/02/2019 06:20:[address] [facility] Profile.[id number] Name Value Range Interpretation Description Data Sup porting Code Source(s) Document(s ) Aspartate 14-36 <content [facility] aminotransferase styleCode="Bold"> Kash hs [Enzymatic Aspartate Medical activity/volume] Aminotransferase Center in Serum or Plasma (AST) </content>25 IU/L<content styleCode="Italic s"> (14-36 IU/L)</content> Alanine 7-30 <content [facility] aminotransferase styleCode="Bold"> Kash hs [Enzymatic Alanine Medical activity/volume] Aminotransferase Center in Serum or Plasma (ALT) </content>16 IU/L<content styleCode="Italic s"> (7-30 IU/L)</content> Albumin 3.5-5.0 <content [facility] [Mass/volume] in styleCode="Bold"> Kash hs Serum or Plasma Albumin Medical </content>3.5 Center G/DL<content styleCode="Italic s"> (3.5-5.0 G/DL)</content> Bilirubin.total 0.2-1.3 <content [facility] [Mass/volume] in styleCode="Bold"> Kash hs Serum or Plasma Bilirubin Total Medical </content>1.3 Center MG/DL<content styleCode="Italic s"> (0.2-1.3 MG/DL)</content> Alkaline 38-126 Above high <content [facility] phosphatase normal styleCode="Bold"> Elizabeth [Enzymatic Alkaline Medical activity/volume] Phosphatase (ALP) Cente r in Serum or Plasma </content>372 IU/L H<content styleCode="Italic s"> (38-126 IU/L)</content> ID Date Data Source HematologyRou.[id number] 07/02/2019 06:20:00 AM EDT [facility] 0400 Name Value Range Interpretation Description Data Sup porting Code Source(s) Document(s ) Erythrocytes 4.0-5.1 Below low normal <content [facility] [#/volume] in styleCode="Bold Elizabeth Blood by ">Red Blood Medical Automated count Cell Count Center </content>3.49 MCUMM L<content styleCode="Ital ics"> (4.0-5.1 MCUMM)</content > Hematocrit 36.0-46. Below low normal <content [facility] [Volume 0 styleCode="Bold [facility] Fraction] of ">Hematocrit Medical Blood by </content>33.4 Center Automated count % L<content styleCode="Ital ics"> (36.0-46.0 %)</content> Erythrocyte mean 80.0-100 <content [facility] corpuscular .0 styleCode="Bold Elizabeth volume [Entitic ">Mean Medical volume] by Corpuscular Center Automated count Volume </content>95.7 FL<content styleCode="Ital ics"> (80.0-100.0 FL)</content> Hemoglobin 12.3-16. Below low normal <content [facility] [Mass/volume] in 0 styleCode="Bold Elizabeth Blood ">Hemoglobin Medical </content>10.7 Center G/DL L<content styleCode="Ital ics"> (12.3-16.0 G/DL)</content> Leukocytes 4.4-11.0 Below low normal <content [facility] [#/volume] in styleCode="Bold Elizabeth Blood by ">White Blood Medical Automated count Cell Count Center </content>2.70 KCUMM L<content styleCode="Ital ics"> (4.4-11.0 KCUMM)</content > Platelets 130-400 <content [facility] [#/volume] in styleCode="Bold Elizabeth Blood by ">Platelet Medical Automated count Count Center </content>276 KCUMM<content styleCode="Ital ics"> (130-400 KCUMM)</content > Erythrocyte mean 26.0-34. <content [facility] corpuscular 0 styleCode="Bold Elizabeth hemoglobin ">Mean Medical [Entitic mass] Corposcular Center by Automated Hemoglobin count </content>30.7 PG<content styleCode="Ital ics"> (26.0-34.0 PG)</content> Erythrocyte 11.5-14. Above high <content [facility] distribution 5 normal styleCode="Bold Elizabeth width [Ratio] by ">Red Cell Medical Automated count Distribution Center Width </content>16.8 % H<content styleCode="Ital ics"> (11.5-14.5 %)</content> Erythrocyte mean 32.0-37. <content [facility] corpuscular 0 styleCode="Bold Elizabeth hemoglobin ">Mean Corpus. Medical concentration Hgb Center [Mass/volume] by Concentration Automated count (MCHC) </content>32.0 G/DL<content styleCode="Ital ics"> (32.0-37.0 G/DL)</content> Platelet mean 8.0-11.0 <content [facility] volume [Entitic styleCode="Bold Elizabeth volume] in Blood ">Mean Platelet Medical by Automated Volume Center count </content>9.5 FL<content styleCode="Ital ics"> (8.0-11.0 FL)</content> UNK 0 <content [facility] styleCode="Bold Elizabeth ">Nucleated Red Medical Blood Cell Center </content>0.0 /100<content styleCode="Ital ics"> (0 /100)</content> UNK 0.0 <content [facility] styleCode="Bold Elizabeth ">Nucleated Red Medical Blood Cell Center Count </content>0.00 KCUMM<content styleCode="Ital ics"> (0.0 KCUMM)</content > ID Date Data Source GFR(Creatinine).[id number] 07/02/2019 06:20:00 AM EDT [facility] 0-0400 Name Value Range Interpretation Code Description Data Lyly rce(s) Supporting Document(s ) UNK > 60 Below low normal <content [facility] styleCode="Bold"> Medical Cent er EGFR </content>6 GFR L<content styleCode="Italic s"> (> 60 GFR)</content> ID Date Data [id number] 07/02/2019 06:20:00 AM EDT [facility] -0400 Name Value Range Interpretation Description Data Sup porting Code Source(s) Document(s ) UNK 2.3-3.5 Above high normal <content [facility] styleCode="Geetha Elizabeth d">Globulin Medical </content>3.9 Center G/DL H<content styleCode="Karrie lics"> (2.3-3.5 G/DL)</content > Lactate 0.7-2.0 Above upper panic <content [facility] [Mass/volume] limits styleCode="Geetha Elizabeth in Serum or d">Lactic Acid Medical Plasma </content><con Center tent styleCode="Geetha d">2.3 MMOLL HH</content><c ontent styleCode="Karrie lics"> (0.7-2.0 MMOLL)</conten t> UNK >= 1.0 Below low normal <content [facility] styleCode="Geetha Elizabeth d">AG Ratio Medical </content>0.9 Center L<content styleCode="Karrie lics"> (>= 1.0 )</content> Magnesium 1.6-2.3 <content [facility] [Mass/volume] styleCode="Geetha Elizabeth in Serum or d">Magnesium Medical Plasma </content>2.0 Center MG/DL<content styleCode="Karrie lics"> (1.6-2.3 MG/DL)</conten t> Protein 6.3-8.2 <content [facility] [Mass/volume] styleCode="Geetha Elizabeth in Serum or d">Total Medical Plasma Protein Center </content>7.4 G/DL<content styleCode="Karrie lics"> (6.3-8.2 G/DL)</content > Phosphate 2.5-4.5 Above high normal <content [facility] [Mass/volume] styleCode="Geetha Elizabeth in Serum or d">Phosphorus Medical Plasma </content>6.0 Center MG/DL H<content styleCode="Karrie lics"> (2.5-4.5 MG/DL)</conten t> ID Date Data Source [id number] 07/02/2019 06:20:00 AM EDT [facility] Name Value Range Interpretation Description Data Sup porting Code Source(s) Document(s ) Potassium 3.5-5.3 <content [facility] [Moles/volume] in styleCode="Bold"> [facility] Serum or Plasma Potassium Medical </content>4.6 Center MEQ/L<content styleCode="Italic s"> (3.5-5.3 MEQ/L)</content> Sodium 137-145 <content [facility] [Moles/volume] in styleCode="Bold"> [facility] Serum or Plasma Sodium Medical </content>137 Center MEQ/L<content styleCode="Italic s"> (137-145 MEQ/L)</content> Chloride 98-107 <content [facility] [Moles/volume] in styleCode="Bold"> [facility] Serum or Plasma Chloride Medical </content>101 Center MEQ/L<content styleCode="Italic s"> (98-107 MEQ/L)</content> UNK 7-17 Above high <content [facility] normal styleCode="Bold"> Elizabeth BUN </content>28 Medical MG/DL H<content Center styleCode="Italic s"> (7-17 MG/DL)</content> Carbon dioxide, 22-30 <content [facility] total styleCode="Bold"> Elizabeth [Moles/volume] in Carbon Dioxide Medical Serum or Plasma </content>23 Center MEQ/L<content styleCode="Italic s"> (22-30 MEQ/L)</content> Creatinine 0.5-1.3 Above upper <content [facility] [Mass/volume] in panic limits styleCode="Bold"> Linda sephs Serum or Plasma Creatinine Medical </content><conten Center t styleCode="Bold"> 8.4 MG/DL HH</content><cont ent styleCode="Italic s"> (0.5-1.3 MG/DL)</content> Glucose 74-106 Above high <content [facility] [Mass/volume] in normal styleCode="Bold"> Kash hs Serum or Plasma Glucose Medical </content>166 Center MG/DL H<content styleCode="Italic s"> (74-106 MG/DL)</content> UNK > 60 Below low <content [facility] normal styleCode="Bold"> Elizabeth EGFR </content>6 Medical GFR L<content Center styleCode="Italic s"> (> 60 GFR)</content> Calcium 8.4-10. <content [facility] [Mass/volume] in 2 styleCode="Bold"> Kash hs Serum or Plasma Calcium Medical </content>9.1 Center MG/DL<content styleCode="Italic s"> (8.4-10.2 MG/DL)</content> Aspartate 14-36 <content [facility] aminotransferase styleCode="Bold"> Kash hs [Enzymatic Aspartate Medical activity/volume] Aminotransferase Center in Serum or Plasma (AST) </content>25 IU/L<content styleCode="Italic s"> (14-36 IU/L)</content> Alanine 7-30 <content [facility] aminotransferase styleCode="Bold"> Kash hs [Enzymatic Alanine Medical activity/volume] Aminotransferase Center in Serum or Plasma (ALT) </content>16 IU/L<content styleCode="Italic s"> (7-30 IU/L)</content> Alkaline 38-126 Above high <content [facility] phosphatase normal styleCode="Bold"> Elizabeth [Enzymatic Alkaline Medical activity/volume] Phosphatase (ALP) Cente r in Serum or Plasma </content>372 IU/L H<content styleCode="Italic s"> (38-126 IU/L)</content> Bilirubin.total 0.2-1.3 <content [facility] [Mass/volume] in styleCode="Bold"> Kash hs Serum or Plasma Bilirubin Total Medical </content>1.3 Center MG/DL<content styleCode="Italic s"> (0.2-1.3 MG/DL)</content> Albumin 3.5-5.0 <content [facility] [Mass/volume] in styleCode="Bold"> Kash hs Serum or Plasma Albumin Medical </content>3.5 Center G/DL<content styleCode="Italic s"> (3.5-5.0 G/DL)</content> ID Date Data Source [id number] 07/01/2019 09:36:[address] [facility] Name Value Range Interpretation Description Data Sup porting Code Source(s) Document(s ) UNK Not Detected <content [facility] styleCode="Bold Medical ">Overall Center Result </content>Detec guzman <content styleCode="Ital ics"> (Not Detected )</content> UNK Negative <content [facility] styleCode="Bold Medical ">SARS-COV-2 Center RNA </content>Posit leroy <content styleCode="Ital ics"> (Negative )</content> UNK <content [facility] styleCode="Bold Medical ">Symptom Center </content>Not Given (Reference Range: not available)
UNK <content [facility] styleCode="Bold Medical ">Specimen Center (C-19) Source </content>Not Given (Reference Range: not available)
UNK Negative <content [facility] styleCode="Bold Medical ">HEBERT-SARS RNA Center </content>Posit leroy <content styleCode="Ital ics"> (Negative )</content> ID Date Data Source [id number] 07/01/2019 09:36:00 PM EDT [facility] Name Value Range Interpretation Code Description Data Lyly rce(s) Supporting Document(s ) RESULT [facility] This lab was ordered by [facility] and reported by [facility] [place]. ID Date Data Source Microbiology.[id number] 07/01/2019 07:47:00 PM [facility] Name Value Range Interpretation Code Description Data Lyly rce(s) Supporting Document(s ) UNK <item[facility] Cent er Culture Report </content>
<t able><tbody><tr>< td>Specimen Number:</td><td>[id number]</td></tr ><tr><td>Sample Collection Date/Time: </td><td> 0 7:47 PM</td></tr><tr>< td>Specimen Source:</td><td>B LOOD</td></tr><tr ><td>Blood Culture:</td><td> Collection Plate Date: 07/01/2019 19:58 </td></tr><tr><td >Culture Status:</td><td>F inal </td></tr><tr><td >Culture Report:</td><td>N O GROWTH 5 DAYS </td></tr></tbody ></table></item> UNK <item><content [facility] styleCode="Bold"> Medical Cent er Culture Status </content>
<t able><tbody><tr>< td>Specimen Number:</td><td>[id number]</td></tr ><tr><td>Sample Collection Date/Time: </td><td> 0 7:47 PM</td></tr><tr>< td>Specimen Source:</td><td>B LOOD</td></tr><tr ><td>Culture Report:</td><td>N O GROWTH 5 DAYS </td></tr><tr><td >Culture Status:</td><td>F inal </td></tr><tr><td >Blood Culture:</td><td> Collection Plate Date: 07/01/2019 19:58 </td></tr></tbody ></table></item> ID Date Data Source Coagulation 07/01/2019 07:47:00 PM [facility] Rout.[id number] EDT Name Value Range Interpretation Description Data Sup porting Code Source(s) Document(s ) UNK 9.0-13.0 <content [facility] styleCode="Bold" Elizabeth >Protime Medical </content>11.7 Center SEC<content styleCode="Itali cs"> (9.0-13.0 SEC)</content> INR in 0.80-1.2 <content [facility] Platelet poor 0 styleCode="Bold" Elizabeth plasma by >INR Medical Coagulation </content>1.05 Center assay #<content styleCode="Itali cs"> (0.80-1.20 #)</content> aPTT in 25.1-36. Above high normal <content [facility] Platelet poor 5 styleCode="Bold" Elizabeth plasma by >Partial Medical Coagulation Thromboplastin Center assay Time </content>38.9 SEC H<content styleCode="Itali cs"> (25.1-36.5 SEC)</content> ID Date Data Source [facility].[id number] 07/01/2019 07:47:00 PM EDT [facility] -0400 Name Value Range Interpretation Description Data Sup porting Code Source(s) Document(s ) Troponin < 0.034 Above upper panic <content [facility] I.cardiac limits styleCode="Bold Elizabeth [Mass/volume ">Troponin I Medical ] in Serum </content><cont Center or Plasma ent styleCode="Bold ">0.039 NG/ML HH</content><co ntent styleCode="Ital ics"> (< 0.034 NG/ML)</content > Creatine 30-135 Below low normal <content [facility] kinase styleCode="Bold Elizabeth [Enzymatic ">CK Medical activity/vol </content>22 Center ume] in IU/L L<content Serum or styleCode="Ital Plasma ics"> (30-135 IU/L)</content> ID Date Data Source Liver 07/01/2019 07:47:[address] [facility] Profile.[id number] Name Value Range Interpretation Description Data Sup porting Code Source(s) Document(s ) Aspartate 14-36 <content [facility] aminotransferase styleCode="Bold"> Kash hs [Enzymatic Aspartate Medical activity/volume] Aminotransferase Center in Serum or Plasma (AST) </content>25 IU/L<content styleCode="Italic s"> (14-36 IU/L)</content> Bilirubin.total 0.2-1.3 <content [facility] [Mass/volume] in styleCode="Bold"> Kash hs Serum or Plasma Bilirubin Total Medical </content>1.3 Center MG/DL<content styleCode="Italic s"> (0.2-1.3 MG/DL)</content> Alanine 7-30 <content [facility] aminotransferase styleCode="Bold"> Kash hs [Enzymatic Alanine Medical activity/volume] Aminotransferase Center in Serum or Plasma (ALT) </content>15 IU/L<content styleCode="Italic s"> (7-30 IU/L)</content> UNK 0.0-0.3 <content [facility] styleCode="Bold"> Elizabeth Bilirubin, Direct Medical </content>< 0.2 Center MG/DL<content styleCode="Italic s"> (0.0-0.3 MG/DL)</content> Albumin 3.5-5.0 Below low <content [facility] [Mass/volume] in normal styleCode="Bold"> Kash hs Serum or Plasma Albumin Medical </content>3.4 Center G/DL L<content styleCode="Italic s"> (3.5-5.0 G/DL)</content> Alkaline 38-126 Above high <content [facility] phosphatase normal styleCode="Bold"> Elizabeth [Enzymatic Alkaline Medical activity/volume] Phosphatase (ALP) Cente r in Serum or Plasma </content>361 IU/L H<content styleCode="Italic s"> (38-126 IU/L)</content> ID Date Data Source HematologyRou.[id number] 07/01/2019 07:47:[address] [facility] 0400 Name Value Range Interpretation Description Data Sup porting Code Source(s) Document(s ) Erythrocytes 4.0-5.1 Below low normal <content [facility] [#/volume] in styleCode="Bold Elizabeth Blood by ">Red Blood Medical Automated count Cell Count Center </content>3.31 MCUMM L<content styleCode="Ital ics"> (4.0-5.1 MCUMM)</content > Leukocytes 4.4-11.0 Below low normal <content [facility] [#/volume] in styleCode="Bold Elizabeth Blood by ">White Blood Medical Automated count Cell Count Center </content>3.74 KCUMM L<content styleCode="Ital ics"> (4.4-11.0 KCUMM)</content > Erythrocyte mean 26.0-34. <content [facility] corpuscular 0 styleCode="Bold Elizabeth hemoglobin ">Mean Medical [Entitic mass] Corposcular Center by Automated Hemoglobin count </content>29.6 PG<content styleCode="Ital ics"> (26.0-34.0 PG)</content> Hematocrit 36.0-46. Below low normal <content [facility] [Volume 0 styleCode="Bold Elizabeth Fraction] of ">Hematocrit Medical Blood by </content>31.7 Center Automated count % L<content styleCode="Ital ics"> (36.0-46.0 %)</content> Erythrocyte mean 80.0-100 <content [facility] corpuscular .0 styleCode="Bold Elizabeth volume [Entitic ">Mean Medical volume] by Corpuscular Center Automated count Volume </content>95.8 FL<content styleCode="Ital ics"> (80.0-100.0 FL)</content> Hemoglobin 12.3-16. Below low normal <content [facility] [Mass/volume] in 0 styleCode="Bold Elizabeth Blood ">Hemoglobin Medical </content>9.8 Center G/DL L<content styleCode="Ital ics"> (12.3-16.0 G/DL)</content> Erythrocyte mean 32.0-37. Below low normal <content [facility] corpuscular 0 styleCode="Bold Elizabeth hemoglobin ">Mean Corpus. Medical concentration Hgb Center [Mass/volume] by Concentration Automated count (MCHC) </content>30.9 G/DL L<content styleCode="Ital ics"> (32.0-37.0 G/DL)</content> Platelet mean 8.0-11.0 <content [facility] volume [Entitic styleCode="Bold Elizabeth volume] in Blood ">Mean Platelet Medical by Automated Volume Center count </content>9.6 FL<content styleCode="Ital ics"> (8.0-11.0 FL)</content> Platelets 130-400 <content [facility] [#/volume] in styleCode="Bold Elizabeth Blood by ">Platelet Medical Automated count Count Center </content>267 KCUMM<content styleCode="Ital ics"> (130-400 KCUMM)</content > Neutrophils 36-66 <content [facility] [#/volume] in styleCode="Bold Elizabeth Blood by ">Neutrophil Medical Automated count </content>61.2 Center %<content styleCode="Ital ics"> (36-66 %)</content> Erythrocyte 11.5-14. Above high <content [facility] distribution 5 normal styleCode="Bold Elizabeth width [Ratio] by ">Red Cell Medical Automated count Distribution Center Width </content>17.2 % H<content styleCode="Ital ics"> (11.5-14.5 %)</content> Lymphocytes 24.0-44. Below low normal <content [facility] [#/volume] in 0 styleCode="Bold Elizabeth Blood by ">Lymphocyte Medical Automated count </content>20.6 Center % L<content styleCode="Ital ics"> (24.0-44.0 %)</content> UNK 1.6-7.3 <content [facility] styleCode="Bold Elizabeth ">Neutrophil Medical Count Center </content>2.29 KCUMM<content styleCode="Ital ics"> (1.6-7.3 KCUMM)</content > Monocytes 3.0-10.0 Above high <content [facility] [#/volume] in normal styleCode="Bold Elizabeth Blood by ">Monocyte Medical Automated count </content>17.1 Center % H<content styleCode="Ital ics"> (3.0-10.0 %)</content> UNK 0.2-0.9 <content [facility] styleCode="[facility] ">Monocyte [facility] </content>0.64 KCUMM<content styleCode="Ital ics"> (0.2-0.9 KCUMM)</content > UNK 1.0-4.8 Below low normal <content [facility] styleCode="[facility] ">Lymphocyte [facility] Count Center </content>0.77 KCUMM L<content styleCode="Ital ics"> (1.0-4.8 KCUMM)</content > UNK 0.0-0.6 <content [facility] styleCode="[facility] ">Eosinophil Medical Count Center </content>0.00 KCUMM<content styleCode="Ital ics"> (0.0-0.6 KCUMM)</content > Basophils 0.0-1.0 <content [facility] [#/volume] in styleCode="Bold [facility] Blood by ">Basophil Medical Automated count </content>0.3 Center %<content styleCode="Ital ics"> (0.0-1.0 %)</content> Eosinophils 0-5.0 <content [facility] [#/volume] in styleCode="Bold [facility] Blood by ">Eosinophil Medical Automated count </content>0.0 Center %<content styleCode="Ital ics"> (0-5.0 %)</content> UNK 0.0-0.3 <content [facility] styleCode="[facility] ">Basophil Medical Count Center </content>0.01 KCUMM<content styleCode="Ital ics"> (0.0-0.3 KCUMM)</content > UNK < 1 <content [facility] styleCode="[facility] ">Immature Medical Granulocyte Center Ratio </content>0.8 %<content styleCode="Ital ics"> (< 1 %)</content> UNK 0.0 <content [facility] styleCode="[facility] ">Nucleated Red Medical Blood Cell Center Count </content>0.00 KCUMM<content styleCode="Ital ics"> (0.0 KCUMM)</content > UNK 0 <content [facility] styleCode="[facility]old [facility] ">Nucleated Red Medical Blood Cell Center </content>0.0 /100<content styleCode="Ital ics"> (0 /100)</content> UNK 0-0.1 <content [facility] styleCode="Bold [facility] ">Immature Medical Granulocyte Center Count </content>0.03 KCUMM<content styleCode="Ital ics"> (0-0.1 KCUMM)</content > ID Date Data Source GFR(Creatinine).[id number] 07/01/2019 07:47:00 PM EDT [facility] 0-0400 Name Value Range Interpretation Code Description Data Lyly rce(s) Supporting Document(s ) UNK > 60 Below low normal <content [facility] styleCode="Bold"> Medical Cent er EGFR </content>7 GFR L<content styleCode="Italic s"> (> 60 GFR)</content> ID Date Data Source CHMROUTINECCDA.[id number] 07/01/2019 07:47:00 PM EDT [facility] -0400 Name Value Range Interpretation Description Data Sup porting Code Source(s) Document(s ) UNK 30-110 Above high normal <content [facility] styleCode="Geetha Elizabeth d">Amylase Medical </content>111 Center IU/L H<content styleCode="Karrie lics"> (30-110 IU/L)</content > Lactate 0.7-2.0 <content [facility] [Mass/volume] styleCode="Geetha Elizabeth in Serum or d">Lactic Acid Medical Plasma </content>0.9 Center MMOLL<content styleCode="Karrie lics"> (0.7-2.0 MMOLL)</conten t> Lipase 23-300 <content [facility] [Enzymatic styleCode="Geetha Elizabeth activity/volum d">Lipase Medical e] in Serum or </content>24 Center Plasma IU/L<content styleCode="Karrie lics"> (23-300 IU/L)</content > Natriuretic < 125 Above high normal <content [facility] peptide.B styleCode="Geetha Elizabeth prohormone d">NT Pro BNP Medical N-Terminal </content>8370 Center [Mass/volume] 0 PG/ML in Serum or H<content Plasma styleCode="Karrie lics"> (< 125 PG/ML)</conten t> ID Date Data Source BMP.[id number] 07/01/2019 07:47:00 PM EDT [facility] Name Value Range Interpretation Description Data Sup porting Code Source(s) Document(s ) Potassium 3.5-5.3 <content [facility] [Moles/volume] in styleCode="Bold"> [facility] Serum or Plasma Potassium Medical </content>4.6 Center MEQ/L<content styleCode="Italic s"> (3.5-5.3 MEQ/L)</content> Chloride 98-107 <content [facility] [Moles/volume] in styleCode="Bold"> [facility] Serum or Plasma Chloride Medical </content>100 Center MEQ/L<content styleCode="Italic s"> (98-107 MEQ/L)</content> Sodium 137-145 Below low <content [facility] [Moles/volume] in normal styleCode="Bold"> [facility] Serum or Plasma Sodium Medical </content>136 Center MEQ/L L<content styleCode="Italic s"> (137-145 MEQ/L)</content> UNK 7-17 Above high <content [facility] normal styleCode="Bold"> [facility] BUN </content>23 Medical MG/DL H<content Center styleCode="Italic s"> (7-17 MG/DL)</content> Carbon dioxide, 22-30 <content [facility] total styleCode="Bold"> [facility] [Moles/volume] in Carbon Dioxide Medical Serum or Plasma </content>26 Center MEQ/L<content styleCode="Italic s"> (22-30 MEQ/L)</content> Creatinine 0.5-1.3 Above upper <content [facility] [Mass/volume] in panic limits styleCode="Bold"> Linda sephs Serum or Plasma Creatinine Medical </content><conten Center t styleCode="Bold"> 7.4 MG/DL HH</content><cont ent styleCode="Italic s"> (0.5-1.3 MG/DL)</content> UNK > 60 Below low <content [facility] normal styleCode="Bold"> [facility] EGFR </content>7 Medical GFR L<content Center styleCode="Italic s"> (> 60 GFR)</content> Glucose 74-106 <content [facility] [Mass/volume] in styleCode="Bold"> Kash hs Serum or Plasma Glucose Medical </content>86 Center MG/DL<content styleCode="Italic s"> (74-106 MG/DL)</content> Calcium 8.4-10. <content [facility] [Mass/volume] in 2 styleCode="Bold"> Kash hs Serum or Plasma Calcium Medical </content>8.8 Center MG/DL<content styleCode="Italic s"> (8.4-10.2 MG/DL)</content> Aspartate 14-36 <content [facility] aminotransferase styleCode="Bold"> Kash hs [Enzymatic Aspartate Medical activity/volume] Aminotransferase Center in Serum or Plasma (AST) </content>25 IU/L<content styleCode="Italic s"> (14-36 IU/L)</content> Alkaline 38-126 Above high <content [facility] phosphatase normal styleCode="Bold"> [facility] [Enzymatic Alkaline Medical activity/volume] Phosphatase (ALP) Cente r in Serum or Plasma </content>361 IU/L H<content styleCode="Italic s"> (38-126 IU/L)</content> Alanine 7-30 <content [facility] aminotransferase styleCode="Bold"> Kash hs [Enzymatic Alanine Medical activity/volume] Aminotransferase Center in Serum or Plasma (ALT) </content>15 IU/L<content styleCode="Italic s"> (7-30 IU/L)</content> Albumin 3.5-5.0 Below low <content [facility] [Mass/volume] in normal styleCode="Bold"> Kash hs Serum or Plasma Albumin Medical </content>3.4 Center G/DL L<content styleCode="Italic s"> (3.5-5.0 G/DL)</content> Bilirubin.total 0.2-1.3 <content [facility] [Mass/volume] in styleCode="Bold"> Kash hs Serum or Plasma Bilirubin Total Medical </content>1.3 Center MG/DL<content styleCode="Italic s"> (0.2-1.3 MG/DL)</content> ID Date Data Source Microbiology.[id number] 07/01/2019 07:30:00 PM EDT [facility] 400 Name Value Range Interpretation Code Description Data Lyly rce(s) Supporting Document(s ) UNK <item><content [facility] styleCode="Bold"> Medical [facility] Culture Report </content>
<t able><tbody><tr>< td>Specimen Number:</td><td>[id number]</td></tr ><tr><td>Sample Collection Date/Time: </td><td> 0 7:30 PM</td></tr><tr>< td>Specimen Source:</td><td>B LOOD</td></tr><tr ><td>Blood Culture:</td><td> Collection Plate Date: 07/01/2019 19:58 </td></tr><tr><td >Culture Status:</td><td>F inal </td></tr><tr><td >Culture Report:</td><td>N O GROWTH 5 DAYS </td></tr></tbody ></table></item> UNK <item><content [facility] styleCode="Bold"> [facility] Culture Status </content>
<t able><tbody><tr>< td>Specimen Number:</td><td>[id number]</td></tr ><tr><td>Sample Collection Date/Time: </td><td> 0 7:30 PM</td></tr><tr>< td>Specimen Source:</td><td>B LOOD</td></tr><tr ><td>Culture Report:</td><td>N O GROWTH 5 DAYS </td></tr><tr><td >Culture Status:</td><td>F inal </td></tr><tr><td >Blood Culture:</td><td> Collection Plate Date: 07/01/2019 19:58 </td></tr></tbody ></table></item> ID Date Data Source Coagulation 05/23/2019 06:45:00 AM [facility] Rout.[id number] EST Name Value Range Interpretation Description Data Sup porting Code Source(s) Document(s ) INR in 0.80-1.2 <content [facility] Platelet poor 0 styleCode="Bold" Elizabeth plasma by >INR Medical Coagulation </content>1.06 Center assay #<content styleCode="Itali cs"> (0.80-1.20 #)</content> UNK 9.0-13.0 <content [facility] styleCode="Bold" [facility] >Protime Medical </content>11.8 Center SEC<content styleCode="Itali cs"> (9.0-13.0 SEC)</content> aPTT in 25.1-36. Above high normal <content [facility] Platelet poor 5 styleCode="Bold" Elizabeth plasma by >Partial Medical Coagulation Thromboplastin Center assay Time </content>37.5 SEC H<content styleCode="Itali cs"> (25.1-36.5 SEC)</content> ID Date Data Source Liver 05/23/2019 06:45:[address] [facility] Profile.[id number] Name Value Range Interpretation Description Data Sup porting Code Source(s) Document(s ) Alanine 7-30 <content [facility] aminotransferase styleCode="Bold"> Kash hs [Enzymatic Alanine Medical activity/volume] Aminotransferase Center in Serum or Plasma (ALT) </content>25 IU/L<content styleCode="Italic s"> (7-30 IU/L)</content> Alkaline 38-126 Above high <content [facility] phosphatase normal styleCode="Bold"> [facility] [Enzymatic Alkaline Medical activity/volume] Phosphatase (ALP) Cente r in Serum or Plasma </content>592 IU/L H<content styleCode="Italic s"> (38-126 IU/L)</content> Aspartate 14-36 <content [facility] aminotransferase styleCode="Bold"> Kash hs [Enzymatic Aspartate Medical activity/volume] Aminotransferase Center in Serum or Plasma (AST) </content>29 IU/L<content styleCode="Italic s"> (14-36 IU/L)</content> Bilirubin.total 0.2-1.3 <content [facility] [Mass/volume] in styleCode="Bold"> Kash hs Serum or Plasma Bilirubin Total Medical </content>0.8 Center MG/DL<content styleCode="Italic s"> (0.2-1.3 MG/DL)</content> Albumin 3.5-5.0 <content [facility] [Mass/volume] in styleCode="Bold"> Kash hs Serum or Plasma Albumin Medical </content>3.6 Center G/DL<content styleCode="Italic s"> (3.5-5.0 G/DL)</content> ID Date Data Source HematologyRou.[id number] 05/23/2019 06:45:00 AM BREONNA [facility] 0500 Name Value Range Interpretation Description Data Sup porting Code Source(s) Document(s ) Erythrocytes 4.0-5.1 Below low normal <content [facility] [#/volume] in styleCode="Bold [facility] Blood by ">Red Blood Medical Automated count Cell Count Center </content>3.67 MCUMM L<content styleCode="Ital ics"> (4.0-5.1 MCUMM)</content > Leukocytes 4.4-11.0 Below low normal <content [facility] [#/volume] in styleCode="Bold [facility] Blood by ">White Blood Medical Automated count Cell Count Center </content>3.91 KCUMM L<content styleCode="Ital ics"> (4.4-11.0 KCUMM)</content > Hematocrit 36.0-46. Below low normal <content [facility] [Volume 0 styleCode="Bold [facility] Fraction] of ">Hematocrit Medical Blood by </content>34.5 Center Automated count % L<content styleCode="Ital ics"> (36.0-46.0 %)</content> Hemoglobin 12.3-16. Below low normal <content [facility] [Mass/volume] in 0 styleCode="Bold [facility] Blood ">Hemoglobin Medical </content>11.0 Center G/DL L<content styleCode="Ital ics"> (12.3-16.0 G/DL)</content> Erythrocyte mean 80.0-100 <content [facility] corpuscular .0 styleCode="Bold Elizabeth volume [Entitic ">Mean Medical volume] by Corpuscular Center Automated count Volume </content>94.0 FL<content styleCode="Ital ics"> (80.0-100.0 FL)</content> Erythrocyte mean 26.0-34. <content [facility] corpuscular 0 styleCode="Bold Elizabeth hemoglobin ">Mean Medical [Entitic mass] Corposcular Center by Automated Hemoglobin count </content>30.0 PG<content styleCode="Ital ics"> (26.0-34.0 PG)</content> Erythrocyte mean 32.0-37. Below low normal <content [facility] corpuscular 0 styleCode="Bold Elizabeth hemoglobin ">Mean Corpus. Medical concentration Hgb Center [Mass/volume] by Concentration Automated count (MCHC) </content>31.9 G/DL L<content styleCode="Ital ics"> (32.0-37.0 G/DL)</content> Platelets 130-400 Above high <content [facility] [#/volume] in normal styleCode="Bold Elizabeth Blood by ">Platelet Medical Automated count Count Center </content>494 KCUMM H<content styleCode="Ital ics"> (130-400 KCUMM)</content > Neutrophils 36-66 Above high <content [facility] [#/volume] in normal styleCode="Bold Elizabeth Blood by ">Neutrophil Medical Automated count </content>70.8 Center % H<content styleCode="Ital ics"> (36-66 %)</content> Platelet mean 8.0-11.0 <content [facility] volume [Entitic styleCode="Bold Elizabeth volume] in Blood ">Mean Platelet Medical by Automated Volume Center count </content>9.5 FL<content styleCode="Ital ics"> (8.0-11.0 FL)</content> Erythrocyte 11.5-14. <content [facility] distribution 5 styleCode="Bold Elizabeth width [Ratio] by ">Red Cell Medical Automated count Distribution Center Width </content>14.5 %<content styleCode="Ital ics"> (11.5-14.5 %)</content> Lymphocytes 24.0-44. Below low normal <content [facility] [#/volume] in 0 styleCode="Bold Elizabeth Blood by ">Lymphocyte Medical Automated count </content>19.9 Center % L<content styleCode="Ital ics"> (24.0-44.0 %)</content> UNK 1.6-7.3 <content [facility] styleCode="Bold Elizabeth ">Neutrophil Medical Count Center </content>2.77 KCUMM<content styleCode="Ital ics"> (1.6-7.3 KCUMM)</content > Monocytes 3.0-10.0 <content [facility] [#/volume] in styleCode="Bold Elizabeth Blood by ">Monocyte Medical Automated count </content>8.2 Center %<content styleCode="Ital ics"> (3.0-10.0 %)</content> Eosinophils 0-5.0 <content [facility] [#/volume] in styleCode="Bold Elizabeth Blood by ">Eosinophil Medical Automated count </content>0.0 Center %<content styleCode="Ital ics"> (0-5.0 %)</content> UNK 1.0-4.8 Below low normal <content [facility] styleCode="Bold Elizabeth ">Lymphocyte Medical Count Center </content>0.78 KCUMM L<content styleCode="Ital ics"> (1.0-4.8 KCUMM)</content > UNK 0.2-0.9 <content [facility] styleCode="Bold Elizabeth ">Monocyte Medical Count Center </content>0.32 KCUMM<content styleCode="Ital ics"> (0.2-0.9 KCUMM)</content > Basophils 0.0-1.0 <content [facility] [#/volume] in styleCode="Bold Elizabeth Blood by ">Basophil Medical Automated count </content>0.3 Center %<content styleCode="Ital ics"> (0.0-1.0 %)</content> UNK 0 <content [facility] styleCode="Bold Elizabeth ">Nucleated Red Medical Blood Cell Center </content>0.0 /100<content styleCode="Ital ics"> (0 /100)</content> UNK 0.0-0.6 <content [facility] styleCode="Bold Elizabeth ">Eosinophil Medical Count Center </content>0.00 KCUMM<content styleCode="Ital ics"> (0.0-0.6 KCUMM)</content > UNK 0.0-0.3 <content [facility] styleCode="Bold Elizabeth ">Basophil Medical Count Center </content>0.01 KCUMM<content styleCode="Ital ics"> (0.0-0.3 KCUMM)</content > UNK 0-0.1 <content [facility] styleCode="Bold Elizabeth ">Immature Medical Granulocyte Center Count </content>0.03 KCUMM<content styleCode="Ital ics"> (0-0.1 KCUMM)</content > UNK 0.0 <content [facility] styleCode="Bold Elizabeth ">Nucleated Red Medical Blood Cell Center Count </content>0.00 KCUMM<content styleCode="Ital ics"> (0.0 KCUMM)</content > UNK < 1 <content [facility] styleCode="Bold Elizabeth ">Immature Medical Granulocyte Center Ratio </content>0.8 %<content styleCode="Ital ics"> (< 1 %)</content> ID Date Data Source GFR(Creatinine).[id number] 05/23/2019 06:45:00 AM EST [facility] 0-0500 Name Value Range Interpretation Code Description Data Lyly rce(s) Supporting Document(s ) UNK > 60 Below low normal <content [facility] styleCode="Bold"> Medical Cent er EGFR </content>7 GFR L<content styleCode="Italic s"> (> 60 GFR)</content> ID Date Data Source CHMROUTINECCDA.[id number] 05/23/2019 06:45:00 AM [facility] Name Value Range Interpretation Description Data Sup porting Code Source(s) Document(s ) UNK >= 1.0 Below low normal <content [facility] styleCode="Geetha Elizabeth d">AG Ratio Medical </content>0.8 Center L<content styleCode="Karrie lics"> (>= 1.0 )</content> Phosphate 2.5-4.5 Above high normal <content [facility] [Mass/volume] styleCode="Geetha Elizabeth in Serum or d">Phosphorus Medical Plasma </content>6.5 Center MG/DL H<content styleCode="Karrie lics"> (2.5-4.5 MG/DL)</conten t> UNK 2.3-3.5 Above high normal <content [facility] styleCode="Geetha Elizabeth d">Globulin Medical </content>4.6 Center G/DL H<content styleCode="Karrie lics"> (2.3-3.5 G/DL)</content > Magnesium 1.6-2.3 <content [facility] [Mass/volume] styleCode="Geetha Elizabeth in Serum or d">Magnesium Medical Plasma </content>2.2 Center MG/DL<content styleCode="Karrie lics"> (1.6-2.3 MG/DL)</conten t> Protein 6.3-8.2 <content [facility] [Mass/volume] styleCode="Geetha Elizabeth in Serum or d">Total Medical Plasma Protein Center </content>8.2 G/DL<content styleCode="Karrie lics"> (6.3-8.2 G/DL)</content > ID Date Data Source [facility].[id number] 05/23/2019 06:45:00 AM EST [facility] Name Value Range Interpretation Description Data Sup porting Code Source(s) Document(s ) Sodium 137-145 <content [facility] [Moles/volume] in styleCode="Bold"> [facility] Serum or Plasma Sodium Medical </content>138 Center MEQ/L<content styleCode="Italic s"> (137-145 MEQ/L)</content> Chloride 98-107 Below low <content [facility] [Moles/volume] in normal styleCode="Bold"> [facility] Serum or Plasma Chloride Medical </content>95 Center MEQ/L L<content styleCode="Italic s"> (98-107 MEQ/L)</content> Carbon dioxide, 22-30 <content [facility] total styleCode="Bold"> Elizabeth [Moles/volume] in Carbon Dioxide Medical Serum or Plasma </content>28 Center MEQ/L<content styleCode="Italic s"> (22-30 MEQ/L)</content> Potassium 3.5-5.3 <content [facility] [Moles/volume] in styleCode="Bold"> [facility]s Serum or Plasma Potassium Medical </content>4.6 Center MEQ/L<content styleCode="Italic s"> (3.5-5.3 MEQ/L)</content> Calcium 8.4-10. <content [facility] [Mass/volume] in 2 styleCode="Bold"> Kash hs Serum or Plasma Calcium Medical </content>9.2 Center MG/DL<content styleCode="Italic s"> (8.4-10.2 MG/DL)</content> UNK 7-17 Above high <content [facility] normal styleCode="Bold"> Elizabeth BUN </content>25 Medical MG/DL H<content Center styleCode="Italic s"> (7-17 MG/DL)</content> Creatinine 0.5-1.3 Above upper <content [facility] [Mass/volume] in panic limits styleCode="Bold"> Linda sephs Serum or Plasma Creatinine Medical </content><conten Center t styleCode="Bold"> 7.8 MG/DL HH</content><cont ent styleCode="Italic s"> (0.5-1.3 MG/DL)</content> Glucose 74-106 Above high <content [facility] [Mass/volume] in normal styleCode="Bold"> Kash hs Serum or Plasma Glucose Medical </content>162 Center MG/DL H<content styleCode="Italic s"> (74-106 MG/DL)</content> UNK > 60 Below low <content [facility] normal styleCode="Bold"> [facility] EGFR </content>7 Medical GFR L<content Center styleCode="Italic s"> (> 60 GFR)</content> Aspartate 14-36 <content [facility] aminotransferase styleCode="Bold"> Kash hs [Enzymatic Aspartate Medical activity/volume] Aminotransferase Center in Serum or Plasma (AST) </content>29 IU/L<content styleCode="Italic s"> (14-36 IU/L)</content> Alanine 7-30 <content [facility] aminotransferase styleCode="Bold"> Kash hs [Enzymatic Alanine Medical activity/volume] Aminotransferase Center in Serum or Plasma (ALT) </content>25 IU/L<content styleCode="Italic s"> (7-30 IU/L)</content> Bilirubin.total 0.2-1.3 <content [facility] [Mass/volume] in styleCode="Bold"> Kash hs Serum or Plasma Bilirubin Total Medical </content>0.8 Center MG/DL<content styleCode="Italic s"> (0.2-1.3 MG/DL)</content> Alkaline 38-126 Above high <content [facility] phosphatase normal styleCode="Bold"> [facility] [Enzymatic Alkaline Medical activity/volume] Phosphatase (ALP) Cente r in Serum or Plasma </content>592 IU/L H<content styleCode="Italic s"> (38-126 IU/L)</content> Albumin 3.5-5.0 <content [facility] [Mass/volume] in styleCode="Bold"> Kash hs Serum or Plasma Albumin Medical </content>3.6 Center G/DL<content styleCode="Italic s"> (3.5-5.0 G/DL)</content> ID Date Data Source Liver 05/23/2019 06:41:[address] [facility] Fibrosis.[id number] Name Value Range Interpretation Description Data Sup porting Code Source(s) Document(s ) Gamma glutamyl 11-43 Above high normal <content [facility] transferase styleCode="Geetha Elizabeth [Enzymatic d">GGT Medical activity/volume </content>213 Center ] in Serum or IU/L H<content Plasma styleCode="Karrie lics"> (11-43 IU/L)</content > ID Date [id number]/23/[facility] 06:41:00 [facility] Name Value Range Interpretation Description Data Sup porting Code Source(s) Document(s ) UNK 30-110 <content [facility] styleCode="Geetha Elizabeth d">Amylase Medical </content>69 Center IU/L<content styleCode="Karrie lics"> (30-110 IU/L)</content > Gamma glutamyl 11-43 Above high normal <content [facility] transferase styleCode="Geetha [facility] [Enzymatic d">GGT Medical activity/volume </content>213 Center ] in Serum or IU/L H<content Plasma styleCode="Karrie lics"> (11-43 IU/L)</content > Lipase 23-300 <content [facility] [Enzymatic styleCode="[facility] activity/volume d">Lipase Medical ] in Serum or </content>29 Center Plasma IU/L<content styleCode="Karrie lics"> (23-300 IU/L)</content > ID Date Data Source BMP.[id number] 05/22/2019 02:45:00 PM EST [facility] Name Value Range Interpretation Description Data Sup porting Code Source(s) Document(s ) Potassium 3.5-5.3 Above high normal <content [facility] [Moles/volume styleCode="Geetha Elizabeth ] in Serum or d">Potassium Medical Plasma </content>5.5 Center MEQ/L H<content styleCode="Karrie lics"> (3.5-5.3 MEQ/L)</conten t> ID Date Data Source Liver 05/22/2019 06:07:00 AM [facility] Profile.[id number] Name Value Range Interpretation Description Data Sup porting Code Source(s) Document(s ) Bilirubin.total 0.2-1.3 <content [facility] [Mass/volume] in styleCode="Bold"> Kash hs Serum or Plasma Bilirubin Total Medical </content>1.0 Center MG/DL<content styleCode="Italic s"> (0.2-1.3 MG/DL)</content> Aspartate 14-36 <content [facility] aminotransferase styleCode="Bold"> Kash hs [Enzymatic Aspartate Medical activity/volume] Aminotransferase Center in Serum or Plasma (AST) </content>36 IU/L<content styleCode="Italic s"> (14-36 IU/L)</content> Alkaline 38-126 Above high <content [facility] phosphatase normal styleCode="Bold"> Elizabeth [Enzymatic Alkaline Medical activity/volume] Phosphatase (ALP) Cente r in Serum or Plasma </content>574 IU/L H<content styleCode="Italic s"> (38-126 IU/L)</content> Alanine 7-30 <content [facility] aminotransferase styleCode="Bold"> Kash hs [Enzymatic Alanine Medical activity/volume] Aminotransferase Center in Serum or Plasma (ALT) </content>18 IU/L<content styleCode="Italic s"> (7-30 IU/L)</content> Albumin 3.5-5.0 Below low <content [facility] [Mass/volume] in normal styleCode="Bold"> Kash hs Serum or Plasma Albumin Medical </content>3.3 Center G/DL L<content styleCode="Italic s"> (3.5-5.0 G/DL)</content> ID Date Data Source HematologyRou.[id number] 05/22/2019 06:07:00 AM BRE[address] [facility] 0500 Name Value Range Interpretation Description Data Sup porting Code Source(s) Document(s ) Leukocytes 4.4-11.0 Below low normal <content [facility] [#/volume] in styleCode="Bold [facility] Blood by ">White Blood Medical Automated count Cell Count Center </content>4.30 KCUMM L<content styleCode="Ital ics"> (4.4-11.0 KCUMM)</content > Erythrocytes 4.0-5.1 Below low normal <content [facility] [#/volume] in styleCode="Bold [facility] Blood by ">Red Blood Medical Automated count Cell Count Center </content>3.54 MCUMM L<content styleCode="Ital ics"> (4.0-5.1 MCUMM)</content > Erythrocyte mean 80.0-100 <content [facility] corpuscular .0 styleCode="Bold [facility] volume [Entitic ">Mean Medical volume] by Corpuscular Center Automated count Volume </content>93.8 FL<content styleCode="Ital ics"> (80.0-100.0 FL)</content> Hematocrit 36.0-46. Below low normal <content [facility] [Volume 0 styleCode="Bold [facility] Fraction] of ">Hematocrit Medical Blood by </content>33.2 Center Automated count % L<content styleCode="Ital ics"> (36.0-46.0 %)</content> Hemoglobin 12.3-16. Below low normal <content [facility] [Mass/volume] in 0 styleCode="Bold [facility] Blood ">Hemoglobin Medical </content>10.6 Center G/DL L<content styleCode="Ital ics"> (12.3-16.0 G/DL)</content> Erythrocyte mean 26.0-34. <content [facility] corpuscular 0 styleCode="Bold Elizabeth hemoglobin ">Mean Medical [Entitic mass] Corposcular Center by Automated Hemoglobin count </content>29.9 PG<content styleCode="Ital ics"> (26.0-34.0 PG)</content> Erythrocyte 11.5-14. Above high <content [facility] distribution 5 normal styleCode="Bold Elizabeth width [Ratio] by ">Red Cell Medical Automated count Distribution Center Width </content>14.6 % H<content styleCode="Ital ics"> (11.5-14.5 %)</content> Erythrocyte mean 32.0-37. Below low normal <content [facility] corpuscular 0 styleCode="Bold Elizabeth hemoglobin ">Mean Corpus. Medical concentration Hgb Center [Mass/volume] by Concentration Automated count (MCHC) </content>31.9 G/DL L<content styleCode="Ital ics"> (32.0-37.0 G/DL)</content> Platelets 130-400 <content Saint [#/volume] in styleCode="Bold Elizabeth Blood by ">Platelet Medical Automated count Count Center </content>249 KCUMM<content styleCode="Ital ics"> (130-400 KCUMM)</content > UNK 1.6-7.3 <content Saint styleCode="Bold Elizabeth ">Neutrophil Medical Count Center </content>3.58 KCUMM<content styleCode="Ital ics"> (1.6-7.3 KCUMM)</content > Platelet mean 8.0-11.0 Above high <content [facility] volume [Entitic normal styleCode="Bold Elizabeth volume] in Blood ">Mean Platelet Medical by Automated Volume Center count </content>11.2 FL H<content styleCode="Ital ics"> (8.0-11.0 FL)</content> Neutrophils 36-66 Above high <content Saint [#/volume] in normal styleCode="Bold Elizabeth Blood by ">Neutrophil Medical Automated count </content>83.3 Center % H<content styleCode="Ital ics"> (36-66 %)</content> Lymphocytes 24.0-44. Below low normal <content Saint [#/volume] in 0 styleCode="Bold Elizabeth Blood by ">Lymphocyte Medical Automated count </content>13.7 Center % L<content styleCode="Ital ics"> (24.0-44.0 %)</content> UNK 1.0-4.8 Below low normal <content Saint styleCode="Bold Elizabeth ">Lymphocyte Medical Count Center </content>0.59 KCUMM L<content styleCode="Ital ics"> (1.0-4.8 KCUMM)</content > UNK 0.2-0.9 Below low normal <content Saint styleCode="Bold Elizabeth ">Monocyte Medical Count Center </content>0.09 KCUMM L<content styleCode="Ital ics"> (0.2-0.9 KCUMM)</content > Monocytes 3.0-10.0 Below low normal <content Saint [#/volume] in styleCode="Bold Elizabeth Blood by ">Monocyte Medical Automated count </content>2.1 % Center L<content styleCode="Ital ics"> (3.0-10.0 %)</content> UNK 0.0-0.6 <content Saint styleCode="Bold Elizabeth ">Eosinophil Medical Count Center </content>0.01 KCUMM<content styleCode="Ital ics"> (0.0-0.6 KCUMM)</content > Eosinophils 0-5.0 <content Saint [#/volume] in styleCode="Bold Elizabeth Blood by ">Eosinophil Medical Automated count </content>0.2 Center %<content styleCode="Ital ics"> (0-5.0 %)</content> Basophils 0.0-1.0 <content Saint [#/volume] in styleCode="Bold Elizabeth Blood by ">Basophil Medical Automated count </content>0.2 Center %<content styleCode="Ital ics"> (0.0-1.0 %)</content> UNK 0.0 <content Saint styleCode="Bold Elizabeth ">Nucleated Red Medical Blood Cell Center Count </content>0.00 KCUMM<content styleCode="Ital ics"> (0.0 KCUMM)</content > UNK 0 <content Saint styleCode="Bold Elizabeth ">Nucleated Red Medical Blood Cell Center </content>0.0 /100<content styleCode="Ital ics"> (0 /100)</content> UNK 0.0-0.3 <content Saint styleCode="Bold Elizabeth ">Basophil Medical Count Center </content>0.01 KCUMM<content styleCode="Ital ics"> (0.0-0.3 KCUMM)</content > UNK 0-0.1 <content Saint styleCode="Bold Elizabeth ">Immature Medical Granulocyte Center Count </content>0.02 KCUMM<content styleCode="Ital ics"> (0-0.1 KCUMM)</content > UNK < 1 <content Saint styleCode="Bold Elizabeth ">Immature Medical Granulocyte Center Ratio </content>0.5 %<content styleCode="Ital ics"> (< 1 %)</content> ID Date Data Source GFR(Creatinine).[id number] 05/22/2019 06:07:00 AM BREONNA Weir [facility] 0-0500 Name Value Range Interpretation Code Description Data Lyly rce(s) Supporting Document(s ) UNK > 60 Below low normal <content [facility] styleCode="Bold"> Medical Cent er EGFR </content>4 GFR L<content styleCode="Italic s"> (> 60 GFR)</content> ID Date Data Source ALBERMRLEOCCDA.[id number] 05/22/2019 06:07:[address] [facility] -0500 Name Value Range Interpretation Description Data Sup porting Code Source(s) Document(s ) UNK >= 1.0 Below low normal <content Saint styleCode="Geetha Elizaebth d">AG Ratio Medical </content>0.7 Center L<content styleCode="Karrie lics"> (>= 1.0 )</content> Magnesium 1.6-2.3 <content Saint [Mass/volume] styleCode="Geetha Elizabeth in Serum or d">Magnesium Medical Plasma </content>2.3 Center MG/DL<content styleCode="Karrie lics"> (1.6-2.3 MG/DL)</conten t> UNK 2.3-3.5 Above high normal <content Saint styleCode="Geetha Elizabeth d">Globulin Medical </content>4.6 Center G/DL H<content styleCode="Karrie lics"> (2.3-3.5 G/DL)</content > Protein 6.3-8.2 <content Saint [Mass/volume] styleCode="Geetha Elizabeth in Serum or d">Total Medical Plasma Protein Center </content>7.9 G/DL<content styleCode="Karrie lics"> (6.3-8.2 G/DL)</content > Phosphate 2.5-4.5 Above high normal <content Saint [Mass/volume] styleCode="Geetha Elizabeth in Serum or d">Phosphorus Medical Plasma </content>7.2 Center MG/DL H<content styleCode="Karrie lics"> (2.5-4.5 MG/DL)</conten t> ID Date Data Source [facility].[id number] 05/22/2019 06:07:00 AM EST [facility] Name Value Range Interpretation Description Data Sup porting Code Source(s) Document(s ) Sodium 137-145 Below low <content Saint [Moles/volume] in normal styleCode="Bold"> [facility] Serum or Plasma Sodium Medical </content>135 Center MEQ/L L<content styleCode="Italic s"> (137-145 MEQ/L)</content> Potassium <content Saint [Moles/volume] in styleCode="Bold"> [facility] Serum or Plasma Potassium Medical </content>Test Center not performed. MEQ/L (Reference Range: not available)
Chloride 98-107 Below low <content Saint [Moles/volume] in normal styleCode="Bold"> [facility] Serum or Plasma Chloride Medical </content>97 Center MEQ/L L<content styleCode="Italic s"> (98-107 MEQ/L)</content> Carbon dioxide, 22-30 <content Saint total styleCode="Bold"> Elizabeth [Moles/volume] in Carbon Dioxide Medical Serum or Plasma </content>22 Center MEQ/L<content styleCode="Italic s"> (22-30 MEQ/L)</content> Creatinine 0.5-1.3 Above upper <content Saint [Mass/volume] in panic limits styleCode="Bold"> [facility] Serum or Plasma Creatinine Medical </content><conten Center t styleCode="Bold"> 11.0 MG/DL HH</content><cont ent styleCode="Italic s"> (0.5-1.3 MG/DL)</content> UNK 7-17 Above high <content Saint normal styleCode="Bold"> Elizabeth BUN </content>41 Medical MG/DL H<content Center styleCode="Italic s"> (7-17 MG/DL)</content> Aspartate 14-36 <content Saint aminotransferase styleCode="Bold"> Kash hs [Enzymatic Aspartate Medical activity/volume] Aminotransferase Center in Serum or Plasma (AST) </content>36 IU/L<content styleCode="Italic s"> (14-36 IU/L)</content> UNK > 60 Below low <content [facility] normal styleCode="Bold"> Elizabeth EGFR </content>4 Medical GFR L<content Center styleCode="Italic s"> (> 60 GFR)</content> Calcium 8.4-10. <content Saint [Mass/volume] in 2 styleCode="Bold"> Kash hs Serum or Plasma Calcium Medical </content>8.9 Center MG/DL<content styleCode="Italic s"> (8.4-10.2 MG/DL)</content> Glucose 74-106 Above high <content Saint [Mass/volume] in normal styleCode="Bold"> Kash hs Serum or Plasma Glucose Medical </content>116 Center MG/DL H<content styleCode="Italic s"> (74-106 MG/DL)</content> Bilirubin.total 0.2-1.3 <content Saint [Mass/volume] in styleCode="Bold"> Kash hs Serum or Plasma Bilirubin Total Medical </content>1.0 Center MG/DL<content styleCode="Italic s"> (0.2-1.3 MG/DL)</content> Alanine 7-30 <content Saint aminotransferase styleCode="Bold"> Kash hs [Enzymatic Alanine Medical activity/volume] Aminotransferase Center in Serum or Plasma (ALT) </content>18 IU/L<content styleCode="Italic s"> (7-30 IU/L)</content> Alkaline 38-126 Above high <content Saint phosphatase normal styleCode="Bold"> Elizabeth [Enzymatic Alkaline Medical activity/volume] Phosphatase (ALP) Cente r in Serum or Plasma </content>574 IU/L H<content styleCode="Italic s"> (38-126 IU/L)</content> Albumin 3.5-5.0 Below low <content Saint [Mass/volume] in normal styleCode="Bold"> Kash hs Serum or Plasma Albumin Medical </content>3.3 Center G/DL L<content styleCode="Italic s"> (3.5-5.0 G/DL)</content> ID Date Data Source [facility].[id number] 05/21/2019 07:07:00 PM EST [facility] Name Value Range Interpretation Description Data Sup porting Code Source(s) Document(s ) Potassium 3.5-5.3 Above upper panic <content Saint [Moles/volume limits styleCode="Geetha Elizabeth ] in Serum or d">Potassium Medical Plasma </content><con Center tent styleCode="Geetha d">6.2 MEQ/L HH</content><c ontent styleCode="Karrie lics"> (3.5-5.3 MEQ/L)</conten t> ID Date Data Source LIPID.[id number] 05/21/2019 06:32:00 PM EST [facility] Name Value Range Interpretation Description Data Sup porting Code Source(s) Document(s ) Cholesterol -<200 <content Saint [Mass/volume] in styleCode="Geetha Elizabeth Serum or Plasma d">Cholesterol Medical </content>199 Center MG/DL<content styleCode="Karrie lics"> (-<200 MG/DL)</conten t> Triglyceride < 150 Above high normal <content Saint [Mass/volume] in styleCode="Geetha Elizabeth Serum or Plasma d">Triglycerid Medical es Center </content>191 MG/DL H<content styleCode="Karrie lics"> (< 150 MG/DL)</conten t> UNK > 60 Below low normal <content Saint styleCode="Geetha Elizabeth d">HDL- Medical Cholesterol Center </content>31 MG/DL L<content styleCode="Karrie lics"> (> 60 MG/DL)</conten t> UNK < 100 Above high normal <content Saint styleCode="Geetha Elizabeth d">LDL-Cholest Medical jose Center </content>130 MG/DL H<content styleCode="Karrie lics"> (< 100 MG/DL)</conten t> ID Date Data Source Liver 05/21/2019 06:32:[address] [facility] Profile.[id number] Name Value Range Interpretation Description Data Sup porting Code Source(s) Document(s ) Aspartate 14-36 Above high <content Saint aminotransferase normal styleCode="Bold"> Kash hs [Enzymatic Aspartate Medical activity/volume] Aminotransferase Center in Serum or Plasma (AST) </content>42 IU/L H<content styleCode="Italic s"> (14-36 IU/L)</content> Alanine 7-30 <content Saint aminotransferase styleCode="Bold"> Kash hs [Enzymatic Alanine Medical activity/volume] Aminotransferase Center in Serum or Plasma (ALT) </content>20 IU/L<content styleCode="Italic s"> (7-30 IU/L)</content> Alkaline 38-126 Above high <content Saint phosphatase normal styleCode="Bold"> [facility] [Enzymatic Alkaline Medical activity/volume] Phosphatase (ALP) Cente r in Serum or Plasma </content>581 IU/L H<content styleCode="Italic s"> (38-126 IU/L)</content> UNK 0.0-0.3 <content Saint styleCode="Bold"> [facility] Bilirubin, Direct Medical </content>< 0.2 Center MG/DL<content styleCode="Italic s"> (0.0-0.3 MG/DL)</content> Bilirubin.total 0.2-1.3 <content Saint [Mass/volume] in styleCode="Bold"> Kash hs Serum or Plasma Bilirubin Total Medical </content>1.2 Center MG/DL<content styleCode="Italic s"> (0.2-1.3 MG/DL)</content> Albumin 3.5-5.0 <content Saint [Mass/volume] in styleCode="Bold"> Kash hs Serum or Plasma Albumin Medical </content>3.6 Center G/DL<content styleCode="Italic s"> (3.5-5.0 G/DL)</content> ID Date Data Source HematologyRou.[id number] 05/21/2019 06:32:00 PM EST [place] [facility] 0500 Name Value Range Interpretation Description Data Sup porting Code Source(s) Document(s ) Leukocytes 4.4-11.0 <content Saint [#/volume] in styleCode="Bold [facility] Blood by ">White Blood Medical Automated count Cell Count Center </content>6.89 KCUMM<content styleCode="Ital ics"> (4.4-11.0 KCUMM)</content > Hematocrit 36.0-46. Below low normal <content Saint [Volume 0 styleCode="Bold Elizabeth Fraction] of ">Hematocrit Medical Blood by </content>32.0 Center Automated count % L<content styleCode="Ital ics"> (36.0-46.0 %)</content> Erythrocytes 4.0-5.1 Below low normal <content Saint [#/volume] in styleCode="Bold Elizabeth Blood by ">Red Blood Medical Automated count Cell Count Center </content>3.50 MCUMM L<content styleCode="Ital ics"> (4.0-5.1 MCUMM)</content > Hemoglobin 12.3-16. Below low normal <content Saint [Mass/volume] in 0 styleCode="Bold Elizabeth Blood ">Hemoglobin Medical </content>10.4 Center G/DL L<content styleCode="Ital ics"> (12.3-16.0 G/DL)</content> Erythrocyte mean 80.0-100 <content [facility] corpuscular .0 styleCode="Bold Elizabeth volume [Entitic ">Mean Medical volume] by Corpuscular Center Automated count Volume </content>91.4 FL<content styleCode="Ital ics"> (80.0-100.0 FL)</content> Erythrocyte mean 26.0-34. <content [facility] corpuscular 0 styleCode="Bold Elizabeth hemoglobin ">Mean Medical [Entitic mass] Corposcular Center by Automated Hemoglobin count </content>29.7 PG<content styleCode="Ital ics"> (26.0-34.0 PG)</content> Erythrocyte mean 32.0-37. <content [facility] corpuscular 0 styleCode="Bold Elizabeth hemoglobin ">Mean Corpus. Medical concentration Hgb Center [Mass/volume] by Concentration Automated count (MCHC) </content>32.5 G/DL<content styleCode="Ital ics"> (32.0-37.0 G/DL)</content> Erythrocyte 11.5-14. Above high <content [facility] distribution 5 normal styleCode="Bold Elizabeth width [Ratio] by ">Red Cell Medical Automated count Distribution Center Width </content>14.6 % H<content styleCode="Ital ics"> (11.5-14.5 %)</content> Platelets 130-400 Above high <content Saint [#/volume] in normal styleCode="Bold Elizabeth Blood by ">Platelet Medical Automated count Count Center </content>509 KCUMM H<content styleCode="Ital ics"> (130-400 KCUMM)</content > Platelet mean 8.0-11.0 <content Saint volume [Entitic styleCode="Bold Elizabeth volume] in Blood ">Mean Platelet Medical by Automated Volume Center count </content>9.8 FL<content styleCode="Ital ics"> (8.0-11.0 FL)</content> UNK 0 <content Saint styleCode="Bold Elizabeth ">Nucleated Red Medical Blood Cell Center </content>0.0 /100<content styleCode="Ital ics"> (0 /100)</content> UNK 0.0 <content Saint styleCode="Bold Elizabeth ">Nucleated Red Medical Blood Cell Center Count </content>0.00 KCUMM<content styleCode="Ital ics"> (0.0 KCUMM)</content > ID Date Data Source GFR(Creatinine).[id number] 05/21/2019 06:32:00 PM EST [place] [facility] 0-0500 Name Value Range Interpretation Code Description Data Lyly rce(s) Supporting Document(s ) UNK > 60 Below low normal <content [facility] styleCode="Bold"> Medical Cent er EGFR </content>5 GFR L<content styleCode="Italic s"> (> 60 GFR)</content> ID Date Data Source Coagulation 05/21/2019 06:32:00 PM [facility] Rout.[id number] EST Name Value Range Interpretation Description Data Sup porting Code Source(s) Document(s ) UNK 9.0-13.0 <content Saint styleCode="Bold" Elizabeth >Protime Medical </content>11.6 Center SEC<content styleCode="Itali cs"> (9.0-13.0 SEC)</content> aPTT in 25.1-36. Above high normal <content Saint Platelet poor 5 styleCode="Bold" Elizabeth plasma by >Partial Medical Coagulation Thromboplastin Center assay Time </content>38.8 SEC H<content styleCode="Itali cs"> (25.1-36.5 SEC)</content> INR in 0.80-1.2 <content Saint Platelet poor 0 styleCode="Bold" Elizabeth plasma by >INR Medical Coagulation </content>1.05 Center assay #<content styleCode="Itali cs"> (0.80-1.20 #)</content> ID Date Data Source [facility][id number] 05/21/2019 06:32:00 PM EST [facility] -0500 Name Value Range Interpretation Description Data Sup porting Code Source(s) Document(s ) Natriuretic < 125 Above high normal <content Saint peptide.B styleCode="Geetha Elizabeth prohormone d">NT Pro BNP Medical N-Terminal </content>4930 Center [Mass/volume] 0 PG/ML in Serum or H<content Plasma styleCode="Karrie lics"> (< 125 PG/ML)</conten t> ID Date Data Source [employer].[id number] 05/21/2019 06:32:00 PM EST [facility] -0500 Name Value Range Interpretation Description Data Sup porting Code Source(s) Document(s ) Creatine 30-135 <content Saint kinase styleCode="Bold Elizabeth [Enzymatic ">CK Medical activity/vol </content>46 Center ume] in IU/L<content Serum or styleCode="Ital Plasma ics"> (30-135 IU/L)</content> Troponin < 0.034 <content Saint I.cardiac styleCode="Bold Elizabeth [Mass/volume ">Troponin I Medical ] in Serum </content>0.015 Center or Plasma NG/ML<content styleCode="Ital ics"> (< 0.034 NG/ML)</content > ID Date Data Source [facility].[id number] 05/21/2019 06:32:00 PM EST [facility] Name Value Range Interpretation Description Data Sup porting Code Source(s) Document(s ) Sodium 137-145 Below low <content Saint [Moles/volume] in normal styleCode="Bold"> [facility] Serum or Plasma Sodium Medical </content>132 Center MEQ/L L<content styleCode="Italic s"> (137-145 MEQ/L)</content> Potassium <content Saint [Moles/volume] in styleCode="Bold"> [facility] Serum or Plasma Potassium Medical </content>Test Center not performed. MEQ/L (Reference Range: not available)
Chloride 98-107 <content Saint [Moles/volume] in styleCode="Bold"> [facility] Serum or Plasma Chloride Medical </content>98 Center MEQ/L<content styleCode="Italic s"> (98-107 MEQ/L)</content> Glucose 74-106 <content Saint [Mass/volume] in styleCode="Bold"> Kash hs Serum or Plasma Glucose Medical </content>82 Center MG/DL<content styleCode="Italic s"> (74-106 MG/DL)</content> Carbon dioxide, 22-30 <content Saint total styleCode="Bold"> Elizabeth [Moles/volume] in Carbon Dioxide Medical Serum or Plasma </content>22 Center MEQ/L<content styleCode="Italic s"> (22-30 MEQ/L)</content> Creatinine 0.5-1.3 Above upper <content Saint [Mass/volume] in panic limits styleCode="Bold"> [facility] Serum or Plasma Creatinine Medical </content><conten Center t styleCode="Bold"> 10.1 MG/DL HH</content><cont ent styleCode="Italic s"> (0.5-1.3 MG/DL)</content> UNK 7-17 Above high <content Saint normal styleCode="Bold"> Elizabeth BUN </content>38 Medical MG/DL H<content Center styleCode="Italic s"> (7-17 MG/DL)</content> Aspartate 14-36 Above high <content Saint aminotransferase normal styleCode="Bold"> [facility] [Enzymatic Aspartate Medical activity/volume] Aminotransferase Center in Serum or Plasma (AST) </content>42 IU/L H<content styleCode="Italic s"> (14-36 IU/L)</content> UNK > 60 Below low <content [facility] normal styleCode="Bold"> Elizabeth EGFR </content>5 Medical GFR L<content Center styleCode="Italic s"> (> 60 GFR)</content> Calcium 8.4-10. <content Saint [Mass/volume] in 2 styleCode="Bold"> Kash hs Serum or Plasma Calcium Medical </content>8.9 Center MG/DL<content styleCode="Italic s"> (8.4-10.2 MG/DL)</content> Alkaline 38-126 Above high <content Saint phosphatase normal styleCode="Bold"> Elizabeth [Enzymatic Alkaline Medical activity/volume] Phosphatase (ALP) Cente r in Serum or Plasma </content>581 IU/L H<content styleCode="Italic s"> (38-126 IU/L)</content> Alanine 7-30 <content Saint aminotransferase styleCode="Bold"> Kash [facility] [Enzymatic Alanine Medical activity/volume] Aminotransferase Center in Serum or Plasma (ALT) </content>20 IU/L<content styleCode="Italic s"> (7-30 IU/L)</content> Bilirubin.total 0.2-1.3 <content Saint [Mass/volume] in styleCode="Bold"> Kash hs Serum or Plasma Bilirubin Total Medical </content>1.2 Center MG/DL<content styleCode="Italic s"> (0.2-1.3 MG/DL)</content> Albumin 3.5-5.0 <content Saint [Mass/volume] in styleCode="Bold"> Kash hs Serum or Plasma Albumin Medical </content>3.6 Center G/DL<content styleCode="Italic s"> (3.5-5.0 G/DL)</content> ID Date Data Source Liver 01/19/2019 05:40:[address] [facility] Profile.[id number] Name Value Range Interpretation Description Data Sup porting Code Source(s) Document(s ) Aspartate 14-36 Above high <content Saint aminotransferase normal styleCode="Bold"> Kash hs [Enzymatic Aspartate Medical activity/volume] Aminotransferase Center in Serum or Plasma (AST) </content>40 IU/L H<content styleCode="Italic s"> (14-36 IU/L)</content> Alkaline 38-126 Above high <content Saint phosphatase normal styleCode="Bold"> Elizabeth [Enzymatic Alkaline Medical activity/volume] Phosphatase (ALP) Cente r in Serum or Plasma </content>727 IU/L H<content styleCode="Italic s"> (38-126 IU/L)</content> Alanine 7-30 <content Saint aminotransferase styleCode="Bold"> Kash hs [Enzymatic Alanine Medical activity/volume] Aminotransferase Center in Serum or Plasma (ALT) </content>27 IU/L<content styleCode="Italic s"> (7-30 IU/L)</content> Bilirubin.total 0.2-1.3 <content Saint [Mass/volume] in styleCode="Bold"> Kash hs Serum or Plasma Bilirubin Total Medical </content>1.2 Center MG/DL<content styleCode="Italic s"> (0.2-1.3 MG/DL)</content> Albumin 3.5-5.0 Below low <content Saint [Mass/volume] in normal styleCode="Bold"> Kash hs Serum or Plasma Albumin Medical </content>3.2 Center G/DL L<content styleCode="Italic s"> (3.5-5.0 G/DL)</content> ID Date Data Source HematologyRou.[id number] 01/19/2019 05:40:00 AM EDT [facility] 0400 Name Value Range Interpretation Description Data Sup porting Code Source(s) Document(s ) Leukocytes 4.4-11.0 <content Saint [#/volume] in styleCode="Bold [facility] Blood by ">White Blood Medical Automated count Cell Count Center </content>5.00 KCUMM<content styleCode="Ital ics"> (4.4-11.0 KCUMM)</content > Hemoglobin 12.3-16. Below low normal <content Saint [Mass/volume] in 0 styleCode="Bold Elizabeth Blood ">Hemoglobin Medical </content>8.3 Center G/DL L<content styleCode="Ital ics"> (12.3-16.0 G/DL)</content> Hematocrit 36.0-46. Below low normal <content Saint [Volume 0 styleCode="Bold Elizabeth Fraction] of ">Hematocrit Medical Blood by </content>24.1 Center Automated count % L<content styleCode="Ital ics"> (36.0-46.0 %)</content> Erythrocytes 4.0-5.1 Below low normal <content Saint [#/volume] in styleCode="Bold Elizabeth Blood by ">Red Blood Medical Automated count Cell Count Center </content>2.68 MCUMM L<content styleCode="Ital ics"> (4.0-5.1 MCUMM)</content > Erythrocyte mean 80.0-100 <content [facility] corpuscular .0 styleCode="Bold Elizabeth volume [Entitic ">Mean Medical volume] by Corpuscular Center Automated count Volume </content>89.9 FL<content styleCode="Ital ics"> (80.0-100.0 FL)</content> Erythrocyte 11.5-14. Above high <content Saint distribution 5 normal styleCode="Bold Elizabeth width [Ratio] by ">Red Cell Medical Automated count Distribution Center Width </content>15.7 % H<content styleCode="Ital ics"> (11.5-14.5 %)</content> Erythrocyte mean 32.0-37. <content [facility] corpuscular 0 styleCode="Bold Elizabeth hemoglobin ">Mean Corpus. Medical concentration Hgb Center [Mass/volume] by Concentration Automated count (MCHC) </content>34.4 G/DL<content styleCode="Ital ics"> (32.0-37.0 G/DL)</content> Erythrocyte mean 26.0-34. <content Saint corpuscular 0 styleCode="Bold Elizabeth hemoglobin ">Mean Medical [Entitic mass] Corposcular Center by Automated Hemoglobin count </content>31.0 PG<content styleCode="Ital ics"> (26.0-34.0 PG)</content> Neutrophils 36-66 <content Saint [#/volume] in styleCode="Bold Elizabeth Blood by ">Neutrophil Medical Automated count </content>58.8 Center %<content styleCode="Ital ics"> (36-66 %)</content> Platelet mean 8.0-11.0 <content Saint volume [Entitic styleCode="Bold Elizabeth volume] in Blood ">Mean Platelet Medical by Automated Volume Center count </content>10.6 FL<content styleCode="Ital ics"> (8.0-11.0 FL)</content> Platelets 130-400 <content Saint [#/volume] in styleCode="Bold Elizabeth Blood by ">Platelet Medical Automated count Count Center </content>331 KCUMM<content styleCode="Ital ics"> (130-400 KCUMM)</content > UNK 1.6-7.3 <content Saint styleCode="Bold Elizabeth ">[facility] </content>2.94 KCUMM<content styleCode="Ital ics"> (1.6-7.3 KCUMM)</content > Lymphocytes 24.0-44. Below low normal <content [facility] [#/volume] in 0 styleCode="[facility]old [facility] Blood by ">Lymphocyte Medical Automated count </content>22.8 Center % L<content styleCode="Ital ics"> (24.0-44.0 %)</content> Monocytes 3.0-10.0 Above high <content [facility] [#/volume] in normal styleCode="Bold [facility] Blood by ">Monocyte Medical Automated count </content>13.0 Center % H<content styleCode="Ital ics"> (3.0-10.0 %)</content> UNK 1.0-4.8 <content [facility] styleCode="[facility]old Elizabeth ">Lymphocyte Medical Count Center </content>1.14 KCUMM<content styleCode="Ital ics"> (1.0-4.8 KCUMM)</content > Basophils 0.0-1.0 <content [facility] [#/volume] in styleCode="Bold [facility] Blood by ">Basophil Medical Automated count </content>0.4 Center %<content styleCode="Ital ics"> (0.0-1.0 %)</content> Eosinophils 0-5.0 <content [facility] [#/volume] in styleCode="Bold [facility] Blood by ">Eosinophil Medical Automated count </content>4.4 Center %<content styleCode="Ital ics"> (0-5.0 %)</content> UNK 0.0-0.6 <content [facility] styleCode="[facility]old [facility] ">Eosinophil Medical Count Center </content>0.22 KCUMM<content styleCode="Ital ics"> (0.0-0.6 KCUMM)</content > UNK 0.2-0.9 <content [facility] styleCode="[facility]old [facility] ">Monocyte Medical Count Center </content>0.65 KCUMM<content styleCode="Ital ics"> (0.2-0.9 KCUMM)</content > UNK 0.0 <content [facility] styleCode="[facility]old [facility] ">Nucleated Red Medical Blood Cell Center Count </content>0.00 KCUMM<content styleCode="Ital ics"> (0.0 KCUMM)</content > UNK 0 <content [facility] styleCode="Bold [facility] ">Nucleated Red Medical Blood Cell Center </content>0.0 /100<content styleCode="Ital ics"> (0 /100)</content> UNK 0-0.1 <content [facility] styleCode="[facility]old [facility] ">Immature Medical Granulocyte Center Count </content>0.03 KCUMM<content styleCode="Ital ics"> (0-0.1 KCUMM)</content > UNK 0.0-0.3 <content [facility] styleCode="Bold Elizabeth ">Basophil Medical Count Center </content>0.02 KCUMM<content styleCode="Ital ics"> (0.0-0.3 KCUMM)</content > UNK < 1 <content [facility] styleCode="Bold Elizabeth ">Immature Medical Granulocyte Center Ratio </content>0.6 %<content styleCode="Ital ics"> (< 1 %)</content> ID Date Data Source GFR(Creatinine).[id number] 01/19/2019 05:40:00 AM EDT [facility] 0-0400 Name Value Range Interpretation Code Description Data Lyly rce(s) Supporting Document(s ) UNK > 60 Below low normal <content [facility] styleCode="Bold"> Medical Cent er EGFR </content>8 GFR L<content styleCode="Italic s"> (> 60 GFR)</content> ID Date Data Source CHMROUTINECCDA.[id number] 01/19/2019 05:40:00 AM EDT [facility] -0400 Name Value Range Interpretation Description Data Sup porting Code Source(s) Document(s ) Phosphate 2.5-4.5 Above high normal <content [facility] [Mass/volume] styleCode="Geetha Elizabeth in Serum or d">Phosphorus Medical Plasma </content>4.6 Center MG/DL H<content styleCode="Karrie lics"> (2.5-4.5 MG/DL)</conten t> Magnesium 1.6-2.3 <content [facility] [Mass/volume] styleCode="Geetha Elizabeth in Serum or d">Magnesium Medical Plasma </content>2.3 Center MG/DL<content styleCode="Karrie lics"> (1.6-2.3 MG/DL)</conten t> UNK >= 1.0 <content [facility] styleCode="Geetha Elizabeth d">AG Ratio Medical </content>1.0 Center <content styleCode="Karire lics"> (>= 1.0 )</content> UNK 2.3-3.5 <content [facility] styleCode="Geetha Elizabeth d">Globulin Medical </content>3.3 Center G/DL<content styleCode="Karrie lics"> (2.3-3.5 G/DL)</content > Protein 6.3-8.2 <content [facility] [Mass/volume] styleCode="Geetha Elizabeth in Serum or d">Total Medical Plasma Protein Center </content>6.5 G/DL<content styleCode="Karrie lics"> (6.3-8.2 G/DL)</content > ID Date Data Source [facility].[id number] 01/19/2019 05:40:00 AM EDT [facility] Name Value Range Interpretation Description Data Sup porting Code Source(s) Document(s ) Potassium 3.5-5.3 <content [facility] [Moles/volume] in styleCode="Bold"> [facility] Serum or Plasma Potassium Medical </content>4.2 Center MEQ/L<content styleCode="Italic s"> (3.5-5.3 MEQ/L)</content> Sodium 137-145 Below low <content [facility] [Moles/volume] in normal styleCode="Bold"> [facility] Serum or Plasma Sodium Medical </content>135 Center MEQ/L L<content styleCode="Italic s"> (137-145 MEQ/L)</content> Carbon dioxide, 22-30 <content [facility] total styleCode="Bold"> Elizabeth [Moles/volume] in Carbon Dioxide Medical Serum or Plasma </content>30 Center MEQ/L<content styleCode="Italic s"> (22-30 MEQ/L)</content> Chloride 98-107 Below low <content [facility] [Moles/volume] in normal styleCode="Bold"> [facility] Serum or Plasma Chloride Medical </content>94 Center MEQ/L L<content styleCode="Italic s"> (98-107 MEQ/L)</content> UNK 7-17 Above high <content [facility] normal styleCode="Bold"> Elizabeth BUN </content>23 Medical MG/DL H<content Center styleCode="Italic s"> (7-17 MG/DL)</content> Glucose 74-106 <content [facility] [Mass/volume] in styleCode="Bold"> Kash hs Serum or Plasma Glucose Medical </content>85 Center MG/DL<content styleCode="Italic s"> (74-106 MG/DL)</content> Creatinine 0.5-1.3 Above high <content [facility] [Mass/volume] in normal styleCode="Bold"> Kash hs Serum or Plasma Creatinine Medical </content>6.4 Center MG/DL H<content styleCode="Italic s"> (0.5-1.3 MG/DL)</content> Calcium 8.4-10. <content [facility] [Mass/volume] in 2 styleCode="Bold"> Kash hs Serum or Plasma Calcium Medical </content>8.7 Center MG/DL<content styleCode="Italic s"> (8.4-10.2 MG/DL)</content> Aspartate 14-36 Above high <content [facility] aminotransferase normal styleCode="Bold"> Kash hs [Enzymatic Aspartate Medical activity/volume] Aminotransferase Center in Serum or Plasma (AST) </content>40 IU/L H<content styleCode="Italic s"> (14-36 IU/L)</content> UNK > 60 Below low <content [facility] normal styleCode="Bold"> [facility] EGFR </content>8 Medical GFR L<content Center styleCode="Italic s"> (> 60 GFR)</content> Alanine 7-30 <content [facility] aminotransferase styleCode="Bold"> Kash hs [Enzymatic Alanine Medical activity/volume] Aminotransferase Center in Serum or Plasma (ALT) </content>27 IU/L<content styleCode="Italic s"> (7-30 IU/L)</content> Alkaline 38-126 Above high <content [facility] phosphatase normal styleCode="Bold"> Elizabeth [Enzymatic Alkaline Medical activity/volume] Phosphatase (ALP) Cente r in Serum or Plasma </content>727 IU/L H<content styleCode="Italic s"> (38-126 IU/L)</content> Albumin 3.5-5.0 Below low <content [facility] [Mass/volume] in normal styleCode="Bold"> Kash hs Serum or Plasma Albumin Medical </content>3.2 Center G/DL L<content styleCode="Italic s"> (3.5-5.0 G/DL)</content> Bilirubin.total 0.2-1.3 <content [facility] [Mass/volume] in styleCode="Bold"> Kash hs Serum or Plasma Bilirubin Total Medical </content>1.2 Center MG/DL<content styleCode="Italic s"> (0.2-1.3 MG/DL)</content> ID Date Data Source Liver 01/18/2019 05:15:[address] [facility] Profile.[id number] Name Value Range Interpretation Description Data Sup porting Code Source(s) Document(s ) Aspartate 14-36 <content [facility] aminotransferase styleCode="Bold"> Kash hs [Enzymatic Aspartate Medical activity/volume] Aminotransferase Center in Serum or Plasma (AST) </content>30 IU/L<content styleCode="Italic s"> (14-36 IU/L)</content> Alanine 7-30 <content [facility] aminotransferase styleCode="Bold"> Kash hs [Enzymatic Alanine Medical activity/volume] Aminotransferase Center in Serum or Plasma (ALT) </content>23 IU/L<content styleCode="Italic s"> (7-30 IU/L)</content> Bilirubin.total 0.2-1.3 <content [facility] [Mass/volume] in styleCode="Bold"> Kash hs Serum or Plasma Bilirubin Total Medical </content>1.1 Center MG/DL<content styleCode="Italic s"> (0.2-1.3 MG/DL)</content> Albumin 3.5-5.0 Below low <content [facility] [Mass/volume] in normal styleCode="Bold"> Kash hs Serum or Plasma Albumin Medical </content>3.0 Center G/DL L<content styleCode="Italic s"> (3.5-5.0 G/DL)</content> Alkaline 38-126 Above high <content [facility] phosphatase normal styleCode="Bold"> Elizabeth [Enzymatic Alkaline Medical activity/volume] Phosphatase (ALP) Cente r in Serum or Plasma </content>610 IU/L H<content styleCode="Italic s"> (38-126 IU/L)</content> ID Date Data Source HematologyRou.[id number] 01/18/2019 05:15:00 AM EDT [facility] 0400 Name Value Range Interpretation Description Data Sup porting Code Source(s) Document(s ) Leukocytes 4.4-11.0 <content [facility] [#/volume] in styleCode="Bold Elizabeth Blood by ">White Blood Medical Automated count Cell Count Center </content>5.23 KCUMM<content styleCode="Ital ics"> (4.4-11.0 KCUMM)</content > Hematocrit 36.0-46. Below low normal <content [facility] [Volume 0 styleCode="Bold Elizabeth Fraction] of ">Hematocrit Medical Blood by </content>23.8 Center Automated count % L<content styleCode="Ital ics"> (36.0-46.0 %)</content> Erythrocytes 4.0-5.1 Below low normal <content [facility] [#/volume] in styleCode="Bold Elizabeth Blood by ">Red Blood Medical Automated count Cell Count Center </content>2.66 MCUMM L<content styleCode="Ital ics"> (4.0-5.1 MCUMM)</content > Hemoglobin 12.3-16. Below low normal <content [facility] [Mass/volume] in 0 styleCode="Bold Elizabeth Blood ">Hemoglobin Medical </content>8.2 Center G/DL L<content styleCode="Ital ics"> (12.3-16.0 G/DL)</content> Erythrocyte mean 80.0-100 <content [facility] corpuscular .0 styleCode="Bold Elizabeth volume [Entitic ">Mean Medical volume] by Corpuscular Center Automated count Volume </content>89.5 FL<content styleCode="Ital ics"> (80.0-100.0 FL)</content> Erythrocyte mean 32.0-37. <content [facility] corpuscular 0 styleCode="Bold Elizabeth hemoglobin ">Mean Corpus. Medical concentration Hgb Center [Mass/volume] by Concentration Automated count (MCHC) </content>34.5 G/DL<content styleCode="Ital ics"> (32.0-37.0 G/DL)</content> Erythrocyte mean 26.0-34. <content [facility] corpuscular 0 styleCode="Bold Elizabeth hemoglobin ">Mean Medical [Entitic mass] Corposcular Center by Automated Hemoglobin count </content>30.8 PG<content styleCode="Ital ics"> (26.0-34.0 PG)</content> Erythrocyte 11.5-14. Above high <content [facility] distribution 5 normal styleCode="Bold Elizabeth width [Ratio] by ">Red Cell Medical Automated count Distribution Center Width </content>15.4 % H<content styleCode="Ital ics"> (11.5-14.5 %)</content> Neutrophils 36-66 <content [facility] [#/volume] in styleCode="Bold Elizabeth Blood by ">Neutrophil Medical Automated count </content>60.0 Center %<content styleCode="Ital ics"> (36-66 %)</content> Platelets 130-400 <content [facility] [#/volume] in styleCode="Bold Elizabeth Blood by ">Platelet Medical Automated count Count Center </content>295 KCUMM<content styleCode="Ital ics"> (130-400 KCUMM)</content > UNK 1.6-7.3 <content [facility] styleCode="Bold Elizabeth ">Neutrophil Medical Count Center </content>3.14 KCUMM<content styleCode="Ital ics"> (1.6-7.3 KCUMM)</content > Platelet mean 8.0-11.0 <content [facility] volume [Entitic styleCode="Bold Elizabeth volume] in Blood ">Mean Platelet Medical by Automated Volume Center count </content>10.5 FL<content styleCode="Ital ics"> (8.0-11.0 FL)</content> Monocytes 3.0-10.0 Above high <content [facility] [#/volume] in normal styleCode="Bold Elizabeth Blood by ">Monocyte Medical Automated count </content>13.0 Center % H<content styleCode="Ital ics"> (3.0-10.0 %)</content> Lymphocytes 24.0-44. Below low normal <content [facility] [#/volume] in 0 styleCode="Bold Elizabeth Blood by ">Lymphocyte Medical Automated count </content>22.2 Center % L<content styleCode="Ital ics"> (24.0-44.0 %)</content> UNK 1.0-4.8 <content [facility] styleCode="Bold Elizabeth ">Lymphocyte Medical Count Center </content>1.16 KCUMM<content styleCode="Ital ics"> (1.0-4.8 KCUMM)</content > UNK 0.2-0.9 <content [facility] styleCode="Bold Elizabeth ">Monocyte Medical Count Center </content>0.68 KCUMM<content styleCode="Ital ics"> (0.2-0.9 KCUMM)</content > Basophils 0.0-1.0 <content [facility] [#/volume] in styleCode="Bold Elizabeth Blood by ">Basophil Medical Automated count </content>0.6 Center %<content styleCode="Ital ics"> (0.0-1.0 %)</content> Eosinophils 0-5.0 <content [facility] [#/volume] in styleCode="Bold Elizabeth Blood by ">Eosinophil Medical Automated count </content>3.8 Center %<content styleCode="Ital ics"> (0-5.0 %)</content> UNK 0.0-0.6 <content [facility] styleCode="Bold Elizabeth ">Eosinophil Medical Count Center </content>0.20 KCUMM<content styleCode="Ital ics"> (0.0-0.6 KCUMM)</content > UNK 0.0 <content [facility] styleCode="Bold Elizabeth ">Nucleated Red Medical Blood Cell Center Count </content>0.00 KCUMM<content styleCode="Ital ics"> (0.0 KCUMM)</content > UNK 0-0.1 <content [facility] styleCode="Bold Elizabeth ">Immature Medical Granulocyte Center Count </content>0.02 KCUMM<content styleCode="Ital ics"> (0-0.1 KCUMM)</content > UNK 0.0-0.3 <content [facility] styleCode="Bold Elizabeth ">Basophil Medical Count Center </content>0.03 KCUMM<content styleCode="Ital ics"> (0.0-0.3 KCUMM)</content > UNK 0 <content [facility] styleCode="Bold Elizabeth ">Nucleated Red Medical Blood Cell Center </content>0.0 /100<content styleCode="Ital ics"> (0 /100)</content> UNK < 1 <content [facility] styleCode="Bold Elizabeth ">Immature Medical Granulocyte Center Ratio </content>0.4 %<content styleCode="Ital ics"> (< 1 %)</content> ID Date Data Source GFR(Creatinine).[id number] 01/18/2019 05:15:00 AM EDT [facility] 0-0400 Name Value Range Interpretation Code Description Data Lyly rce(s) Supporting Document(s ) UNK > 60 Below low normal <content [facility] styleCode="Bold"> Medical Cent er EGFR </content>5 GFR L<content styleCode="Italic s"> (> 60 GFR)</content> ID Date Data Source CHMROUTINECCDA.[id number] 01/18/2019 05:15:00 AM EDT [facility] -0400 Name Value Range Interpretation Description Data Sup porting Code Source(s) Document(s ) UNK >= 1.0 Below low normal <content [facility] styleCode="Geetha Elizabeth d">AG Ratio Medical </content>0.9 Center L<content styleCode="Karrie lics"> (>= 1.0 )</content> Magnesium 1.6-2.3 <content [facility] [Mass/volume] styleCode="Geetha Elizabeth in Serum or d">Magnesium Medical Plasma </content>2.3 Center MG/DL<content styleCode="Karrie lics"> (1.6-2.3 MG/DL)</conten t> UNK 2.3-3.5 <content [facility] styleCode="Geetha Elizabeth d">Globulin Medical </content>3.3 Center G/DL<content styleCode="Karrie lics"> (2.3-3.5 G/DL)</content > Protein 6.3-8.2 <content [facility] [Mass/volume] styleCode="Geetha Hendersons in Serum or d">Total Medical Plasma Protein Center </content>6.3 G/DL<content styleCode="Karrie lics"> (6.3-8.2 G/DL)</content > Phosphate 2.5-4.5 Above high normal <content [facility] [Mass/volume] styleCode="Geetha Elizabeth in Serum or d">Phosphorus Medical Plasma </content>6.2 Center MG/DL H<content styleCode="Karrie lics"> (2.5-4.5 MG/DL)</conten t> ID Date Data Source [employer]iacMarkers.[id number] 01/18/2019 05:15:00 AM EDT [facility] -0400 Name Value Range Interpretation Description Data Sup porting Code Source(s) Document(s ) Troponin < 0.034 <content [facility] I.cardiac styleCode="Bold Elizabeth [Mass/volume ">Troponin I Medical ] in Serum </content>0.017 Center or Plasma NG/ML<content styleCode="Ital ics"> (< 0.034 NG/ML)</content > ID Date Data Source [facility].[id number] 01/18/2019 05:15:00 AM EDT [facility] Center Name Value Range Interpretation Description Data Sup porting Code Source(s) Document(s ) Sodium 137-145 Below low <content [facility] [Moles/volume] in normal styleCode="Bold"> [facility] Serum or Plasma Sodium Medical </content>132 Center MEQ/L L<content styleCode="Italic s"> (137-145 MEQ/L)</content> Creatinine 0.5-1.3 Above upper <content [facility] [Mass/volume] in panic limits styleCode="Bold"> [facility] Serum or Plasma Creatinine Medical </content><conten Center t styleCode="Bold"> 9.3 MG/DL HH</content><cont ent styleCode="Italic s"> (0.5-1.3 MG/DL)</content> UNK 7-17 Above high <content [facility] normal styleCode="Bold"> Elizabeth BUN </content>46 Medical MG/DL H<content Center styleCode="Italic s"> (7-17 MG/DL)</content> Carbon dioxide, 22-30 <content [facility] total styleCode="Bold"> Elizabeth [Moles/volume] in Carbon Dioxide Medical Serum or Plasma </content>26 Center MEQ/L<content styleCode="Italic s"> (22-30 MEQ/L)</content> Potassium 3.5-5.3 <content [facility] [Moles/volume] in styleCode="Bold"> [facility] Serum or Plasma Potassium Medical </content>4.9 Center MEQ/L<content styleCode="Italic s"> (3.5-5.3 MEQ/L)</content> Chloride 98-107 Below low <content [facility] [Moles/volume] in normal styleCode="Bold"> Robert phs Serum or Plasma Chloride Medical </content>93 Center MEQ/L L<content styleCode="Italic s"> (98-107 MEQ/L)</content> Alanine 7-30 <content [facility] aminotransferase styleCode="Bold"> Kash hs [Enzymatic Alanine Medical activity/volume] Aminotransferase Center in Serum or Plasma (ALT) </content>23 IU/L<content styleCode="Italic s"> (7-30 IU/L)</content> Calcium 8.4-10. <content [facility] [Mass/volume] in 2 styleCode="Bold"> Kash hs Serum or Plasma Calcium Medical </content>8.6 Center MG/DL<content styleCode="Italic s"> (8.4-10.2 MG/DL)</content> Glucose 74-106 <content [facility] [Mass/volume] in styleCode="Bold"> Kash hs Serum or Plasma Glucose Medical </content>84 Center MG/DL<content styleCode="Italic s"> (74-106 MG/DL)</content> UNK > 60 Below low <content [facility] normal styleCode="Bold"> Elizabeth EGFR </content>5 Medical GFR L<content Center styleCode="Italic s"> (> 60 GFR)</content> Aspartate 14-36 <content [facility] aminotransferase styleCode="Bold"> Kash hs [Enzymatic Aspartate Medical activity/volume] Aminotransferase Center in Serum or Plasma (AST) </content>30 IU/L<content styleCode="Italic s"> (14-36 IU/L)</content> Albumin 3.5-5.0 Below low <content [facility] [Mass/volume] in normal styleCode="Bold"> Kash hs Serum or Plasma Albumin Medical </content>3.0 Center G/DL L<content styleCode="Italic s"> (3.5-5.0 G/DL)</content> Alkaline 38-126 Above high <content [facility] phosphatase normal styleCode="Bold"> Elizabeth [Enzymatic Alkaline Medical activity/volume] Phosphatase (ALP) Cente r in Serum or Plasma </content>610 IU/L H<content styleCode="Italic s"> (38-126 IU/L)</content> Bilirubin.total 0.2-1.3 <content [facility] [Mass/volume] in styleCode="Bold"> Kash hs Serum or Plasma Bilirubin Total Medical </content>1.1 Center MG/DL<content styleCode="Italic s"> (0.2-1.3 MG/DL)</content> ID Date Data Source Liver 01/16/2019 05:12:[address] [facility] Profile.[id number] Name Value Range Interpretation Description Data Sup porting Code Source(s) Document(s ) Aspartate 14-36 <content [facility] aminotransferase styleCode="Bold"> Kash hs [Enzymatic Aspartate Medical activity/volume] Aminotransferase Center in Serum or Plasma (AST) </content>26 IU/L<content styleCode="Italic s"> (14-36 IU/L)</content> Alanine 7-30 <content [facility] aminotransferase styleCode="Bold"> Kash hs [Enzymatic Alanine Medical activity/volume] Aminotransferase Center in Serum or Plasma (ALT) </content>23 IU/L<content styleCode="Italic s"> (7-30 IU/L)</content> Alkaline 38-126 Above high <content [facility] phosphatase normal styleCode="Bold"> Elizabeth [Enzymatic Alkaline Medical activity/volume] Phosphatase (ALP) Cente r in Serum or Plasma </content>629 IU/L H<content styleCode="Italic s"> (38-126 IU/L)</content> Bilirubin.total 0.2-1.3 <content [facility] [Mass/volume] in styleCode="Bold"> Kash hs Serum or Plasma Bilirubin Total Medical </content>1.2 Center MG/DL<content styleCode="Italic s"> (0.2-1.3 MG/DL)</content> Albumin 3.5-5.0 Below low <content [facility] [Mass/volume] in normal styleCode="Bold"> Kash hs Serum or Plasma Albumin Medical </content>3.0 Center G/DL L<content styleCode="Italic s"> (3.5-5.0 G/DL)</content> ID Date Data Source HematologyRou.[id number] 01/16/2019 05:12:00 AM EDT [facility] 0400 Name Value Range Interpretation Description Data Sup porting Code Source(s) Document(s ) Hemoglobin 12.3-16. Below low normal <content [facility] [Mass/volume] in 0 styleCode="Bold Elizabeth Blood ">Hemoglobin Medical </content>8.3 Center G/DL L<content styleCode="Ital ics"> (12.3-16.0 G/DL)</content> Erythrocytes 4.0-5.1 Below low normal <content [facility] [#/volume] in styleCode="Bold Elizabeth Blood by ">Red Blood Medical Automated count Cell Count Center </content>2.71 MCUMM L<content styleCode="Ital ics"> (4.0-5.1 MCUMM)</content > Leukocytes 4.4-11.0 <content [facility] [#/volume] in styleCode="Bold Elizabeth Blood by ">White Blood Medical Automated count Cell Count Center </content>5.81 KCUMM<content styleCode="Ital ics"> (4.4-11.0 KCUMM)</content > Hematocrit 36.0-46. Below low normal <content [facility] [Volume 0 styleCode="Bold Elizabeth Fraction] of ">Hematocrit Medical Blood by </content>25.0 Center Automated count % L<content styleCode="Ital ics"> (36.0-46.0 %)</content> Erythrocyte mean 32.0-37. <content [facility] corpuscular 0 styleCode="Bold Elizabeth hemoglobin ">Mean Corpus. Medical concentration Hgb Center [Mass/volume] by Concentration Automated count (MCHC) </content>33.2 G/DL<content styleCode="Ital ics"> (32.0-37.0 G/DL)</content> Erythrocyte mean 26.0-34. <content [facility] corpuscular 0 styleCode="Bold Elizabeth hemoglobin ">Mean Medical [Entitic mass] Corposcular Center by Automated Hemoglobin count </content>30.6 PG<content styleCode="Ital ics"> (26.0-34.0 PG)</content> Erythrocyte mean 80.0-100 <content [facility] corpuscular .0 styleCode="Bold Elizabeth volume [Entitic ">Mean Medical volume] by Corpuscular Center Automated count Volume </content>92.3 FL<content styleCode="Ital ics"> (80.0-100.0 FL)</content> Neutrophils 36-66 <content [facility] [#/volume] in styleCode="Bold Elizabeth Blood by ">Neutrophil Medical Automated count </content>63.6 Center %<content styleCode="Ital ics"> (36-66 %)</content> Erythrocyte 11.5-14. Above high <content [facility] distribution 5 normal styleCode="Bold Elizabeth width [Ratio] by ">Red Cell Medical Automated count Distribution Center Width </content>15.2 % H<content styleCode="Ital ics"> (11.5-14.5 %)</content> Platelets 130-400 <content [facility] [#/volume] in styleCode="Bold Elizabeth Blood by ">Platelet Medical Automated count Count Center </content>247 KCUMM<content styleCode="Ital ics"> (130-400 KCUMM)</content > Platelet mean 8.0-11.0 <content [facility] volume [Entitic styleCode="Bold Elizabeth volume] in Blood ">Mean Platelet Medical by Automated Volume Center count </content>10.3 FL<content styleCode="Ital ics"> (8.0-11.0 FL)</content> UNK 1.0-4.8 <content [facility] styleCode="Bold Elizabeth ">Lymphocyte Medical Count Center </content>1.10 KCUMM<content styleCode="Ital ics"> (1.0-4.8 KCUMM)</content > Lymphocytes 24.0-44. Below low normal <content [facility] [#/volume] in 0 styleCode="Bold Elizabeth Blood by ">Lymphocyte Medical Automated count </content>18.9 Center % L<content styleCode="Ital ics"> (24.0-44.0 %)</content> UNK 1.6-7.3 <content [facility] styleCode="Bold Elizabeth ">Neutrophil Medical Count Center </content>3.69 KCUMM<content styleCode="Ital ics"> (1.6-7.3 KCUMM)</content > Eosinophils 0-5.0 <content [facility] [#/volume] in styleCode="Bold Elizabeth Blood by ">Eosinophil Medical Automated count </content>3.8 Center %<content styleCode="Ital ics"> (0-5.0 %)</content> Monocytes 3.0-10.0 Above high <content [facility] [#/volume] in normal styleCode="Bold Elizabeth Blood by ">Monocyte Medical Automated count </content>12.2 Center % H<content styleCode="Ital ics"> (3.0-10.0 %)</content> UNK 0.0-0.6 <content [facility] styleCode="Bold Elizabeth ">Eosinophil Medical Count Center </content>0.22 KCUMM<content styleCode="Ital ics"> (0.0-0.6 KCUMM)</content > UNK 0.2-0.9 <content [facility] styleCode="Bold Elizabeth ">Monocyte Medical Count Center </content>0.71 KCUMM<content styleCode="Ital ics"> (0.2-0.9 KCUMM)</content > Basophils 0.0-1.0 <content [facility] [#/volume] in styleCode="Bold Elizabeth Blood by ">Basophil Medical Automated count </content>0.5 Center %<content styleCode="Ital ics"> (0.0-1.0 %)</content> UNK 0.0-0.3 <content [facility] styleCode="Bold Elizabeth ">Basophil Medical Count Center </content>0.03 KCUMM<content styleCode="Ital ics"> (0.0-0.3 KCUMM)</content > UNK 0 <content [facility] styleCode="[facility] ">Nucleated Red Medical Blood Cell Center </content>0.0 /100<content styleCode="Ital ics"> (0 /100)</content> UNK 0-0.1 <content [facility] styleCode="[facility] ">Immature Medical Granulocyte Center Count </content>0.06 KCUMM<content styleCode="Ital ics"> (0-0.1 KCUMM)</content > UNK < 1 Above high <content [facility] normal styleCode="[facility] ">Immature Medical Granulocyte Center Ratio </content>1.0 % H<content styleCode="Ital ics"> (< 1 %)</content> UNK 0.0 <content [facility] styleCode="[facility] ">Nucleated Red Medical Blood Cell Center Count </content>0.00 KCUMM<content styleCode="Ital ics"> (0.0 KCUMM)</content > ID Date Data Source GFR(Creatinine).[id number] 01/16/2019 05:12:00 AM [facility] Name Value Range Interpretation Code Description Data Lyly rce(s) Supporting Document(s ) UNK > 60 Below low normal <content [facility] styleCode="Bold"> Medical Cent er EGFR </content>9 GFR L<content styleCode="Italic s"> (> 60 GFR)</content> ID Date Data Source CHMROUTINECCDA.[id number] 01/16/2019 05:12:00 AM EDT [facility] -0400 Name Value Range Interpretation Description Data Sup porting Code Source(s) Document(s ) UNK 2.3-3.5 <content [facility] styleCode="Geetha Hendersons d">Globulin Medical </content>3.3 Center G/DL<content styleCode="Karrie lics"> (2.3-3.5 G/DL)</content > UNK >= 1.0 Below low normal <content [facility] styleCode="Geetha Elizabeth d">AG Ratio Medical </content>0.9 Center L<content styleCode="Karrie lics"> (>= 1.0 )</content> Magnesium 1.6-2.3 <content [facility] [Mass/volume] styleCode="Geetha Hendersons in Serum or d">Magnesium Medical Plasma </content>2.1 Center MG/DL<content styleCode="Karrie lics"> (1.6-2.3 MG/DL)</conten t> Phosphate 2.5-4.5 Above high normal <content [facility] [Mass/volume] styleCode="Geetha Hendersons in Serum or d">Phosphorus Medical Plasma </content>4.8 Center MG/DL H<content styleCode="Karrie lics"> (2.5-4.5 MG/DL)</conten t> Protein 6.3-8.2 <content [facility] [Mass/volume] styleCode="Geetha Hendersons in Serum or d">Total Medical Plasma Protein Center </content>6.3 G/DL<content styleCode="Karrie lics"> (6.3-8.2 G/DL)</content > ID Date Data Source BMP.[id number] 01/16/2019 05:12:00 AM EDT [facility] Name Value Range Interpretation Description Data Sup porting Code Source(s) Document(s ) Chloride 98-107 Below low <content [facility] [Moles/volume] in normal styleCode="Bold"> Robert phs Serum or Plasma Chloride Medical </content>96 Center MEQ/L L<content styleCode="Italic s"> (98-107 MEQ/L)</content> Potassium 3.5-5.3 <content [facility] [Moles/volume] in styleCode="Bold"> Robert phs Serum or Plasma Potassium Medical </content>4.2 Center MEQ/L<content styleCode="Italic s"> (3.5-5.3 MEQ/L)</content> Sodium 137-145 Below low <content [facility] [Moles/volume] in normal styleCode="Bold"> Robert phs Serum or Plasma Sodium Medical </content>135 Center MEQ/L L<content styleCode="Italic s"> (137-145 MEQ/L)</content> Carbon dioxide, 22-30 <content [facility] total styleCode="Bold"> [facility] [Moles/volume] in Carbon Dioxide Medical Serum or Plasma </content>30 Center MEQ/L<content styleCode="Italic s"> (22-30 MEQ/L)</content> UNK 7-17 Above high <content [facility] normal styleCode="Bold"> [facility] BUN </content>26 Medical MG/DL H<content Center styleCode="Italic s"> (7-17 MG/DL)</content> UNK > 60 Below low <content [facility] normal styleCode="Bold"> [facility] EGFR </content>9 Medical GFR L<content Center styleCode="Italic s"> (> 60 GFR)</content> Creatinine 0.5-1.3 Above high <content [facility] [Mass/volume] in normal styleCode="Bold"> Kash hs Serum or Plasma Creatinine Medical </content>6.1 Center MG/DL H<content styleCode="Italic s"> (0.5-1.3 MG/DL)</content> Calcium 8.4-10. <content [facility] [Mass/volume] in 2 styleCode="Bold"> Kash hs Serum or Plasma Calcium Medical </content>8.8 Center MG/DL<content styleCode="Italic s"> (8.4-10.2 MG/DL)</content> Aspartate 14-36 <content [facility] aminotransferase styleCode="Bold"> Kash hs [Enzymatic Aspartate Medical activity/volume] Aminotransferase Center in Serum or Plasma (AST) </content>26 IU/L<content styleCode="Italic s"> (14-36 IU/L)</content> Glucose 74-106 <content [facility] [Mass/volume] in styleCode="Bold"> Kash hs Serum or Plasma Glucose Medical </content>84 Center MG/DL<content styleCode="Italic s"> (74-106 MG/DL)</content> Alanine 7-30 <content [facility] aminotransferase styleCode="Bold"> [facility] [Enzymatic Alanine Medical activity/volume] Aminotransferase Center in Serum or Plasma (ALT) </content>23 IU/L<content styleCode="Italic s"> (7-30 IU/L)</content> Bilirubin.total 0.2-1.3 <content [facility] [Mass/volume] in styleCode="Bold"> Kash hs Serum or Plasma Bilirubin Total Medical </content>1.2 Center MG/DL<content styleCode="Italic s"> (0.2-1.3 MG/DL)</content> Albumin 3.5-5.0 Below low <content [facility] [Mass/volume] in normal styleCode="Bold"> Kash hs Serum or Plasma Albumin Medical </content>3.0 Center G/DL L<content styleCode="Italic s"> (3.5-5.0 G/DL)</content> Alkaline 38-126 Above high <content [facility] phosphatase normal styleCode="Bold"> [facility] [Enzymatic Alkaline Medical activity/volume] Phosphatase (ALP) Cente r in Serum or Plasma </content>629 IU/L H<content styleCode="Italic s"> (38-126 IU/L)</content> ID Date Data Source Liver 01/15/2019 12:40:[address] [facility] Profile.[id number] Name Value Range Interpretation Description Data Sup porting Code Source(s) Document(s ) Aspartate 14-36 <content [facility] aminotransferase styleCode="Bold"> Kash hs [Enzymatic Aspartate Medical activity/volume] Aminotransferase Center in Serum or Plasma (AST) </content>23 IU/L<content styleCode="Italic s"> (14-36 IU/L)</content> Bilirubin.total 0.2-1.3 Above high <content [facility] [Mass/volume] in normal styleCode="Bold"> Kash hs Serum or Plasma Bilirubin Total Medical </content>1.4 Center MG/DL H<content styleCode="Italic s"> (0.2-1.3 MG/DL)</content> Alkaline 38-126 Above high <content [facility] phosphatase normal styleCode="Bold"> [facility] [Enzymatic Alkaline Medical activity/volume] Phosphatase (ALP) Cente r in Serum or Plasma </content>586 IU/L H<content styleCode="Italic s"> (38-126 IU/L)</content> Alanine 7-30 <content [facility] aminotransferase styleCode="Bold"> Kash hs [Enzymatic Alanine Medical activity/volume] Aminotransferase Center in Serum or Plasma (ALT) </content>22 IU/L<content styleCode="Italic s"> (7-30 IU/L)</content> Albumin 3.5-5.0 Below low <content [facility] [Mass/volume] in normal styleCode="Bold"> Kash hs Serum or Plasma Albumin Medical </content>3.1 Center G/DL L<content styleCode="Italic s"> (3.5-5.0 G/DL)</content> ID Date Data Source HematologyRou.[id number] 01/15/2019 12:40:00 PM [place] [facility] 0400 Name Value Range Interpretation Description Data Sup porting Code Source(s) Document(s ) Leukocytes 4.4-11.0 <content [facility] [#/volume] in styleCode="Bold Elizabeth Blood by ">White Blood Medical Automated count Cell Count Center </content>7.75 KCUMM<content styleCode="Ital ics"> (4.4-11.0 KCUMM)</content > Hemoglobin 12.3-16. Below low normal <content [facility] [Mass/volume] in 0 styleCode="Bold Elizabeth Blood ">Hemoglobin Medical </content>8.0 Center G/DL L<content styleCode="Ital ics"> (12.3-16.0 G/DL)</content> Erythrocyte mean 80.0-100 <content [facility] corpuscular .0 styleCode="Bold Elizabeth volume [Entitic ">Mean Medical volume] by Corpuscular Center Automated count Volume </content>92.2 FL<content styleCode="Ital ics"> (80.0-100.0 FL)</content> Erythrocytes 4.0-5.1 Below low normal <content [facility] [#/volume] in styleCode="Bold Elizabeth Blood by ">Red Blood Medical Automated count Cell Count Center </content>2.58 MCUMM L<content styleCode="Ital ics"> (4.0-5.1 MCUMM)</content > Hematocrit 36.0-46. Below low normal <content [facility] [Volume 0 styleCode="Bold Elizabeth Fraction] of ">Hematocrit Medical Blood by </content>23.8 Center Automated count % L<content styleCode="Ital ics"> (36.0-46.0 %)</content> Erythrocyte mean 26.0-34. <content [facility] corpuscular 0 styleCode="Bold Elizabeth hemoglobin ">Mean Medical [Entitic mass] Corposcular Center by Automated Hemoglobin count </content>31.0 PG<content styleCode="Ital ics"> (26.0-34.0 PG)</content> Erythrocyte 11.5-14. Above high <content [facility] distribution 5 normal styleCode="Bold Elizabeth width [Ratio] by ">Red Cell Medical Automated count Distribution Center Width </content>14.8 % H<content styleCode="Ital ics"> (11.5-14.5 %)</content> Erythrocyte mean 32.0-37. <content [facility] corpuscular 0 styleCode="Bold Elizabeth hemoglobin ">Mean Corpus. Medical concentration Hgb Center [Mass/volume] by Concentration Automated count (MCHC) </content>33.6 G/DL<content styleCode="Ital ics"> (32.0-37.0 G/DL)</content> Platelets 130-400 <content [facility] [#/volume] in styleCode="Bold Elizabeth Blood by ">Platelet Medical Automated count Count Center </content>249 KCUMM<content styleCode="Ital ics"> (130-400 KCUMM)</content > Neutrophils 36-66 Above high <content [facility] [#/volume] in normal styleCode="Bold Elizabeth Blood by ">Neutrophil Medical Automated count </content>67.5 Center % H<content styleCode="Ital ics"> (36-66 %)</content> Platelet mean 8.0-11.0 <content [facility] volume [Entitic styleCode="Bold Elizabeth volume] in Blood ">Mean Platelet Medical by Automated Volume Center count </content>10.5 FL<content styleCode="Ital ics"> (8.0-11.0 FL)</content> UNK 1.6-7.3 <content [facility] styleCode="[facility] ">Neutrophil Medical Count Center </content>5.24 KCUMM<content styleCode="Ital ics"> (1.6-7.3 KCUMM)</content > Monocytes 3.0-10.0 Above high <content [facility] [#/volume] in normal styleCode="Bold Elizabeth Blood by ">Monocyte Medical Automated count </content>12.4 Center % H<content styleCode="Ital ics"> (3.0-10.0 %)</content> UNK 1.0-4.8 <content [facility] styleCode="[facility]old Elizabeth ">Lymphocyte Medical Count Center </content>1.12 KCUMM<content styleCode="Ital ics"> (1.0-4.8 KCUMM)</content > Lymphocytes 24.0-44. Below low normal <content [facility] [#/volume] in 0 styleCode="Bold Elizabeth Blood by ">Lymphocyte Medical Automated count </content>14.5 Center % L<content styleCode="Ital ics"> (24.0-44.0 %)</content> Eosinophils 0-5.0 <content [facility] [#/volume] in styleCode="Bold Elizabeth Blood by ">Eosinophil Medical Automated count </content>4.5 Center %<content styleCode="Ital ics"> (0-5.0 %)</content> UNK 0.0-0.6 <content [facility] styleCode="[facility]old Elizabeth ">Eosinophil Medical Count Center </content>0.35 KCUMM<content styleCode="Ital ics"> (0.0-0.6 KCUMM)</content > Basophils 0.0-1.0 <content [facility] [#/volume] in styleCode="Bold Elizabeth Blood by ">Basophil Medical Automated count </content>0.3 Center %<content styleCode="Ital ics"> (0.0-1.0 %)</content> UNK 0.2-0.9 Above high <content [facility] normal styleCode="Bold Elizabeth ">Monocyte Medical Count Center </content>0.96 KCUMM H<content styleCode="Ital ics"> (0.2-0.9 KCUMM)</content > UNK 0.0-0.3 <content [facility] styleCode="Bold Elizabeth ">Basophil Medical Count Center </content>0.02 KCUMM<content styleCode="Ital ics"> (0.0-0.3 KCUMM)</content > UNK 0.0 <content [facility] styleCode="Bold Elizabeth ">Nucleated Red Medical Blood Cell Center Count </content>0.00 KCUMM<content styleCode="Ital ics"> (0.0 KCUMM)</content > UNK 0 <content [facility] styleCode="[facility]old Elizabeth ">Nucleated Red Medical Blood Cell Center </content>0.0 /100<content styleCode="Ital ics"> (0 /100)</content> UNK < 1 <content [facility] styleCode="[facility]old Elizabeth ">Immature Medical Granulocyte Center Ratio </content>0.8 %<content styleCode="Ital ics"> (< 1 %)</content> UNK 0-0.1 <content [facility] styleCode="[facility] ">Immature Medical Granulocyte Center Count </content>0.06 KCUMM<content styleCode="Ital ics"> (0-0.1 KCUMM)</content > ID Date Data Source GFR(Creatinine).[id number] 01/15/2019 12:40:00 PM EDT [facility] [facility] 0-0400 Name Value Range Interpretation Code Description Data Lyly rce(s) Supporting Document(s ) UNK > 60 Below low normal <content [facility] styleCode="Bold"> Medical Cent er EGFR </content>5 GFR L<content styleCode="Italic s"> (> 60 GFR)</content> ID Date Data Source ALBERMROUTINECCDA.[id number] 01/15/2019 12:40:00 PM EDT [facility] -0400 Name Value Range Interpretation Description Data Sup porting Code Source(s) Document(s ) UNK >= 1.0 <content [facility] styleCode="Bold Medical ">AG Ratio Center </content>1.0 <content styleCode="Ital ics"> (>= 1.0 )</content> UNK 2.3-3.5 <content [facility] styleCode="Bold Medical ">Globulin Center </content>3.2 G/DL<content styleCode="Ital ics"> (2.3-3.5 G/DL)</content> Protein 6.3-8.2 <content [facility] [Mass/volum styleCode="Bold Medical e] in Serum ">Total Protein Center or Plasma </content>6.3 G/DL<content styleCode="Ital ics"> (6.3-8.2 G/DL)</content> ID Date Data Source CardiacMarkers.[id number] 01/15/2019 12:40:00 PM EDT [facility] -0400 Name Value Range Interpretation Description Data Sup porting Code Source(s) Document(s ) Troponin < 0.034 <content [facility] I.cardiac styleCode="Bold Elizabeth [Mass/volume ">Troponin I Medical ] in Serum </content>0.019 Center or Plasma NG/ML<content styleCode="Ital ics"> (< 0.034 NG/ML)</content > ID Date Data Source BMP.[id number] 01/15/2019 12:40:00 PM EDT [facility] Name Value Range Interpretation Description Data Sup porting Code Source(s) Document(s ) Sodium 137-145 Below low <content [facility] [Moles/volume] in normal styleCode="Bold"> [facility] Serum or Plasma Sodium Medical </content>134 Center MEQ/L L<content styleCode="Italic s"> (137-145 MEQ/L)</content> Potassium 3.5-5.3 <content [facility] [Moles/volume] in styleCode="Bold"> Robert phs Serum or Plasma Potassium Medical </content>4.9 Center MEQ/L<content styleCode="Italic s"> (3.5-5.3 MEQ/L)</content> Carbon dioxide, 22-30 <content [facility] total styleCode="Bold"> [facility] [Moles/volume] in Carbon Dioxide Medical Serum or Plasma </content>26 Center MEQ/L<content styleCode="Italic s"> (22-30 MEQ/L)</content> Chloride 98-107 Below low <content [facility] [Moles/volume] in normal styleCode="Bold"> [facility] phs Serum or Plasma Chloride Medical </content>96 Center MEQ/L L<content styleCode="Italic s"> (98-107 MEQ/L)</content> UNK 7-17 Above high <content [facility] normal styleCode="Bold"> [facility] BUN </content>48 Medical MG/DL H<content Center styleCode="Italic s"> (7-17 MG/DL)</content> Calcium 8.4-10. <content [facility] [Mass/volume] in 2 styleCode="Bold"> Kash hs Serum or Plasma Calcium Medical </content>8.5 Center MG/DL<content styleCode="Italic s"> (8.4-10.2 MG/DL)</content> Creatinine 0.5-1.3 Above upper <content [facility] [Mass/volume] in panic limits styleCode="Bold"> Linda sephs Serum or Plasma Creatinine Medical </content><conten Center t styleCode="Bold"> 9.5 MG/DL HH</content><cont ent styleCode="Italic s"> (0.5-1.3 MG/DL)</content> Glucose 74-106 <content [facility] [Mass/volume] in styleCode="Bold"> Kash hs Serum or Plasma Glucose Medical </content>81 Center MG/DL<content styleCode="Italic s"> (74-106 MG/DL)</content> Bilirubin.total 0.2-1.3 Above high <content [facility] [Mass/volume] in normal styleCode="Bold"> Kash hs Serum or Plasma Bilirubin Total Medical </content>1.4 Center MG/DL H<content styleCode="Italic s"> (0.2-1.3 MG/DL)</content> Alanine 7-30 <content [facility] aminotransferase styleCode="Bold"> Kash hs [Enzymatic Alanine Medical activity/volume] Aminotransferase Center in Serum or Plasma (ALT) </content>22 IU/L<content styleCode="Italic s"> (7-30 IU/L)</content> UNK > 60 Below low <content [facility] normal styleCode="Bold"> [facility] EGFR </content>5 Medical GFR L<content Center styleCode="Italic s"> (> 60 GFR)</content> Alkaline 38-126 Above high <content [facility] phosphatase normal styleCode="Bold"> [facility] [Enzymatic Alkaline Medical activity/volume] Phosphatase (ALP) Cente r in Serum or Plasma </content>586 IU/L H<content styleCode="Italic s"> (38-126 IU/L)</content> Aspartate 14-36 <content [facility] aminotransferase styleCode="Bold"> Kash hs [Enzymatic Aspartate Medical activity/volume] Aminotransferase Center in Serum or Plasma (AST) </content>23 IU/L<content styleCode="Italic s"> (14-36 IU/L)</content> Albumin 3.5-5.0 Below low <content [facility] [Mass/volume] in normal styleCode="Bold"> Kash hs Serum or Plasma Albumin Medical </content>3.1 Center G/DL L<content styleCode="Italic s"> (3.5-5.0 G/DL)</content> ID Date Data Source CHMROUTINECCDA.[id number] 01/14/2019 12:40:00 PM [place] [facility] -0400 Name Value Range Interpretation Description Data Sup porting Code Source(s) Document(s ) Lactate 0.7-2.0 <content [facility] [Mass/volum styleCode="Bold Medical e] in Serum ">Lactic Acid Center or Plasma </content>1.4 MMOLL<content styleCode="Ital ics"> (0.7-2.0 MMOLL)</content > ID Date Data Source Hormones.[id number] 01/14/2019 06:11:00 AM EDT [facility] Name Value Range Interpretation Description Data Sup porting Code Source(s) Document(s ) Thyrotropin 0.465-4. <content [facility] [Units/volume] 68 styleCode="Geetha Elizabeth in Serum or d">Thyroid Medical Plasma by Stimulating Center Detection Hormone limit <= 0.05 </content>2.19 mIU/L MIU/L<content styleCode="Karrie lics"> (0.465-4.68 MIU/L)</conten t> ID Date Data Source Liver 01/14/2019 06:11:[address] [facility] Profile.[id number] Name Value Range Interpretation Description Data Sup porting Code Source(s) Document(s ) Alanine 7-30 <content [facility] aminotransferase styleCode="Bold"> Kash hs [Enzymatic Alanine Medical activity/volume] Aminotransferase Center in Serum or Plasma (ALT) </content>25 IU/L<content styleCode="Italic s"> (7-30 IU/L)</content> Aspartate 14-36 <content [facility] aminotransferase styleCode="Bold"> Kash hs [Enzymatic Aspartate Medical activity/volume] Aminotransferase Center in Serum or Plasma (AST) </content>25 IU/L<content styleCode="Italic s"> (14-36 IU/L)</content> Alkaline 38-126 Above high <content [facility] phosphatase normal styleCode="Bold"> [facility] [Enzymatic Alkaline Medical activity/volume] Phosphatase (ALP) Cente r in Serum or Plasma </content>633 IU/L H<content styleCode="Italic s"> (38-126 IU/L)</content> Bilirubin.total 0.2-1.3 Above high <content [facility] [Mass/volume] in normal styleCode="Bold"> Kash hs Serum or Plasma Bilirubin Total Medical </content>1.7 Center MG/DL H<content styleCode="Italic s"> (0.2-1.3 MG/DL)</content> Albumin 3.5-5.0 Below low <content [facility] [Mass/volume] in normal styleCode="Bold"> Kash hs Serum or Plasma Albumin Medical </content>3.1 Center G/DL L<content styleCode="Italic s"> (3.5-5.0 G/DL)</content> ID Date Data Source HematologyRou.[id number] 01/14/2019 06:11:00 AM EDT [place] [facility] 0400 Name Value Range Interpretation Description Data Sup porting Code Source(s) Document(s ) Leukocytes 4.4-11.0 <content [facility] [#/volume] in styleCode="Bold Elizabeth Blood by ">White Blood Medical Automated count Cell Count Center </content>9.20 KCUMM<content styleCode="Ital ics"> (4.4-11.0 KCUMM)</content > Erythrocytes 4.0-5.1 Below low normal <content [facility] [#/volume] in styleCode="Bold Elizabeth Blood by ">Red Blood Medical Automated count Cell Count Center </content>2.67 MCUMM L<content styleCode="Ital ics"> (4.0-5.1 MCUMM)</content > Erythrocyte mean 80.0-100 <content [facility] corpuscular .0 styleCode="Bold Elizabeth volume [Entitic ">Mean Medical volume] by Corpuscular Center Automated count Volume </content>91.4 FL<content styleCode="Ital ics"> (80.0-100.0 FL)</content> Hematocrit 36.0-46. Below low normal <content [facility] [Volume 0 styleCode="Bold Elizabeth Fraction] of ">Hematocrit Medical Blood by </content>24.4 Center Automated count % L<content styleCode="Ital ics"> (36.0-46.0 %)</content> Hemoglobin 12.3-16. Below low normal <content [facility] [Mass/volume] in 0 styleCode="Bold Elizabeth Blood ">Hemoglobin Medical </content>8.4 Center G/DL L<content styleCode="Ital ics"> (12.3-16.0 G/DL)</content> Erythrocyte mean 32.0-37. <content [facility] corpuscular 0 styleCode="Bold Elizabeth hemoglobin ">Mean Corpus. Medical concentration Hgb Center [Mass/volume] by Concentration Automated count (MCHC) </content>34.4 G/DL<content styleCode="Ital ics"> (32.0-37.0 G/DL)</content> Platelets 130-400 <content [facility] [#/volume] in styleCode="Bold Elizabeth Blood by ">Platelet Medical Automated count Count Center </content>256 KCUMM<content styleCode="Ital ics"> (130-400 KCUMM)</content > Erythrocyte 11.5-14. Above high <content [facility] distribution 5 normal styleCode="Bold Elizabeth width [Ratio] by ">Red Cell Medical Automated count Distribution Center Width </content>14.9 % H<content styleCode="Ital ics"> (11.5-14.5 %)</content> Erythrocyte mean 26.0-34. <content [facility] corpuscular 0 styleCode="Bold Elizabeth hemoglobin ">Mean Medical [Entitic mass] Corposcular Center by Automated Hemoglobin count </content>31.5 PG<content styleCode="Ital ics"> (26.0-34.0 PG)</content> Platelet mean 8.0-11.0 <content [facility] volume [Entitic styleCode="Bold Elizabeth volume] in Blood ">Mean Platelet Medical by Automated Volume Center count </content>10.2 FL<content styleCode="Ital ics"> (8.0-11.0 FL)</content> UNK 0 <content [facility] styleCode="Bold Elizabeth ">Nucleated Red Medical Blood Cell Center </content>0.0 /100<content styleCode="Ital ics"> (0 /100)</content> UNK 0.0 <content [facility] styleCode="Bold Elizabeth ">Nucleated Red Medical Blood Cell Center Count </content>0.00 KCUMM<content styleCode="Ital ics"> (0.0 KCUMM)</content > ID Date Data Source GFR(Creatinine).[id number] 01/14/2019 06:11:00 AM EDT [place] [facility] 0-0400 Name Value Range Interpretation Code Description Data Lyly rce(s) Supporting Document(s ) UNK > 60 Below low normal <content [facility] styleCode="Bold"> Medical Cent er EGFR </content>8 GFR L<content styleCode="Italic s"> (> 60 GFR)</content> ID Date Data Source Coagulation 01/14/2019 06:11:00 AM [facility] ical [place] Rout.[id number] EDT Name Value Range Interpretation Description Data Sup porting Code Source(s) Document(s ) UNK 9.0-13.0 <content [facility] styleCode="Bold" Elizabeth >Protime Medical </content>11.2 Center SEC<content styleCode="Itali cs"> (9.0-13.0 SEC)</content> INR in 0.80-1.2 <content [facility] Platelet poor 0 styleCode="Bold" [facility] plasma by >INR Medical Coagulation </content>1.01 Center assay #<content styleCode="Itali cs"> (0.80-1.20 #)</content> aPTT in 25.1-36. <content [facility] Platelet poor 5 styleCode="Bold" [facility] plasma by >Partial Medical Coagulation Thromboplastin Center assay Time </content>35.5 SEC<content styleCode="Itali cs"> (25.1-36.5 SEC)</content> ID Date Data Source BMP.[id number] 01/14/2019 06:11:00 AM EDT [facility] Name Value Range Interpretation Description Data Sup porting Code Source(s) Document(s ) Sodium 137-145 Below low <content [facility] [Moles/volume] in normal styleCode="Bold"> Robert phs Serum or Plasma Sodium Medical </content>136 Center MEQ/L L<content styleCode="Italic s"> (137-145 MEQ/L)</content> Potassium 3.5-5.3 <content [facility] [Moles/volume] in styleCode="Bold"> Robert phs Serum or Plasma Potassium Medical </content>4.0 Center MEQ/L<content styleCode="Italic s"> (3.5-5.3 MEQ/L)</content> Carbon dioxide, 22-30 <content [facility] total styleCode="Bold"> [facility] [Moles/volume] in Carbon Dioxide Medical Serum or Plasma </content>29 Center MEQ/L<content styleCode="Italic s"> (22-30 MEQ/L)</content> UNK 7-17 Above high <content [facility] normal styleCode="Bold"> [facility] BUN </content>31 Medical MG/DL H<content Center styleCode="Italic s"> (7-17 MG/DL)</content> Creatinine 0.5-1.3 Above high <content [facility] [Mass/volume] in normal styleCode="Bold"> Kash hs Serum or Plasma Creatinine Medical </content>6.8 Center MG/DL H<content styleCode="Italic s"> (0.5-1.3 MG/DL)</content> Chloride 98-107 Below low <content [facility] [Moles/volume] in normal styleCode="Bold"> [facility] Serum or Plasma Chloride Medical </content>96 Center MEQ/L L<content styleCode="Italic s"> (98-107 MEQ/L)</content> Glucose 74-106 <content [facility] [Mass/volume] in styleCode="Bold"> Kash hs Serum or Plasma Glucose Medical </content>92 Center MG/DL<content styleCode="Italic s"> (74-106 MG/DL)</content> Aspartate 14-36 <content [facility] aminotransferase styleCode="Bold"> [facility] hs [Enzymatic Aspartate Medical activity/volume] Aminotransferase Center in Serum or Plasma (AST) </content>25 IU/L<content styleCode="Italic s"> (14-36 IU/L)</content> UNK > 60 Below low <content [facility] normal styleCode="Bold"> [facility] EGFR </content>8 Medical GFR L<content Center styleCode="Italic s"> (> 60 GFR)</content> Alanine 7-30 <content [facility] aminotransferase styleCode="Bold"> Kash hs [Enzymatic Alanine Medical activity/volume] Aminotransferase Center in Serum or Plasma (ALT) </content>25 IU/L<content styleCode="Italic s"> (7-30 IU/L)</content> Calcium 8.4-10. <content [facility] [Mass/volume] in 2 styleCode="Bold"> Kash hs Serum or Plasma Calcium Medical </content>9.0 Center MG/DL<content styleCode="Italic s"> (8.4-10.2 MG/DL)</content> Albumin 3.5-5.0 Below low <content [facility] [Mass/volume] in normal styleCode="Bold"> Kash hs Serum or Plasma Albumin Medical </content>3.1 Center G/DL L<content styleCode="Italic s"> (3.5-5.0 G/DL)</content> Bilirubin.total 0.2-1.3 Above high <content [facility] [Mass/volume] in normal styleCode="Bold"> Kash hs Serum or Plasma Bilirubin Total Medical </content>1.7 Center MG/DL H<content styleCode="Italic s"> (0.2-1.3 MG/DL)</content> Alkaline 38-126 Above high <content [facility] phosphatase normal styleCode="Bold"> [facility] [Enzymatic Alkaline Medical activity/volume] Phosphatase (ALP) Cente r in Serum or Plasma </content>633 IU/L H<content styleCode="Italic s"> (38-126 IU/L)</content> ID Date Data Source CHMROUTINECCDA.[id number] 01/14/2019 06:11:00 AM [place] [facility] -0400 Name Value Range Interpretation Description Data Sup porting Code Source(s) Document(s ) UNK >= 1.0 Below low normal <content [facility] styleCode="Geetha Hendersons d">AG Ratio Medical </content>0.9 Center L<content styleCode="Karrie lics"> (>= 1.0 )</content> UNK 2.3-3.5 <content [facility] styleCode="Geetha Hendersons d">Globulin Medical </content>3.4 Center G/DL<content styleCode="Karrie lics"> (2.3-3.5 G/DL)</content > Magnesium 1.6-2.3 <content [facility] [Mass/volume] styleCode="Geetha Hendersons in Serum or d">Magnesium Medical Plasma </content>2.0 Center MG/DL<content styleCode="Karrie lics"> (1.6-2.3 MG/DL)</conten t> Phosphate 2.5-4.5 Above high normal <content [facility] [Mass/volume] styleCode="Geetha Hendersons in Serum or d">Phosphorus Medical Plasma </content>5.1 Center MG/DL H<content styleCode="Karrie lics"> (2.5-4.5 MG/DL)</conten t> Protein 6.3-8.2 <content [facility] [Mass/volume] styleCode="Geetha Hendersons in Serum or d">Total Medical Plasma Protein Center </content>6.5 G/DL<content styleCode="Karrie lics"> (6.3-8.2 G/DL)</content > ID Date Data Source Microbiology.[id number] 01/14/2019 01:45:00 AM EDT [facility] 400 Name Value Range Interpretation Code Description Data Lyly rce(s) Supporting Document(s ) UNK <item><content [facility] styleCode="Bold"> Medical Cent er Culture Status </content>
<t able><tbody><tr>< td>Specimen Number:</td><td>[id number]</td></tr ><tr><td>Sample Collection Date/Time: </td><td> 9 1:45 AM</td></tr><tr>< td>Specimen Source:</td><td>B LOOD</td></tr><tr ><td>Culture Report:</td><td>N O GROWTH 5 DAYS </td></tr><tr><td >Culture Status:</td><td>F inal </td></tr><tr><td >Blood Culture:</td><td> Collection Plate Date: 01/14/2019 01:48 </td></tr></tbody ></table></item> UNK <item><content [facility] styleCode="Bold"> Medical Cent er Culture Report </content>
<t able><tbody><tr>< td>Specimen Number:</td><td>[id number]</td></tr ><tr><td>Sample Collection Date/Time: </td><td> 9 1:45 AM</td></tr><tr>< td>Specimen Source:</td><td>B LOOD</td></tr><tr ><td>Blood Culture:</td><td> Collection Plate Date: 01/14/2019 01:48 </td></tr><tr><td >Culture Status:</td><td>F inal </td></tr><tr><td >Culture Report:</td><td>N O GROWTH 5 DAYS </td></tr></tbody ></table></item> ID Date Data Source MROUTINECCCARISSA.[id number] 01/14/2019 01:31:00 AM EDT [facility] -0400 Name Value Range Interpretation Description Data Sup porting Code Source(s) Document(s ) Lactate 0.7-2.0 <content [facility] [Mass/volum styleCode="Bold Medical e] in Serum ">Lactic Acid Center or Plasma </content>0.9 MMOLL<content styleCode="Ital ics"> (0.7-2.0 MMOLL)</content > ID Date Data Source Microbiology.[id number] 01/14/2019 01:30:00 AM EDT [facility] 400 Name Value Range Interpretation Code Description Data Lyly rce(s) Supporting Document(s ) UNK <item><content [facility] styleCode="Bold"> Medical [facility] er Culture Report </content>
<t able><tbody><tr>< td>Specimen Number:</td><td>[id number]</td></tr ><tr><td>Sample Collection Date/Time: </td><td> 9 1:30 AM</td></tr><tr>< td>Specimen Source:</td><td>B LOOD</td></tr><tr ><td>Blood Culture:</td><td> Collection Plate Date: 01/14/2019 01:38 </td></tr><tr><td >Culture Status:</td><td>F inal </td></tr><tr><td >Culture Report:</td><td>N O GROWTH 5 DAYS </td></tr></tbody ></table></item> UNK <item><content [facility] styleCode="Bold"> Medical [facility] er Culture Status </content>
<t able><tbody><tr>< td>Specimen Number:</td><td>[id number]</td></tr ><tr><td>Sample Collection Date/Time: </td><td> 9 1:30 AM</td></tr><tr>< td>Specimen Source:</td><td>B LOOD</td></tr><tr ><td>Blood Culture:</td><td> Collection Plate Date: 01/14/2019 01:38 </td></tr><tr><td >Culture Report:</td><td>N O GROWTH 5 DAYS </td></tr><tr><td >Culture Status:</td><td>F inal </td></tr></tbody ></table></item> ID Date Data Source CardiacMarkers.[id number] 01/13/2019 10:15:00 PM EDT [facility] -0400 Name Value Range Interpretation Description Data Sup porting Code Source(s) Document(s ) Troponin < 0.034 Above upper panic <content [facility] I.cardiac limits styleCode="Bold [facility] [Mass/volume ">Troponin I Medical ] in Serum </content><cont Center or Plasma ent styleCode="Bold ">0.035 NG/ML HH</content><co ntent styleCode="Ital ics"> (< 0.034 NG/ML)</content > ID Date Data Source HematologyRou.[id number] 01/13/2019 10:15:00 PM EDT [facility] 0400 Name Value Range Interpretation Description Data Sup porting Code Source(s) Document(s ) Leukocytes 4.4-11.0 Above high <content [facility] [#/volume] in normal styleCode="Bold [facility] Blood by ">White Blood Medical Automated count Cell Count Center </content>11.65 KCUMM H<content styleCode="Ital ics"> (4.4-11.0 KCUMM)</content > Erythrocytes 4.0-5.1 Below low normal <content [facility] [#/volume] in styleCode="Bold [facility] Blood by ">Red Blood Medical Automated count Cell Count Center </content>3.17 MCUMM L<content styleCode="Ital ics"> (4.0-5.1 MCUMM)</content > Hemoglobin 12.3-16. Below low normal <content [facility] [Mass/volume] in 0 styleCode="Bold [facility] Blood ">Hemoglobin Medical </content>9.9 Center G/DL L<content styleCode="Ital ics"> (12.3-16.0 G/DL)</content> Hematocrit 36.0-46. Below low normal <content [facility] [Volume 0 styleCode="Bold [facility] Fraction] of ">Hematocrit Medical Blood by </content>29.0 Center Automated count % L<content styleCode="Ital ics"> (36.0-46.0 %)</content> Erythrocyte mean 80.0-100 <content [facility] corpuscular .0 styleCode="Bold [facility] volume [Entitic ">Mean Medical volume] by Corpuscular Center Automated count Volume </content>91.5 FL<content styleCode="Ital ics"> (80.0-100.0 FL)</content> Erythrocyte mean 26.0-34. <content [facility] corpuscular 0 styleCode="Bold [facility] hemoglobin ">Mean Medical [Entitic mass] Corposcular Center by Automated Hemoglobin count </content>31.2 PG<content styleCode="Ital ics"> (26.0-34.0 PG)</content> Erythrocyte 11.5-14. Above high <content [facility] distribution 5 normal styleCode="Bold [facility] width [Ratio] by ">Red Cell Medical Automated count Distribution Center Width </content>14.9 % H<content styleCode="Ital ics"> (11.5-14.5 %)</content> Erythrocyte mean 32.0-37. <content [facility] corpuscular 0 styleCode="Bold [facility] hemoglobin ">Mean Corpus. Medical concentration Hgb Center [Mass/volume] by Concentration Automated count (MCHC) </content>34.1 G/DL<content styleCode="Ital ics"> (32.0-37.0 G/DL)</content> Platelets 130-400 <content [facility] [#/volume] in styleCode="Bold [facility] Blood by ">Platelet Medical Automated count Count Center </content>286 KCUMM<content styleCode="Ital ics"> (130-400 KCUMM)</content > UNK 0 <content [facility] styleCode="Bold [facility] ">Nucleated Red Medical Blood Cell Center </content>0.0 /100<content styleCode="Ital ics"> (0 /100)</content> Platelet mean 8.0-11.0 <content [facility] volume [Entitic styleCode="Bold [facility] volume] in Blood ">Mean Platelet Medical by Automated Volume Center count </content>9.8 FL<content styleCode="Ital ics"> (8.0-11.0 FL)</content> UNK 0.0 <content [facility] styleCode="Bold [facility] ">Nucleated Red Medical Blood Cell Center Count </content>0.00 KCUMM<content styleCode="Ital ics"> (0.0 KCUMM)</content > ID Date Data Source GFR(Creatinine).[id number] 01/13/2019 10:15:00 PM EDT [facility] 0-0400 Name Value Range Interpretation Code Description Data Lyly rce(s) Supporting Document(s ) UNK > 60 Below low normal <content [facility] styleCode="Bold"> Medical Cent er EGFR </content>10 GFR L<content styleCode="Italic s"> (> 60 GFR)</content> ID Date Data Source MROUTINECCDA.[id number] 01/13/2019 10:15:00 PM EDT [facility] -0400 Name Value Range Interpretation Description Data Sup porting Code Source(s) Document(s ) Natriuretic < 125 Above high normal <content [facility] peptide.B styleCode="Geetha [facility] prohormone d">NT Pro BNP Medical N-Terminal </content>4760 Center [Mass/volume] 0 PG/ML in Serum or H<content Plasma styleCode="Karrie lics"> (< 125 PG/ML)</conten t> ID Date Data Source [facility].[id number] 01/13/2019 10:15:00 PM EDT [facility] Name Value Range Interpretation Description Data Sup porting Code Source(s) Document(s ) Sodium 137-145 <content [facility] [Moles/volume] styleCode="Geetha [facility] in Serum or d">Sodium Medical Plasma </content>139 Center MEQ/L<content styleCode="Karrie lics"> (137-145 MEQ/L)</conten t> Carbon 22-30 <content [facility] dioxide, total styleCode="Geetha [facility] [Moles/volume] d">Carbon Medical in Serum or Dioxide Center Plasma </content>28 MEQ/L<content styleCode="Karrie lics"> (22-30 MEQ/L)</conten t> Chloride 98-107 Below low normal <content [facility] [Moles/volume] styleCode="Geetha Hendersons in Serum or d">Chloride Medical Plasma </content>95 Center MEQ/L L<content styleCode="Karrie lics"> (98-107 MEQ/L)</conten t> Potassium 3.5-5.3 <content [facility] [Moles/volume] styleCode="Geetha [facility] in Serum or d">Potassium Medical Plasma </content>4.2 Center MEQ/L<content styleCode="Karrie lics"> (3.5-5.3 MEQ/L)</conten t> Creatinine 0.5-1.3 Above high normal <content [facility] [Mass/volume] styleCode="Geetha [facility] in Serum or d">Creatinine Medical Plasma </content>5.5 Center MG/DL H<content styleCode="Karrie lics"> (0.5-1.3 MG/DL)</conten t> UNK 7-17 Above high normal <content [facility] styleCode="Geetha Hendersons d">BUN Medical </content>29 Center MG/DL H<content styleCode="Karrie lics"> (7-17 MG/DL)</conten t> Glucose 74-106 <content [facility] [Mass/volume] styleCode="Geetha Hendersons in Serum or d">Glucose Medical Plasma </content>103 Center MG/DL<content styleCode="Karrie lics"> (74-106 MG/DL)</conten t> Calcium 8.4-10.2 <content [facility] [Mass/volume] styleCode="Geetha Hendersons in Serum or d">Calcium Medical Plasma </content>9.4 Center MG/DL<content styleCode="Karrie lics"> (8.4-10.2 MG/DL)</conten t> UNK > 60 Below low normal <content [facility] styleCode="Geetha Hendersons d">EGFR Medical </content>10 Center GFR L<content styleCode="Karrie lics"> (> 60 GFR)</content> ID Date Data Source Liver 01/06/2019 06:35:[address] [facility] Profile.[id number] Name Value Range Interpretation Description Data Sup porting Code Source(s) Document(s ) Aspartate 14-36 <content [facility] aminotransferase styleCode="Bold"> Kash hs [Enzymatic Aspartate Medical activity/volume] Aminotransferase Center in Serum or Plasma (AST) </content>36 IU/L<content styleCode="Italic s"> (14-36 IU/L)</content> Alanine 7-30 Above high <content [facility] aminotransferase normal styleCode="Bold"> Kash hs [Enzymatic Alanine Medical activity/volume] Aminotransferase Center in Serum or Plasma (ALT) </content>50 IU/L H<content styleCode="Italic s"> (7-30 IU/L)</content> Bilirubin.total 0.2-1.3 <content [facility] [Mass/volume] in styleCode="Bold"> Kash hs Serum or Plasma Bilirubin Total Medical </content>0.8 Center MG/DL<content styleCode="Italic s"> (0.2-1.3 MG/DL)</content> Alkaline 38-126 Above high <content [facility] phosphatase normal styleCode="Bold"> [facility] [Enzymatic Alkaline Medical activity/volume] Phosphatase (ALP) Cente r in Serum or Plasma </content>436 IU/L H<content styleCode="Italic s"> (38-126 IU/L)</content> Albumin 3.5-5.0 Below low <content [facility] [Mass/volume] in normal styleCode="Bold"> Kash hs Serum or Plasma Albumin Medical </content>3.3 Center G/DL L<content styleCode="Italic s"> (3.5-5.0 G/DL)</content> ID Date Data Source HematologyRou.[id number] 01/06/2019 06:35:00 AM EDT [facility] 0400 Name Value Range Interpretation Description Data Sup porting Code Source(s) Document(s ) Leukocytes 4.4-11.0 <content [facility] [#/volume] in styleCode="Bold [facility] Blood by ">White Blood Medical Automated count Cell Count Center </content>8.36 KCUMM<content styleCode="Ital ics"> (4.4-11.0 KCUMM)</content > Erythrocyte mean 80.0-100 <content [facility] corpuscular .0 styleCode="Bold [facility] volume [Entitic ">Mean Medical volume] by Corpuscular Center Automated count Volume </content>98.2 FL<content styleCode="Ital ics"> (80.0-100.0 FL)</content> Erythrocytes 4.0-5.1 Below low normal <content [facility] [#/volume] in styleCode="Bold [facility] Blood by ">Red Blood Medical Automated count Cell Count Center </content>3.26 MCUMM L<content styleCode="Ital ics"> (4.0-5.1 MCUMM)</content > Hematocrit 36.0-46. Below low normal <content [facility] [Volume 0 styleCode="Bold [facility] Fraction] of ">Hematocrit Medical Blood by </content>32.0 Center Automated count % L<content styleCode="Ital ics"> (36.0-46.0 %)</content> Hemoglobin 12.3-16. Below low normal <content [facility] [Mass/volume] in 0 styleCode="Bold [facility] Blood ">Hemoglobin Medical </content>10.1 Center G/DL L<content styleCode="Ital ics"> (12.3-16.0 G/DL)</content> Erythrocyte 11.5-14. <content [facility] distribution 5 styleCode="Bold [facility] width [Ratio] by ">Red Cell Medical Automated count Distribution Center Width </content>13.5 %<content styleCode="Ital ics"> (11.5-14.5 %)</content> Erythrocyte mean 32.0-37. Below low normal <content [facility] corpuscular 0 styleCode="Bold [facility] hemoglobin ">Mean Corpus. Medical concentration Hgb Center [Mass/volume] by Concentration Automated count (MCHC) </content>31.6 G/DL L<content styleCode="Ital ics"> (32.0-37.0 G/DL)</content> Platelets 130-400 <content [facility] [#/volume] in styleCode="Bold [facility] Blood by ">Platelet Medical Automated count Count Center </content>380 KCUMM<content styleCode="Ital ics"> (130-400 KCUMM)</content > Erythrocyte mean 26.0-34. <content [facility] corpuscular 0 styleCode="Bold [facility] hemoglobin ">Mean Medical [Entitic mass] Corposcular Center by Automated Hemoglobin count </content>31.0 PG<content styleCode="Ital ics"> (26.0-34.0 PG)</content> Neutrophils 36-66 Above high <content [facility] [#/volume] in normal styleCode="Bold [facility] Blood by ">Neutrophil Medical Automated count </content>72.2 Center % H<content styleCode="Ital ics"> (36-66 %)</content> Platelet mean 8.0-11.0 <content [facility] volume [Entitic styleCode="Bold [facility] volume] in Blood ">Mean Platelet Medical by Automated Volume Center count </content>9.3 FL<content styleCode="Ital ics"> (8.0-11.0 FL)</content> Lymphocytes 24.0-44. Below low normal <content [facility] [#/volume] in 0 styleCode="Bold [facility] Blood by ">Lymphocyte Medical Automated count </content>13.4 Center % L<content styleCode="Ital ics"> (24.0-44.0 %)</content> UNK 1.6-7.3 <content [facility] styleCode="Bold [facility] ">Neutrophil Medical Count Center </content>6.03 KCUMM<content styleCode="Ital ics"> (1.6-7.3 KCUMM)</content > Eosinophils 0-5.0 <content [facility] [#/volume] in styleCode="Bold [facility] Blood by ">Eosinophil Medical Automated count </content>2.6 Center %<content styleCode="Ital ics"> (0-5.0 %)</content> UNK 0.2-0.9 <content [facility] styleCode="Bold [facility] ">Monocyte Medical Count Center </content>0.85 KCUMM<content styleCode="Ital ics"> (0.2-0.9 KCUMM)</content > UNK 1.0-4.8 <content [facility] styleCode="Bold [facility] ">Lymphocyte Medical Count Center </content>1.12 KCUMM<content styleCode="Ital ics"> (1.0-4.8 KCUMM)</content > Monocytes 3.0-10.0 Above high <content [facility] [#/volume] in normal styleCode="Bold [facility] Blood by ">Monocyte Medical Automated count </content>10.2 Center % H<content styleCode="Ital ics"> (3.0-10.0 %)</content> UNK 0.0-0.3 <content [facility] styleCode="Bold [facility] ">Basophil Medical Count Center </content>0.02 KCUMM<content styleCode="Ital ics"> (0.0-0.3 KCUMM)</content > Basophils 0.0-1.0 <content [facility] [#/volume] in styleCode="Bold [facility] Blood by ">Basophil Medical Automated count </content>0.2 Center %<content styleCode="Ital ics"> (0.0-1.0 %)</content> UNK 0 <content [facility] styleCode="Bold [facility] ">Nucleated Red Medical Blood Cell Center </content>0.0 /100<content styleCode="Ital ics"> (0 /100)</content> UNK 0.0-0.6 <content [facility] styleCode="Bold [facility] ">Eosinophil Medical Count Center </content>0.22 KCUMM<content styleCode="Ital ics"> (0.0-0.6 KCUMM)</content > UNK 0.0 <content [facility] styleCode="Bold [facility] ">Nucleated Red Medical Blood Cell Center Count </content>0.00 KCUMM<content styleCode="Ital ics"> (0.0 KCUMM)</content > UNK 0-0.1 Above high <content [facility] normal styleCode="Bold [facility] ">Immature Medical Granulocyte Center Count </content>0.12 KCUMM H<content styleCode="Ital ics"> (0-0.1 KCUMM)</content > UNK < 1 Above high <content [facility] normal styleCode="Bold [facility] ">Immature Medical Granulocyte Center Ratio </content>1.4 % H<content styleCode="Ital ics"> (< 1 %)</content> ID Date Data Source GFR(Creatinine).[id number] 01/06/2019 06:35:00 AM EDT [facility] 0-0400 Name Value Range Interpretation Code Description Data Lyly rce(s) Supporting Document(s ) UNK > 60 Below low normal <content [facility] styleCode="Bold"> Medical Cent er EGFR </content>11 GFR L<content styleCode="Italic s"> (> 60 GFR)</content> ID Date Data Source CHMROUTINECCDA.[id number] 01/06/2019 06:35:00 AM EDT [facility] -0400 Name Value Range Interpretation Description Data Sup porting Code Source(s) Document(s ) UNK >= 1.0 <content [facility] styleCode="Geetha [facility] d">AG Ratio Medical </content>1.1 Center <content styleCode="Karrie lics"> (>= 1.0 )</content> Protein 6.3-8.2 <content [facility] [Mass/volume] styleCode="Geetha [facility] in Serum or d">Total Medical Plasma Protein Center </content>6.4 G/DL<content styleCode="Karrie lics"> (6.3-8.2 G/DL)</content > UNK 2.3-3.5 <content [facility] styleCode="Geetha [facility] d">Globulin Medical </content>3.1 Center G/DL<content styleCode="Karrie lics"> (2.3-3.5 G/DL)</content > Phosphate 2.5-4.5 Above high normal <content [facility] [Mass/volume] styleCode="Geetha [facility] in Serum or d">Phosphorus Medical Plasma </content>5.0 Center MG/DL H<content styleCode="Karrie lics"> (2.5-4.5 MG/DL)</conten t> Magnesium 1.6-2.3 <content [facility] [Mass/volume] styleCode="Geetha [facility] in Serum or d">Magnesium Medical Plasma </content>2.1 Center MG/DL<content styleCode="Karrie lics"> (1.6-2.3 MG/DL)</conten t> ID Date Data Source [facility].[id number] 01/06/2019 06:35:00 AM EDT [facility] Name Value Range Interpretation Description Data Sup porting Code Source(s) Document(s ) Sodium 137-145 <content [facility] [Moles/volume] in styleCode="Bold"> [facility] Serum or Plasma Sodium Medical </content>140 Center MEQ/L<content styleCode="Italic s"> (137-145 MEQ/L)</content> UNK 7-17 Above high <content [facility] normal styleCode="Bold"> [facility] BUN </content>39 Medical MG/DL H<content Center styleCode="Italic s"> (7-17 MG/DL)</content> Carbon dioxide, 22-30 Above high <content [facility] total normal styleCode="Bold"> [facility] [Moles/volume] in Carbon Dioxide Medical Serum or Plasma </content>32 Center MEQ/L H<content styleCode="Italic s"> (22-30 MEQ/L)</content> Potassium 3.5-5.3 <content [facility] [Moles/volume] in styleCode="Bold"> [facility] Serum or Plasma Potassium Medical </content>4.5 Center MEQ/L<content styleCode="Italic s"> (3.5-5.3 MEQ/L)</content> Chloride 98-107 <content [facility] [Moles/volume] in styleCode="Bold"> [facility] Serum or Plasma Chloride Medical </content>98 Center MEQ/L<content styleCode="Italic s"> (98-107 MEQ/L)</content> Creatinine 0.5-1.3 Above high <content [facility] [Mass/volume] in normal styleCode="Bold"> Kash hs Serum or Plasma Creatinine Medical </content>4.9 Center MG/DL H<content styleCode="Italic s"> (0.5-1.3 MG/DL)</content> Aspartate 14-36 <content [facility] aminotransferase styleCode="Bold"> [facility] hs [Enzymatic Aspartate Medical activity/volume] Aminotransferase Center in Serum or Plasma (AST) </content>36 IU/L<content styleCode="Italic s"> (14-36 IU/L)</content> Calcium 8.4-10. <content [facility] [Mass/volume] in 2 styleCode="Bold"> Kash hs Serum or Plasma Calcium Medical </content>8.9 Center MG/DL<content styleCode="Italic s"> (8.4-10.2 MG/DL)</content> Glucose 74-106 <content [facility] [Mass/volume] in styleCode="Bold"> Kash hs Serum or Plasma Glucose Medical </content>92 Center MG/DL<content styleCode="Italic s"> (74-106 MG/DL)</content> Alanine 7-30 Above high <content [facility] aminotransferase normal styleCode="Bold"> [facility] hs [Enzymatic Alanine Medical activity/volume] Aminotransferase Center in Serum or Plasma (ALT) </content>50 IU/L H<content styleCode="Italic s"> (7-30 IU/L)</content> UNK > 60 Below low <content [facility] normal styleCode="Bold"> [facility] EGFR </content>11 Medical GFR L<content Center styleCode="Italic s"> (> 60 GFR)</content> Albumin 3.5-5.0 Below low <content [facility] [Mass/volume] in normal styleCode="Bold"> Kash hs Serum or Plasma Albumin Medical </content>3.3 Center G/DL L<content styleCode="Italic s"> (3.5-5.0 G/DL)</content> Alkaline 38-126 Above high <content [facility] phosphatase normal styleCode="Bold"> [facility] [Enzymatic Alkaline Medical activity/volume] Phosphatase (ALP) Cente r in Serum or Plasma </content>436 IU/L H<content styleCode="Italic s"> (38-126 IU/L)</content> Bilirubin.total 0.2-1.3 <content [facility] [Mass/volume] in styleCode="Bold"> Kash hs Serum or Plasma Bilirubin Total Medical </content>0.8 Center MG/DL<content styleCode="Italic s"> (0.2-1.3 MG/DL)</content> ID Date Data Source Liver 01/04/2019 05:10:[address] [facility] Profile.[id number] Name Value Range Interpretation Description Data Sup porting Code Source(s) Document(s ) Aspartate 14-36 Above high <content [facility] aminotransferase normal styleCode="Bold"> [facility] hs [Enzymatic Aspartate Medical activity/volume] Aminotransferase Center in Serum or Plasma (AST) </content>44 IU/L H<content styleCode="Italic s"> (14-36 IU/L)</content> Alanine 7-30 Above high <content [facility] aminotransferase normal styleCode="Bold"> [facility] hs [Enzymatic Alanine Medical activity/volume] Aminotransferase Center in Serum or Plasma (ALT) </content>54 IU/L H<content styleCode="Italic s"> (7-30 IU/L)</content> Albumin 3.5-5.0 Below low <content [facility] [Mass/volume] in normal styleCode="Bold"> Kash hs Serum or Plasma Albumin Medical </content>3.3 Center G/DL L<content styleCode="Italic s"> (3.5-5.0 G/DL)</content> Bilirubin.total 0.2-1.3 <content [facility] [Mass/volume] in styleCode="Bold"> Kash hs Serum or Plasma Bilirubin Total Medical </content>0.5 Center MG/DL<content styleCode="Italic s"> (0.2-1.3 MG/DL)</content> Alkaline 38-126 Above high <content [facility] phosphatase normal styleCode="Bold"> [facility] [Enzymatic Alkaline Medical activity/volume] Phosphatase (ALP) Cente r in Serum or Plasma </content>398 IU/L H<content styleCode="Italic s"> (38-126 IU/L)</content> ID Date Data Source HematologyRou.[id number] 01/04/2019 05:10:00 AM EDT [facility] 0400 Name Value Range Interpretation Description Data Sup porting Code Source(s) Document(s ) Leukocytes 4.4-11.0 <content [facility] [#/volume] in styleCode="Bold [facility] Blood by ">White Blood Medical Automated count Cell Count Center </content>7.56 KCUMM<content styleCode="Ital ics"> (4.4-11.0 KCUMM)</content > Erythrocytes 4.0-5.1 Below low normal <content [facility] [#/volume] in styleCode="Bold [facility] Blood by ">Red Blood Medical Automated count Cell Count Center </content>3.22 MCUMM L<content styleCode="Ital ics"> (4.0-5.1 MCUMM)</content > Erythrocyte mean 80.0-100 <content [facility] corpuscular .0 styleCode="Bold [facility] volume [Entitic ">Mean Medical volume] by Corpuscular Center Automated count Volume </content>100.3 FL<content styleCode="Ital ics"> (80.0-100.0 FL)</content> Hemoglobin 12.3-16. Below low normal <content [facility] [Mass/volume] in 0 styleCode="Bold [facility] Blood ">Hemoglobin Medical </content>10.1 Center G/DL L<content styleCode="Ital ics"> (12.3-16.0 G/DL)</content> Hematocrit 36.0-46. Below low normal <content [facility] [Volume 0 styleCode="Bold [facility] Fraction] of ">Hematocrit Medical Blood by </content>32.3 Center Automated count % L<content styleCode="Ital ics"> (36.0-46.0 %)</content> Erythrocyte mean 26.0-34. <content [facility] corpuscular 0 styleCode="Bold [facility] hemoglobin ">Mean Medical [Entitic mass] Corposcular Center by Automated Hemoglobin count </content>31.4 PG<content styleCode="Ital ics"> (26.0-34.0 PG)</content> Erythrocyte mean 32.0-37. Below low normal <content [facility] corpuscular 0 styleCode="Bold [facility] hemoglobin ">Mean Corpus. Medical concentration Hgb Center [Mass/volume] by Concentration Automated count (MCHC) </content>31.3 G/DL L<content styleCode="Ital ics"> (32.0-37.0 G/DL)</content> Erythrocyte 11.5-14. <content [facility] distribution 5 styleCode="Bold [facility] width [Ratio] by ">Red Cell Medical Automated count Distribution Center Width </content>13.5 %<content styleCode="Ital ics"> (11.5-14.5 %)</content> Platelets 130-400 Above high <content [facility] [#/volume] in normal styleCode="Bold [facility] Blood by ">Platelet Medical Automated count Count Center </content>403 KCUMM H<content styleCode="Ital ics"> (130-400 KCUMM)</content > Platelet mean 8.0-11.0 <content [facility] volume [Entitic styleCode="Bold [facility] volume] in Blood ">Mean Platelet Medical by Automated Volume Center count </content>9.6 FL<content styleCode="Ital ics"> (8.0-11.0 FL)</content> Lymphocytes 24.0-44. Below low normal <content [facility] [#/volume] in 0 styleCode="Bold [facility] Blood by ">Lymphocyte Medical Automated count </content>15.7 Center % L<content styleCode="Ital ics"> (24.0-44.0 %)</content> UNK 1.6-7.3 <content [facility] styleCode="Bold [facility] ">Neutrophil Medical Count Center </content>5.38 KCUMM<content styleCode="Ital ics"> (1.6-7.3 KCUMM)</content > Neutrophils 36-66 Above high <content [facility] [#/volume] in normal styleCode="Bold [facility] Blood by ">Neutrophil Medical Automated count </content>71.2 Center % H<content styleCode="Ital ics"> (36-66 %)</content> Eosinophils 0-5.0 <content [facility] [#/volume] in styleCode="Bold [facility] Blood by ">Eosinophil Medical Automated count </content>0.3 Center %<content styleCode="Ital ics"> (0-5.0 %)</content> UNK 1.0-4.8 <content [facility] styleCode="Bold [facility] ">Lymphocyte Medical Count Center </content>1.19 KCUMM<content styleCode="Ital ics"> (1.0-4.8 KCUMM)</content > Monocytes 3.0-10.0 Above high <content [facility] [#/volume] in normal styleCode="Bold [facility] Blood by ">Monocyte Medical Automated count </content>10.8 Center % H<content styleCode="Ital ics"> (3.0-10.0 %)</content> UNK 0.2-0.9 <content [facility] styleCode="Bold [facility] ">Monocyte Medical Count Center </content>0.82 KCUMM<content styleCode="Ital ics"> (0.2-0.9 KCUMM)</content > UNK 0 <content [facility] styleCode="Bold [facility] ">Nucleated Red Medical Blood Cell Center </content>0.0 /100<content styleCode="Ital ics"> (0 /100)</content> UNK 0.0-0.6 <content [facility] styleCode="Bold [facility] ">Eosinophil Medical Count Center </content>0.02 KCUMM<content styleCode="Ital ics"> (0.0-0.6 KCUMM)</content > Basophils 0.0-1.0 <content [facility] [#/volume] in styleCode="Bold [facility] Blood by ">Basophil Medical Automated count </content>0.1 Center %<content styleCode="Ital ics"> (0.0-1.0 %)</content> UNK 0.0-0.3 <content [facility] styleCode="Bold [facility] ">Basophil Medical Count Center </content>0.01 KCUMM<content styleCode="Ital ics"> (0.0-0.3 KCUMM)</content > UNK 0-0.1 Above high <content [facility] normal styleCode="Bold [facility] ">Immature Medical Granulocyte Center Count </content>0.14 KCUMM H<content styleCode="Ital ics"> (0-0.1 KCUMM)</content > UNK < 1 Above high <content [facility] normal styleCode="Bold [facility] ">Immature Medical Granulocyte Center Ratio </content>1.9 % H<content styleCode="Ital ics"> (< 1 %)</content> UNK 0.0 <content [facility] styleCode="Bold [facility] ">Nucleated Red Medical Blood Cell Center Count </content>0.00 KCUMM<content styleCode="Ital ics"> (0.0 KCUMM)</content > ID Date Data Source GFR(Creatinine).[id number] 01/04/2019 05:10:00 AM EDT [facility] 0-0400 Name Value Range Interpretation Code Description Data Lyly rce(s) Supporting Document(s ) UNK > 60 Below low normal <content [facility] styleCode="Bold"> Medical Cent er EGFR </content>13 GFR L<content styleCode="Italic s"> (> 60 GFR)</content> ID Date Data Source WILD.[id number] 01/04/2019 05:10:00 AM EDT [facility] -0400 Name Value Range Interpretation Description Data Sup porting Code Source(s) Document(s ) Magnesium 1.6-2.3 <content [facility] [Mass/volume] styleCode="Geetha Elizabeth in Serum or d">Magnesium Medical Plasma </content>2.2 Center MG/DL<content styleCode="Karrie lics"> (1.6-2.3 MG/DL)</conten t> UNK 2.3-3.5 <content [facility] styleCode="Geetha Elizabeth d">Globulin Medical </content>3.2 Center G/DL<content styleCode="Karrie lics"> (2.3-3.5 G/DL)</content > Phosphate 2.5-4.5 Above high normal <content [facility] [Mass/volume] styleCode="Geetha [facility] in Serum or d">Phosphorus Medical Plasma </content>5.3 Center MG/DL H<content styleCode="Karrie lics"> (2.5-4.5 MG/DL)</conten t> Protein 6.3-8.2 <content [facility] [Mass/volume] styleCode="Geetha Hendersons in Serum or d">Total Medical Plasma Protein Center </content>6.5 G/DL<content styleCode="Karrie lics"> (6.3-8.2 G/DL)</content > UNK >= 1.0 <content [facility] styleCode="Geetha Hendersons d">AG Ratio Medical </content>1.0 Center <content styleCode="Karrie lics"> (>= 1.0 )</content> ID Date Data Source [facility].[id number] 01/04/2019 05:10:00 AM EDT [facility] Name Value Range Interpretation Description Data Sup porting Code Source(s) Document(s ) Carbon dioxide, 22-30 Above high <content [facility] total normal styleCode="Bold"> [facility] [Moles/volume] in Carbon Dioxide Medical Serum or Plasma </content>32 Center MEQ/L H<content styleCode="Italic s"> (22-30 MEQ/L)</content> Sodium 137-145 <content [facility] [Moles/volume] in styleCode="Bold"> [facility] Serum or Plasma Sodium Medical </content>140 Center MEQ/L<content styleCode="Italic s"> (137-145 MEQ/L)</content> Potassium 3.5-5.3 <content [facility] [Moles/volume] in styleCode="Bold"> [facility] Serum or Plasma Potassium Medical </content>4.5 Center MEQ/L<content styleCode="Italic s"> (3.5-5.3 MEQ/L)</content> Chloride 98-107 Below low <content [facility] [Moles/volume] in normal styleCode="Bold"> [facility] Serum or Plasma Chloride Medical </content>96 Center MEQ/L L<content styleCode="Italic s"> (98-107 MEQ/L)</content> Glucose 74-106 <content [facility] [Mass/volume] in styleCode="Bold"> Kash hs Serum or Plasma Glucose Medical </content>84 Center MG/DL<content styleCode="Italic s"> (74-106 MG/DL)</content> UNK > 60 Below low <content [facility] normal styleCode="Bold"> [facility] EGFR </content>13 Medical GFR L<content Center styleCode="Italic s"> (> 60 GFR)</content> Calcium 8.4-10. <content [facility] [Mass/volume] in 2 styleCode="Bold"> Kash hs Serum or Plasma Calcium Medical </content>8.7 Center MG/DL<content styleCode="Italic s"> (8.4-10.2 MG/DL)</content> UNK 7-17 Above high <content [facility] normal styleCode="Bold"> [facility] BUN </content>42 Medical MG/DL H<content Center styleCode="Italic s"> (7-17 MG/DL)</content> Creatinine 0.5-1.3 Above high <content [facility] [Mass/volume] in normal styleCode="Bold"> Kash hs Serum or Plasma Creatinine Medical </content>4.3 Center MG/DL H<content styleCode="Italic s"> (0.5-1.3 MG/DL)</content> Alkaline 38-126 Above high <content [facility] phosphatase normal styleCode="Bold"> [facility] [Enzymatic Alkaline Medical activity/volume] Phosphatase (ALP) Cente r in Serum or Plasma </content>398 IU/L H<content styleCode="Italic s"> (38-126 IU/L)</content> Alanine 7-30 Above high <content [facility] aminotransferase normal styleCode="Bold"> Kash hs [Enzymatic Alanine Medical activity/volume] Aminotransferase Center in Serum or Plasma (ALT) </content>54 IU/L H<content styleCode="Italic s"> (7-30 IU/L)</content> Bilirubin.total 0.2-1.3 <content [facility] [Mass/volume] in styleCode="Bold"> Kash hs Serum or Plasma Bilirubin Total Medical </content>0.5 Center MG/DL<content styleCode="Italic s"> (0.2-1.3 MG/DL)</content> Aspartate 14-36 Above high <content [facility] aminotransferase normal styleCode="Bold"> Kash hs [Enzymatic Aspartate Medical activity/volume] Aminotransferase Center in Serum or Plasma (AST) </content>44 IU/L H<content styleCode="Italic s"> (14-36 IU/L)</content> Albumin 3.5-5.0 Below low <content [facility] [Mass/volume] in normal styleCode="Bold"> Kash hs Serum or Plasma Albumin Medical </content>3.3 Center G/DL L<content styleCode="Italic s"> (3.5-5.0 G/DL)</content> ID Date Data Source Liver 01/03/2019 06:37:[address] [facility] Profile.[id number] Name Value Range Interpretation Description Data Sup porting Code Source(s) Document(s ) Aspartate 14-36 <content [facility] aminotransferase styleCode="Bold"> Kash hs [Enzymatic Aspartate Medical activity/volume] Aminotransferase Center in Serum or Plasma (AST) </content>32 IU/L<content styleCode="Italic s"> (14-36 IU/L)</content> Alanine 7-30 Above high <content [facility] aminotransferase normal styleCode="Bold"> Kash hs [Enzymatic Alanine Medical activity/volume] Aminotransferase Center in Serum or Plasma (ALT) </content>45 IU/L H<content styleCode="Italic s"> (7-30 IU/L)</content> Albumin 3.5-5.0 <content [facility] [Mass/volume] in styleCode="Bold"> Kash hs Serum or Plasma Albumin Medical </content>4.0 Center G/DL<content styleCode="Italic s"> (3.5-5.0 G/DL)</content> Alkaline 38-126 Above high <content [facility] phosphatase normal styleCode="Bold"> [facility] [Enzymatic Alkaline Medical activity/volume] Phosphatase (ALP) Cente r in Serum or Plasma </content>493 IU/L H<content styleCode="Italic s"> (38-126 IU/L)</content> Bilirubin.total 0.2-1.3 <content [facility] [Mass/volume] in styleCode="Bold"> Kash hs Serum or Plasma Bilirubin Total Medical </content>0.8 Center MG/DL<content styleCode="Italic s"> (0.2-1.3 MG/DL)</content> ID Date Data Source HematologyRou.[id number] 01/03/2019 06:37:00 AM EDT [facility] 0400 Name Value Range Interpretation Description Data Sup porting Code Source(s) Document(s ) Erythrocytes 4.0-5.1 Below low normal <content [facility] [#/volume] in styleCode="Bold [facility] Blood by ">Red Blood Medical Automated count Cell Count Center </content>3.20 MCUMM L<content styleCode="Ital ics"> (4.0-5.1 MCUMM)</content > Leukocytes 4.4-11.0 <content [facility] [#/volume] in styleCode="Bold [facility] Blood by ">White Blood Medical Automated count Cell Count Center </content>6.70 KCUMM<content styleCode="Ital ics"> (4.4-11.0 KCUMM)</content > Hematocrit 36.0-46. Below low normal <content [facility] [Volume 0 styleCode="Bold [facility] Fraction] of ">Hematocrit Medical Blood by </content>31.9 Center Automated count % L<content styleCode="Ital ics"> (36.0-46.0 %)</content> Erythrocyte mean 80.0-100 <content [facility] corpuscular .0 styleCode="Bold [facility] volume [Entitic ">Mean Medical volume] by Corpuscular Center Automated count Volume </content>99.7 FL<content styleCode="Ital ics"> (80.0-100.0 FL)</content> Hemoglobin 12.3-16. Below low normal <content [facility] [Mass/volume] in 0 styleCode="Bold [facility] Blood ">Hemoglobin Medical </content>10.2 Center G/DL L<content styleCode="Ital ics"> (12.3-16.0 G/DL)</content> Erythrocyte mean 32.0-37. <content [facility] corpuscular 0 styleCode="Bold [facility] hemoglobin ">Mean Corpus. Medical concentration Hgb Center [Mass/volume] by Concentration Automated count (MCHC) </content>32.0 G/DL<content styleCode="Ital ics"> (32.0-37.0 G/DL)</content> Platelets 130-400 <content [facility] [#/volume] in styleCode="Bold [facility] Blood by ">Platelet Medical Automated count Count Center </content>398 KCUMM<content styleCode="Ital ics"> (130-400 KCUMM)</content > Erythrocyte 11.5-14. <content [facility] distribution 5 styleCode="Bold Elizabeth width [Ratio] by ">Red Cell Medical Automated count Distribution Center Width </content>13.6 %<content styleCode="Ital ics"> (11.5-14.5 %)</content> Erythrocyte mean 26.0-34. <content [facility] corpuscular 0 styleCode="Bold [facility] hemoglobin ">Mean Medical [Entitic mass] Corposcular Center by Automated Hemoglobin count </content>31.9 PG<content styleCode="Ital ics"> (26.0-34.0 PG)</content> UNK 1.6-7.3 <content [facility] styleCode="Bold Elizabeth ">Neutrophil Medical Count Center </content>5.35 KCUMM<content styleCode="Ital ics"> (1.6-7.3 KCUMM)</content > Platelet mean 8.0-11.0 <content [facility] volume [Entitic styleCode="Bold Elizabeth volume] in Blood ">Mean Platelet Medical by Automated Volume Center count </content>9.4 FL<content styleCode="Ital ics"> (8.0-11.0 FL)</content> Neutrophils 36-66 Above high <content [facility] [#/volume] in normal styleCode="Bold [facility] Blood by ">Neutrophil Medical Automated count </content>79.9 Center % H<content styleCode="Ital ics"> (36-66 %)</content> UNK 0.2-0.9 <content [facility] styleCode="Bold Elizabeth ">Monocyte Medical Count Center </content>0.48 KCUMM<content styleCode="Ital ics"> (0.2-0.9 KCUMM)</content > Monocytes 3.0-10.0 <content [facility] [#/volume] in styleCode="Bold [facility] Blood by ">Monocyte Medical Automated count </content>7.2 Center %<content styleCode="Ital ics"> (3.0-10.0 %)</content> Lymphocytes 24.0-44. Below low normal <content [facility] [#/volume] in 0 styleCode="Bold [facility] Blood by ">Lymphocyte Medical Automated count </content>11.6 Center % L<content styleCode="Ital ics"> (24.0-44.0 %)</content> UNK 1.0-4.8 Below low normal <content [facility] styleCode="Bold Elizabeth ">Lymphocyte Medical Count Center </content>0.78 KCUMM L<content styleCode="Ital ics"> (1.0-4.8 KCUMM)</content > UNK 0.0-0.6 <content [facility] styleCode="Bold Elizabeth ">Eosinophil Medical Count Center </content>0.00 KCUMM<content styleCode="Ital ics"> (0.0-0.6 KCUMM)</content > Eosinophils 0-5.0 <content [facility] [#/volume] in styleCode="Bold [facility] Blood by ">Eosinophil Medical Automated count </content>0.0 Center %<content styleCode="Ital ics"> (0-5.0 %)</content> Basophils 0.0-1.0 <content [facility] [#/volume] in styleCode="Bold [facility] Blood by ">Basophil Medical Automated count </content>0.0 Center %<content styleCode="Ital ics"> (0.0-1.0 %)</content> UNK 0.0-0.3 <content [facility] styleCode="Bold Elizabeth ">Basophil Medical Count Center </content>0.00 KCUMM<content styleCode="Ital ics"> (0.0-0.3 KCUMM)</content > UNK 0.0 <content [facility] styleCode="Bold Elizabeth ">Nucleated Red Medical Blood Cell Center Count </content>0.00 KCUMM<content styleCode="Ital ics"> (0.0 KCUMM)</content > UNK 0 <content [facility] styleCode="Bold Elizabeth ">Nucleated Red Medical Blood Cell Center </content>0.0 /100<content styleCode="Ital ics"> (0 /100)</content> UNK 0-0.1 <content [facility] styleCode="Bold Elizabeth ">Immature Medical Granulocyte Center Count </content>0.09 KCUMM<content styleCode="Ital ics"> (0-0.1 KCUMM)</content > UNK < 1 Above high <content [facility] normal styleCode="Bold Elizabeth ">Immature Medical Granulocyte Center Ratio </content>1.3 % H<content styleCode="Ital ics"> (< 1 %)</content> ID Date Data Source GFR(Creatinine).[id number] 01/03/2019 06:37:00 AM EDT [facility] 0-0400 Name Value Range Interpretation Code Description Data Lyly rce(s) Supporting Document(s ) UNK > 60 Below low normal <content [facility] styleCode="Bold"> Medical Cent er EGFR </content>8 GFR L<content styleCode="Italic s"> (> 60 GFR)</content> ID Date Data Source CHMROUTINECCDA.[id number] 01/03/2019 06:37:00 AM EDT [facility] -0400 Name Value Range Interpretation Description Data Sup porting Code Source(s) Document(s ) UNK 2.3-3.5 Above high normal <content [facility] styleCode="Geetha Elizabeth d">Globulin Medical </content>3.6 Center G/DL H<content styleCode="Karrie lics"> (2.3-3.5 G/DL)</content > Magnesium 1.6-2.3 Above high normal <content [facility] [Mass/volume] styleCode="Geetha Hendersons in Serum or d">Magnesium Medical Plasma </content>2.6 Center MG/DL H<content styleCode="Karrie lics"> (1.6-2.3 MG/DL)</conten t> UNK >= 1.0 <content [facility] styleCode="eGetha Hendersons d">AG Ratio Medical </content>1.1 Center <content styleCode="Karrie lics"> (>= 1.0 )</content> Protein 6.3-8.2 <content [facility] [Mass/volume] styleCode="eGetha Hendersons in Serum or d">Total Medical Plasma Protein Center </content>7.6 G/DL<content styleCode="Karrie lics"> (6.3-8.2 G/DL)</content > Phosphate 2.5-4.5 Above high normal <content [facility] [Mass/volume] styleCode="Geetha Hendersons in Serum or d">Phosphorus Medical Plasma </content>5.5 Center MG/DL H<content styleCode="Karrie lics"> (2.5-4.5 MG/DL)</conten t> ID Date Data Source [facility].[id number] 01/03/2019 06:37:00 AM EDT [facility] Name Value Range Interpretation Description Data Sup porting Code Source(s) Document(s ) Potassium 3.5-5.3 Above high <content [facility] [Moles/volume] in normal styleCode="Bold"> [facility] Serum or Plasma Potassium Medical </content>5.6 Center MEQ/L H<content styleCode="Italic s"> (3.5-5.3 MEQ/L)</content> Sodium 137-145 <content [facility] [Moles/volume] in styleCode="Bold"> [facility] Serum or Plasma Sodium Medical </content>137 Center MEQ/L<content styleCode="Italic s"> (137-145 MEQ/L)</content> Carbon dioxide, 22-30 <content [facility] total styleCode="Bold"> [facility] [Moles/volume] in Carbon Dioxide Medical Serum or Plasma </content>28 Center MEQ/L<content styleCode="Italic s"> (22-30 MEQ/L)</content> Chloride 98-107 Below low <content [facility] [Moles/volume] in normal styleCode="Bold"> [facility] Serum or Plasma Chloride Medical </content>94 Center MEQ/L L<content styleCode="Italic s"> (98-107 MEQ/L)</content> UNK 7-17 Above high <content [facility] normal styleCode="Bold"> [facility] BUN </content>72 Medical MG/DL H<content Center styleCode="Italic s"> (7-17 MG/DL)</content> Creatinine 0.5-1.3 Above high <content [facility] [Mass/volume] in normal styleCode="Bold"> Kash hs Serum or Plasma Creatinine Medical </content>6.5 Center MG/DL H<content styleCode="Italic s"> (0.5-1.3 MG/DL)</content> Alanine 7-30 Above high <content [facility] aminotransferase normal styleCode="Bold"> Kash hs [Enzymatic Alanine Medical activity/volume] Aminotransferase Center in Serum or Plasma (ALT) </content>45 IU/L H<content styleCode="Italic s"> (7-30 IU/L)</content> Glucose 74-106 Above high <content [facility] [Mass/volume] in normal styleCode="Bold"> Kash hs Serum or Plasma Glucose Medical </content>134 Center MG/DL H<content styleCode="Italic s"> (74-106 MG/DL)</content> Aspartate 14-36 <content [facility] aminotransferase styleCode="Bold"> Kash hs [Enzymatic Aspartate Medical activity/volume] Aminotransferase Center in Serum or Plasma (AST) </content>32 IU/L<content styleCode="Italic s"> (14-36 IU/L)</content> UNK > 60 Below low <content [facility] normal styleCode="Bold"> [facility] EGFR </content>8 Medical GFR L<content Center styleCode="Italic s"> (> 60 GFR)</content> Calcium 8.4-10. <content [facility] [Mass/volume] in 2 styleCode="Bold"> Kash hs Serum or Plasma Calcium Medical </content>8.9 Center MG/DL<content styleCode="Italic s"> (8.4-10.2 MG/DL)</content> Bilirubin.total 0.2-1.3 <content [facility] [Mass/volume] in styleCode="Bold"> Kash hs Serum or Plasma Bilirubin Total Medical </content>0.8 Center MG/DL<content styleCode="Italic s"> (0.2-1.3 MG/DL)</content> Alkaline 38-126 Above high <content [facility] phosphatase normal styleCode="Bold"> [facility] [Enzymatic Alkaline Medical activity/volume] Phosphatase (ALP) Cente r in Serum or Plasma </content>493 IU/L H<content styleCode="Italic s"> (38-126 IU/L)</content> Albumin 3.5-5.0 <content [facility] [Mass/volume] in styleCode="Bold"> Kash hs Serum or Plasma Albumin Medical </content>4.0 Center G/DL<content styleCode="Italic s"> (3.5-5.0 G/DL)</content> ID Date Data Source Liver 01/02/2019 05:15:[address] [facility] Profile.[id number] Name Value Range Interpretation Description Data Sup porting Code Source(s) Document(s ) Alanine 7-30 Above high <content [facility] aminotransferase normal styleCode="Bold"> Kash hs [Enzymatic Alanine Medical activity/volume] Aminotransferase Center in Serum or Plasma (ALT) </content>46 IU/L H<content styleCode="Italic s"> (7-30 IU/L)</content> Aspartate 14-36 Above high <content [facility] aminotransferase normal styleCode="Bold"> Kash hs [Enzymatic Aspartate Medical activity/volume] Aminotransferase Center in Serum or Plasma (AST) </content>46 IU/L H<content styleCode="Italic s"> (14-36 IU/L)</content> Bilirubin.total 0.2-1.3 <content [facility] [Mass/volume] in styleCode="Bold"> Kash hs Serum or Plasma Bilirubin Total Medical </content>0.7 Center MG/DL<content styleCode="Italic s"> (0.2-1.3 MG/DL)</content> Alkaline 38-126 Above high <content [facility] phosphatase normal styleCode="Bold"> [facility] [Enzymatic Alkaline Medical activity/volume] Phosphatase (ALP) Cente r in Serum or Plasma </content>551 IU/L H<content styleCode="Italic s"> (38-126 IU/L)</content> Albumin 3.5-5.0 <content [facility] [Mass/volume] in styleCode="Bold"> Kash hs Serum or Plasma Albumin Medical </content>3.9 Center G/DL<content styleCode="Italic s"> (3.5-5.0 G/DL)</content> ID Date Data Source HematologyRou.[id number] 01/02/2019 05:15:00 AM EDT [facility] 0400 Name Value Range Interpretation Description Data Sup porting Code Source(s) Document(s ) Erythrocytes 4.0-5.1 Below low normal <content [facility] [#/volume] in styleCode="Bold [facility] Blood by ">Red Blood Medical Automated count Cell Count Center </content>3.18 MCUMM L<content styleCode="Ital ics"> (4.0-5.1 MCUMM)</content > Hemoglobin 12.3-16. Below low normal <content [facility] [Mass/volume] in 0 styleCode="Bold Elizabeth Blood ">Hemoglobin Medical </content>10.0 Center G/DL L<content styleCode="Ital ics"> (12.3-16.0 G/DL)</content> Leukocytes 4.4-11.0 <content [facility] [#/volume] in styleCode="Bold [facility] Blood by ">White Blood Medical Automated count Cell Count Center </content>6.24 KCUMM<content styleCode="Ital ics"> (4.4-11.0 KCUMM)</content > Erythrocyte mean 32.0-37. Below low normal <content [facility] corpuscular 0 styleCode="Bold Elizabeth hemoglobin ">Mean Corpus. Medical [facility] [Mass/volume] by Concentration Automated count (MCHC) </content>31.5 G/DL L<content styleCode="Ital ics"> (32.0-37.0 G/DL)</content> Erythrocyte mean 80.0-100 <content [facility] corpuscular .0 styleCode="Bold Elizabeth volume [Entitic ">Mean Medical volume] by Corpuscular Center Automated count Volume </content>99.7 FL<content styleCode="Ital ics"> (80.0-100.0 FL)</content> Hematocrit 36.0-46. Below low normal <content [facility] [Volume 0 styleCode="Bold Elizabeth Fraction] of ">Hematocrit Medical Blood by </content>31.7 Center Automated count % L<content styleCode="Ital ics"> (36.0-46.0 %)</content> Erythrocyte mean 26.0-34. <content [facility] corpuscular 0 styleCode="Bold Elizabeth hemoglobin ">Mean Medical [Entitic mass] Corposcular Center by Automated Hemoglobin count </content>31.4 PG<content styleCode="Ital ics"> (26.0-34.0 PG)</content> Platelet mean 8.0-11.0 <content [facility] volume [Entitic styleCode="Bold Elizabeth volume] in Blood ">Mean Platelet Medical by Automated Volume Center count </content>9.8 FL<content styleCode="Ital ics"> (8.0-11.0 FL)</content> Erythrocyte 11.5-14. <content [facility] distribution 5 styleCode="Bold Elizabeth width [Ratio] by ">Red Cell Medical Automated count Distribution Center Width </content>13.7 %<content styleCode="Ital ics"> (11.5-14.5 %)</content> Platelets 130-400 <content [facility] [#/volume] in styleCode="Bold Elizabeth Blood by ">Platelet Medical Automated count Count Center </content>369 KCUMM<content styleCode="Ital ics"> (130-400 KCUMM)</content > UNK 1.0-4.8 Below low normal <content [facility] styleCode="Bold Elizabeth ">Lymphocyte Medical Count Center </content>0.44 KCUMM L<content styleCode="Ital ics"> (1.0-4.8 KCUMM)</content > UNK 1.6-7.3 <content [facility] styleCode="Bold Elizabeth ">Neutrophil Medical Count Center </content>5.40 KCUMM<content styleCode="Ital ics"> (1.6-7.3 KCUMM)</content > Neutrophils 36-66 Above high <content [facility] [#/volume] in normal styleCode="Bold Elizabeth Blood by ">Neutrophil Medical Automated count </content>86.5 Center % H<content styleCode="Ital ics"> (36-66 %)</content> Lymphocytes 24.0-44. Below low normal <content [facility] [#/volume] in 0 styleCode="Bold Elizabeth Blood by ">Lymphocyte Medical Automated count </content>7.1 % Center L<content styleCode="Ital ics"> (24.0-44.0 %)</content> Eosinophils 0-5.0 <content [facility] [#/volume] in styleCode="Bold Elizabeth Blood by ">Eosinophil Medical Automated count </content>0.0 Center %<content styleCode="Ital ics"> (0-5.0 %)</content> UNK 0.2-0.9 <content [facility] styleCode="Bold Elizabeth ">Monocyte Medical Count Center </content>0.32 KCUMM<content styleCode="Ital ics"> (0.2-0.9 KCUMM)</content > Monocytes 3.0-10.0 <content [facility] [#/volume] in styleCode="Bold Elizabeth Blood by ">Monocyte Medical Automated count </content>5.1 Center %<content styleCode="Ital ics"> (3.0-10.0 %)</content> UNK 0.0-0.6 <content [facility] styleCode="Bold Elizabeth ">Eosinophil Medical Count Center </content>0.00 KCUMM<content styleCode="Ital ics"> (0.0-0.6 KCUMM)</content > UNK 0 <content [facility] styleCode="Bold Elizabeth ">Nucleated Red Medical Blood Cell Center </content>0.0 /100<content styleCode="Ital ics"> (0 /100)</content> UNK 0.0-0.3 <content [facility] styleCode="Bold Elizabeth ">Basophil Medical Count Center </content>0.01 KCUMM<content styleCode="Ital ics"> (0.0-0.3 KCUMM)</content > Basophils 0.0-1.0 <content [facility] [#/volume] in styleCode="Bold Elizabeth Blood by ">Basophil Medical Automated count </content>0.2 Center %<content styleCode="Ital ics"> (0.0-1.0 %)</content> UNK 0-0.1 <content Saint styleCode="Bold Elizabeth ">Immature Medical Granulocyte Center Count </content>0.07 KCUMM<content styleCode="Ital ics"> (0-0.1 KCUMM)</content > UNK 0.0 <content Saint styleCode="Bold Elizabeth ">Nucleated Red Medical Blood Cell Center Count </content>0.00 KCUMM<content styleCode="Ital ics"> (0.0 KCUMM)</content > UNK < 1 Above high <content Saint normal styleCode="Bold Elizabeth ">Immature Medical Granulocyte Center Ratio </content>1.1 % H<content styleCode="Ital ics"> (< 1 %)</content> ID Date Data Source GFR(Creatinine).[id number] 01/02/2019 05:15:00 AM EDT [facility] 0-0400 Name Value Range Interpretation Code Description Data Lyly rce(s) Supporting Document(s ) UNK > 60 Below low normal <content [facility] styleCode="Bold"> Medical Cent er EGFR </content>14 GFR L<content styleCode="Italic s"> (> 60 GFR)</content> ID Date Data Source DAVEYDA.[id number] 01/02/2019 05:15:00 AM EDT [facility] -0400 Name Value Range Interpretation Description Data Sup porting Code Source(s) Document(s ) UNK 2.3-3.5 Above high normal <content [facility] styleCode="Geetha Elizabeth d">Globulin Medical </content>3.8 Center G/DL H<content styleCode="Karrie lics"> (2.3-3.5 G/DL)</content > UNK >= 1.0 <content Saint styleCode="Geetha Elizabeth d">AG Ratio Medical </content>1.0 Center <content styleCode="Karrie lics"> (>= 1.0 )</content> Phosphate 2.5-4.5 <content Saint [Mass/volume] styleCode="Geetha Hendersons in Serum or d">Phosphorus Medical Plasma </content>4.4 Center MG/DL<content styleCode="Karrie lics"> (2.5-4.5 MG/DL)</conten t> Protein 6.3-8.2 <content [facility] [Mass/volume] styleCode="Geetha Hendersons in Serum or d">Total Medical Plasma Protein Center </content>7.7 G/DL<content styleCode="Karrie lics"> (6.3-8.2 G/DL)</content > Magnesium 1.6-2.3 Above high normal <content [facility] [Mass/volume] styleCode="Geetha Hendersons in Serum or d">Magnesium Medical Plasma </content>2.4 Center MG/DL H<content styleCode="Karrie lics"> (1.6-2.3 MG/DL)</conten t> ID Date Data Source [facility].[id number] 01/02/2019 05:15:00 AM EDT [facility] Name Value Range Interpretation Description Data Sup porting Code Source(s) Document(s ) Chloride 98-107 Below low <content [facility] [Moles/volume] in normal styleCode="Bold"> [facility] Serum or Plasma Chloride Medical </content>96 Center MEQ/L L<content styleCode="Italic s"> (98-107 MEQ/L)</content> Carbon dioxide, 22-30 <content Saint total styleCode="Bold"> Elizabeth [Moles/volume] in Carbon Dioxide Medical Serum or Plasma </content>29 Center MEQ/L<content styleCode="Italic s"> (22-30 MEQ/L)</content> Sodium 137-145 <content [facility] [Moles/volume] in styleCode="Bold"> [facility] Serum or Plasma Sodium Medical </content>139 Center MEQ/L<content styleCode="Italic s"> (137-145 MEQ/L)</content> Potassium 3.5-5.3 <content [facility] [Moles/volume] in styleCode="Bold"> [facility] Serum or Plasma Potassium Medical </content>5.3 Center MEQ/L<content styleCode="Italic s"> (3.5-5.3 MEQ/L)</content> Creatinine 0.5-1.3 Above high <content [facility] [Mass/volume] in normal styleCode="Bold"> Kash hs Serum or Plasma Creatinine Medical </content>4.1 Center MG/DL H<content styleCode="Italic s"> (0.5-1.3 MG/DL)</content> UNK > 60 Below low <content [facility] normal styleCode="Bold"> Elizabeth EGFR </content>14 Medical GFR L<content Center styleCode="Italic s"> (> 60 GFR)</content> Calcium 8.4-10. <content [facility] [Mass/volume] in 2 styleCode="Bold"> Kash hs Serum or Plasma Calcium Medical </content>9.4 Center MG/DL<content styleCode="Italic s"> (8.4-10.2 MG/DL)</content> UNK 7-17 Above high <content [facility] normal styleCode="Bold"> Elizabeth BUN </content>38 Medical MG/DL H<content Center styleCode="Italic s"> (7-17 MG/DL)</content> Glucose 74-106 Above high <content [facility] [Mass/volume] in normal styleCode="Bold"> Kash hs Serum or Plasma Glucose Medical </content>164 Center MG/DL H<content styleCode="Italic s"> (74-106 MG/DL)</content> Alanine 7-30 Above high <content [facility] aminotransferase normal styleCode="Bold"> [facility] [Enzymatic Alanine Medical activity/volume] Aminotransferase Center in Serum or Plasma (ALT) </content>46 IU/L H<content styleCode="Italic s"> (7-30 IU/L)</content> Bilirubin.total 0.2-1.3 <content [facility] [Mass/volume] in styleCode="Bold"> Kash hs Serum or Plasma Bilirubin Total Medical </content>0.7 Center MG/DL<content styleCode="Italic s"> (0.2-1.3 MG/DL)</content> Albumin 3.5-5.0 <content [facility] [Mass/volume] in styleCode="Bold"> Kash hs Serum or Plasma Albumin Medical </content>3.9 Center G/DL<content styleCode="Italic s"> (3.5-5.0 G/DL)</content> Aspartate 14-36 Above high <content [facility] aminotransferase normal styleCode="Bold"> [facility] [Enzymatic Aspartate Medical activity/volume] Aminotransferase Center in Serum or Plasma (AST) </content>46 IU/L H<content styleCode="Italic s"> (14-36 IU/L)</content> Alkaline 38-126 Above high <content Saint phosphatase normal styleCode="Bold"> [facility] [Enzymatic Alkaline Medical activity/volume] Phosphatase (ALP) Cente r in Serum or Plasma </content>551 IU/L H<content styleCode="Italic s"> (38-126 IU/L)</content> ID Date Data Source GFR(Creatinine).[id number] 01/01/2019 07:15:00 PM [place]T [facility] 0-0400 Name Value Range Interpretation Code Description Data Lyly rce(s) Supporting Document(s ) UNK > 60 Below low normal <content [facility] styleCode="Bold"> Medical Cent er EGFR </content>25 GFR L<content styleCode="Italic s"> (> 60 GFR)</content> ID Date Data Source [facility].[id number] 01/01/2019 07:15:00 PM EDT [facility] Name Value Range Interpretation Description Data Sup porting Code Source(s) Document(s ) Sodium 137-145 <content Saint [Moles/volume] styleCode="Geetha Elizabeth in Serum or d">Sodium Medical Plasma </content>139 Center MEQ/L<content styleCode="Karrie lics"> (137-145 MEQ/L)</conten t> Chloride 98-107 Below low normal <content Saint [Moles/volume] styleCode="Geetha Elizabeth in Serum or d">Chloride Medical Plasma </content>96 Center MEQ/L L<content styleCode="Karrie lics"> (98-107 MEQ/L)</conten t> Potassium 3.5-5.3 <content [facility] [Moles/volume] styleCode="Geetha Elizabeth in Serum or d">Potassium Medical Plasma </content>3.8 Center MEQ/L<content styleCode="Karrie lics"> (3.5-5.3 MEQ/L)</conten t> Carbon 22-30 Above high normal <content [facility] dioxide, total styleCode="Geetha Elizabeth [Moles/volume] d">Carbon Medical in Serum or Dioxide Center Plasma </content>31 MEQ/L H<content styleCode="Karrie lics"> (22-30 MEQ/L)</conten t> Creatinine 0.5-1.3 Above high normal <content [facility] [Mass/volume] styleCode="Geetha Elizabeth in Serum or d">Creatinine Medical Plasma </content>2.4 Center MG/DL H<content styleCode="Karrie lics"> (0.5-1.3 MG/DL)</conten t> UNK 7-17 <content Saint styleCode="Geetha Elizabeth d">BUN Medical </content>16 Center MG/DL<content styleCode="Karrie lics"> (7-17 MG/DL)</conten t> Calcium 8.4-10.2 <content Saint [Mass/volume] styleCode="Geetha Elizabeth in Serum or d">Calcium Medical Plasma </content>9.6 Center MG/DL<content styleCode="Karrie lics"> (8.4-10.2 MG/DL)</conten t> UNK > 60 Below low normal <content Saint styleCode="Geetha Hendersons d">EGFR Medical </content>25 Center GFR L<content styleCode="Karrie lics"> (> 60 GFR)</content> Glucose 74-106 Above high normal <content Saint [Mass/volume] styleCode="Geetha Johnson in Serum or d">Glucose Medical Plasma </content>138 Center MG/DL H<content styleCode="Karrie lics"> (74-106 MG/DL)</conten t> ID Date Data Source Hormones.[id number] 01/01/2019 05:45:00 AM EDT [facility] Name Value Range Interpretation Code Description Data Lyly rce(s) Supporting Document(s ) UNK 14-64 Above high normal <content [facility] styleCode="Bold"> Medical Cent er PTH </content>1293 pg/mL H<content styleCode="Italic s"> (14-64 pg/mL)</content> ID Date Data Source Liver 01/01/2019 05:45:[address] [facility] Profile.[id number] Name Value Range Interpretation Description Data Sup porting Code Source(s) Document(s ) Alanine 7-30 Above high <content [facility] aminotransferase normal styleCode="Bold"> [facility] [Enzymatic Alanine Medical activity/volume] Aminotransferase Center in Serum or Plasma (ALT) </content>43 IU/L H<content styleCode="Italic s"> (7-30 IU/L)</content> Aspartate 14-36 Above high <content [facility] aminotransferase normal styleCode="Bold"> [facility] [Enzymatic Aspartate Medical activity/volume] Aminotransferase Center in Serum or Plasma (AST) </content>42 IU/L H<content styleCode="Italic s"> (14-36 IU/L)</content> Alkaline 38-126 Above high <content [facility] phosphatase normal styleCode="Bold"> [facility] [Enzymatic Alkaline Medical activity/volume] Phosphatase (ALP) Cente r in Serum or Plasma </content>633 IU/L H<content styleCode="Italic s"> (38-126 IU/L)</content> Albumin 3.5-5.0 <content Saint [Mass/volume] in styleCode="Bold"> Kash hs Serum or Plasma Albumin Medical </content>4.1 Center G/DL<content styleCode="Italic s"> (3.5-5.0 G/DL)</content> Bilirubin.total 0.2-1.3 <content [facility] [Mass/volume] in styleCode="Bold"> Kash hs Serum or Plasma Bilirubin Total Medical </content>0.9 Center MG/DL<content styleCode="Italic s"> (0.2-1.3 MG/DL)</content> ID Date Data Source HematologyRou.[id number] 01/01/2019 05:45:00 AM [facility] Name Value Range Interpretation Description Data Sup porting Code Source(s) Document(s ) Leukocytes 4.4-11.0 <content [facility] [#/volume] in styleCode="Bold Elizabeth Blood by ">White Blood Medical Automated count Cell Count Center </content>5.84 KCUMM<content styleCode="Ital ics"> (4.4-11.0 KCUMM)</content > Hematocrit 36.0-46. Below low normal <content [facility] [Volume 0 styleCode="Bold Elizabeth Fraction] of ">Hematocrit Medical Blood by </content>31.5 Center Automated count % L<content styleCode="Ital ics"> (36.0-46.0 %)</content> Erythrocyte mean 80.0-100 <content [facility] corpuscular .0 styleCode="Bold Elizabeth volume [Entitic ">Mean Medical volume] by Corpuscular Center Automated count Volume </content>99.1 FL<content styleCode="Ital ics"> (80.0-100.0 FL)</content> Erythrocytes 4.0-5.1 Below low normal <content Saint [#/volume] in styleCode="Bold Elizabeth Blood by ">Red Blood Medical Automated count Cell Count Center </content>3.18 MCUMM L<content styleCode="Ital ics"> (4.0-5.1 MCUMM)</content > Hemoglobin 12.3-16. Below low normal <content [facility] [Mass/volume] in 0 styleCode="Bold Elizabeth Blood ">Hemoglobin Medical </content>10.1 Center G/DL L<content styleCode="Ital ics"> (12.3-16.0 G/DL)</content> Erythrocyte 11.5-14. <content [facility] distribution 5 styleCode="Bold Elizabeth width [Ratio] by ">Red Cell Medical Automated count Distribution Center Width </content>13.8 %<content styleCode="Ital ics"> (11.5-14.5 %)</content> Erythrocyte mean 32.0-37. <content [facility] corpuscular 0 styleCode="Bold Elizabeth hemoglobin ">Mean Corpus. Medical concentration Hgb Center [Mass/volume] by Concentration Automated count (MCHC) </content>32.1 G/DL<content styleCode="Ital ics"> (32.0-37.0 G/DL)</content> Erythrocyte mean 26.0-34. <content [facility] corpuscular 0 styleCode="Bold Elizabeth hemoglobin ">Mean Medical [Entitic mass] Corposcular Center by Automated Hemoglobin count </content>31.8 PG<content styleCode="Ital ics"> (26.0-34.0 PG)</content> Neutrophils 36-66 Above high <content Saint [#/volume] in normal styleCode="Bold Elizabeth Blood by ">Neutrophil Medical Automated count </content>89.9 Center % H<content styleCode="Ital ics"> (36-66 %)</content> UNK 1.6-7.3 <content [facility] styleCode="Bold Elizabeth ">Neutrophil Medical Count Center </content>5.25 KCUMM<content styleCode="Ital ics"> (1.6-7.3 KCUMM)</content > Platelets 130-400 Above high <content Saint [#/volume] in normal styleCode="Bold Elizabeth Blood by ">Platelet Medical Automated count Count Center </content>407 KCUMM H<content styleCode="Ital ics"> (130-400 KCUMM)</content > Lymphocytes 24.0-44. Below low normal <content [facility] [#/volume] in 0 styleCode="Bold Elizabeth Blood by ">Lymphocyte Medical Automated count </content>6.2 % Center L<content styleCode="Ital ics"> (24.0-44.0 %)</content> Monocytes 3.0-10.0 Below low normal <content [facility] [#/volume] in styleCode="Bold Elizabeth Blood by ">Monocyte Medical Automated count </content>2.7 % Center L<content styleCode="Ital ics"> (3.0-10.0 %)</content> UNK 1.0-4.8 Below low normal <content [facility] styleCode="Bold Elizabeth ">Lymphocyte Medical Count Center </content>0.36 KCUMM L<content styleCode="Ital ics"> (1.0-4.8 KCUMM)</content > Eosinophils 0-5.0 <content Saint [#/volume] in styleCode="Bold Elizabeth Blood by ">Eosinophil Medical Automated count </content>0.5 Center %<content styleCode="Ital ics"> (0-5.0 %)</content> UNK 0.0-0.6 <content [facility] styleCode="Bold Elizabeth ">Eosinophil Medical Count Center </content>0.03 KCUMM<content styleCode="Ital ics"> (0.0-0.6 KCUMM)</content > UNK 0.2-0.9 Below low normal <content Saint styleCode="Bold Elizabeth ">Monocyte Medical Count Center </content>0.16 KCUMM L<content styleCode="Ital ics"> (0.2-0.9 KCUMM)</content > UNK 0 <content Saint styleCode="Bold Elizabeth ">Nucleated Red Medical Blood Cell Center </content>0.0 /100<content styleCode="Ital ics"> (0 /100)</content> UNK 0.0-0.3 <content Saint styleCode="Bold Elizabeth ">Basophil Medical Count Center </content>0.00 KCUMM<content styleCode="Ital ics"> (0.0-0.3 KCUMM)</content > Basophils 0.0-1.0 <content Saint [#/volume] in styleCode="Sebastián [facility] Blood by ">Basophil Medical Automated count </content>0.0 Center %<content styleCode="Ital ics"> (0.0-1.0 %)</content> UNK 0.0 <content Saint styleCode="Bold Elizabeth ">Nucleated Red Medical Blood Cell Center Count </content>0.00 KCUMM<content styleCode="Ital ics"> (0.0 KCUMM)</content > UNK 0-0.1 <content Saint styleCode="Bold Elizabeth ">Immature Medical Granulocyte Center Count </content>0.04 KCUMM<content styleCode="Ital ics"> (0-0.1 KCUMM)</content > UNK NONE <content Saint SEEN styleCode="Bold Elizabeth ">Platelet Medical Clumping Center </content>NONE SEEN <content styleCode="Ital ics"> (NONE SEEN )</content> UNK < 1 <content Saint styleCode="Bold Elizabeth ">Immature Medical Granulocyte Center Ratio </content>0.7 %<content styleCode="Ital ics"> (< 1 %)</content> UNK NORMAL <content Saint styleCode="Bold Elizabeth ">Platelet Medical Estimate Center </content>PLT. SLIGHTLY INCREASED <content styleCode="Ital ics"> (NORMAL )</content> ID Date Data Source CHMROUTINECCDA.[id number] 01/01/2019 05:45:00 AM EDT [facility] -0400 Name Value Range Interpretation Description Data Sup porting Code Source(s) Document(s ) UNK >= 1.0 <content Saint styleCode="Geetha Hendersons d">AG Ratio Medical </content>1.1 Center <content styleCode="Karrie lics"> (>= 1.0 )</content> UNK 2.3-3.5 Above high normal <content Saint styleCode="Geetha Eilzabeth d">Globulin Medical </content>3.9 Center G/DL H<content styleCode="Karrie lics"> (2.3-3.5 G/DL)</content > Magnesium 1.6-2.3 Above high normal <content [facility] [Mass/volume] styleCode="Geetha Elizabeth in Serum or d">Magnesium Medical Plasma </content>2.6 Center MG/DL H<content styleCode="Karrie lics"> (1.6-2.3 MG/DL)</conten t> Phosphate 2.5-4.5 Above high normal <content [facility] [Mass/volume] styleCode="Geetha Elizabeth in Serum or d">Phosphorus Medical Plasma </content>4.8 Center MG/DL H<content styleCode="Karrie lics"> (2.5-4.5 MG/DL)</conten t> Protein 6.3-8.2 <content [facility] [Mass/volume] styleCode="Geetha Hendersons in Serum or d">Total Medical Plasma Protein Center </content>8.0 G/DL<content styleCode="Karrie lics"> (6.3-8.2 G/DL)</content > ID Date Data Source Hormones.[id number] 12/31/2018 10:00:00 AM EDT [facility] Name Value Range Interpretation Code Description Data Lyly rce(s) Supporting Document(s ) UNK 14-64 Above high normal <content [facility] styleCode="Bold"> Medical Cent er PTH </content>2030 pg/mL H<content styleCode="Italic s"> (14-64 pg/mL)</content> ID Date Data Source Liver 12/30/2018 05:30:[address] [facility] Fibrosis.[id number] Name Value Range Interpretation Description Data Sup porting Code Source(s) Document(s ) Gamma glutamyl 11-43 Above high normal <content transferase styleCode="Geetha Johnson [Enzymatic d">GGT Medical activity/volume </content>283 Center ] in Serum or IU/L H<content Plasma styleCode="Karrie lics"> (11-43 IU/L)</content > ID Date Data Source Liver 12/30/2018 05:30:[address] [facility] Profile.[id number] Name Value Range Interpretation Description Data Sup porting Code Source(s) Document(s ) Aspartate 14-36 Above high <content [facility] aminotransferase normal styleCode="Bold"> [facility] [Enzymatic Aspartate Medical activity/volume] Aminotransferase Center in Serum or Plasma (AST) </content>49 IU/L H<content styleCode="Italic s"> (14-36 IU/L)</content> Bilirubin.total 0.2-1.3 <content [facility] [Mass/volume] in styleCode="Bold"> Kash hs Serum or Plasma Bilirubin Total Medical </content>1.1 Center MG/DL<content styleCode="Italic s"> (0.2-1.3 MG/DL)</content> Alkaline 38-126 Above high <content [facility] phosphatase normal styleCode="Bold"> [facility] [Enzymatic Alkaline Medical activity/volume] Phosphatase (ALP) Cente r in Serum or Plasma </content>785 IU/L H<content styleCode="Italic s"> (38-126 IU/L)</content> Alanine 7-30 Above high <content [facility] aminotransferase normal styleCode="Bold"> [facility] [Enzymatic Alanine Medical activity/volume] Aminotransferase Center in Serum or Plasma (ALT) </content>41 IU/L H<content styleCode="Italic s"> (7-30 IU/L)</content> Albumin 3.5-5.0 <content [facility] [Mass/volume] in styleCode="Bold"> Kash hs Serum or Plasma Albumin Medical </content>4.2 Center G/DL<content styleCode="Italic s"> (3.5-5.0 G/DL)</content> ID Date Data Source HematologyRou.[id number] 12/30/2018 05:30:00 AM EDT [facility] 0400 Name Value Range Interpretation Description Data Sup porting Code Source(s) Document(s ) Hemoglobin 12.3-16. Below low normal <content [facility] [Mass/volume] in 0 styleCode="Bold Elizabeth Blood ">Hemoglobin Medical </content>10.6 Center G/DL L<content styleCode="Ital ics"> (12.3-16.0 G/DL)</content> Leukocytes 4.4-11.0 <content [facility] [#/volume] in styleCode="Bold Elizabeth Blood by ">White Blood Medical Automated count Cell Count Center </content>4.76 KCUMM<content styleCode="Ital ics"> (4.4-11.0 KCUMM)</content > Erythrocytes 4.0-5.1 Below low normal <content [facility] [#/volume] in styleCode="Bold Elizabeth Blood by ">Red Blood Medical Automated count Cell Count Center </content>3.35 MCUMM L<content styleCode="Ital ics"> (4.0-5.1 MCUMM)</content > Erythrocyte mean 32.0-37. <content Saint corpuscular 0 styleCode="Bold Elizabeth hemoglobin ">Mean Corpus. Medical concentration Hgb Center [Mass/volume] by Concentration Automated count (MCHC) </content>32.6 G/DL<content styleCode="Ital ics"> (32.0-37.0 G/DL)</content> Erythrocyte mean 26.0-34. <content [facility] corpuscular 0 styleCode="Bold Elizabeth hemoglobin ">Mean Medical [Entitic mass] Corposcular Center by Automated Hemoglobin count </content>31.6 PG<content styleCode="Ital ics"> (26.0-34.0 PG)</content> Erythrocyte mean 80.0-100 <content [facility] corpuscular .0 styleCode="Bold Elizabeth volume [Entitic ">Mean Medical volume] by Corpuscular Center Automated count Volume </content>97.0 FL<content styleCode="Ital ics"> (80.0-100.0 FL)</content> Hematocrit 36.0-46. Below low normal <content [facility] [Volume 0 styleCode="Bold Elizabeth Fraction] of ">Hematocrit Medical Blood by </content>32.5 Center Automated count % L<content styleCode="Ital ics"> (36.0-46.0 %)</content> Platelet mean 8.0-11.0 <content [facility] volume [Entitic styleCode="Bold Elizabeth volume] in Blood ">Mean Platelet Medical by Automated Volume Center count </content>9.7 FL<content styleCode="Ital ics"> (8.0-11.0 FL)</content> Neutrophils 36-66 Above high <content [facility] [#/volume] in normal styleCode="Bold Elizabeth Blood by ">Neutrophil Medical Automated count </content>88.3 Center % H<content styleCode="Ital ics"> (36-66 %)</content> Platelets 130-400 <content [facility] [#/volume] in styleCode="Bold Elizabeth Blood by ">Platelet Medical Automated count Count Center </content>381 KCUMM<content styleCode="Ital ics"> (130-400 KCUMM)</content > UNK 1.6-7.3 <content [facility] styleCode="[facility]old [facility] ">Neutrophil Medical Count Center </content>4.20 KCUMM<content styleCode="Ital ics"> (1.6-7.3 KCUMM)</content > Erythrocyte 11.5-14. <content [facility] distribution 5 styleCode="Bold Elizabeth width [Ratio] by ">Red Cell Medical Automated count Distribution Center Width </content>14.2 %<content styleCode="Ital ics"> (11.5-14.5 %)</content> Lymphocytes 24.0-44. Below low normal <content [facility] [#/volume] in 0 styleCode="Bold Elizabeth Blood by ">Lymphocyte Medical Automated count </content>8.8 % Center L<content styleCode="Ital ics"> (24.0-44.0 %)</content> Eosinophils 0-5.0 <content [facility] [#/volume] in styleCode="Bold Elizabeth Blood by ">Eosinophil Medical Automated count </content>0.0 Center %<content styleCode="Ital ics"> (0-5.0 %)</content> UNK 0.2-0.9 Below low normal <content [facility] styleCode="Bold [facility] ">Monocyte Medical Count Center </content>0.10 KCUMM L<content styleCode="Ital ics"> (0.2-0.9 KCUMM)</content > UNK 1.0-4.8 Below low normal <content [facility] styleCode="Bold Elizabeth ">Lymphocyte Medical Count Center </content>0.42 KCUMM L<content styleCode="Ital ics"> (1.0-4.8 KCUMM)</content > Monocytes 3.0-10.0 Below low normal <content [facility] [#/volume] in styleCode="Bold Elizabeth Blood by ">Monocyte Medical Automated count </content>2.1 % Center L<content styleCode="Ital ics"> (3.0-10.0 %)</content> Basophils 0.0-1.0 <content [facility] [#/volume] in styleCode="Bold Elizabeth Blood by ">Basophil Medical Automated count </content>0.2 Center %<content styleCode="Ital ics"> (0.0-1.0 %)</content> UNK 0.0-0.6 <content [facility] styleCode="Bold Elizabeth ">Eosinophil Medical Count Center </content>0.00 KCUMM<content styleCode="Ital ics"> (0.0-0.6 KCUMM)</content > UNK 0.0-0.3 <content [facility] styleCode="Bold Elizabeth ">Basophil Medical Count Center </content>0.01 KCUMM<content styleCode="Ital ics"> (0.0-0.3 KCUMM)</content > UNK 0 <content [facility] styleCode="Bold Elizabeth ">Nucleated Red Medical Blood Cell Center </content>0.0 /100<content styleCode="Ital ics"> (0 /100)</content> UNK 0.0 <content [facility] styleCode="Bold [facility] ">Nucleated Red Medical Blood Cell Center Count </content>0.00 KCUMM<content styleCode="Ital ics"> (0.0 KCUMM)</content > UNK 0-0.1 <content [facility] styleCode="Bold Elizabeth ">Immature Medical Granulocyte Center Count </content>0.03 KCUMM<content styleCode="Ital ics"> (0-0.1 KCUMM)</content > UNK < 1 <content [facility] styleCode="Bold Elizabeth ">Immature Medical Granulocyte Center Ratio </content>0.6 %<content styleCode="Ital ics"> (< 1 %)</content> ID Date Data Source GFR(Creatinine).[id number] 12/30/2018 05:30:00 AM EDT [facility] 0-0400 Name Value Range Interpretation Code Description Data Lyly rce(s) Supporting Document(s ) UNK > 60 Below low normal <content [facility] styleCode="Bold"> Medical Cent er EGFR </content>9 GFR L<content styleCode="Italic s"> (> 60 GFR)</content> ID Date Data Source MROUTINECCDA.[id number] 12/30/2018 05:30:00 AM EDT [facility] -0400 Name Value Range Interpretation Description Data Sup porting Code Source(s) Document(s ) UNK >= 1.0 <content [facility] styleCode="Geetha Elizabeth d">AG Ratio Medical </content>1.0 Center <content styleCode="Karrie lics"> (>= 1.0 )</content> Phosphate 2.5-4.5 Above high normal <content [facility] [Mass/volume] styleCode="Geetha Elizabeth in Serum or d">Phosphorus Medical Plasma </content>5.7 Center MG/DL H<content styleCode="Karrie lics"> (2.5-4.5 MG/DL)</conten t> Magnesium 1.6-2.3 <content [facility] [Mass/volume] styleCode="Geetha Elizabeth in Serum or d">Magnesium Medical Plasma </content>2.3 Center MG/DL<content styleCode="Karrie lics"> (1.6-2.3 MG/DL)</conten t> Protein 6.3-8.2 Above high normal <content [facility] [Mass/volume] styleCode="Geetha Hendersons in Serum or d">Total Medical Plasma Protein Center </content>8.6 G/DL H<content styleCode="Karrie lics"> (6.3-8.2 G/DL)</content > UNK 2.3-3.5 Above high normal <content [facility] styleCode="Geetha Elizabeth d">Globulin Medical </content>4.4 Center G/DL H<content styleCode="Karrie lics"> (2.3-3.5 G/DL)</content > ID Date Data Source [facility].[id number] 12/30/2018 05:30:00 AM EDT [facility] Center Name Value Range Interpretation Description Data Sup porting Code Source(s) Document(s ) Chloride 98-107 Below low <content [facility] [Moles/volume] in normal styleCode="Bold"> [facility] Serum or Plasma Chloride Medical </content>92 Center MEQ/L L<content styleCode="Italic s"> (98-107 MEQ/L)</content> Potassium 3.5-5.3 Above high <content [facility] [Moles/volume] in normal styleCode="Bold"> [facility] Serum or Plasma Potassium Medical </content>5.7 Center MEQ/L H<content styleCode="Italic s"> (3.5-5.3 MEQ/L)</content> Carbon dioxide, 22-30 <content [facility] total styleCode="Bold"> Elizabeth [Moles/volume] in Carbon Dioxide Medical Serum or Plasma </content>29 Center MEQ/L<content styleCode="Italic s"> (22-30 MEQ/L)</content> Sodium 137-145 <content [facility] [Moles/volume] in styleCode="Bold"> [facility] Serum or Plasma Sodium Medical </content>137 Center MEQ/L<content styleCode="Italic s"> (137-145 MEQ/L)</content> Calcium 8.4-10. <content [facility] [Mass/volume] in 2 styleCode="Bold"> Kash hs Serum or Plasma Calcium Medical </content>9.6 Center MG/DL<content styleCode="Italic s"> (8.4-10.2 MG/DL)</content> Creatinine 0.5-1.3 Above high <content [facility] [Mass/volume] in normal styleCode="Bold"> Kash hs Serum or Plasma Creatinine Medical </content>5.9 Center MG/DL H<content styleCode="Italic s"> (0.5-1.3 MG/DL)</content> Glucose 74-106 Above high <content [facility] [Mass/volume] in normal styleCode="Bold"> Kash hs Serum or Plasma Glucose Medical </content>126 Center MG/DL H<content styleCode="Italic s"> (74-106 MG/DL)</content> UNK 7-17 Above high <content [facility] normal styleCode="Bold"> Elizabeth BUN </content>36 Medical MG/DL H<content Center styleCode="Italic s"> (7-17 MG/DL)</content> Albumin 3.5-5.0 <content [facility] [Mass/volume] in styleCode="Bold"> Kash hs Serum or Plasma Albumin Medical </content>4.2 Center G/DL<content styleCode="Italic s"> (3.5-5.0 G/DL)</content> Bilirubin.total 0.2-1.3 <content [facility] [Mass/volume] in styleCode="Bold"> Kash hs Serum or Plasma Bilirubin Total Medical </content>1.1 Center MG/DL<content styleCode="Italic s"> (0.2-1.3 MG/DL)</content> UNK > 60 Below low <content [facility] normal styleCode="Bold"> Elizabeth EGFR </content>9 Medical GFR L<content Center styleCode="Italic s"> (> 60 GFR)</content> Alanine 7-30 Above high <content [facility] aminotransferase normal styleCode="Bold"> Kash hs [Enzymatic Alanine Medical activity/volume] Aminotransferase Center in Serum or Plasma (ALT) </content>41 IU/L H<content styleCode="Italic s"> (7-30 IU/L)</content> Alkaline 38-126 Above high <content [facility] phosphatase normal styleCode="Bold"> Elizabeth [Enzymatic Alkaline Medical activity/volume] Phosphatase (ALP) Cente r in Serum or Plasma </content>785 IU/L H<content styleCode="Italic s"> (38-126 IU/L)</content> Aspartate 14-36 Above high <content [facility] aminotransferase normal styleCode="Bold"> Kash hs [Enzymatic Aspartate Medical activity/volume] Aminotransferase Center in Serum or Plasma (AST) </content>49 IU/L H<content styleCode="Italic s"> (14-36 IU/L)</content> ID Date Data Source [employer]iacMarkers.[id number] 12/29/2018 11:46:00 AM EDT [facility] -0400 Name Value Range Interpretation Description Data Sup porting Code Source(s) Document(s ) Troponin < 0.034 <content [facility] I.cardiac styleCode="Bold Elizabeth [Mass/volume ">Troponin I Medical ] in Serum </content>0.020 Center or Plasma NG/ML<content styleCode="Ital ics"> (< 0.034 NG/ML)</content > ID Date Data Source Liver 12/29/2018 11:46:[address] [facility] Profile.[id number] Name Value Range Interpretation Description Data Sup porting Code Source(s) Document(s ) Bilirubin.total 0.2-1.3 <content [facility] [Mass/volume] in styleCode="Bold"> Kash hs Serum or Plasma Bilirubin Total Medical </content>1.2 Center MG/DL<content styleCode="Italic s"> (0.2-1.3 MG/DL)</content> Aspartate 14-36 Above high <content [facility] aminotransferase normal styleCode="Bold"> Kash hs [Enzymatic Aspartate Medical activity/volume] Aminotransferase Center in Serum or Plasma (AST) </content>50 IU/L H<content styleCode="Italic s"> (14-36 IU/L)</content> Alanine 7-30 Above high <content [facility] aminotransferase normal styleCode="Bold"> Kash hs [Enzymatic Alanine Medical activity/volume] Aminotransferase Center in Serum or Plasma (ALT) </content>40 IU/L H<content styleCode="Italic s"> (7-30 IU/L)</content> Alkaline 38-126 Above high <content [facility] phosphatase normal styleCode="Bold"> Elizabeth [Enzymatic Alkaline Medical activity/volume] Phosphatase (ALP) Cente r in Serum or Plasma </content>752 IU/L H<content styleCode="Italic s"> (38-126 IU/L)</content> Albumin 3.5-5.0 <content [facility] [Mass/volume] in styleCode="Bold"> Kash hs Serum or Plasma Albumin Medical </content>4.1 Center G/DL<content styleCode="Italic s"> (3.5-5.0 G/DL)</content> ID Date Data Source GFR(Creatinine).[id number] 12/29/2018 11:46:00 AM EDT [facility] 0-0400 Name Value Range Interpretation Code Description Data Lyly rce(s) Supporting Document(s ) UNK > 60 Below low normal <content [facility] styleCode="Bold"> Medical Cent er EGFR </content>6 GFR L<content styleCode="Italic s"> (> 60 GFR)</content> ID Date Data Source CHMROUTINECCDA.[id number] 12/29/2018 11:46:00 AM EDT [facility] -0400 Name Value Range Interpretation Description Data Sup porting Code Source(s) Document(s ) UNK 2.3-3.5 Above high normal <content [facility] styleCode="Bold Medical ">Globulin Center </content>4.5 G/DL H<content styleCode="Ital ics"> (2.3-3.5 G/DL)</content> UNK >= 1.0 Below low normal <content [facility] styleCode="Bold Medical ">AG Ratio Center </content>0.9 L<content styleCode="Ital ics"> (>= 1.0 )</content> Protein 6.3-8.2 Above high normal <content [facility] [Mass/volum styleCode="Bold Medical e] in Serum ">Total Protein Center or Plasma </content>8.6 G/DL H<content styleCode="Ital ics"> (6.3-8.2 G/DL)</content> ID Date Data Source [facility].[id number] 12/29/2018 11:46:00 AM EDT [facility] Name Value Range Interpretation Description Data Sup porting Code Source(s) Document(s ) Sodium 137-145 <content [facility] [Moles/volume] in styleCode="Bold"> [facility] Serum or Plasma Sodium Medical </content>140 Center MEQ/L<content styleCode="Italic s"> (137-145 MEQ/L)</content> Potassium 3.5-5.3 Above high <content [facility] [Moles/volume] in normal styleCode="Bold"> [facility] Serum or Plasma Potassium Medical </content>5.4 Center MEQ/L H<content styleCode="Italic s"> (3.5-5.3 MEQ/L)</content> Glucose 74-106 Above high <content [facility] [Mass/volume] in normal styleCode="Bold"> Kash hs Serum or Plasma Glucose Medical </content>161 Center MG/DL H<content styleCode="Italic s"> (74-106 MG/DL)</content> Carbon dioxide, 22-30 <content [facility] total styleCode="Bold"> Elizabeth [Moles/volume] in Carbon Dioxide Medical Serum or Plasma </content>22 Center MEQ/L<content styleCode="Italic s"> (22-30 MEQ/L)</content> Creatinine 0.5-1.3 Above upper <content [facility] [Mass/volume] in panic limits styleCode="Bold"> [facility] Serum or Plasma Creatinine Medical </content><conten Center t styleCode="Bold"> 8.5 MG/DL HH</content><cont ent styleCode="Italic s"> (0.5-1.3 MG/DL)</content> Chloride 98-107 <content [facility] [Moles/volume] in styleCode="Bold"> [facility] Serum or Plasma Chloride Medical </content>98 Center MEQ/L<content styleCode="Italic s"> (98-107 MEQ/L)</content> UNK 7-17 Above high <content [facility] normal styleCode="Bold"> Elizabeth BUN </content>50 Medical MG/DL H<content Center styleCode="Italic s"> (7-17 MG/DL)</content> Alkaline 38-126 Above high <content [facility] phosphatase normal styleCode="Bold"> Elizabeth [Enzymatic Alkaline Medical activity/volume] Phosphatase (ALP) Cente r in Serum or Plasma </content>752 IU/L H<content styleCode="Italic s"> (38-126 IU/L)</content> Calcium 8.4-10. <content [facility] [Mass/volume] in 2 styleCode="Bold"> Kash hs Serum or Plasma Calcium Medical </content>9.5 Center MG/DL<content styleCode="Italic s"> (8.4-10.2 MG/DL)</content> UNK > 60 Below low <content [facility] normal styleCode="Bold"> Elizabeth EGFR </content>6 Medical GFR L<content Center styleCode="Italic s"> (> 60 GFR)</content> Alanine 7-30 Above high <content [facility] aminotransferase normal styleCode="Bold"> Kash hs [Enzymatic Alanine Medical activity/volume] Aminotransferase Center in Serum or Plasma (ALT) </content>40 IU/L H<content styleCode="Italic s"> (7-30 IU/L)</content> Aspartate 14-36 Above high <content [facility] aminotransferase normal styleCode="Bold"> Kash hs [Enzymatic Aspartate Medical activity/volume] Aminotransferase Center in Serum or Plasma (AST) </content>50 IU/L H<content styleCode="Italic s"> (14-36 IU/L)</content> Albumin 3.5-5.0 <content [facility] [Mass/volume] in styleCode="Bold"> Kash hs Serum or Plasma Albumin Medical </content>4.1 Center G/DL<content styleCode="Italic s"> (3.5-5.0 G/DL)</content> Bilirubin.total 0.2-1.3 <content [facility] [Mass/volume] in styleCode="Bold"> Kash hs Serum or Plasma Bilirubin Total Medical </content>1.2 Center MG/DL<content styleCode="Italic s"> (0.2-1.3 MG/DL)</content> ID Date Data Source ALBERMROUTINECCDA.[id number] 12/29/2018 11:28:00 AM EDT [facility] -0400 Name Value Range Interpretation Description Data Sup porting Code Source(s) Document(s ) Lactate 0.7-2.0 <content [facility] [Mass/volum styleCode="Bold Medical e] in Serum ">Lactic Acid Center or Plasma </content>2.0 MMOLL<content styleCode="Ital ics"> (0.7-2.0 MMOLL)</content > ID Date Data Source LIPID.[id number] 12/29/2018 11:10:00 AM EDT [facility] Name Value Range Interpretation Description Data Sup porting Code Source(s) Document(s ) Triglyceride <content [facility] [Mass/volume] in styleCode="[facility] Serum or Plasma d">Triglycerid [facility] es Center </content>Test not performed. MG/DL (Reference Range: not available)<br/ > UNK <content [facility] styleCode="Geetha Elizabeth d">LDL-Cholest [facility] jose Center </content>Test not performed. MG/DL (Reference Range: not available)<br/ > UNK <content [facility] styleCode="Geetha Elizabeth d">HDL- Medical Cholesterol Center </content>Test not performed. MG/DL (Reference Range: not available)<br/ > Cholesterol <content [facility] [Mass/volume] in styleCode="[facility] Serum or Plasma d">Cholesterol Medical </content>Test Center not performed. MG/DL (Reference Range: not available)<br/ > ID Date Data Source Coagulation 12/29/2018 11:10:00 AM [facility] Rout.[id number] EDT Name Value Range Interpretation Description Data Sup porting Code Source(s) Document(s ) UNK 9.0-13.0 <content [facility] styleCode="Bold" Elizabeth >Protime Medical </content>10.3 Center SEC<content styleCode="Itali cs"> (9.0-13.0 SEC)</content> INR in 0.80-1.2 <content [facility] Platelet poor 0 styleCode="Bold" Elizabeth plasma by >INR Medical Coagulation </content>0.93 Center assay #<content styleCode="Itali cs"> (0.80-1.20 #)</content> aPTT in 25.1-36. Above high normal <content [facility] Platelet poor 5 styleCode="Bold" Elizabeth plasma by >Partial Medical Coagulation Thromboplastin Center assay Time </content>38.0 SEC H<content styleCode="Itali cs"> (25.1-36.5 SEC)</content> ID Date Data Source CardiacMarkers.[id number] 12/29/2018 11:10:00 AM EDT [facility] -0400 Name Value Range Interpretation Description Data Sup porting Code Source(s) Document(s ) Troponin <content [facility] I.cardiac styleCode="Bold Medical [Mass/volume ">Troponin I Center ] in Serum </content>Test or Plasma not performed. NG/ML (Reference Range: not available)
ID Date Data Source HematologyRou.[id number] 12/29/2018 11:10:00 AM EDT [facility] 0400 Name Value Range Interpretation Description Data Sup porting Code Source(s) Document(s ) Erythrocytes 4.0-5.1 Below low normal <content [facility] [#/volume] in styleCode="Bold Elizabeth Blood by ">Red Blood Medical Automated count Cell Count Center </content>3.61 MCUMM L<content styleCode="Ital ics"> (4.0-5.1 MCUMM)</content > Hemoglobin 12.3-16. Below low normal <content [facility] [Mass/volume] in 0 styleCode="Bold Elizabeth Blood ">Hemoglobin Medical </content>11.7 Center G/DL L<content styleCode="Ital ics"> (12.3-16.0 G/DL)</content> Leukocytes 4.4-11.0 <content [facility] [#/volume] in styleCode="Bold Elizabeth Blood by ">White Blood Medical Automated count Cell Count Center </content>7.18 KCUMM<content styleCode="Ital ics"> (4.4-11.0 KCUMM)</content > Erythrocyte mean 26.0-34. <content [facility] corpuscular 0 styleCode="Bold Elizabeth hemoglobin ">Mean Medical [Entitic mass] Corposcular Center by Automated Hemoglobin count </content>32.4 PG<content styleCode="Ital ics"> (26.0-34.0 PG)</content> Erythrocyte mean 32.0-37. <content [facility] corpuscular 0 styleCode="Bold Elizabeth hemoglobin ">Mean Corpus. Medical concentration Hgb Center [Mass/volume] by Concentration Automated count (MCHC) </content>32.5 G/DL<content styleCode="Ital ics"> (32.0-37.0 G/DL)</content> Hematocrit 36.0-46. <content [facility] [Volume 0 styleCode="Bold Elizabeth Fraction] of ">Hematocrit Medical Blood by </content>36.0 Center Automated count %<content styleCode="Ital ics"> (36.0-46.0 %)</content> Erythrocyte 11.5-14. Above high <content [facility] distribution 5 normal styleCode="Bold Elizabeth width [Ratio] by ">Red Cell Medical Automated count Distribution Center Width </content>14.6 % H<content styleCode="Ital ics"> (11.5-14.5 %)</content> Erythrocyte mean 80.0-100 <content [facility] corpuscular .0 styleCode="Bold Elizabeth volume [Entitic ">Mean Medical volume] by Corpuscular Center Automated count Volume </content>99.7 FL<content styleCode="Ital ics"> (80.0-100.0 FL)</content> Platelet mean 8.0-11.0 <content [facility] volume [Entitic styleCode="Bold Elizabeth volume] in Blood ">Mean Platelet Medical by Automated Volume Center count </content>9.6 FL<content styleCode="Ital ics"> (8.0-11.0 FL)</content> UNK 0 <content [facility] styleCode="Bold Elizabeth ">Nucleated Red Medical Blood Cell Center </content>0.0 /100<content styleCode="Ital ics"> (0 /100)</content> Platelets 130-400 <content [facility] [#/volume] in styleCode="Bold Elizabeth Blood by ">Platelet Medical Automated count Count Center </content>389 KCUMM<content styleCode="Ital ics"> (130-400 KCUMM)</content > UNK 0.0 <content [facility] styleCode="Bold Elizabeth ">Nucleated Red [facility] Blood Cell Center Count </content>0.00 KCUMM<content styleCode="Ital ics"> (0.0 KCUMM)</content > ID Date Data Source GFR(Creatinine).[id number] 12/29/2018 11:10:00 AM EDT [facility] 0-0400 Name Value Range Interpretation Code Description Data Lyly rce(s) Supporting Document(s ) UNK <content [facility] styleCode="Bold"> Medical Cent er EGFR </content>Test not performed. GFR (Reference Range: not available)
ID Date Data Source MROUTFRANCESCADA.[id number] 12/29/2018 11:10:00 AM EDT [facility] -0400 Name Value Range Interpretation Description Data Sup porting Code Source(s) Document(s ) Natriuretic <content [facility] peptide.B styleCode="Geetha Elizabeth prohormone d">NT Pro BNP Medical N-Terminal </content>Test Center [Mass/volume] not performed. in Serum or PG/ML Plasma (Reference Range: not available)<br/ > ID Date Data Source [facility].[id number] 12/29/2018 11:10:00 AM EDT [facility] Name Value Range Interpretation Description Data Sup porting Code Source(s) Document(s ) Sodium <content [facility] [Moles/volume] styleCode="Bold Elizabeth in Serum or ">Sodium Medical Plasma </content>Test Center not performed. MEQ/L (Reference Range: not available)
Carbon <content [facility] dioxide, total styleCode="Bold Elizabeth [Moles/volume] ">Carbon Medical in Serum or Dioxide Center Plasma </content>Test not performed. MEQ/L (Reference Range: not available)
UNK <content [facility] styleCode="Bold Elizabeth ">BUN Medical </content>Test Center not performed. MG/DL (Reference Range: not available)
Chloride <content [facility] [Moles/volume] styleCode="Bold Elizabeth in Serum or ">Chloride Medical Plasma </content>Test Center not performed. MEQ/L (Reference Range: not available)
Creatinine <content [facility] [Mass/volume] styleCode="Bold Elizabeth in Serum or ">Creatinine Medical Plasma </content>Test Center not performed. MG/DL (Reference Range: not available)
Potassium <content [facility] [Moles/volume] styleCode="Bold Elizabeth in Serum or ">Potassium Medical Plasma </content>Test Center not performed. MEQ/L (Reference Range: not available)
Calcium <content [facility] [Mass/volume] styleCode="Bold Elizabeth in Serum or ">Calcium Medical Plasma </content>Test Center not performed. MG/DL (Reference Range: not available)
Glucose <content [facility] [Mass/volume] styleCode="Bold Elizabeth in Serum or ">Glucose Medical Plasma </content>Test Center not performed. MG/DL (Reference Range: not available)
UNK <content [facility] styleCode="Bold Elizabeth ">EGFR Medical </content>Test Center not performed. GFR (Reference Range: not available)
ID Date Data Source Microbiology.[id number] 12/29/2018 10:45:00 AM EDT [place] [facility] 400 Name Value Range Interpretation Code Description Data Lyly rce(s) Supporting Document(s ) UNK <item><content [facility] styleCode="Bold"> Medical Cent er Culture Report </content>
<t able><tbody><tr>< td>Specimen Number:</td><td>[id number]</td></tr ><tr><td>Sample Collection Date/Time: </td><td> 9 10:45 AM</td></tr><tr>< td>Specimen Source:</td><td>B LOOD</td></tr><tr ><td>Blood Culture:</td><td> Collection Plate Date: 12/29/2018 10:59 </td></tr><tr><td >Culture Status:</td><td>F inal </td></tr><tr><td >Culture Report:</td><td>N O GROWTH 5 DAYS </td></tr></tbody ></table></item> UNK <item><content [facility] styleCode="Bold"> Medical Cent er Culture Status </content>
<t able><tbody><tr>< td>Specimen Number:</td><td>[id number]</td></tr ><tr><td>Sample Collection Date/Time: </td><td> 9 10:45 AM</td></tr><tr>< td>Specimen Source:</td><td>B LOOD</td></tr><tr ><td>Culture Report:</td><td>N O GROWTH 5 DAYS </td></tr><tr><td >Culture Status:</td><td>F inal </td></tr><tr><td >Blood Culture:</td><td> Collection Plate Date: 12/29/2018 10:59 </td></tr></tbody ></table></item> ID Date Data Source Microbiology.[id number] 12/29/2018 10:30:00 AM EDT [facility] 400 Name Value Range Interpretation Code Description Data Lyly rce(s) Supporting Document(s ) UNK <item><content [facility] styleCode="Bold"> Medical Cent er Culture Status </content>
<t able><tbody><tr>< td>Specimen Number:</td><td>[id number]</td></tr ><tr><td>Sample Collection Date/Time: </td><td> 9 10:30 AM</td></tr><tr>< td>Specimen Source:</td><td>B LOOD</td></tr><tr ><td>Blood Culture:</td><td> Collection Plate Date: 12/29/2018 10:58 </td></tr><tr><td >Culture Report:</td><td>N O GROWTH 5 DAYS </td></tr><tr><td >Culture Status:</td><td>F inal </td></tr></tbody ></table></item> UNK <item><content [facility] styleCode="Bold"> Medical [facility] Culture Report </content>
<t able><tbody><tr>< td>Specimen Number:</td><td>[id number]</td></tr ><tr><td>Sample Collection Date/Time: </td><td> 9 10:30 AM</td></tr><tr>< td>Specimen Source:</td><td>B LOOD</td></tr><tr ><td>Blood Culture:</td><td> Collection Plate Date: 12/29/2018 10:58 </td></tr><tr><td >Culture Status:</td><td>F inal </td></tr><tr><td >Culture Report:</td><td>N O GROWTH 5 DAYS </td></tr></tbody ></table></item> Procedure Social History Code Duration Value Status Description Data Source(s ) Smoking 11/15/2019 02:49:00 Former Smoker completed Former Smoker [facility] Smoking 11/15/2019 01:42:00 Former Smoker completed Former Smoker [facility] Smoking 11/14/2019 11:37:00 Former Smoker completed Former Smoker [facility] Smoking 11/14/2019 11:12:00 Former Smoker completed Former Smoker [facility] Smoking 09/13/2019 09:32:00 Former Smoker completed Former Smoker [facility] Smoking 09/10/2019 06:00:00 Former Smoker completed Former Smoker [facility] Smoking 09/10/2019 04:41:00 Former Smoker completed Former Smoker [facility] Smoking 09/10/2019 10:20:00 Former Smoker completed Former Smoker [facility] Smoking 09/10/2019 10:15:00 Former Smoker completed Former Smoker [facility] Smoking 09/10/2019 10:06:00 Former Smoker completed Former Smoker [facility] Smoking 07/12/2019 12:24:00 Former Smoker completed Former Smoker [facility] Smoking 07/11/2019 05:18:00 Former Smoker completed Former Smoker [facility] Smoking 07/11/2019 03:39:00 Former Smoker completed Former Smoker [facility] Smoking 07/11/2019 02:30:00 Former Smoker completed Former Smoker [facility] Smoking 07/06/2019 11:18:00 Former Smoker completed Former Smoker [facility] Smoking 07/01/2019 10:55:00 Former Smoker completed Former Smoker [facility] Smoking 07/01/2019 09:55:00 Former Smoker completed Former Smoker [facility] Smoking 07/01/2019 07:34:00 Former Smoker completed Former Smoker [facility] Smoking 07/01/2019 03:55:00 Former Smoker completed Former Smoker [facility] Smoking 07/01/2019 03:45:00 Former Smoker completed Former Smoker [facility] Smoking 05/22/2019 05:20:00 Former Smoker completed Former Smoker [facility] Smoking 05/21/2019 09:50:00 Former Smoker completed Former Smoker [facility] Smoking 05/21/2019 05:30:00 Former Smoker completed Former Smoker [facility] Smoking 05/21/2019 05:15:00 Former Smoker completed Former Smoker [facility] Smoking 05/21/2019 05:10:00 Former Smoker completed Former Smoker [facility] Smoking 01/14/2019 02:24:00 Former Smoker completed Former Smoker [facility] Smoking 01/14/2019 12:28:00 Former Smoker completed Former Smoker [facility] Smoking 01/13/2019 10:32:00 Former Smoker completed Former Smoker [facility] Smoking 01/13/2019 09:18:00 Former Smoker completed Former Smoker [facility] Smoking 12/30/2018 04:11:00 Former Smoker completed Former Smoker [facility] Smoking 12/29/2018 06:18:00 Former Smoker completed Former Smoker [facility] Smoking 12/29/2018 10:00:00 Former Smoker completed Former Smoker [facility] Smoking 12/29/2018 09:50:00 Former Smoker completed Former Smoker [facility] Smoking 12/29/2018 09:49:00 Former Smoker completed Former Smoker [facility] Vital Signs ID Date Data Source UNK Name Value Range Interpretation Code Description Data Source(s) Respiratory rate 20 /min 20 /min [facility] Heart rate 78 /min 78 /min [facility] Diastolic blood 55 mm[Hg] 55 mm[Hg] [facility] Systolic blood 154 mm[Hg] 154 mm[Hg] [facility] Body temperature 36.701737 36.448526 [facility] Respiratory rate 20 /min 20 /min [facility] Heart rate 72 /min 72 /min [facility] Diastolic blood 86 mm[Hg] 86 mm[Hg] [facility] Systolic blood 157 mm[Hg] 157 mm[Hg] [facility] Body temperature 36.054658 36.916563 [facility] Respiratory rate 18 /min 18 /min [facility] Heart rate 70 /min 70 /min [facility] Diastolic blood 50 mm[Hg] 50 mm[Hg] [facility] Systolic blood 173 mm[Hg] 173 mm[Hg] [facility] Oxygen saturation 96 % 96 % [facility] Arterial blood [facility] by Pulse oximetry Body temperature 37.177433 37.458379 [facility] Respiratory rate 18 /min 18 /min [facility] Heart rate 69 /min 69 /min [facility] Diastolic blood 69 mm[Hg] 69 mm[Hg] [facility] Systolic blood 170 mm[Hg] 170 mm[Hg] [facility] Body temperature 36.049922 36.742485 [facility] Respiratory rate 20 /min 20 /min [facility] Heart rate 75 /min 75 /min [facility] Diastolic blood 57 mm[Hg] 57 mm[Hg] [facility] Systolic blood 161 mm[Hg] 161 mm[Hg] [facility] Body temperature 37.169119 37.539496 [facility] Oxygen saturation 97 % 97 % [facility] Arterial blood [facility] by Pulse oximetry Body temperature 36.877602 36.121494 [facility] Respiratory rate 20 /min 20 /min [facility] Heart rate 63 /min 63 /min [facility] Diastolic blood 66 mm[Hg] 66 mm[Hg] [facility] Systolic blood 148 mm[Hg] 148 mm[Hg] [facility] Body weight 65.341094 kg 65.441261 kg [facility] Body height 152.151264 152.656850 cm [facility] Body mass index 28.20 kg/m2 28.20 kg/m2 [facility] (BMI) [Ratio] Medical [facility] ter Body temperature 36.138642 36.819594 [facility] Respiratory rate 20 /min 20 /min [facility] Heart rate 61 /min 61 /min [facility] Diastolic blood 62 mm[Hg] 62 mm[Hg] [facility] Systolic blood 183 mm[Hg] 183 mm[Hg] [facility] Medical [place] Oxygen saturation 96 % 96 % [facility] Arterial blood [facility] by Pulse oximetry Body temperature 36.818563 36.138402 [facility] Respiratory rate 20 /min 20 /min [facility] Heart rate 63 /min 63 /min [facility] Diastolic blood 76 mm[Hg] 76 mm[Hg] [facility] Systolic blood 179 mm[Hg] 179 mm[Hg] [facility] Oxygen saturation 98 % 98 % [facility] Arterial blood [facility] by Pulse oximetry Body temperature 36.332434 36.368617 [facility] Respiratory rate 21 /min 21 /min [facility] Heart rate 63 /min 63 /min [facility] Diastolic blood 76 mm[Hg] 76 mm[Hg] [facility] [place] Systolic blood 178 mm[Hg] 178 mm[Hg] [facility] Oxygen saturation 97 % 97 % [facility] Arterial blood [facility] by Pulse oximetry Body temperature 36.179648 36.604935 [facility] Respiratory rate 17 /min 17 /min [facility] Heart rate 67 /min 67 /min [facility] Diastolic blood 64 mm[Hg] 64 mm[Hg] [facility] pressure Medical [place] Systolic blood 173 mm[Hg] 173 mm[Hg] [facility] [place] Body temperature 36.776140 36.618485 [facility] Respiratory rate 18 /min 18 /min [facility] Heart rate 90 /min 90 /min [facility] Diastolic blood 67 mm[Hg] 67 mm[Hg] [facility] Systolic blood 141 mm[Hg] 141 mm[Hg] [facility] [place] Body temperature 36.668609 36.277481 [facility] Respiratory rate 18 /min 18 /min [facility] Heart rate 80 /min 80 /min [facility] Diastolic blood 62 mm[Hg] 62 mm[Hg] [facility] Center Systolic blood 127 mm[Hg] 127 mm[Hg] [facility] Body temperature 36.697538 36.363013 [facility] Respiratory rate 20 /min 20 /min [facility] Heart rate 100 /min 100 /min [facility] Diastolic blood 74 mm[Hg] 74 mm[Hg] [facility] Medical [place] Systolic blood 143 mm[Hg] 143 mm[Hg] [facility] [place] Body temperature 36.552884 36.842865 [facility] Respiratory rate 20 /min 20 /min [facility] Heart rate 101 /min 101 /min [facility] Diastolic blood 78 mm[Hg] 78 mm[Hg] [facility] Systolic blood 162 mm[Hg] 162 mm[Hg] [facility] Oxygen saturation 95 % 95 % [facility] Arterial blood [facility] by Pulse oximetry Body temperature 36.358582 36.924237 [facility] Respiratory rate 18 /min 18 /min [facility] Heart rate 90 /min 90 /min [facility] Diastolic blood 70 mm[Hg] 70 mm[Hg] [facility] [place] Systolic blood 147 mm[Hg] 147 mm[Hg] [facility] [place] Oxygen saturation 96 % 96 % [facility] Arterial blood [facility] by Pulse oximetry Body temperature 36.351276 36.148343 [facility] Respiratory rate 20 /min 20 /min [facility] Heart rate 97 /min 97 /min [facility] Diastolic blood 74 mm[Hg] 74 mm[Hg] [facility] [place] Systolic blood 166 mm[Hg] 166 mm[Hg] [facility] [place] Body temperature 36.222972 36.916722 [facility] Respiratory rate 20 /min 20 /min [facility] Heart rate 102 /min 102 /min [facility] Diastolic blood 92 mm[Hg] 92 mm[Hg] [facility] [place] Systolic blood 157 mm[Hg] 157 mm[Hg] [facility] Body temperature 36.654642 36.807028 [facility] Respiratory rate 20 /min 20 /min [facility] Heart rate 99 /min 99 /min [facility] Diastolic blood 76 mm[Hg] 76 mm[Hg] [facility] Systolic blood 182 mm[Hg] 182 mm[Hg] [facility] Body temperature 36.235212 36.437111 [facility] Respiratory rate 20 /min 20 /min [facility] Heart rate 104 /min 104 /min [facility] Diastolic blood 74 mm[Hg] 74 mm[Hg] [facility] Systolic blood 171 mm[Hg] 171 mm[Hg] [facility] Oxygen saturation 98 % 98 % [facility] Arterial blood [facility] by Pulse oximetry Body temperature 36.427920 36.198838 [facility] Respiratory rate 18 /min 18 /min [facility] Heart rate 88 /min 88 /min [facility] Diastolic blood 64 mm[Hg] 64 mm[Hg] [facility] Systolic blood 153 mm[Hg] 153 mm[Hg] [facility] Oxygen saturation 98 % 98 % [facility] Arterial blood [facility] by Pulse oximetry Body temperature 36.459087 36.492624 [facility] Respiratory rate 18 /min 18 /min [facility] Heart rate 75 /min 75 /min [facility] Diastolic blood 58 mm[Hg] 58 mm[Hg] [facility] Systolic blood 132 mm[Hg] 132 mm[Hg] [facility] Body weight 81.999389 kg 81.038403 kg [facility] Oxygen saturation 99 % 99 % [facility] Arterial blood [facility] by Pulse oximetry Body height 160.580436 160.141696 cm [facility] Body mass index 31.89 kg/m2 31.89 kg/m2 [facility] (BMI) [Ratio] [facility] Body temperature 36.839991 36.403877 [facility] Body weight 81.023556 kg 81.657138 kg [facility] Body height 160.906214 160.999509 cm [facility] Body mass index 31.89 kg/m2 31.89 kg/m2 [facility] (BMI) [Ratio] [facility] Body temperature 36.749094 36.907635 [facility] Respiratory rate 20 /min 20 /min [facility] Heart rate 94 /min 94 /min [facility] Diastolic blood 70 mm[Hg] 70 mm[Hg] [facility] [place] Systolic blood 127 mm[Hg] 127 mm[Hg] [facility] Body temperature 36.356167 36.986101 [facility] Respiratory rate 18 /min 18 /min [facility] Oxygen saturation 99 % 99 % [facility] Arterial blood [facility] by Pulse oximetry Heart rate 78 /min 78 /min [facility] Diastolic blood 88 mm[Hg] 88 mm[Hg] [facility] [place] Systolic blood 133 mm[Hg] 133 mm[Hg] [facility] Body temperature 36.140959 36.304710 [facility] Respiratory rate 17 /min 17 /min [facility] Oxygen saturation 99 % 99 % [facility] Arterial blood [facility] by Pulse oximetry Heart rate 78 /min 78 /min [facility] Diastolic blood 77 mm[Hg] 77 mm[Hg] [facility] [place] Systolic blood 146 mm[Hg] 146 mm[Hg] [facility] Respiratory rate 20 /min 20 /min [facility] Oxygen saturation 95 % 95 % [facility] Arterial blood [facility] by Pulse oximetry Heart rate 88 /min 88 /min [facility] Diastolic blood 77 mm[Hg] 77 mm[Hg] [facility] Systolic blood 160 mm[Hg] 160 mm[Hg] [facility] Body temperature 36.284485 36.683623 [facility] Oxygen saturation 96 % 96 % [facility] Arterial blood [facility] by Pulse oximetry Respiratory rate 20 /min 20 /min [facility] Heart rate 99 /min 99 /min [facility] Diastolic blood 60 mm[Hg] 60 mm[Hg] [facility] Systolic blood 132 mm[Hg] 132 mm[Hg] [facility] Oxygen saturation 100 % 100 % [facility] Arterial blood [facility] by Pulse oximetry Body temperature 36.035803 36.088549 [facility] Respiratory rate 18 /min 18 /min [facility] Heart rate 77 /min 77 /min [facility] Diastolic blood 47 mm[Hg] 47 mm[Hg] [facility] [place] Systolic blood 122 mm[Hg] 122 mm[Hg] [facility] Body temperature 36.637759 36.559952 [facility] Respiratory rate 20 /min 20 /min [facility] Heart rate 98 /min 98 /min [facility] Diastolic blood 65 mm[Hg] 65 mm[Hg] [facility] [place] Systolic blood 126 mm[Hg] 126 mm[Hg] [facility] Body temperature 37.803376 37.869799 [facility] Respiratory rate 20 /min 20 /min [facility] Heart rate 94 /min 94 /min [facility] Diastolic blood 46 mm[Hg] 46 mm[Hg] [facility] [place] Systolic blood 135 mm[Hg] 135 mm[Hg] [facility] Body temperature 36.138133 36.250630 [facility] Respiratory rate 20 /min 20 /min [facility] Heart rate 73 /min 73 /min [facility] Diastolic blood 52 mm[Hg] 52 mm[Hg] [facility] [place] Systolic blood 130 mm[Hg] 130 mm[Hg] [facility] Body temperature 37.694448 37.625690 [facility] Respiratory rate 20 /min 20 /min [facility] Heart rate 121 /min 121 /min [facility] Diastolic blood 74 mm[Hg] 74 mm[Hg] [facility] Systolic blood 134 mm[Hg] 134 mm[Hg] [facility] Oxygen saturation 96 % 96 % [facility] Arterial blood [facility] by Pulse oximetry Oxygen saturation 96 % 96 % [facility] J [facility] in Arterial blood [facility] by Pulse oximetry Body temperature 36.664647 36.819745 [facility] Respiratory rate 19 /min 19 /min [facility] Heart rate 67 /min 67 /min [facility] Diastolic blood 114 mm[Hg] 114 mm[Hg] [facility] Systolic blood 167 mm[Hg] 167 mm[Hg] [facility] Body temperature 37.431610 37.632290 [facility] Respiratory rate 20 /min 20 /min [facility] Heart rate 78 /min 78 /min [facility] Diastolic blood 51 mm[Hg] 51 mm[Hg] [facility] Systolic blood 135 mm[Hg] 135 mm[Hg] [facility] Oxygen saturation 96 % 96 % [facility] Arterial blood [facility] by Pulse oximetry Body temperature 37.805335 37.697953 [facility] Respiratory rate 18 /min 18 /min [facility] Heart rate 79 /min 79 /min [facility] Diastolic blood 89 mm[Hg] 89 mm[Hg] [facility] Systolic blood 165 mm[Hg] 165 mm[Hg] [facility] Body temperature 36.547071 36.746560 [facility] Respiratory rate 18 /min 18 /min [facility] Heart rate 74 /min 74 /min [facility] Diastolic blood 78 mm[Hg] 78 mm[Hg] [facility] Systolic blood 179 mm[Hg] 179 mm[Hg] [facility] Oxygen saturation 98 % 98 % [facility] Arterial blood [facility] by Pulse oximetry Body temperature 37.651479 37.441123 [facility] Respiratory rate 20 /min 20 /min [facility] Heart rate 86 /min 86 /min [facility] Diastolic blood 92 mm[Hg] 92 mm[Hg] [facility] Systolic blood 186 mm[Hg] 186 mm[Hg] [facility] Body temperature 36.002605 36.347848 [facility] Respiratory rate 20 /min 20 /min [facility] Heart rate 95 /min 95 /min [facility] Diastolic blood 83 mm[Hg] 83 mm[Hg] [facility] Systolic blood 158 mm[Hg] 158 mm[Hg] [facility] Body temperature 36.961616 36.909137 [facility] Respiratory rate 20 /min 20 /min [facility] Heart rate 71 /min 71 /min [facility] Diastolic blood 82 mm[Hg] 82 mm[Hg] [facility] Systolic blood 162 mm[Hg] 162 mm[Hg] [facility] Body temperature 36.248375 36.045865 [facility] Respiratory rate 18 /min 18 /min [facility] Heart rate 98 /min 98 /min [facility] Diastolic blood 78 mm[Hg] 78 mm[Hg] [facility] Systolic blood 160 mm[Hg] 160 mm[Hg] [facility] [place] Body temperature 36.586857 36.547663 [facility] Respiratory rate 20 /min 20 /min [facility] Heart rate 99 /min 99 /min [facility] Diastolic blood 67 mm[Hg] 67 mm[Hg] [facility] Systolic blood 143 mm[Hg] 143 mm[Hg] [facility] [place] Body temperature 36.249349 36.429315 [facility] Respiratory rate 18 /min 18 /min [facility] Heart rate 92 /min 92 /min [facility] Diastolic blood 94 mm[Hg] 94 mm[Hg] [facility] Systolic blood 154 mm[Hg] 154 mm[Hg] [facility] Body temperature 36.841697 36.815653 [facility] Respiratory rate 20 /min 20 /min [facility] Heart rate 89 /min 89 /min [facility] Diastolic blood 85 mm[Hg] 85 mm[Hg] [facility] Systolic blood 163 mm[Hg] 163 mm[Hg] [facility] Oxygen saturation 95 % 95 % [facility] in Arterial blood [facility] by Pulse oximetry Body temperature 36.531771 36.405449 [facility] Respiratory rate 20 /min 20 /min [facility] Heart rate 98 /min 98 /min [facility] Diastolic blood 85 mm[Hg] 85 mm[Hg] [facility] Systolic blood 168 mm[Hg] 168 mm[Hg] [facility] Body weight 80.389285 kg 80.187457 kg [facility] Body height 160.999363 160.313635 cm [facility] [place] Body mass index 31.52 kg/m2 31.52 kg/m2 [facility] (BMI) [Ratio] [facility] Body temperature 37.905710 37.068997 [facility] Respiratory rate 18 /min 18 /min [facility] Heart rate 99 /min 99 /min [facility] Diastolic blood 89 mm[Hg] 89 mm[Hg] [facility] Systolic blood 175 mm[Hg] 175 mm[Hg] [facility] Oxygen saturation 97 % 97 % [facility] Arterial blood [facility] by Pulse oximetry Body temperature 37.184336 37.828981 [facility] Respiratory rate 17 /min 17 /min [facility] Heart rate 99 /min 99 /min [facility] Diastolic blood 85 mm[Hg] 85 mm[Hg] [facility] Systolic blood 188 mm[Hg] 188 mm[Hg] [facility] Oxygen saturation 98 % 98 % [facility] Arterial blood [facility] by Pulse oximetry Body weight 79.906391 kg 79.084819 kg [facility] Oxygen saturation 95 % 95 % [facility] Arterial blood [facility] by Pulse oximetry Body height 160.339597 160.871937 cm [facility] [place] Body mass index 30.9 kg/m2 30.9 kg/m2 [facility] (BMI) [Ratio] Medical [facility] ter Body temperature 36.669292 36.177470 [facility] Respiratory rate 20 /min 20 /min [facility] Heart rate 71 /min 71 /min [facility] Diastolic blood 65 mm[Hg] 65 mm[Hg] [facility] Systolic blood 142 mm[Hg] 142 mm[Hg] [facility] Body temperature 36.077517 36.643105 [facility] Respiratory rate 20 /min 20 /min [facility] Heart rate 76 /min 76 /min [facility] Diastolic blood 52 mm[Hg] 52 mm[Hg] [facility] Systolic blood 123 mm[Hg] 123 mm[Hg] [facility] Oxygen saturation 97 % 97 % [facility] Arterial blood [facility] by Pulse oximetry Body weight 83.134272 kg 83.771018 kg [facility] Body temperature 36.853984 36.809018 [facility] Respiratory rate 20 /min 20 /min [facility] Heart rate 102 /min 102 /min [facility] Body height 160.982330 160.589370 cm [facility] Diastolic blood 62 mm[Hg] 62 mm[Hg] [facility] Center Systolic blood 155 mm[Hg] 155 mm[Hg] [facility] Body mass index 32.59 kg/m2 32.59 kg/m2 [facility] (BMI) [Ratio] [facility] Body temperature 36.224344 36.617080 [facility] Respiratory rate 19 /min 19 /min [facility] Oxygen saturation 99 % 99 % [facility] Arterial blood [facility] by Pulse oximetry Heart rate 85 /min 85 /min [facility] Diastolic blood 71 mm[Hg] 71 mm[Hg] [facility] Systolic blood 155 mm[Hg] 155 mm[Hg] [facility] Body temperature 37.698477 37.050682 [facility] Respiratory rate 16 /min 16 /min [facility] Oxygen saturation 92 % 92 % [facility] blood [facility] by Pulse oximetry Heart rate 111 /min 111 /min [facility] Diastolic blood 72 mm[Hg] 72 mm[Hg] [facility] Systolic blood 147 mm[Hg] 147 mm[Hg] [facility] Body temperature 36.959739 36.051854 [facility] Respiratory rate 20 /min 20 /min [facility] Heart rate 54 /min 54 /min [facility] Diastolic blood 78 mm[Hg] 78 mm[Hg] [facility] Systolic blood 132 mm[Hg] 132 mm[Hg] [facility] Body temperature 36.888000 36.479273 [facility] Respiratory rate 19 /min 19 /min [facility] Heart rate 78 /min 78 /min [facility] Diastolic blood 59 mm[Hg] 59 mm[Hg] [facility] Systolic blood 136 mm[Hg] 136 mm[Hg] [facility] Body weight 81.779661 kg 81.912463 kg [facility] Body temperature 36.331720 36.970736 [facility] Respiratory rate 20 /min 20 /min [facility] Diastolic blood 60 mm[Hg] 60 mm[Hg] [facility] Systolic blood 130 mm[Hg] 130 mm[Hg] [facility] Body temperature 37.388330 37.096897 [facility] Respiratory rate 20 /min 20 /min [facility] Heart rate 78 /min 78 /min [facility] Diastolic blood 49 mm[Hg] 49 mm[Hg] [facility] Systolic blood 121 mm[Hg] 121 mm[Hg] [facility] Body temperature 36.905515 36.049663 [facility] Respiratory rate 20 /min 20 /min [facility] Heart rate 115 /min 115 /min [facility] Diastolic blood 66 mm[Hg] 66 mm[Hg] [facility] Systolic blood 135 mm[Hg] 135 mm[Hg] [facility] Heart rate 76 /min 76 /min [facility] Body weight 81.975327 kg 81.919815 kg [facility] Body weight 84.292907 kg 84.028120 kg [facility] Oxygen saturation 96 % 96 % [facility] by Pulse oximetry Oxygen saturation 97 % 97 % [facility] P[facility] oximetry Body temperature 36.499094 36.385319 [facility] Respiratory rate 20 /min 20 /min [facility] Heart rate 100 /min 100 /min [facility] Diastolic blood 78 mm[Hg] 78 mm[Hg] [facility] Systolic blood 152 mm[Hg] 152 mm[Hg] [facility] Body temperature 37.342811 37.519664 [facility] Respiratory rate 20 /min 20 /min [facility] Heart rate 84 /min 84 /min [facility] Diastolic blood 74 mm[Hg] 74 mm[Hg] [facility] Systolic blood 179 mm[Hg] 179 mm[Hg] [facility] Oxygen saturation 99 % 99 % [facility] blood [facility] by Pulse oximetry Body temperature 37.613636 37.938273 [facility] Respiratory rate 20 /min 20 /min [facility] Heart rate 86 /min 86 /min [facility] Diastolic blood 71 mm[Hg] 71 mm[Hg] [facility] Systolic blood 170 mm[Hg] 170 mm[Hg] [facility] Body temperature 36.952425 36.982198 [facility] Respiratory rate 20 /min 20 /min [facility] Heart rate 101 /min 101 /min [facility] Diastolic blood 81 mm[Hg] 81 mm[Hg] [facility] Systolic blood 173 mm[Hg] 173 mm[Hg] [facility] Body temperature 36.255994 36.849496 [facility] Respiratory rate 20 /min 20 /min [facility] Heart rate 105 /min 105 /min [facility] Diastolic blood 87 mm[Hg] 87 mm[Hg] [facility] Systolic blood 176 mm[Hg] 176 mm[Hg] [facility] Body weight 84.925612 kg 84.391857 kg [facility] Body height 160.236418 160.744850 cm [facility] Body mass index 32.80 kg/m2 32.80 kg/m2 [facility] (BMI) [Ratio] [facility] Oxygen saturation 100 % 100 % [facility] blood [facility] by Pulse oximetry Oxygen saturation 98 % 98 % [facility] by Pulse oximetry Oxygen saturation 97 % 97 % [facility] blood [facility] by Pulse oximetry Body weight 75.597456 kg 75.695571 kg [facility] Body height 160.797016 160.062409 [facility] Body mass index 29.2 kg/m2 29.2 kg/m2 [facility] (BMI) [Ratio] [facility]
== END 2020-01-30 09:30 | disposition expired ==
LOC: JER 05:46
DX: I46.9 Cardiac arrest, cause unspecified (principal)
CPT/HCPCS: 99285-25